=== PATIENT | male | born 1955 | race Caucasian/White ===

== ENCOUNTER → 2019-07-27 12:39 | Outpatient (CLI) | payer MEDICARE, SELFPAY ==
--- NOTE | ~2019-07-27 | CT_ITS ---
EXAMINATION: CT chest abdomen pelvis wo con EXAM DATE: 07/27/2019 13:16 INDICATION: Malignant neoplasm of the ascending colon. Right upper quadrant pain. Restaging. TECHNIQUE: Spiral CT of the chest, abdomen and pelvis was performed without contrast. Axial, henderson l and sagittal images were reviewed. Coronal maximum intensity pixel images of chest reviewed. The dose-length product (DLP) for this examination was 1436.85 mGy-cm. The exposure was tailored accordi ng to patient size (auto mA exposure control), and iterative reconstruction (ASIR) was used as additi onal dose reduction technique. There is no prior study for comparison. FINDINGS: CHEST: There is a left-sided Chemo-Port. There is right middle lobe granuloma. The lungs are otherwi se clear. There is mild emphysema and mild bronchiectasis. There are no pleural or pericardial effus ions. Tracheobronchial tree is patent. There is no mediastinal, hilar or axillary lymphadenopathy . There is no pneumothorax. Heart normal in size. There is moderate coronary arterial calcifica tion, arterial sclerosis. ABDOMEN PELVIS: Again there are several calcified liver masses consistent with treated static lesions . Previously seen diffuse liver heterogeneity has improved, probably was some hepatic steatosis. Gal lbladder is unremarkable. No biliary obstruction. There is no nephrolithiasis or hydronephrosis. T here is mild prostatomegaly. The bladder is unremarkable. There is no retroperitoneal or pelvic lym phadenopathy. There is mild scattered arteriosclerotic disease. Multiple abdominal wall hernias, so me containing nonobstructed bowel not significantly changed compared to prior study. There is a small left inguinal fat-containing hernia. Status post cecal resection. The stomach and small bowel are unremarkable. There is expected amount of colonic stool. No free intraperitoneal gas. There are no osteoblastic or osteolytic lesions i dentified. Mild to moderate thoracolumbar dextroscoliosis. IMPRESSION: 1. Stable liver calcified masses, treated metastases. 2. Multiple ventral hernias containing nonobstructed bowel. 3. Mild emphysema and bronchiectasis. Reviewed, dictated and finalized at location A.
== END ==
PROVIDERS: Visit Provider Internal Medicine Medical Oncology
DX: C18.2 Malignant neoplasm of ascending colon (principal); C78.7 Secondary malignant neoplasm of liver and intrahepatic bile duct; J43.9 Emphysema, unspecified; K43.9 Ventral hernia without obstruction or gangrene
CPT/HCPCS: 71250; 74176

== ENCOUNTER 2020-04-27 09:06 | Outpatient (CLI) | payer MEDICARE, SELFPAY ==
--- NOTE | ~2020-04-27 | CT_ITS ---
EXAMINATION: CT abdomen pelvis w con EXAM DATE: 04/27/2020 09:46 INDICATION: Malignant ascending colonic cancer. TECHNIQUE: Spiral CT of the abdomen and pelvis was performed following intravenous injection of 100 m L Omnipaque 350. Axial, coronal and sagittal images were reviewed. The dose-length product (DLP) fo r this examination was 1514.22 mGy-cm. The exposure was tailored according to patient size (auto mA exposure control), and iterative reconstruction (ASIR) was used as additional dose reduction techniqu e. Comparison is made to prior examination from 07/27/2019. FINDINGS: Calcified right liver lobe mass posterior medially measuring about 4 cm maximally, and a 5 mm right liver dome calcification, both unchanged and could be treated metastatic disease. No new octavia er lesions identified. Gallbladder is unremarkable. No biliary obstruction. Portal and splenic vein s are patent. Kidneys enhance symmetrically. There is no hydronephrosis. There is mild prostatomeg gaurang. The bladder is unremarkable. There is no retroperitoneal or pelvic lymphadenopathy. Multiple large abdominal wall hernias containing multiple loops of small bowel, and portion of the transverse colon. Ascending colonic resection. The stomach and small bowel are unremarkable. There is expected amount of colonic stool. No free intraperitoneal gas. The heart is normal in size. There are no perica rdial or pleural effusions. The lung bases are unremarkable. There is mild to moderate thoracic dex troscoliosis, thoracolumbar levoscoliosis. IMPRESSION: 1. Stable CT abdomen pelvis exam. 2. Large abdominal wall hernias containing nonobstructed bowel. 3. Mild prostatomegaly. Reviewed, dictated and finalized at location B. MIXER
[2020-04-27 09:41] LABS: Estimated Glomerular Filt Rate > 60
== END 2020-04-27 09:07 | disposition home or self-care (01) ==
LOC: ANHIMG 09:11
PROVIDERS: PCP Family Medicine; Visit Provider Internal Medicine Medical Oncology
DX: C18.2 Malignant neoplasm of ascending colon (principal); C78.7 Secondary malignant neoplasm of liver and intrahepatic bile duct; N40.0 Benign prostatic hyperplasia without lower urinary tract symptoms; K44.9 Diaphragmatic hernia without obstruction or gangrene
CPT/HCPCS: 74177; Q9967

== ENCOUNTER 2020-07-20 08:08 | Outpatient (CLI) | payer MEDICARE, SELFPAY ==
--- NOTE | ~2020-07-20 | CT_ITS ---
EXAMINATION: CT abdomen pelvis wo con DATE: 07/20/2020 08:23 INDICATION: Malignant neoplasm of ascending colon. Liver metastases. TECHNIQUE: Computed tomography (CT) of the abdomen and pelvis was performed without intravenous contr ast. Automated exposure control and iterative reconstruction technique were employed. The dose-length product was 1426.52 mGy-cm. COMPARISON: CT abdomen and pelvis 04/27/2020, 05/12/2015 FINDINGS: The visualized portions of the lung bases demonstrate mild atelectasis in the left. There i s mild bronchiectasis bilaterally. No pleural effusion. The heart size is normal. There are coronary artery calcifications. No pericardial effusion. There are 3 hyperdense masses in the liver measuring up to 4.0 x 3.4 cm. The other hyperdense masses measure 7 mm and 5 mm, respectively. The gallbladder is distended, likely secondary to fasting. The spleen, pancreas, and adrenal glands are normal. There is a 3 mm stone in right kidney. There is a 4 mm stone in left kidney. There are multiple ventral he rnias containing nonobstructed small bowel and transverse colon. There is a left inguinal hernia cont aining fat. The prostate is moderately enlarged. There are changes of right hemicolectomy. There are no dilated loops of bowel. There are no pathologically enlarged lymph nodes. There is no free intrape ritoneal fluid. There is moderate lumbar spondylosis. Thoracolumbar levoscoliosis is noted. There is a hemangioma in L4 vertebral body. IMPRESSION: 1. Three stable hyperdense liver masses, consistent with metastatic disease with changes of chemoembo lization. 2. Multiple ventral hernias containing nonobstructed bowel. Reviewed, dictated and finalized at location A. IMPRESSION: 1. Three stable hyperdense liver masses, consistent with metastatic disease wit h changes of chemoembolization. 2. Multiple ventral hernias containing nonobstructed bowel.
== END 2020-07-20 08:09 | disposition home or self-care (01) ==
PROVIDERS: PCP Family Medicine; Visit Provider Internal Medicine Medical Oncology
DX: C18.2 Malignant neoplasm of ascending colon (principal); C78.7 Secondary malignant neoplasm of liver and intrahepatic bile duct; K43.9 Ventral hernia without obstruction or gangrene
CPT/HCPCS: 74176

== ENCOUNTER 2020-10-12 08:51 | Outpatient (CLI) | payer MEDICARE, SELFPAY ==
--- NOTE | ~2020-10-12 | CT_ITS ---
EXAMINATION: CT abdomen pelvis wo con DATE: 10/12/2020 09:15 INDICATION: Restaging metastatic colon cancer. Anterior and medial right abdominal pain. TECHNIQUE: Computed tomography (CT) of the abdomen and pelvis was performed without intravenous contr ast. Automated exposure control and iterative reconstruction technique were employed. The dose-length product was 1443.09 mGy-cm. COMPARISON: 07/20/2020, 07/27/2019 and 05/12/2015 FINDINGS: Unchanged mild discoid atelectasis/scarring in the lingula and bilateral lower lobes. Heart size is n ormal. Atherosclerotic coronary artery calcifications. No pericardial or pleural effusion. No signifi cant change in a 4.2 x 3.1 cm mass in the posterior right hepatic lobe and smaller 8 mm nodule also t he right hepatic lobe, both with high attenuation material which could represent either calcification or chemoembolization material for reported metastatic disease. A couple additional small foci of hig h attenuation material in the left hepatic lobe at the junction of segments 4A and 4B measuring 5 mm and 3 mm lesions. All remain unchanged since the most recent studies and significantly smaller hypode nse mass at these locations seen on CT dated 05/12/2015 consistent with treated metastatic disease. No new hepatic lesions identified. Gallbladder, pancreas and bilateral adrenal glands are normal. Coupl e tiny splenic calcification is consistent with old granulomatous disease. A couple nonobstructing re nal stones measuring 3 mm the lower pole of the left kidney and 2 mm to lower pole of the right kidne y. Postoperative change of prior right hemicolectomy with ileocolic anastomosis in the right abdomen and multiple surgical clips along the anterior right pararenal space. Surgical scarring and multiple ventral hernias,. The smaller containing fat and at least 4 larger hernias containing loops of nonobs tructed small bowel and transverse colon without associated bowel wall thickening, fluid or inflammat ory stranding to suggest incarceration. Small fat-containing left inguinal hernia. Bladder is normal. Prostatomegaly. No free intraperitoneal gas or fluid. No pathologically enlarged abdominal or pelvic lymphadenopathy. Moderate lumbar and lower thoracic spondylosis. Unchanged L4 hemangioma Mild to mod erate bilateral hip osteoarthritis. IMPRESSION: 1. No interval change in 4 hepatic lesions with hyperdense material consistent with treated metastati c disease with either secondary dystrophic calcification or chemoembolization material. No lesion vladimir picious for progressive metastatic disease. 2. Multiple ventral hernias containing nonobstructed bowel. 3. Prostatomegaly. 4. Bilateral nonobstructing nephrolithiasis. Reviewed, dictated and finalized at location A. IMPRESSION: 1. No interval change in 4 hepatic lesions with hyperdense material consistent with treated metastatic disease with either secondary dystrophic calcification or chemoembolization material. No lesion suspicious for progressive metastatic disease. 2. Multiple ventral hernias containing nonobstructed bowel. 3. Prostatomegaly. 4. Bilateral nonobstructing nephrolithiasis.
== END 2020-10-12 08:52 | disposition home or self-care (01) ==
LOC: ANHIMG 08:56
PROVIDERS: PCP Family Medicine; Visit Provider Internal Medicine Medical Oncology
DX: C18.2 Malignant neoplasm of ascending colon (principal); C78.7 Secondary malignant neoplasm of liver and intrahepatic bile duct; N20.0 Calculus of kidney; N40.0 Benign prostatic hyperplasia without lower urinary tract symptoms; K43.9 Ventral hernia without obstruction or gangrene
CPT/HCPCS: 74176

== ENCOUNTER 2021-01-04 08:30 | Outpatient (CLI) | payer MEDICARE, SELFPAY ==
--- NOTE | ~2021-01-04 | CT_ITS ---
EXAMINATION: CT chest abdomen pelvis wo con EXAM DATE: 01/04/2021 09:13 INDICATION: Ascending colon cancer. Liver metastatic disease. TECHNIQUE: Spiral CT of the chest, abdomen and pelvis was performed without contrast. Axial, henderson l and sagittal images chest, abdomen and pelvis were reviewed. Coronal maximum intensity pixel image s of chest reviewed. The dose-length product (DLP) for this examination was 1798.32 mGy-cm. The exp osure was tailored according to patient size (auto mA exposure control), and iterative reconstruction (ASIR) was used as additional dose reduction technique. Comparison is made to prior examination from 10/12/2020. FINDINGS: CHEST: Right upper lobe 1 cm calcified granuloma. The lungs are otherwise clear. There are no pleu ral or pericardial effusions. Tracheobronchial tree is patent. There is no mediastinal, hilar or axillary lymphadenopathy. There is no pneumothorax. Heart normal in size. Moderate coronary art erial sclerosis. Possible stones. There is left-sided Chemo-Port. ABDOMEN PELVIS: Several regions of liver calcification consistent with treated metastatic disease unc hanged. Pancreas, spleen, adrenal glands are unremarkable. Gallbladder is unremarkable. No biliary obstruction. There is 2 mm right inferior calyceal stone and 1 mm left inferior calyceal stone. No h ydronephrosis. Mild prostatomegaly. Small left inguinal fat-containing hernia. The bladder is unrem arkable. There is no retroperitoneal or pelvic lymphadenopathy. There is mild scattered arterioscl erotic disease. Status post right hemicolectomy. Multiple ventral hernias containing small and large bowel without ob struction. The stomach and small bowel are unremarkable. There is expected amount of colonic stool. No free intraperitoneal gas. There are no osteoblastic or osteolytic lesions identified. There i s moderate lower thoracic dextroscoliosis. IMPRESSION: 1. Stable liver lesions consistent with treated metastatic disease. 2. Large ventral hernias containing nonobstructed bowel. 3. Mild prostatomegaly. 4. Nephrolithiasis. Reviewed, dictated and finalized at location B.
== END 2021-01-04 08:31 | disposition home or self-care (01) ==
LOC: ANHIMG 08:35
PROVIDERS: PCP Family Medicine; Visit Provider Internal Medicine Medical Oncology
DX: C18.2 Malignant neoplasm of ascending colon (principal); N20.0 Calculus of kidney; N40.0 Benign prostatic hyperplasia without lower urinary tract symptoms; K43.9 Ventral hernia without obstruction or gangrene
CPT/HCPCS: 71250; 74176

== ENCOUNTER → 2021-11-02 09:50 | Outpatient (CLI) | payer MEDICARE, SELFPAY ==
--- NOTE | ~2021-11-02 | CT_ITS ---
EXAMINATION: CT chest abdomen pelvis w con DATE: 11/02/2021 11:01 INDICATION: Restaging of malignant metastatic ascending colon neoplasm TECHNIQUE: Computed tomography (CT) of the chest, abdomen, and pelvis was performed with 100 CC Omnip aque 350 intravenous contrast. Automated exposure control and iterative reconstruction technique were employed. Exam dose: 1464.68 mGy-cm total exam DLP. COMPARISON: 01/04/2021 CT chest abdomen pelvis Serial CT chest abdomen and pelvis imaging dating back to 05/12/2015 FINDINGS: CHEST CT: Prominent calcified granuloma of the middle lobe. Minimal discoid atelectasis or scarring in the lowe r lobes and lingula. No pulmonary infiltrate or consolidation or pulmonary mass lesion is detected. Left Port-A-Cath catheter tip at the very upper aspect right atrium. Normal heart size. Coronary jackie ry calcifications. No thoracic aortic aneurysm or dissection no hilar or mediastinal mass lesion or l ymphadenopathy. No pericardial or pleural effusion. ABDOMEN/PELVIS CT: Stable treated calcified hepatic metastases, unchanged since 01/04/2021. No new or enlarging liver mas s lesion or metastasis is noted. The gallbladder, bile ducts, pancreas and pancreatic duct as well as the spleen and adrenal glands ar e unremarkable. A small nonobstructing calculus of each kidney is demonstrated, present on previous examination. No s uspicious renal mass lesion or ureteral calculus or hydroureteronephrosis. There is prostate enlargement and calcification. The urinary bladder is unremarkable. Status post right colectomy Normal caliber of the abdominal aorta. No intraperitoneal or retroperitoneal or pelvic mass lesion or adenopathy or ascites. Mild fat-containing left inguinal hernia. There are multiple ventral abdominal wall hernias, some containing small bowel, one containing transv erse colon, without strangulation. There is air-fluid levels of the colon within the left parasagitta l ventral abdominal wall hernia sac and proximal to the hernia with decompression distally, suggestin g partial colonic obstruction due to the hernia. No suspicious osteolytic or osteoblastic lesions. IMPRESSION: No interval evidence of recurrence colon cancer or new metastasis since 01/04/2021 Multiple ventral abdominal wall hernias containing small bowel and colon; there may be partial obstru ction of the colon in the left parasagittal ventral abdominal wall hernia Status post right colectomy for colon cancer; stable calcified hepatic metastases Reviewed, dictated and finalized at Location A. Reviewed, dictated and finalized at location B. IMPRESSION: No interval evidence of recurrence colon cancer or new metastasis since 01/04/2021 Multiple ventral abdominal wall hernias containing small bowel and colon; there may be partial obstruction of the colon in the left parasagittal ventral abdom inal wall hernia Status post right colectomy for colon cancer; stable calcified hepatic metastas es
[2021-11-02 10:38] LABS: Estimated Glomerular Filt Rate > 60
== END ==
PROVIDERS: PCP Family Medicine; Visit Provider Internal Medicine Medical Oncology
DX: C18.2 Malignant neoplasm of ascending colon (principal); C78.7 Secondary malignant neoplasm of liver and intrahepatic bile duct; K43.9 Ventral hernia without obstruction or gangrene
CPT/HCPCS: 71260; 74177; Q9967

== ENCOUNTER 2024-06-21 12:48 | Inpatient (IN) | payer MEDICARE, SELFPAY ==
[2024-06-21] VITALS (17 sets, daily range): BP systolic 99–133; BP diastolic 70–98; PULSE 96–108; RESP 18–26; TEMP 36.1–36.6; O2SAT 95–100; BMI 35.2
--- NOTE | ~2024-06-21 | CT_ITS ---
CTA chest PE protocol Ordering provider: Eleno Flores III DO History: 68 years Male with . hemoptysis . Comparison: November 02, 2021 Technique: CT angiogram chest was performed following timed intravenous injection of contrast. Thin s lice axial images and reformatted coronal images were obtained. Three dimensional reformatted images of the chest were also obtained using a [employer] workstation. . Automated exposure control and iterati ve reconstruction technique were employed. The dose-length product was 790.43 mGy-cm. 100 MLO Omnipaq ue 350 was given IV. Findings: PULMONARY ARTERIES: No pulmonary embolus. VISUALIZED THORACIC INLET: Normal. MEDIASTINUM: Aorta/coronary arteries: Mild atheromatous disease. Heart/other: Moderate cardiomegaly. Lymph nodes: No mediastinal or hilar adenopathy. Small prevascular lymph nodes. LUNGS: No pulmonary masses. Pneumonia in the middle lobe and the right lower lobe. Large right pleural effus ion. No pneumothorax. Nodule in the right lower lobe measuring 5 mm. Nodule in the left lower lobe me dially measuring 1.2 cm. 3 months follow-up CT is advised. VISUALIZED UPPER ABDOMEN: Hyperdensity in the gallbladder which may be a stone or sludge. Otherwise, the visualized upper abdomen is normal. MUSCULOSKELETAL: Soft tissues: The superficial soft tissues are normal. Bones: Age appropriate degenerative changes of the spine. Dextroscoliosis. IMPRESSION: 1. Pneumonia in the right middle lobe and lower lobe with large right pleural effusion. 2. No pulmonary embolism. 3. Cardiomegaly 4. Nodule in the right lower lobe measuring 5 mm. 5. Nodule in the left lower lobe measuring 1.[address] follow-up advised. Reviewed, dictated and finalized at location A. IMPRESSION: 1. Pneumonia in the right middle lobe and lower lobe with large right pleural effusion. 2. No pulmonary embolism. 3. Cardiomegaly 4. Nodule in the right lower lobe measuring 5 mm. 5. Nodule in the left lower lobe measuring 1.[address] follow-up advis ed.
--- NOTE | ~2024-06-21 | CT_ITS ---
EXAMINATION: CTA abd aorta runoff DATE: 06/21/2024 22:27 INDICATION: Blue toes. TECHNIQUE: Computed tomographic angiography (CTA) of the abdominal, pelvis, and both lower extremitie s was performed with 150 mL Omnipaque-350 intravenous contrast. Automated exposure control and iterat niki reconstruction technique were employed. The dose-length product was 1767.13 mGy-cm. COMPARISON: CT cap 11/02/2021 FINDINGS: ABDOMINAL AORTA AND ITS BRANCHES: Mild atherosclerotic calcifications. No severe branch vessel stenosis. Moderate bilateral renal arter y origin stenoses. No aneurysm or dissection. PELVIC VASCULATURE: Mild atherosclerotic plaque. No aneurysm. RIGHT LOWER EXTREMITY VASCULATURE: Mild atherosclerotic calcification. Normal branching of the anterior tibial artery which terminates a adolfo the level of the ankle. Nonfilling of the posterior tibial artery. The peroneal artery is patent to the level of the ankle. LEFT LOWER EXTREMITY VASCULATURE: Mild scattered atherosclerotic plaque. Moderate stenosis at the popliteal artery at the level of the knee secondary to noncalcified plaque. The trifurcation is patent. The anterior tibial artery is not visualized shortly after its takeoff. Peroneal flow is seen to just above the level of the ankle. The re is slow posterior tibial artery flow below the level of the ankle. ADDITIONAL FINDINGS: Bilateral gynecomastia. Cardiomegaly. Groundglass and consolidative opacities in the right middle lob e. 1.2 cm left lower lobe nodular opacity. Trace left and moderate right pleural effusions. Distended gallbladder without inflammatory changes. Stable calcified hepatic metastases. Multiple bilateral re nal calculi. 7 mm calcification in the right renal pelvis. 16 mm indeterminate density right midpole lesion. Bilateral renal atrophy. Wide necked infraumbilical ventral hernia containing loops of nonobs tructed small bowel. Scattered diverticuli without diverticulitis. Status post partial colectomy. Pre sacral edema. Irregular soft tissue density along the anterior abdominal wall at the level of the inf raumbilical midline suture. Arthroplasty hardware at the right first MTP joint. IMPRESSION: No arterial aneurysm, dissection, or extravasation. Moderate short segment popliteal stenosis on the left secondary to noncalcified plaque. Nonfilling, likely occluded right posterior tibial artery. Slow flow in the distal right peroneal and anterior tibial veins, no flow detected below the level of the right ankle. The left anterior tibial artery is occluded several centimeters beyond its takeoff. Slow, single vess el flow via the left posterior tibial artery below the level of the ankle. Right middle lobe opacities concerning for pneumonia. Trace left and moderate right pleural effusions. Gallbladder hydrops as can be seen with fasting or obstruction. 16 mm indeterminate density right midpole lesion, consider MRI or CT with and without contrast for fu rther characterization. Irregular, 4.2 cm soft tissue mass at the infraumbilical anterior abdominal wall associated with the prior anterior midline incision and adjacent to a wide necked bowel containing hernia. Reviewed, dictated and finalized at location K. IMPRESSION: No arterial aneurysm, dissection, or extravasation. Moderate short segment popliteal stenosis on the left secondary to noncalcified plaque. Nonfilling, likely occluded right posterior tibial artery. Slow flow in the dis cliff right peroneal and anterior tibial veins, no flow detected below the level of the right ankle. The left anterior tibial artery is occluded several centimeters beyond its take off. Slow, single vessel flow via the left posterior tibial artery below the le vic of the ankle. Right middle lobe opacities concerning for pneumonia. Trace left and moderate right pleural effusions. Gallbladder hydrops as can be seen with fasting or obstruction. 16 mm indeterminate density right midpole lesion, consider MRI or CT with and w ithout contrast for further characterization. Irregular, 4.2 cm soft tissue mass at the infraumbilical anterior abdominal wal l associated with the prior anterior midline incision and adjacent to a wide ne cked bowel containing hernia.
--- NOTE | 2024-06-21 12:57 | ECG_ITS ---
Test Date: 2024-06-21 12:59:15 Measurements Intervals [place] Rate: 108 P: 80 IN: 172 QRS: -66 QRSD: 152 T: 69 QT: 383 QTc: 514 Interpretive Statements SINUS TACHYCARDIA LEFT ATRIAL ENLARGEMENT [-0.15mV P WAVE IN V1/V2] LEFT BUNDLE BRANCH BLOCK No previous ECG available for comparison Electronically Signed On 06-22-2024 14:28:52 CDT by Armando Juarez M.D.
--- NOTE | 2024-06-21 13:21 | ED.SOB ---
HPI - SOB/Dyspnea General Chief Complaint: Shortness of Breath/Dyspnea Stated Complaint: hemoptysis Time Seen by Provider: 06/21/24 13:06 History of Present Illness HPI Narrative: Pt presents with hemoptysis of bright red blood and SOB this morning. Pt has colon cancer and liver cancer hx. Pt feels better now. Pt has history of this but was treated as infectious with antibiotics. Related Data Home Medications ?Medication ?Instructions ?Recorded ?Confirmed ?Last Taken ?Type bevacizumab 25 mg/mL intravenous intravitreal 11/19/21 Unknown History solution (Avastin) capecitabine 500 mg tablet 1,500 mg PO ONCE 11/19/21 Unknown History hydrocodone 5 mg-acetaminophen 325 1 tablet PO Q6H PRN 11/19/21 Unknown History mg tablet lisinopril 20 mg tablet 20 mg PO BID 11/19/21 Unknown History prednisone 20 mg tablet 20 mg PO BID PRN 11/19/21 Unknown History ciprofloxacin 500 mg/5 mL oral 500 mg PO Q12H 04/29/24 Unknown History suspension ketorolac 10 mg tablet 10 mg PO Q8H 04/29/24 Unknown History tamsulosin 0.4 mg capsule 0.4 mg PO DAILY 04/29/24 Unknown History triamcinolone acetonide 0.1 % 1 applic topical BID 04/29/24 Unknown History topical cream Allergies Allergy/AdvReac Type Severity Reaction Status Date / Time No Known Allergies Allergy Verified 06/21/24 12:59 Review of Systems Review of Systems: All systems reviewed & are unremarkable except as noted in HPI and below PMFSH Surgical History Surgical History H/O lithotripsy 2024 Family History Family History Mother Cerebrovascular accident Other Carcinoma of colon Family history of cardiovascular disease Family history of congestive heart failure Social History Social History Smoking status: Never smoker Alcohol intake: never Exam Const: General: healthy appearing and no acute distress Nutritional Appearance: well nourished Orientation/consciousness: patient oriented x3 Limitations: no limitations HENMT: Head: normal to inspection Face/Nose/Sinus: Normal external nose present Mouth: Yes Normal oral and palatal mucosa present Eyes: Conjunctivae: conjunctivae normal EOM: EOMs intact bilaterally Chest: Chest palpation & inspection: normal inspection of the chest Resp: Effort & Inspection: normal respiratory effort Auscultation: clear to auscultation bilaterally Cardio: Rate: regular rate Rhythm: regular rhythm GI: GI Palp: Yes Soft to palpation and No Tenderness to palpation present (GI) Auscultation: normal bowel sounds Skin: General skin exam: normal color Rashes: no rashes Wounds: no wounds Neuro: General: patient oriented x3, moves all extremities, no focal motor deficits and CN's II-XI intact bilaterally Speech: normal speech Extrem: General: normal to inspection and no clubbing, cyanosis or edema Psych: Mental Status: mental status grossly normal Affect: normal affect Attitude: cooperative Course Vital Signs Vital signs: Vital Signs Temperature 97.8 F 06/21/24 12:47 Pulse Rate 108 H 06/21/24 12:47 Respiratory Rate 26 H 06/21/24 12:47 Blood Pressure 103/92 H 06/21/24 12:47 Pulse Oximetry 100 06/21/24 12:47 Oxygen Delivery Room Air 06/21/24 12:47 Temperature 97.8 F 06/21/24 14:11 Pulse Rate 98 06/21/24 15:46 Respiratory Rate 20 06/21/24 15:46 Blood Pressure 99/88 L 06/21/24 15:46 Pulse Oximetry 100 06/21/24 15:46 Oxygen Delivery Room Air 06/21/24 13:14 MDM - SOB/Dyspnea MDM Narrative Medical decision making narrative: Pt presents with hemoptysis of bright red blood. with cancer history some concerns for mets or PE but also could be infectious. will get lbs and CT chest. no PE or tumor. Pneumonia on CT. will give rocephin and zihtromax and admit. wesly foote Funmi agrees to admit. Lab Data 06/21/24 13:15 06/21/24 13:15 Labs: Lab Results 06/21/24 Range/Units 13:15 WBC 10.7 H (4.5-10.0) K/mm3 RBC 5.09 (4.6-6.20) M/mm3 Hgb 16.6 (14.0-18.0) g/dL Hct 51.5 (42.0-52.0) % MCV 101.2 H (80-100) fl MCH 32.6 (26-34) pg MCHC 32.2 (32-36) g/dl RDW 16.5 H (11.5-14.5) % Plt Count 115 L (150-375) k/mm3 MPV 11.5 H (7.4-10.4) fl Immature Gran % (Auto) 0.6 H (0-0.5) % Neut % (Auto) 82.7 H (45.5-73.1) % Lymph % (Auto) 8.3 L (18.3-44.2) % [place] % (Auto) 7.0 (2.6-8.5) % Eos % (Auto) 0.9 (0-4.4) % Baso % (Auto) 0.5 (0.2-1.2) % Lymph # (Auto) 0.89 L (0.9-3.2) K/mm3 [place] # (Auto) 0.8 H (0.1-0.6) K/mm3 Eos # (Auto) 0.1 (0-0.3) K/mm3 Baso # (Auto) 0.1 (0.0-0.1) K/mm3 Abs Immat Gran (auto) 0.06 H (0.00-0.031) K/mm3 Absolute Neuts (auto) 8.9 H (1.3-6.7) K/mm3 Absolute Nucleated RBC 0.020 H (0.0-0.012) K/mm3 Nucleated RBC % 0.2 (0.0-0.2) % % Immature Plt Fraction 8.7 (0.9-11.2) % Sodium 138 (137-145) mmol/L Potassium 4.9 (3.4-5.0) mmol/L Chloride 103 (98-107) mmol/L Carbon Dioxide 16 L (22-30) mmol/L Anion Gap 19 H (4-12) mmol/L BUN 40 H (9-20) mg/dL Creatinine 1.94 H (0.7-1.3) mg/dL Estim Creat Clear Calc 43 ml/min Estimated GFR 34 L (59 - ) Glucose 93 (65-110) mg/dL Calcium 9.1 (8.4-10.2) mg/dL Total Bilirubin 3.1 H (0.2-1.3) mg/dL AST 41 (17-59) U/L ALT 39 (6-50) U/L Alkaline Phosphatase 222 H (38-126) U/L Total Protein 7.0 (6.3-8.2) g/dL Albumin 4.0 (3.5-5.1) g/dL Discharge Plan Discharge Clinical Impression: Pneumonia Patient Disposition: Still a Patient Condition: Stable Patient Language: Citizen Of [place] Prescriptions: No Action hydrocodone-acetaminophen 5-325 mg tablet 1 tablet PO Q6H PRN Avastin 25 mg/mL solution intravitreal capecitabine 500 mg tablet 1,500 mg PO ONCE Rx Instructions: take for 7 days on and then 7 days off lisinopril 20 mg tablet 20 mg PO BID prednisone 20 mg tablet 20 mg PO BID PRN ketorolac 10 mg tablet 10 mg PO Q8H Rx Instructions: maximum total duration of 5 days from all oral, intranasal, or parenteral formulations ciprofloxacin 500 mg/5 mL suspension,microcapsule recon 500 mg PO Q12H triamcinolone acetonide 0.1 % cream 1 applic topical BID tamsulosin 0.4 mg capsule 0.4 mg PO DAILY Follow-up/Referrals: Juan Carpio MD [Primary Care Provider] -
[2024-06-21 13:24] LABS: Basophils Absolute Auto 0.1 K/mm3 (0.0-0.1); Basophils Percent Auto 0.5 % (0.2-1.2); Eosinophils Absolute Auto 0.1 K/mm3 (0-0.3); Eosinophils Percent Auto 0.9 % (0-4.4); Hematocrit 51.5 % (42.0-52.0); Hemoglobin 16.6 g/dL (14.0-18.0); Immature Granulocyte Absolute 0.06 K/mm3 (0.00-0.031); Immature Granulocyte Percent A 0.6 % (0-0.5); Immature Platelet Fraction Pct 8.7 % (0.9-11.2); Lymphocytes Absolute Auto 0.89 K/mm3 (0.9-3.2); Lymphocytes Percent Auto 8.3 % (18.3-44.2); Mean Corpuscular HGB Conc 32.2 g/dl (32-36); Mean Corpuscular Hemoglobin 32.6 pg (26-34); Mean Corpuscular Volume 101.2 fl (80-100); Mean Platelet Volume 11.5 fl (7.4-10.4); Monocytes Absolute Auto 0.8 K/mm3 (0.1-0.6); Neutrophils Absolute Auto 8.9 K/mm3 (1.3-6.7); Neutrophils Percent Auto 82.7 % (45.5-73.1); Nucleated Red Blood Cells Perc 0.2 % (0.0-0.2); Platelet Count Result 115 k/mm3 (150-375); Red Blood Count 5.09 M/mm3 (4.6-6.20); Red Cell Distribution Width 16.5 % (11.5-14.5); White Blood Count 10.7 K/mm3 (4.5-10.0)
[2024-06-21 13:37] LABS: Alanine Aminotransferase 39 U/L (6-50); Alkaline Phosphatase 222 U/L (38-126); Anion Gap 19 mmol/L (4-12); Aspartate Amino Transferase 41 U/L (17-59); Bilirubin,Total 3.1 mg/dL (0.2-1.3); Blood Urea Nitrogen 40 mg/dL (9-20); Calcium 9.1 mg/dL (8.4-10.2); Carbon Dioxide 16 mmol/L (22-30); Chloride 103 mmol/L (98-107); Estimated CRCL calculation 43 ml/min; Estimated Glomerular Filt Rate 34; Glucose 93 mg/dL (65-110); Potassium 4.9 mmol/L (3.4-5.0); Sodium 138 mmol/L (137-145)
[2024-06-21] MEDS: HYDROcodone/acetaminophen (*CRX) 5-325 MG TABLET 1 TAB PO (14:09)
--- NOTE | 2024-06-21 14:09 | PC.NURSE ---
Pt c/o bilateral foot pain from my neuropathy refusing to stand for CTA. Pt medicated per orders, Dr. Flores aware. Noted bilateral feet cool to touch, non tender, pulses palp & blueish color to plantar side of both feet.
--- OUTSIDE RECORDS SUMMARY | 2024-06-21 16:43 | XMS_ITS | Encounter Summary ---
Author Organization [facility] Address [address] [place] [address] Phone Care Team Providers Care High School Hvac R Instructor Name Role Phone Bucky Hodgson DO Unavailable [phone] Juan Carpio MD Primary Care Provider [phone] Kelby Castro MD Unavailable [phone] Encounter Details Date Type Department Care Team (Late st Contact Info) Description 06/21/2024 Telephone [facility] Oncology [address] [place] [address] Zuly Oelary RN Social History Tobacco Use Types Packs/Day Years Used Date Smoking Tobacco: Never Smokeless Tobacco: Never Alcohol Use Standard Drinks/Week Comments No 0 (1 standard drink = 0.6 oz pur e alcohol) [facility] Utilities Answer Date Recorded In the past 12 months has [employer], gas, oil, or water [employer] threatened to shut off services in your home? No 04/13/2024 Social Connection and Isolat ion Panel [NHANES] Answer Date Recorded In a typical week, how many times do you talk on the phone with family, friends, or neighbors? More than three times a week 04/13/2024 How often do you get togethe r with friends or relatives? More than three times a week 04/13/2024 How often do you attend chur ch or advent services? 1 to 4 times per year 04/13/2024 Do you belong to any clubs o r organizations such as quaker groups, unions, fraternal or athletic groups, or school groups? No 04/13/2024 How often do you attend meet ings of the clubs or organizations you belong to? Never 04/13/2024 Are you , , di vorced, , never , or living with a partner? Never 04/13/2024 AUDIT-C Answer Date Recorded Q1: How often do you have a drink containing alcohol? Never 04/15/2024 Q2: How many drinks containi ng alcohol do you have on a typical day when you are drinking? Patient does not drink Q3: How often do you have si x or more drinks on one occasion? Never 04/15/2024 Overall Financial Resource Strain (CARDIA) Answe r Date Recorded How hard is it for you to pa y for the very basics like food, housing, medical care, and heating? Not hard at all 04/13/2024 Hunger Vital Sign Answer Date Recorded Within the past 12 months, y ou worried that your food would run out before you got the money to buy more. Never true 04/13/20 24 Within the past 12 months, t he food you bought just didn't last and you didn't have money to get more. Never true 04/13/2024 PRAPARE - Transportation Answer Date Re corded In the past 12 months, has l ack of transportation kept you from medical appointments or from getting medications? No 03/16 In the past 12 months, has l ack of transportation kept you from meetings, work, or from getting things needed for daily living? No 04/13/2024 Housing Stability Vital Sign Answer [place]arg[place] e Recorded In the last 12 months, was t here a time when you were not able to pay the mortgage or rent on time? No 04/13/2024 In the past 12 months, how m any times have you moved where you were living? 0 04/13/2024 At any time in the past 12 m [facility], were you homeless or living in a chcf (including now)? No 04/13/2024 Personal Safety Answer Date Recorded Have you ever been in or are you currently in a harmful physical or emotional relationship or is someone making you feel afraid or unsafe? Denies 04/16/2024 Sex and Gender Information Value Date Recorded Sex Assigned at Not on file Legal Sex Male 11:18 AM CERTIFIED MEDICAL AIDE Gender Identity Male 09/22/2017 10:06 AM CDT Sexual Orientation Not on file documented as of this encounter Miscellaneous Notes * Telephone Encounter - Zuly Oleary RN - 06/21/2024 8:51 AM CDT [facility] Nursing Call Note Intervention(s)/Actions: * patient left message on Friday needing return call Spoke with patient and he has had shortness of breath for the past 6 weeks and he does not feel like he is improving Patient was assessed by Dr. Hodgson on 06/16/24 at follow-up with CXR, IVF 1L NS and Dexamethasone 10 mg IV Patient now has new symptoms of blood streaked sputum starting on Friday and progressed to brightread blood today He has very dry mouth with blisters and has not been eating, he did state he was drinking ok CALLER ADVISED: to proceed to ED and if he is unable to safely transport himself by car he should call EMS Caller verbalized an understanding of information presented: Yes documented in this encounter Plan of Treatment Not on file documented as of this encounter Visit Diagnoses Not on filedocumented in this encounter Care Teams High [employer] Hvac R Instructor Relationship Specialty Start Date End Date Juan Carpio MD [address] [place] [id number] PCP - General Family Medicine 06/15/20 Bucky Hodgson DO [address] [place] [address] Medical Oncologist/Grind Operator Hematology and Oncology 11/21/17 Kelby Castro MD [address] [place] [address] Radiation Oncologist Radiation Oncology 06/18/21 documented as of this encounter
--- OUTSIDE RECORDS SUMMARY | 2024-06-21 16:43 | XMS_ITS | Encounter Summary ---
Author Organization [facility] Address [address] [place] [address] Phone Care Team Providers Care Developmental Services Worker Name Role Phone Bucky Hodgson DO Unavailable Juan Carpio MD Primary Care Provider [phone] Kelby Castro MD Unavailable Encounter Details Date Type Department Care Team (Late st Contact Info) Description 06/20/2024 Telephone [facility] Oncology [address] [place] [id number] Marlena Sen, RN Social History Tobacco Use Types Packs/Day Years Used Date Smoking Tobacco: Never Smokeless Tobacco: Never Alcohol Use Standard Drinks/Week Comments No 0 (1 standard drink = 0.6 oz pur e alcohol) [facility] Utilities Answer Date Recorded In the past 12 months has [employer], gas, oil, or water company threatened to shut off services in your [...] 04/13/2024 How often do you attend chur or congregational services? 1 to 4 times per year 04/13/2024 Do you belong to any clubs o r organizations such as anabaptism groups, unions, fraternal or athletic groups, or [...] any time in the past 12 m [facility], were you homeless or living in a long-term (including now)? No 04/13/2024 Personal Safety Answer Date Recorded Have you ever been in or are you currently in a harmful physical or emotional relationship or is someone making you feel afraid or unsafe? 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 Patient has had the SOB for 6 weeksand is not any worse. Recommendation: Follow up the Dr. Hodgson's office on Friday morning. Primary oncologist team updated via [place]. Marlena Sen RN documented in this encounter Plan of Treatment Not on file documented as of this encounter Visit Diagnoses Not on filedocumented in this encounter Care Teams Developmental Services Worker Relationship Specialty Start Date End Date Juan Carpio MD [address] [place] [address] PCP - General Family Medicine 06/15/20 Bucky Hodgson DO [address] [place] [address] Medical Oncologist/Block Sorter Hematology and Oncology 11/21/17 Kelby Castro MD [address] [place] [address] Radiation Oncologist Radiation Oncology 06/18/21 documented as of this encounter
--- OUTSIDE RECORDS SUMMARY | 2024-06-21 16:44 | XMS_ITS ---
Author Organization [facility] Address [address] [place] [address] Phone Care Team Providers Care Band Leader Name Role Phone Bucky Hodgson DO Unavailable [phone] Juan Carpio MD Primary Care Provider [phone] Kelby Castro MD Unavailable [phone] Active Problems Problem Noted Date Diagnosed Date Nausea 04/28/2024 Flank pain 04/13/2024 History of colon cancer 04/13/2024 Hydronephrosis 04/13/2024 Acute renal insufficiency 04/12/2024 Kidney stone 04/12/2024 Platelets decreased 11/18/2023 Dehydration 01/30/2023 Moderate malnutrition 05/28/2022 Malignant neoplasm metastatic to right lung 11/2022 Overview (05/22/2022): Seen on 05/13/22 CT chest abd pelvis, not seen on 11/02/2021 CT chest abd pelvis Small bowel obstruction 05/21/2022 BMI 37.0-37.9, adult 05/21/2022 Postoperative intra-abdominal abscess 12/01/2021 Bowel perforation 11/03/2021 Morbid obesity 11/03/2021 Primary hypertension 11/03/2021 Malignant neoplasm metastatic to liver 9 Encounter for management of implanted device 01/2019 Malignant neoplasm of ascending colon 09/03/2017 Cancer Staging:Clinical stage from 09/13/2013:Stage IVB(cT4b, cN2a, pM1b) - Signed by Bucky Hodgson DO on 09/24/2018 Carpal tunnel syndrome 06/01/2012 Bowel obstruction JILL (acute kidney injury) Intra-abdominal abscess Hyponatremia Nephrolithiasis Current Treatment and Therapy Plans Capecitabine / Bevacizumab 21 Day Cycles - GI* Plan Start Date:06/10/2018 Plan Provider:Bucky Hodgson DO Linked Problems Malignant neoplasm of ascend ing colon (HCC) Treatment Medications Current Day (Day 1 , Cycle 87 - Planned for 07/07/2024) Next Day (Day 1, Cycle 88 - Planned for 07/28/2024) bevacizumab (AVASTIN)bevacizumab (AVASTIN) IVPBcapecitabine (XELODA) bevacizumab (AVASTIN) 875 mg in sodium chloride 0.9% 100 mL IVPBcapecitabine (XELODA) 500 mg tablet bevacizumab (AVASTIN) 875 mg in sodium chloride 0.9% 100 mL IVPBcapecitabine (XELODA) 500 mg tablet Hydration Therapy Plan* Plan Start Date:06/16/2024 Plan Provider:Bucky Hodgson DO Linked Problems DehydrationMalignant neoplas m of ascending colon (HCC)Nausea Treatment Medications No medications scheduled. Other Current Plans IV MAINTENANCE THERAPY PLAN & ALTEPLASE (CATHFLO ACTIVASE) - ORDERS FOR OCCLUDED CATHETERS* Plan Start Date:07/23/2018 Plan Provider:Bucky Hodgson DO Linked Problems Encounter for management of implanted device Treatment Medications No medications scheduled. Past Treatment and Therapy Plans Oncology Chemotherapy Treatment Plan Name Start Date Discontinue Date Treatment Medications Discontinue Reason Plan Provider Cycles Fluorouracil / Leucovorin / Bevacizumab 21 Day Cycles - Colon/Rectum 09/23/19 18 06/08/2018 bevacizumab (AVASTIN)bevacizum ab (AVASTIN) IVPBfluorouracil (ADRUCIL)leucovori nleucovorin IVPB in 250 mL Progression Bucky Hodgson DO 11 of 12 cycles started Oncology Supportive Care Plan Name Start Date Discontinue Date Treatment Medications Discontinue Reason Plan Provider Hydration Therapy Plan 04/28/2024 05/18/2024 No medications scheduled. Therapy Complete Bucky Hodgson DO Hydration Therapy Plan 02/19/2023 04/18/2023 No medications scheduled. Therapy Complete Bucky Hodgson DO Hydration Therapy Plan 01/30/2023 02/18/2023 No medications scheduled. Therapy Complete Bucky Hodgson, Pre-radiation treatment pain 07/04/2021 07/24/2021 No medications scheduled. Therapy Complete Bucky Hodgson, IV MAINTENANCE THERAPY PLAN 07/04/2021 08/06/2018 No medications scheduled. Therapy Complete Bucky Hodgson, DO Specialty Infusion Treatment Plan Name Start Date Discontinue Date Treatment Medications Discontinue Reason Plan Provider IV MAINTENANCE THERAPY PLAN 09/22/2017 08/06/2018 No medications scheduled. Protocol Amendment/Bucky Parra DO Radiation Treatments * Course [id number] 05/24/2024 - 06/04/2024 Treatment Period Energy Fraction Dose Fractions Total Dose Plans Planned LT ABD WALL 05/24/2024 - 06/04/2024 300 10 / 3,000 Reference Points Delivered PTV_3000 05/24/2024 - 06/04/2024 3,000 * Course [id number]_CW_202107/09/2021 - 05/21/2024 Treatment Period Energy Fraction Dose Fractions Total Dose Plans Planned RIGHT CW 07/09/2021 - 05/21/2024 700 5 / 3,500 Reference Points Delivered PTV 07/09/2021 - 05/21/2024 3,500 Lifetime Dose Tracking * Chemical Lifetime Dose Automatic Entry Manual Entr y Fluoro Time 0.127 minutes 0.127 minutes 0 minutes Air kerma at the reference point (Ka,r) 6.28 mGy 6 .28 mGy 0 mGy DLP 2,654 mGycm 2,654 mGycm 0 mGycm
--- OUTSIDE RECORDS SUMMARY | 2024-06-21 16:44 | XMS_ITS | Clinical Summary ---
Author Organization [facility] Address [address] [place] [address] Phone Care Team Providers Care Shotblast Equipment Operator Name Role Phone Unavailable Primary Care Provider Unavailabl e Allergies Active Allergy Reactions Criticality Noted Date Comments Naproxen Swelling Low 08/03/2012 Medications aspirin (DIANA) 325 mg Oral tablet Take 325 mg by mouth daily. Active POTASSIUM ORAL Take by mouth. Active Active Problems No known active problems Family History Medical History Relation Name Comments Heart Failure Father Cancer Paternal Grandmother Asthma Neg Hx Bronchitis Neg Hx Diabetes Neg Hx Emphysema Neg Hx Hypertension Neg Hx Lung Cancer Neg Hx Mesothelioma Neg Hx Tuberculosis Neg Hx Relation Name Status Comments Father Paternal Grandmother Social History Tobacco Use Types Packs/Day Years Used Date Smoking Tobacco: Never Alcohol Use Standard Drinks/Week Comments Not Asked 0 (1 standard drink = 0.6 oz pur e alcohol) Sex and Gender Information Value Date Recorded Sex Assigned at Not on file Legal Sex Male 2:08 PM CDT Gender Identity Not on file Sexual Orientation Not on file Last Filed Vital Signs Vital Sign Reading Time Taken Comments Blood Pressure 126/60 08/03/2012 10:51 AM CDT Pulse 95 08/03/2012 10:51 AM CDT Temperature - - Respiratory Rate 16 08/03/2012 10:51 AM CDT Oxygen Saturation 97% 08/03/2012 10:51 AM CDT RA Inhaled Oxygen Concentration - - Weight 130.2 kg (287 lb) 08/03/2012 10:51 AM CDT Height 188 cm (6' 2 ) 08/03/2012 10:51 AM CDT Body Mass Index 36.85 08/03/2012 10:51 AM CDT Plan of Treatment Health Maintenance Due Date Last Done Comments DTAP/TDAP/TD VACCINES (1 - Tdap) 1972 COLORECTAL SCREENING 1998 Colorectal Cancer Screening 1998 FIT-DNA Q 3 years 1998 FIT/FOBT Q 1 year 1998 Flex Sig/CT Colonography Q 5 years 1998 PNEUMOCOCCAL VACCINE 50+ YEARS (1 of 1 - PCV) 12/05/19 04 ZOSTER VACCINE (1 of 2) 12/05/2003 INFLUENZA VACCINE (#1) 2023 RSV VACCINE (60+ or ) (1 - 1-dose 75+ series) 2028
--- OUTSIDE RECORDS SUMMARY | 2024-06-21 16:44 | XMS_ITS | Clinical Summary ---
Author Organization [facility] Address [address] [place] [address] Care Team Providers Care Health Promoter Name Role Phone Vishnu Arango MD Primary Care Provider [phone] Social History Tobacco Use Types Packs/Day Years Used Date Smoking Tobacco: Never Assessed Sex and Gender Information Value Date Recorded Sex Assigned at Not on file Legal Sex Male 7:44 PM CDT Gender Identity Not on file Sexual Orientation Not on file Plan of Treatment Health Maintenance Due Date Last Done Comments Colorectal Cancer Screening Colonoscopy (10 Years) 1955 Hepatitis C 12/05/1971 DTaP, Tdap and Td Vaccines ( 1 - Tdap) 1972 Zoster Vaccines (1 of 2) 12/05/2003 Pneumococcal Vaccine: 65+ Ye ars (1 of 1 - PCV) 2018 COVID-19 Vaccine (1 - 2023-2 5 season) 2023 Influenza Adult (#1) 2024 03/18/2015 RSV Immunization or 60+ Years (1 - 1-dose 75+ series) 2028 Meningococcal B Vaccine Aged Out No l onger eligible based on patient's age to complete this topic Meningococcal Vaccine Aged Out No dipika bety eligible based on patient's age to complete this topic RSV Immunizations Under 20 Months Aged Out No longer eligible based on patient's age to complete this topic Care Teams Health Promoter Relationship Specialty Start Date End Date Vishnu Arango MD PCP - General 06/22/15
--- OUTSIDE RECORDS SUMMARY | 2024-06-21 16:44 | XMS_ITS | Clinical Summary ---
Author Organization [facility] Address [address] [place] [address] Phone Care Team Providers Care Hotel Attendant Name Role Phone Bucky Hodgson DO Unavailable [phone] Juan Carpio MD Primary Care Provider [phone] Kelby Castro MD Unavailable [phone] Allergies No known active allergies Medications ketorolac (TORADOL) 10 mg tablet Take 1 tablet (10 mg total) by mouth every 6 (six) hours as needed for pain 20 tablet 04/08/20 24 Active tamsulosin (FLOMAX) 0.4 mg extended release capsule Take 1 capsule (0.4 mg total) by mouth daily 10 capsule 04/08/20 24 Active tamsulosin (FLOMAX) 0.4 mg extended release capsuleIndicati ons:Benign prostatic hyperplasia, unspecified whether lower urinary tract symptoms present Take 1 capsule (0.4 mg total) by mouth daily 30 capsule 2 04/22/19 25 025 Active triamcinolone (KENALOG) 0.1 % cream Apply topically 2 (two) times a day To rash to abd/leg 30 g 04/27/19 25 Active predniSONE (DELTASONE) 10 mg tablet TAKE 1 TABLET (10 MG) BY MOUTH DAILY. 30 tablet 2 05/06/19 25 Active HYDROcodone-tita taminophen (NORCO) 5-325 mg per tabletIndicatio ns:Pain Take 1-2 tablets by mouth every 6 (six) hours as needed for pain 60 tablet 05/07/19 25 Active ondansetron (ZOFRAN) 4 mg tablet Take 1 tablet (4 mg total) by mouth every 8 (eight) hours as needed for nausea or vomiting (prior to radiation treatments and as needed for nausea) 20 tablet 05/28/19 25 Active LISINOPRIL ORAL Take 20 mg by mouth daily 025 Discontinued capecitabine (XELODA) 500 mg tabletIndicatio ns:Malignant neoplasm of ascending colon (HCC),Malignant neoplasm metastatic to liver (HCC) Take 4 tablets (2000 MG) BY MOUTH TWICE A DAY. 7 DAYS ON 7 DAYS OFF 112 tablet 3 01/13/20 24 025 Discontinued Active Problems Problem Noted Date Diagnosed Date [...] (acute kidney injury) Intra-abdominal abscess Hyponatremia Nephrolithiasis Encounters Date Type Department Care Team Description 06/21/2024 Telephone [facility] Oncology [address] [place] [phone] Zuly Oleary RN 06/20/2024 Telephone [facility] Oncology [address] [place] [address] Marlena Sen RN 06/16/2024 11:00 AM TEAM LEAD Infusion [facility] at [address] [phone] Dehydration (Primary Dx); Malignant neoplasm of ascending colon (HCC); Malignant neoplasm metastatic to right lung (HCC); Nausea 06/16/2024 9:54 AM TEAM LEAD - 06/16/2024 11:59 PM TEAM LEAD Hospital Encounter [facility] MOB 1 DIAG IMG [address] [place] [phone] Malignant neoplasm of ascending colon (HCC); Malignant neoplasm metastatic to right lung (HCC); Shortness of breath Discharge Disposition: Discharge to home or self care 06/16/2024 8:30 AM TEAM LEAD Office Visit [facility] Oncology [address] [place] [phone] Bucky Hodgson DO Malignant neoplasm of ascending colon (HCC) (Primary Dx); Malignant neoplasm metastatic to right lung (HCC); Malignant neoplasm metastatic to liver (HCC); Shortness of breath 06/16/2024 8:00 AM TEAM LEAD Clinical Support [facility] at [address] [phone] Malignant neoplasm of ascending colon (HCC); Malignant neoplasm metastatic to liver (HCC); Shortness of breath 06/15/2024 Orders Only [facility] Oncology [address] [place] [phone] Bucky Hodgson DO 06/04/2024 9:45 AM TEAM LEAD Treatment [facility] Medical Office Building 2 Radiation Oncology [address] [place] [address] Kelby Castro MD 06/04/2024 Completion of Therapy [facility] Medical Office Building 2 Radiation Oncology [address] [place] [phone] Kelby Castro MD 06/04/2024 [facility] Medical Office Building 2 Radiation Oncology [address] [place] [phone] Kelby Castro MD 06/04/2024 Orders Only RAD ONC TREATMENTS Miscellaneous, Not In File 06/03/2024 9:45 AM [facility] Medical Office Building 2 Radiation Oncology [address] [place] [phone] 06/03/2024 Orders Only RAD ONC TREATMENTS Miscellaneous, Not In File 06/02/2024 9:45 AM [facility] Medical Office Building 2 Radiation Oncology [address] [place] [phone] 06/02/2024 Orders Only RAD ONC TREATMENTS Miscellaneous, Not In File 06/01/2024 9:45 AM [facility] Medical Office Building 2 Radiation Oncology [address] [place] [phone] 06/01/2024 Orders Only RAD ONC TREATMENTS Miscellaneous, Not In File 06/01/2024 [facility] Medical Office Building 2 Radiation Oncology [address] [place] [phone] Ruby Poole MD Malignant neoplasm of ascending colon (HCC) (Primary Dx) 05/31/2024 9:45 AM [facility] Medical Office Building 2 Radiation Oncology [address] [place] [address] 05/31/2024 Orders Only RAD ONC TREATMENTS Miscellaneous, Not In File 05/28/2024 9:45 AM [facility] Medical Office Building 2 Radiation Oncology [address] [place] [phone] 05/28/2024 [facility] Medical Office Building 2 Radiation Oncology [address] [place] [address] Kelby Castro MD 05/28/2024 Orders Only RAD ONC TREATMENTS Miscellaneous, Not In File 05/27/2024 10:30 AM [facility] Medical Office Building 2 Radiation Oncology [address] [place] [address] 05/27/2024 Orders Only RAD ONC TREATMENTS Miscellaneous, Not In File 05/26/2024 11:30 AM TEAM LEAD Clinical Support [facility] Medical Office Building 2 Radiation Oncology [address] [place] [address] Malignant neoplasm metastatic to right lung (HCC) (Primary Dx); Malignant neoplasm of ascending colon (HCC); Malignant neoplasm metastatic to liver (HCC) 05/26/2024 11:00 AM TEAM LEAD [facility] at [address] [phone] Dehydration (Primary Dx); Malignant neoplasm of ascending colon (HCC); Malignant neoplasm metastatic to liver (HCC) 05/26/2024 10:30 AM TEAM LEAD Office Visit [facility] Oncology [address] [place] [phone] Bucky Hodgson DO Malignant neoplasm of ascending colon (HCC) (Primary Dx); Malignant neoplasm metastatic to right lung (HCC); Malignant neoplasm metastatic to liver (HCC) 05/26/2024 10:00 AM TEAM LEAD Clinical Support [facility] at [address] [phone] Malignant neoplasm of ascending colon (HCC); Malignant neoplasm metastatic to liver (HCC) 05/26/2024 9:45 AM TEAM LEAD Treatment [facility] Medical Office Building 2 Radiation Oncology [address] [place] [phone] 05/26/2024 Orders Only RAD ONC TREATMENTS Miscellaneous, Not In File 05/25/2024 9:45 AM TEAM LEAD Treatment [facility] Medical Office Building 2 Radiation Oncology [address] [place] [address] 05/25/2024 Orders Only [facility] Oncology [address] [place] [phone] Bucky Hodgson DO 05/25/2024 Orders Only RAD ONC TREATMENTS Miscellaneous, Not In File 05/24/2024 3:15 PM TEAM LEAD Treatment [facility] Medical Office Building 2 Radiation Oncology [address] [place] [phone] Kelby Castro MD 05/24/2024 3:00 PM TEAM LEAD Treatment [facility] Medical Office Building 2 Radiation Oncology [address] [place] [address] Kelby Castro MD 05/24/2024 Orders Only RAD ONC TREATMENTS Miscellaneous, Not In File 05/21/2024 Orders Only RAD ONC TREATMENTS Miscellaneous, Not In File 05/20/2024 7:05 PM TEAM LEAD Treatment [facility] Medical Office Building 2 Radiation Oncology [address] [place] [address] 05/13/2024 11:00 AM TEAM LEAD Treatment [facility] Medical Office Building 2 Radiation Oncology [address] [place] [address] Kelby Castro MD 05/13/2024 10:30 AM TEAM LEAD Office Visit [facility] Medical Office Building 2 Radiation Oncology [address] [place] [phone] Kelby Castro MD Malignant neoplasm of ascending colon (HCC); Malignant neoplasm metastatic to liver (HCC) 05/12/2024 Telephone [facility] Surgery [address] [place] [address] [address] [place] [address] Gonzales, Clarissa, RMA 05/12/2024 Telephone [facility] Surgery [address] [place] [address] [address] [place] [address] Gonzales, Clarissa, RMA 05/11/2024 Telephone [facility] Surgery [address] [place] [address] [address] [place] [address] Gonzales, Clarissa, RMA 05/11/2024 Telephone [facility] Surgery [address] [place] [address] [address] [place] [address] Gonzales, Clarissa, RMA 05/05/2024 2:00 PM TEAM LEAD [facility] [address] [place] [phone] Malignant neoplasm metastatic to liver (HCC) (Primary Dx); Malignant neoplasm of ascending colon (HCC) 05/05/2024 1:30 PM TEAM LEAD Clinical Support [facility] at [address] [address] Malignant neoplasm of ascending colon (HCC); Malignant neoplasm metastatic to liver (HCC) 05/04/2024 Orders Only [facility] Oncology [address] [place] [phone] Bucky Hodgson DO 04/30/2024 7:28 AM TEAM LEAD - 04/30/2024 11:59 PM TEAM LEAD Hospital Encounter [facility] Medical Office Building [address] [place] [address] Malignant neoplasm of ascending colon (HCC); Malignant neoplasm metastatic to liver (HCC); Malignant neoplasm metastatic to right lung (HCC) Discharge Disposition: Discharge to home or self care 04/30/2024 Documentation [facility] Oncology [address] [place] [phone] Bucky Hodgson DO 04/30/2024 Orders Only [facility] Oncology [address] [place] [phone] Bucky Hodgson, Malignant neoplasm of ascending colon (HCC) (Primary Dx); Malignant neoplasm metastatic to liver (HCC) 04/29/2024 Telephone [facility] Patient Access [address] [place] [address] Timothy eGilmar 04/28/2024 11:16 AM TEAM LEAD - 04/28/2024 11:59 PM TEAM LEAD Hospital Encounter [facility] MOB 1 DIAG IMG [address] [place] [phone] Malignant neoplasm of ascending colon (HCC); Malignant neoplasm metastatic to liver (HCC); Abdominal pain Discharge Disposition: Discharge to home or self care 04/28/2024 8:00 AM TEAM LEAD Infusion [facility] at [address] [place] [phone] Malignant neoplasm metastatic to liver (HCC) (Primary Dx); Malignant neoplasm of ascending colon (HCC); Dysuria; Abdominal pain; Dehydration; Nausea 04/28/2024 7:30 AM TEAM LEAD Clinical Support [facility] at [address] [address] Malignant neoplasm of ascending colon (HCC); Malignant neoplasm metastatic to liver (HCC); Dysuria; Abdominal pain 04/28/2024 Orders Only [facility] Oncology [address] [place] [address] [place] [phone] Bcuky Hodgson DO 04/27/2024 Telephone [facility] Oncology [address] [place] [phone] Zuly Oleary, MODESTO 04/22/2024 Orders Only [facility] Surgery [address] [place] [phone] Mayo Rodríguez MD Benign prostatic hyperplasia, unspecified whether lower urinary tract symptoms present (Primary Dx) 04/22/2024 Telephone [facility] Surgery [address] [place], [place] [phone] Roz Chung, TUAN 04/20/2024 Telephone [facility] Oncology [address] [place] [phone] Zuly Oleary, MODESTO 04/16/2024 11:52 AM TEAM LEAD Anesthesia Event [facility] OR [address] [place] [phone] Florian Castro MD [place], Matthew Edward, MD 04/16/2024 11:45 AM TEAM LEAD - 04/16/2024 1:00 PM TEAM LEAD Surgery [facility] OR [address] [place] [phone] Mayo Rodríguez MD LEFT URETEROSCOPY STONE MANIPULATION WITH ABLATION LASER WITH STENT PLACEMENT 04/16/2024 9:09 AM TEAM LEAD - 04/16/2024 3:02 PM TEAM LEAD Hospital Encounter [facility] Main OR [address] [place] [address] Mayo Rodríguez MD Kidney stone Discharge Disposition: Discharge to home or self care 04/15/2024 7:30 AM TEAM LEAD Clinical Support [facility] at [address] [phone] Malignant neoplasm of ascending colon (HCC); Malignant neoplasm metastatic to liver (HCC) 04/14/2024 Orders Only [facility] Oncology [address] [place] [phone] Bucky Hodgson, DO 04/13/2024 Orders Only [facility] Pre Admit Testing [address] [place] [phone] Neeraj Pablo MD Pre-op testing (Primary Dx) 04/12/2024 5:29 PM TEAM LEAD Anesthesia Event [facility] OR [address] [place] [phone] Carlito Mcconnell, DO 04/12/2024 5:00 PM TEAM LEAD - 04/12/2024 5:50 PM TEAM LEAD Surgery [facility] OR [address] [place] [phone] Mayo Rodríguez MD CYSTOSCOPY PLACEMENT LEFT URETERAL STENT 04/12/2024 9:40 AM TEAM LEAD - 04/13/2024 11:27 AM TEAM LEAD Hospital Encounter [facility] 5 Med Surg [address] [place] [address] Jose J Garcia MD Potluri, Sobhana Krishna, MD Nephrolithiasis (Primary Dx); Hydronephrosis, unspecified hydronephrosis type; JILL (acute kidney injury); History of colon cancer; Flank pain Discharge Disposition: Discharge to home or self care 04/08/2024 6:28 PM TEAM LEAD - 04/08/2024 8:32 PM TEAM LEAD Emergency [facility] Emergency Department [address] [place] [address] Ureterolithiasis (Primary Dx); Cystitis; JILL (acute kidney injury) Discharge Disposition: Left Against Medical Advice 03/24/2024 9:30 AM TEAM LEAD Infusion [facility] at [address] [phone] Malignant neoplasm of ascending colon (HCC) (Primary Dx); Malignant neoplasm metastatic to liver (HCC) 03/24/2024 9:00 AM TEAM LEAD Office Visit [facility] Oncology [address] [place] [phone] Bucky Hodgson DO Malignant neoplasm of ascending colon (HCC) (Primary Dx); Malignant neoplasm metastatic to liver (HCC); Malignant neoplasm metastatic to right lung (HCC) 03/24/2024 8:30 AM TEAM LEAD Clinical Support [facility] at [address] [address] Malignant neoplasm of ascending colon (HCC); Malignant neoplasm metastatic to liver (HCC) 03/23/2024 Orders Only [facility] Oncology [address] [place] [phone] Bucky Hodgson DO from Last 3 Months Immunizations Immunization Administration Dates Next Due Influenza, Quadrivalent, Spl it, Preservative Free, Intramuscular 03/18/2015 Pneumococcal, Unspecified 01/12/2017 Surgical History Surgery Date Site/Laterality Comments INGUINAL HERNIA REPAIR right inguinal hernia repair OTHER SURGICAL HISTORY right great toe implant / crushed great toe COLONOSCOPY PORTACATH PLACEMENT COLON SURGERY 04/14/2014 - 04/13/[address] CA [address] GUIDED DRAINAGE PERITONEA L OR RETROPERITONEAL FLUID COLLECTION 12/01/2021 N/A URETERAL STENT PLACEMENT 04/12/2024 Left Medical History Medical History Date Comments Colon cancer (HCC) Hypertension Obesity Kidney stones 04/12/2024 Family History Medical History Relation Name Comments Colon cancer Mother Relation Name Status Comments Mother Social History Tobacco Use Types Packs/Day Years Used Date Smoking Tobacco: Never Smokeless Tobacco: Never Alcohol Use Standard Drinks/Week Comments No 0 (1 standard drink = 0.6 oz pur e alcohol) [facility] Utilities Answer Date Recorded In the past 12 months has [place], gas, oil, or water [employer] threatened to shut off services in your [...] often do you attend chur ch or hinduism services? 1 to 4 times per year 04/13/2024 Do you belong to any clubs o r organizations such as jain groups, unions, fraternal or athletic groups, or [...] any time in the past 12 [facility], were you homeless or living in a intermediate (including now)? No 04/13/2024 Personal Safety Answer Date Recorded Have you ever been in or are you currently in a harmful physical or emotional relationship or is someone making you feel afraid or unsafe? Denies 04/16/2024 Sex and Gender Information Value Date Recorded Sex Assigned at Not on file Legal Sex Male 11:18 AM TEAM LEAD Gender Identity Male 09/22/2017 10:06 AM CDT Sexual Orientation Not on file Obstetrics History Last Filed Vital Signs Vital Sign Reading Time Taken Comments Blood Pressure 129/89 06/16/2024 8:33 AM TEAM LEAD Pulse 110 06/16/2024 8:33 AM TEAM LEAD Temperature 36.3 C (97.3 F) 06/16/2024 8:33 AM TEAM LEAD Respiratory Rate 16 06/16/2024 8:33 AM TEAM LEAD Oxygen Saturation 94% 06/16/2024 8:33 AM TEAM LEAD Inhaled Oxygen Concentration - - Weight 115.7 kg (255 lb) 06/16/2024 8:33 AM TEAM LEAD Height 182.9 cm (6') 04/16/2024 9:20 AM TEAM LEAD Body Mass Index 34.58 04/16/2024 9:20 AM TEAM LEAD Plan of Treatment Health Maintenance Due Date Last Done Comments Colon Cancer Screening-Colonoscopy 1955 Depression Screening 1955 Hepatitis C Screening 1955 DTaP/Tdap/Td Vaccine (1 - Tdap) 1964 Hepatitis B Screening 12/05/1971 Pneumococcal vaccine 65+ (1 of 2 - PCV) 1972 1 Zoster Vaccine (1 of 2) 1972 Well Visit 65+ 2018 Influenza Vaccine (#1) 2023 03/18/2015 Fall Risk Assessment 04/13/2025 04/13/2024 Medical Devices Implanted Type Area Butane Compressor Operator Device Identifier Shelf Expiration Date Model / Serial / Lot Other - See Comments Other - see comments Right: Toes Description:Titanium in righ t big toe Port Chest Mesh Abdomen [employer] Phasix Sepra [id number] Monofilament Resorbable Rectangle Mesh [id number] - [id number] Implanted:Qty: 1 on 05/30/2022 by Ky Norris MD at [facility] N/A: Abdomen [employer] Bard [id number] 09/09/2023 [id number] / / [id number] [employer] Thiago Seprafilm 6x5in Barrier Adhesion Sterile Disposable Latex Free [id number] - [id number] Implanted:Qty: 2 on 05/30/2022 by Ky Norris MD at [facility] N/A: Abdomen [employer] Thiago [id number] 03/29/2024 [id number] / / [id number] [employer] [id number] 6fr 26cm 145cm Radiopaque Positioner Filiform Flexible Tip - [id number] Implanted:Qty: 1 on 04/16/2024 by Mayo Rodríguez MD at [facility] Right: Ureter [employer] [id number] 01/18/2027 [id number] / / [id number] Explanted Type Area Butane Compressor Operator Device Identifier Shelf Expiration Date Model / Serial / Lot [employer] [id number] 6fr 26cm 145cm Radiopaque Positioner Filiform Flexible Tip - [id number] Implanted:Qty: 1 on 04/12/2024 by Mayo Rodríguez MD at [facility] Explanted:Qty: 1 on 05/12/2024 Stent Left: Urethra [employer] [id number] 10/26/2026 [id number] / / [id number] [employer] [id number] 6fr 26cm 145cm Radiopaque Positioner Filiform Flexible Tip - [id number] Implanted:Qty: 1 on 04/16/2024 by Mayo Rodríguez MD at [facility] Explanted:Qty: 1 on 05/12/2024 Left: Ureter [employer] [id number] 10/26/2026 [id number] / / [id number] Procedures Procedure Name Priority Date/Time Associated Diagnosis Comments XR CHEST PA LATERAL 2 VIEWS Schedule VINAYAK, Read VINAYAK (Appt Today, Awaiting Results) 06/16/2024 9:59 AM TEAM LEAD Malignant neoplasm of ascending colon (HCC) Malignant neoplasm metastatic to right lung (HCC) Shortness of breath CREATINE KINASE (CK), TOTAL Routine 06/16/2024 7:50 AM TEAM LEAD Malignant neoplasm of ascending colon (HCC) Malignant neoplasm metastatic to liver (HCC) EGFR STAT 06/16/2024 7:50 AM TEAM LEAD Malignant neoplasm of ascending colon (HCC) Malignant neoplasm metastatic to liver (HCC) DIFFERENTIAL AUTO STAT 06/16/2024 7:5 0 AM TEAM LEAD Malignant neoplasm of ascending colon (HCC) Malignant neoplasm metastatic to liver (HCC) COMPREHENSIVE METABOLIC PANEL STAT 06/16/2024 7:50 AM TEAM LEAD Malignant neoplasm of ascending colon (HCC) Malignant neoplasm metastatic to liver (HCC) CBC WITH AUTO DIFFERENTIAL STAT 06/16/2024 7:50 AM TEAM LEAD Malignant neoplasm of ascending colon (HCC) Malignant neoplasm metastatic to liver (HCC) CEA Routine 06/16/2024 7:50 AM TEAM LEAD Malignant neoplasm of ascending colon (HCC) Malignant neoplasm metastatic to liver (HCC) RAD ONC ARIA SESSION SUMMARY 06/04/2024 9:50 AM TEAM LEAD RAD ONC ARIA SESSION SUMMARY 06/03/2024 9:54 AM TEAM LEAD RAD ONC ARIA SESSION SUMMARY 06/02/2024 9:53 AM TEAM LEAD RAD ONC ARIA SESSION SUMMARY 06/01/2024 9:57 AM TEAM LEAD RAD ONC ARIA SESSION SUMMARY 05/31/2024 10:00 AM TEAM LEAD RAD ONC ARIA SESSION SUMMARY 05/28/2024 9:52 AM TEAM LEAD RAD ONC ARIA SESSION SUMMARY 05/27/2024 9:38 AM TEAM LEAD POCT PROTEIN, URINE, QUALITATIVE, DIPSTICK Routine 05/26/2024 11:23 AM TEAM LEAD Malignant neoplasm of ascending colon (HCC) EGFR STAT 05/26/2024 10:00 AM TEAM LEAD Malignant neoplasm of ascending colon (HCC) Malignant neoplasm metastatic to liver (HCC) DIFFERENTIAL AUTO STAT 05/26/2024 10: 00 AM TEAM LEAD Malignant neoplasm of ascending colon (HCC) Malignant neoplasm metastatic to liver (HCC) CEA Routine 05/26/2024 10:00 AM TEAM LEAD Malignant neoplasm of ascending colon (HCC) Malignant neoplasm metastatic to liver (HCC) CBC WITH AUTO DIFFERENTIAL STAT 05/26/2024 10:00 AM TEAM LEAD Malignant neoplasm of ascending colon (HCC) Malignant neoplasm metastatic to liver (HCC) COMPREHENSIVE METABOLIC PANEL STAT 05/26/2024 10:00 AM TEAM LEAD Malignant neoplasm of ascending colon (HCC) Malignant neoplasm metastatic to liver (HCC) RAD ONC ARIA SESSION SUMMARY 05/26/2024 9:40 AM TEAM LEAD RAD ONC ARIA SESSION SUMMARY 05/25/2024 8:57 AM TEAM LEAD RAD ONC ARIA SESSION SUMMARY 05/24/2024 3:11 PM TEAM LEAD RAD ONC ARIA COURSE SUMMARY 05/21/2024 4:32 PM TEAM LEAD POCT PROTEIN, URINE, QUALITATIVE, DIPSTICK Routine 05/05/2024 2:16 PM TEAM LEAD POCT PROTEIN, URINE, QUALITATIVE, DIPSTICK Routine 05/05/2024 2:12 PM TEAM LEAD POCT PROTEIN, URINE, QUALITATIVE, DIPSTICK Routine 05/05/2024 2:07 PM TEAM LEAD POCT PROTEIN, URINE, QUALITATIVE, DIPSTICK Routine 05/05/2024 1:42 PM TEAM LEAD EGFR STAT 05/05/2024 12:52 PM TEAM LEAD Malignant neoplasm of ascending colon (HCC) Malignant neoplasm metastatic to liver (HCC) DIFFERENTIAL AUTO STAT 05/05/2024 12: 52 PM TEAM LEAD Malignant neoplasm of ascending colon (HCC) Malignant neoplasm metastatic to liver (HCC) CEA Routine 05/05/2024 12:52 PM TEAM LEAD Malignant neoplasm of ascending colon (HCC) Malignant neoplasm metastatic to liver (HCC) CBC WITH AUTO DIFFERENTIAL STAT 05/05/2024 12:52 PM TEAM LEAD Malignant neoplasm of ascending colon (HCC) Malignant neoplasm metastatic to liver (HCC) COMPREHENSIVE METABOLIC PANEL STAT 05/05/2024 12:52 PM TEAM LEAD Malignant neoplasm of ascending colon (HCC) Malignant neoplasm metastatic to liver (HCC) CT CHEST ABDOMEN PELVIS W CONTRAST Schedule Routine, Read Routine (OP Routine) 04/30/2024 8:05 AM TEAM LEAD Malignant neoplasm of ascending colon (HCC) Malignant neoplasm metastatic to liver (HCC) Malignant neoplasm metastatic to right lung (HCC) XR ABDOMEN ERECT AND OR DECUBITS 2 VIEWS Schedule VINAYAK, Read VINAYAK (Appt Today, Awaiting Results) 04/28/2024 12:10 PM TEAM LEAD Malignant neoplasm of ascending colon (HCC) Malignant neoplasm metastatic to liver (HCC) Abdominal pain URINALYSIS, MICROSCOPIC ONLY Routine 04/28/2024 11:05 AM TEAM LEAD Malignant neoplasm of ascending colon (HCC) Malignant neoplasm metastatic to liver (HCC) Dysuria URINE CULTURE Routine 04/28/2024 11:05 AM TEAM LEAD URINALYSIS AND REFLEX TO MICROSCOPIC AND CULTURE Routine 04/28/2024 11:05 AM TEAM LEAD Malignant neoplasm of ascending colon (HCC) Malignant neoplasm metastatic to liver (HCC) Dysuria AMYLASE Routine 04/28/2024 7:55 AM TEAM LEAD Malignant neoplasm of ascending colon (HCC) Malignant neoplasm metastatic to liver (HCC) Abdominal pain LIPASE Routine 04/28/2024 7:55 AM TEAM LEAD Malignant neoplasm of ascending colon (HCC) Malignant neoplasm metastatic to liver (HCC) Abdominal pain ERYTHROCYTE SEDIMENTATION RATE Routine 04/28/2024 7:55 AM TEAM LEAD Malignant neoplasm of ascending colon (HCC) Malignant neoplasm metastatic to liver (HCC) Abdominal pain EGFR STAT 04/28/2024 7:55 AM TEAM LEAD Malignant neoplasm of ascending colon (HCC) Malignant neoplasm metastatic to liver (HCC) DIFFERENTIAL AUTO STAT 04/28/2024 7:5 5 AM TEAM LEAD Malignant neoplasm of ascending colon (HCC) Malignant neoplasm metastatic to liver (HCC) COMPREHENSIVE METABOLIC PANEL STAT 04/28/2024 7:55 AM TEAM LEAD Malignant neoplasm of ascending colon (HCC) Malignant neoplasm metastatic to liver (HCC) CBC WITH AUTO DIFFERENTIAL STAT 04/28/2024 7:55 AM TEAM LEAD Malignant neoplasm of ascending colon (HCC) Malignant neoplasm metastatic to liver (HCC) CEA Routine 04/28/2024 7:55 AM TEAM LEAD Malignant neoplasm of ascending colon (HCC) Malignant neoplasm metastatic to liver (HCC) FL FLUOROSCOPY < 1 HOUR IP Routine 04/16/2024 1:37 PM TEAM LEAD STONE ANALYSIS Routine 04/16/2024 12:17 PM TEAM LEAD AL AN PROCEDURE PLACEHOLDER Routine 04/16/2024 12:03 PM TEAM LEAD AL AN ELECTIVE SUPRAGLOTTIC AIRWAY Routine 04/16/2024 12:03 PM TEAM LEAD CYSTOSCOPY 04/16/2024 11:52 AM TEAM LEAD Kidney stone URETEROSCOPY STONE MANIPULATION WITH ABLATION LASER 04/16/2024 11:52 AM TEAM LEAD Kidney stone POCT PROTEIN, URINE, QUALITATIVE, DIPSTICK Routine 04/15/2024 8:17 AM TEAM LEAD EGFR STAT 04/15/2024 7:40 AM TEAM LEAD Malignant neoplasm of ascending colon (HCC) Malignant neoplasm metastatic to liver (HCC) DIFFERENTIAL AUTO STAT 04/15/2024 7:4 0 AM TEAM LEAD Malignant neoplasm of ascending colon (HCC) Malignant neoplasm metastatic to liver (HCC) CEA Routine 04/15/2024 7:40 AM TEAM LEAD Malignant neoplasm of ascending colon (HCC) Malignant neoplasm metastatic to liver (HCC) CBC WITH AUTO DIFFERENTIAL STAT 04/15/2024 7:40 AM TEAM LEAD Malignant neoplasm of ascending colon (HCC) Malignant neoplasm metastatic to liver (HCC) COMPREHENSIVE METABOLIC PANEL STAT 04/15/2024 7:40 AM TEAM LEAD Malignant neoplasm of ascending colon (HCC) Malignant neoplasm metastatic to liver (HCC) ECG 12-LEAD Routine 04/13/2024 9:10 AM TEAM LEAD EGFR Routine 04/13/2024 5:11 AM TEAM LEAD DIFFERENTIAL AUTO Routine 04/13/2024 5:1 1 AM TEAM LEAD CBC WITH AUTO DIFFERENTIAL Routine 04/13/2024 5:11 AM TEAM LEAD PHOSPHORUS Routine 04/13/2024 5:11 AM TEAM LEAD MAGNESIUM Routine 04/13/2024 5:11 AM TEAM LEAD COMPREHENSIVE METABOLIC PANEL Routine 04/13/2024 5:11 AM TEAM LEAD FL FLUOROSCOPY < 1 HOUR IP Routine 04/12/2024 6:00 PM TEAM LEAD AL AN PROCEDURE PLACEHOLDER Routine 04/12/2024 5:41 PM TEAM LEAD AL AN ELECTIVE SUPRAGLOTTIC AIRWAY Routine 04/12/2024 5:41 PM TEAM LEAD CYSTOSCOPY PLACEMENT URETERAL STENT 04/12/2024 5:[address] ABDOMEN PELVIS WO CONTRAST ED 04/12/2024 11:37 AM TEAM LEAD URINALYSIS, MICROSCOPIC ONLY STAT 04/12/2024 10:21 AM TEAM LEAD URINALYSIS AND REFLEX TO MICROSCOPIC AND CULTURE STAT 04/12/2024 10:21 AM TEAM LEAD EGFR STAT 04/12/2024 9:39 AM TEAM LEAD DIFFERENTIAL AUTO STAT 04/12/2024 9:3 9 AM TEAM LEAD LIPASE STAT 04/12/2024 9:39 AM TEAM LEAD COMPREHENSIVE METABOLIC PANEL STAT 04/12/2024 9:39 AM TEAM LEAD CBC WITH AUTO DIFFERENTIAL STAT 04/12/2024 9:39 AM TEAM LEAD BLOOD CULTURE STAT 04/08/2024 6:40 PM TEAM LEAD BLOOD CULTURE STAT 04/08/2024 6:[address] ABDOMEN PELVIS W CONTRAST ED 04/08/2024 5:22 PM TEAM LEAD SEPSIS LACTATE WITH REFLEX STAT 04/08/2024 5:00 PM TEAM LEAD URINALYSIS, MICROSCOPIC ONLY STAT 04/08/2024 3:17 PM TEAM LEAD URINE CULTURE STAT 04/08/2024 3:17 PM TEAM LEAD URINALYSIS AND REFLEX TO MICROSCOPIC AND CULTURE STAT 04/08/2024 3:17 PM TEAM LEAD EGFR STAT 04/08/2024 3:10 PM TEAM LEAD DIFFERENTIAL AUTO STAT 04/08/2024 3:1 0 PM TEAM LEAD LIPASE STAT 04/08/2024 3:10 PM TEAM LEAD COMPREHENSIVE METABOLIC PANEL STAT 04/08/2024 3:10 PM TEAM LEAD CBC WITH AUTO DIFFERENTIAL STAT 04/08/2024 3:10 PM TEAM LEAD POCT PROTEIN, URINE, QUALITATIVE, DIPSTICK Routine 03/24/2024 9:51 AM TEAM LEAD Malignant neoplasm of ascending colon (HCC) EGFR STAT 03/24/2024 7:56 AM TEAM LEAD Malignant neoplasm of ascending colon (HCC) Malignant neoplasm metastatic to liver (HCC) DIFFERENTIAL AUTO STAT 03/24/2024 7:5 6 AM TEAM LEAD Malignant neoplasm of ascending colon (HCC) Malignant neoplasm metastatic to liver (HCC) CEA Routine 03/24/2024 7:56 AM TEAM LEAD Malignant neoplasm of ascending colon (HCC) Malignant neoplasm metastatic to liver (HCC) CBC WITH AUTO DIFFERENTIAL STAT 03/24/2024 7:56 AM TEAM LEAD Malignant neoplasm of ascending colon (HCC) Malignant neoplasm metastatic to liver (HCC) COMPREHENSIVE METABOLIC PANEL STAT 03/24/2024 7:56 AM TEAM LEAD Malignant neoplasm of ascending colon (HCC) Malignant neoplasm metastatic to liver (HCC) from Last 3 Months Results * XR Chest Pa Lateral 2 Views (06/16/2024 9:59 AM TEAM LEAD) Anatomical Region Laterality Modality Body, Chest N/A Computed Radiogr aphy 06/16/2024 1:13 PM TEAM LEAD Narrative 06/16/2024 1:16 PM TEAM LEAD EXAM DESCRIPTION: XR CHEST PA LATERAL 2 VIEWS REASON FOR STUDY: SOB x 6 weeks TECHNIQUE: There are 2 radiographic view(s) of the chest. COMPARISON: Prior exam 01/30/2023, 11/03/[address] 04/30/2024. FINDINGS: LUNGS: Pulmonary vascularity appears normal. There is some linear opacity of the peripheral aspect of the left lower chest, atelectasis or infiltrate. Granulomatous change right lung. HEART/MEDIASTINUM: Again seen is prominent cardiomegaly. LINES/TUBES: Port overlies left chest with the tip overlying the cavoatrial junction. BONES: Moderate spondylosis thoracic spine. Dextroconvex curvature thoracic spine. IMPRESSION: There is some linear opacity of the peripheral aspect of the left lower chest, atelectasis or infiltrate. Prominent cardiomegaly with no acute pulmonary edema. THIS IS AN ELECTRONICALLY VERIFIED FINAL REPORT 06/16/2024 1:16 PM - Electronically signed by Juan SHIPMAN: RAMONITA Report ID: [id number] Reading Location: [id number] Procedure Note Juan Byrd MD - 06/16/2024 EXAM DESCRIPTION: XR CHEST PA LATERAL 2 VIEWS REASON FOR STUDY: SOB x 6 weeks TECHNIQUE: There are 2 radiographic view(s) of the chest. COMPARISON: Prior exam 01/30/2023, 11/03/[address] 04/30/2024. FINDINGS: LUNGS: Pulmonary vascularity appears normal. There is somelinear opacity of the peripheral aspect of the left lower chest, atelectasis or infiltrate. Granulomatous change right lung. HEART/MEDIASTINUM: Again seen is prominent cardiomegaly. LINES/TUBES: Port overlies left chest with the tip overlying thecavoatrial junction. BONES: Moderate spondylosis thoracic spine. Dextroconvex curvaturethoracic spine. IMPRESSION: There is some linear opacity of the peripheral aspect of the left lower chest, atelectasis or infiltrate. Prominent cardiomegaly with no acute pulmonary edema. THIS IS AN ELECTRONICALLY VERIFIED FINAL REPORT 06/16/2024 1:16 PM - Electronically signed by Juan SHIPMAN: RAMONITA Report ID: [id number] Reading Location: [id number] us Bucky Hodgson DO IMG XR PROCEDURES Final Resu lt * (ABNORMAL) eGFR (06/16/2024 7:50 AM TEAM LEAD) eGFR 50(L) >=60 mL/min/1. 73 m2 Comment: Interpretive Data Reference Interval Normal >/= 90 mL/min/1.73m2 Mildly decreased* 60 - 89 mL/min/1.73m2 Mildly to moderately decreased 45 - 59 mL/min/1.73m2 Moderately to severely decreased 30 - 44 mL/min/1.73m2 Severely decreased 15 - 29 mL/min/1.73m2 Kidney Failure < 15 mL/min/1.73m2 *Relative to young adult level Estimated glomerular filtration rate is determined by the 2020 CKD-EPI equation recommended by the National Kidney Foundation (A Unifying Approach to GFR Estimation: Recommendations of the NKF-ASK Task Force on Reassessing the Inclusion of Race in Diagnosing Kidney Disease, JASN 2020). The CKD-EPI equation should not be used for patients with unstable renal function and has not been validated in children and those over 70. Current interpretive data was last reviewed 2021. Testing performed by: [address] [address] Blood 06/16/2024 7:50 AM TEAM LEAD 06/16/2024 7:51 AM TEAM LEAD us Bucky Hodgson DO LAB BLOOD ORDERABLES Final R esult [place] [address] [facility] Department of Laboratories [place], [place] [id number] * Differential, auto (06/16/2024 7:50 AM TEAM LEAD) [facility] Neutrophil abs 5.4 1.5 - 6.5 K/cumm Comment:Testing performed by : [address] [address] Imm gran abs 0.0 0.0 - 0.1 K/cumm [place] Comment:Testing performed by : [address] [address] Lymphocyte abs 1.0 0.8 - 3.3 K/cumm [place] Comment:Testing performed by : [address] [address] Monocyte abs 0.6 0.2 - 0.8 K/cumm [facility] Comment:Testing performed by : [address] [address] Eosinophil abs 0.1 0.0 - 0.5 K/cumm [facility] Comment:Testing performed by : [address], [place]., [address] Basophil abs 0.1 0.0 - 0.1 K/cumm [facility] Comment:Testing performed by : [address] [address] Neutrophil pct 74.6 % [facility] Comment: Interpretive Data Percent cell count reference ranges are not reported, since discordance with absolute values may lead to misinterpretation of CBC data. Current Interpretive Data was last revised on 2017. Testing performed by: [address] [address] Imm gran pct 0.3 % [facility] Comment: Interpretive Data Percent cell count reference ranges are not reported, since discordance with absolute values may lead to misinterpretation of CBC data. Current Interpretive Data was last revised on 2017. Testing performed by: [address] [address] Lymphocyte pct 14.1 % [facility] Comment: Interpretive Data Percent cell count reference ranges are not reported, since discordance with absolute values may lead to misinterpretation of CBC data. Current Interpretive Data was last revised on 2017. Testing performed by: [address] [address] Monocyte pct 8.7 % [facility] Comment: Interpretive Data Percent cell count reference ranges are not reported, since discordance with absolute values may lead to misinterpretation of CBC data. Current Interpretive Data was last revised on 2017. Testing performed by: [address] [address] Eosinophil pct 1.5 % [facility] Comment: Interpretive Data Percent cell count reference ranges are not reported, since discordance with absolute values may lead to misinterpretation of CBC data. Current Interpretive Data was last revised on 2017. Testing performed by: [address] [address] Basophil pct 0.8 % [place] Comment: Interpretive Data Percent cell count reference ranges are not reported, since discordance with absolute values may lead to misinterpretation of CBC data. Current Interpretive Data was last revised on 2017. Testing performed by: [address] [address] Blood 06/16/2024 7:50 AM TEAM LEAD 06/16/2024 7:51 AM TEAM LEAD us Bucky Hodgson DO LAB BLOOD ORDERABLES Final R esult [place] [address] [facility] Department of Laboratories [place], [place] [id number] * (ABNORMAL) CBC with auto differential (06/16/2024 7:50 AM TEAM LEAD) WBC 7.2 3.8 - 9.9 K/cumm Comment:Testing performed by : [address] [address] Hgb 15.8 13.0 - 17.5 g/dL [place] Comment:Testing performed by : [address] [address] Hct 47.8 38.9 - 50.3 % [place] Comment:Testing performed by : [address] [address] Plt 144(L) 150 - 400 K/cumm [place] Comment:Testing performed by : [address] [address] MPV 11.3 9.1 - 12.3 fL [place] Comment:Testing performed by : [address] [address] RBC 4.93 4.30 - 5.80 M/cumm [place] Comment:Testing performed by : [address] [address] MCV 97.0(H) 81.3 - 96.4 fL [place] Comment:Testing performed by : [address] [address] MCH 32.0 27.1 - 33.3 pg [place] Comment:Testing performed by : [address] [address] MCHC 33.1 32.3 - 35.7 g/dL [place] Comment:Testing performed by : [address] [address] RDW CV 14.7 11.1 - 14.9 % [place] Comment:Testing performed by : [address] [address] RDW SD 52.2(H) 35.7 - 48.1 fL [place] Comment:Testing performed by : [address], [address] NRBC abs 0.00 0.00 - 0.01 K/cumm [place] Comment:Testing performed by : [address], [address] Blood 06/16/2024 7:50 AM TEAM LEAD 06/16/2024 7:51 AM TEAM LEAD Bucky Hodgson DO LAB BLOOD ORDERABLES Final R esult Performing Organization Address City/[facility] Co de Phone Number [address] [place] [address] * (ABNORMAL) Creatine kinase (CK), total (06/16/2024 7:50 AM TEAM LEAD) CK 38(L) 40 - 300 Units/L Comment:Testing performed by : [address], [address] Blood 06/16/2024 7:50 AM TEAM LEAD 06/16/2024 10:17 AM TEAM LEAD Bucky Hodgson DO LAB BLOOD ORDERABLES Final R esult Performing Organization Address City/[facility] Co de Phone Number [address] [place] [address] * (ABNORMAL) CEA (06/16/2024 7:50 AM TEAM LEAD) CEA 22.6(H) <=5.0 ng/mL Comment: Interpretive Data: Reference Range: Non-Smokers: 0.0 5.0 ng/mL Smokers: 0.0 6.5 ng/mL The [place] CEA assay procedure was used. Results from different manufacturers or methods may not be comparable. Serial testing should be performed using the same method. Current interpretive data was last revised 2022. Testing performed by: [address] [address] Blood 06/16/2024 7:50 AM TEAM LEAD 06/16/2024 10:17 AM TEAM LEAD us Bucky Hodgson DO LAB BLOOD ORDERABLES Final R esult [place] [id number] [facility] Department [place] [address] * (ABNORMAL) Comprehensive metabolic panel (06/16/2024 7:50 AM TEAM LEAD) Pathologist [facility] Sodium 140 135 - 145 mmol/L Comment:Testing performed by : [address] [address] Potassium, pl 4.3 3.3 - 4.9 mmol/L [place] Comment:Testing performed by : [address] [address] Chloride 104 97 - 110 mmol/L [place] Comment:Testing performed by : [address] [address] CO2 20(L) 22 - 32 mmol/L [place] Comment:Testing performed by : [address] [address] Anion gap 16(H) 2 - 15 mmol/L [place] Comment:Testing performed by : [address] [address] BUN 25 6 - 25 mg/dL [place] Comment:Testing performed by : [address] [address] Creatinine 1.50(H) 0.80 - 1.30 mg/dL [place] Comment:Testing performed by : [address] [address] Glucose 112 70 - 199 mg/dL [place] Comment: Interpretive Data Fasting glucose >/= 126 mg/dl is diagnostic for diabetes. Fasting is defined as no caloric intake for at least 8 hours. Fasting glucose between 100 mg/dl to 125 mg/dl is diagnostic of prediabetes. In a patient with classic symptoms of hyperglycemia or hyperglycemic crisis, a random glucose >/= 200 mg/dl is diagnostic for diabetes. In the absence of unequivocal hyperglycemia, results should be confirmed by repeat testing. The classification and Diagnosis of Diabetes Diabetes Care 2021; 46: S19-S40. Current interpretive data was last revised 2022. Testing performed by: [address] [address] Calcium 9.0 8.5 - 10.3 mg/dL [place] Comment:Testing performed by : [address] [address] Bilirubin, total 0.9 0.1 - 1.2 mg/dL [place] Comment:Testing performed by : [address] [address] Protein, pl 6.3(L) 6.5 - 8.5 g/dL [place] Comment:Testing performed by : [address] [address] Albumin 3.7 3.5 - 5.0 g/dL [facility] Comment:Testing performed by : [address] [address] Alk phos 114 40 - 130 Units/L [place] Comment:Testing performed by : [address] [address] ALT 9 7 - 55 Units/L [place] Comment:Testing performed by : [address] [address] AST 14 10 - 50 Units/L [place] Comment:Testing performed by : [address] [address] Blood 06/16/2024 7:50 AM TEAM LEAD 06/16/2024 7:51 AM TEAM LEAD us Bucky Hodgson DO LAB BLOOD ORDERABLES Final R esult [place] [address] [facility] Department [place] [address] * RAD ONC ARIA SESSION SUMMARY (06/04/2024 9:50 AM TEAM LEAD) Course Name C2_L_Abdom en_25 ARIA Course Plan Date 05/13/2024 12:25 PM ARIA Elapsed Days 11 ARIA Treatment Start Date 05/24/2024 ARIA Treatment Site PTV_3000 ARIA Dose Given To Date (cGy) 3,000 ARIA Session Dosage Given (cGy) 300 ARIA Plan ID LT ABD WALL ARIA Fractions Treated 10 ARIA Prescribed Dose Per Fraction (cGy) 300 ARIA Prescribed Total Dose (cGy) 3,000 ARIA 06/04/2024 9:50 AM TEAM LEAD us Not In File Miscellaneous RADIATION ONCOLOGY ORD ERABLES Final Result Performing Organization Address [facility]/ZIP Co de Phone Number ARIA * RAD ONC ARIA SESSION SUMMARY (06/03/2024 9:54 AM TEAM LEAD) Course Name C2_L_Abdom en_25 ARIA Course Plan Date 05/13/2024 12:25 PM ARIA Elapsed Days 10 ARIA Treatment Start Date 05/24/2024 ARIA Treatment Site [id number]_3000 ARIA Dose Given To Date (cGy) 2,700 ARIA Session Dosage Given (cGy) 300 ARIA Plan ID LT ABD WALL ARIA Fractions Treated 9 ARIA Prescribed Dose Per Fraction (cGy) 300 ARIA Prescribed Total Dose (cGy) 3,000 ARIA 06/03/2024 9:54 AM TEAM LEAD us Not In File Miscellaneous RADIATION ONCOLOGY ORD ERABLES Final Result ARIA * RAD ONC ARIA SESSION SUMMARY (06/02/2024 9:53 AM TEAM LEAD) Course Name C2_L_Abdom en_25 ARIA Course Plan Date 05/13/2024 12:25 PM ARIA Elapsed Days 9 ARIA Treatment Start Date 05/24/2024 ARIA Treatment Site PTV_3000 ARIA Dose Given To Date (cGy) 2,400 ARIA Session Dosage Given (cGy) 300 ARIA Plan ID LT ABD WALL ARIA Fractions Treated 8 ARIA Prescribed Dose Per Fraction (cGy) 300 ARIA Prescribed Total Dose (cGy) 3,000 ARIA 06/02/2024 9:53 AM TEAM LEAD us Not In File Miscellaneous RADIATION ONCOLOGY ORD ERABLES Final Result Performing Organization Address [facility] Co de Phone Number ARIA * RAD ONC ARIA SESSION SUMMARY (06/01/2024 9:57 AM TEAM LEAD) Course Name C2_L_Abdom en_25 ARIA Course Plan Date 05/13/2024 12:25 PM ARIA Elapsed Days 8 ARIA Treatment Start Date 05/24/2024 ARIA Treatment Site PTV_3000 ARIA Dose Given To Date (cGy) 2,100 ARIA Session Dosage Given (cGy) 300 ARIA Plan ID LT ABD WALL ARIA Fractions Treated 7 ARIA Prescribed Dose Per Fraction (cGy) 300 ARIA Prescribed Total Dose (cGy) 3,000 ARIA 06/01/2024 9:57 AM TEAM LEAD us Not In File Miscellaneous RADIATION ONCOLOGY ORD ERABLES Final Result Performing Organization Address City/[facility]/ZIP Co de Phone Number ARIA * RAD ONC ARIA SESSION SUMMARY (05/31/2024 10:00 AM TEAM LEAD) Course Name C2_L_Abdom en_25 ARIA Course Plan Date 05/13/2024 12:25 PM ARIA Elapsed Days 7 ARIA Treatment Start Date 05/24/2024 ARIA Treatment Site PTV_3000 ARIA Dose Given To Date (cGy) 1,800 ARIA Session Dosage Given (cGy) 300 ARIA Plan ID LT ABD WALL ARIA Fractions Treated 6 ARIA Prescribed Dose Per Fraction (cGy) 300 ARIA Prescribed Total Dose (cGy) 3,000 ARIA 05/31/2024 10:0 0 AM TEAM LEAD us Not In File Miscellaneous RADIATION ONCOLOGY ORD ERABLES Final Result Performing Organization Address City/State/[facility] Co de Phone Number [place]IP[facility] * RAD ONC ARIA SESSION SUMMARY (05/28/2024 9:52 AM TEAM LEAD) Course Name C2_L_Abdom en_25 ARIA Course Plan Date 05/13/2024 12:25 PM ARIA Elapsed Days 4 ARIA Treatment Start Date 05/24/2024 ARIA Treatment Site PTV_3000 ARIA Dose Given To Date (cGy) 1,500 ARIA Session Dosage Given (cGy) 300 ARIA Plan ID LT ABD WALL ARIA Fractions Treated 5 ARIA Prescribed Dose Per Fraction (cGy) 300 ARIA Prescribed Total Dose (cGy) 3,000 ARIA 05/28/2024 9:52 AM TEAM LEAD us Not In File Miscellaneous RADIATION ONCOLOGY ORD ERABLES Final Result Performing Organization Address [facility] de Phone Number ARIPop * RAD ONC ARIA SESSION SUMMARY (05/27/2024 9:38 AM TEAM LEAD) Course Name C2_L_Abdom en_25 ARIA Course Plan Date 05/13/2024 12:25 PM ARIA Elapsed Days 3 ARIA Treatment Start Date 05/24/2024 ARIA Treatment Site PTV_3000 ARIA Dose Given To Date (cGy) 1,200 ARIA Session Dosage Given (cGy) 300 ARIA Plan ID LT ABD WALL ARIA Fractions Treated 4 ARIA Prescribed Dose Per Fraction (cGy) 300 ARIA Prescribed Total Dose (cGy) 3,000 ARIA 05/27/2024 9:38 AM TEAM LEAD us Not In File Miscellaneous RADIATION ONCOLOGY ORD ERABLES Final Result Performing Organization Address City/State/[facility] Co de Phone Number [place] * (ABNORMAL) POCT protein, urine, dipstick (05/26/2024 11:23 AM TEAM LEAD) Pathologist [facility] Protein, ur, POC 1+(A) Negative Lot Number [id number] Urine 05/26/2024 11:2 3 AM TEAM LEAD Bucky Hodgson DO POINT OF CARE TEST ORDERABLE S Final Result * eGFR (05/26/2024 10:00 AM TEAM LEAD) [facility] eGFR 65 >=60 mL/min/1. 73 m2 Comment: Interpretive Data Reference Interval Normal >/= 90 mL/min/1.73m2 Mildly decreased* 60 - 89 mL/min/1.73m2 Mildly to moderately decreased 45 - 59 mL/min/1.73m2 Moderately to severely decreased 30 - 44 mL/min/1.73m2 Severely decreased 15 - 29 mL/min/1.73m2 Kidney Failure < 15 mL/min/1.73m2 *Relative to young adult level Estimated glomerular filtration rate is determined by the 2020 CKD-EPI equation recommended by the National Kidney Foundation (A Unifying Approach to GFR Estimation: Recommendations of the NKF-ASK Task Force on Reassessing the Inclusion of Race in Diagnosing Kidney Disease, JASN 2020). The CKD-EPI equation should not be used for patients with unstable renal function and has not been validated in children and those over 70. Current interpretive data was last reviewed 2021. Testing performed by: [facility], [address] [place] [address]., [address] Blood 05/26/2024 10:0 0 AM TEAM LEAD 05/26/2024 10:02 AM TEAM LEAD Bucky Hodgson DO LAB BLOOD ORDERABLES Final R esult [place] [address] [facility] Department [place] [address] * Differential, auto (05/26/2024 10:00 AM TEAM LEAD) Neutrophil abs 5.1 1.5 - 6.5 K/cumm Comment:Testing performed by : [address], [place]., [address] Imm gran abs 0.0 0.0 - 0.1 K/cumm [facility] Comment:Testing performed by : [address], [place]., [address] Lymphocyte abs 1.0 0.8 - 3.3 K/cumm [facility] Comment:Testing performed by : [address], [place]., [address] Monocyte abs 0.5 0.2 - 0.8 K/cumm [facility] Comment:Testing performed by : [address] [address] Eosinophil abs 0.2 0.0 - 0.5 K/cumm [facility] Comment:Testing performed by : [address], [place]., [address] Basophil abs 0.1 0.0 - 0.1 K/cumm [facility] Comment:Testing performed by : [address] [address] Neutrophil pct 73.6 % [facility] Comment: Interpretive Data Percent cell count reference ranges are not reported, since discordance with absolute values may lead to misinterpretation of CBC data. Current Interpretive Data was last revised on 2017. Testing performed by: [address] [address] Imm gran pct 0.3 % [facility] Comment: Interpretive Data Percent cell count reference ranges are not reported, since discordance with absolute values may lead to misinterpretation of CBC data. Current Interpretive Data was last revised on 2017. Testing performed by: [address] [address] Lymphocyte pct 14.2 % [facility] Comment: Interpretive Data Percent cell count reference ranges are not reported, since discordance with absolute values may lead to misinterpretation of CBC data. Current Interpretive Data was last revised on 2017. Testing performed by: [address] [address] Monocyte pct 7.8 % [facility] Comment: Interpretive Data Percent cell count reference ranges are not reported, since discordance with absolute values may lead to misinterpretation of CBC data. Current Interpretive Data was last revised on 2017. Testing performed by: [address] [address] Eosinophil pct 3.2 % [place] Comment: Interpretive Data Percent cell count reference ranges are not reported, since discordance with absolute values may lead to misinterpretation of CBC data. Current Interpretive Data was last revised on 2017. Testing performed by: [address] [address] Basophil pct 0.9 % [place] Comment: Interpretive Data Percent cell count reference ranges are not reported, since discordance with absolute values may lead to misinterpretation of CBC data. Current Interpretive Data was last revised on 2017. Testing performed by: [address] [address] Blood 05/26/2024 10:0 0 AM TEAM LEAD 05/26/2024 10:02 AM TEAM LEAD us Bucky Hodgson DO LAB BLOOD ORDERABLES Final R esult [place] [address] [facility] Department [place] [address] * (ABNORMAL) CBC with auto differential (05/26/2024 10:00 AM TEAM LEAD) Pathologist [facility] WBC 6.9 3.8 - 9.9 K/cumm Comment:Testing performed by : [address] [address] Hgb 14.4 13.0 - 17.5 g/dL [place] Comment:Testing performed by : [address] [address] Hct 43.1 38.9 - 50.3 % [place] Comment:Testing performed by : [address] [address] Plt 181 150 - 400 K/cumm [place] Comment:Testing performed by : [address] [address] MPV 9.5 9.1 - 12.3 fL [place] Comment:Testing performed by : [address] [address] RBC 4.38 4.30 - 5.80 M/cumm [place] Comment:Testing performed by : [address] [address] MCV 98.4(H) 81.3 - 96.4 fL [place] Comment:Testing performed by : [address] [address] MCH 32.9 27.1 - 33.3 pg [place] Comment:Testing performed by : [address] [address] MCHC 33.4 32.3 - 35.7 g/dL [place] Comment:Testing performed by : [address], [address] RDW CV 13.8 11.1 - 14.9 % [place] Comment:Testing performed by : [address], [address] RDW SD 50.4(H) 35.7 - 48.1 fL [place] Comment:Testing performed by : [address] [address] NRBC abs 0.00 0.00 - 0.01 K/cumm [place] Comment:Testing performed by : [address] [address] Blood 05/26/2024 10:0 0 AM TEAM LEAD 05/26/2024 10:02 AM TEAM LEAD us Bucky Hodgson DO LAB BLOOD ORDERABLES Final R esult [place] [address] [facility] Department [place] [address] * (ABNORMAL) CEA (05/26/2024 10:00 AM TEAM LEAD) CEA 40.5(H) <=5.0 ng/mL Comment: Interpretive Data: Reference Range: Non-Smokers: 0.0 5.0 ng/mL Smokers: 0.0 6.5 ng/mL The Clara CEA assay procedure was used. Results from different manufacturers or methods may not be comparable. Serial testing should be performed using the same method. Current interpretive data was last revised 2022. Testing performed by: [address] [address] Blood 05/26/2024 10:0 0 AM TEAM LEAD 05/26/2024 11:56 AM TEAM LEAD us Bucky Hodgson DO LAB BLOOD ORDERABLES Final R esult [place] [address] [facility] Department [place] [address] * (ABNORMAL) Comprehensive metabolic panel (05/26/2024 10:00 AM TEAM LEAD) Sodium 141 135 - 145 mmol/L Comment:Testing performed by : [address] [address] Potassium, pl 4.2 3.3 - 4.9 mmol/L [place] Comment:Testing performed by : [address] [address] Chloride 106 97 - 110 mmol/L [place] Comment:Testing performed by : [address] [address] CO2 22 22 - 32 mmol/L [place] Comment:Testing performed by : [address] [address] Anion gap 13 2 - 15 mmol/L [place] Comment:Testing performed by : [address] [address] BUN 13 6 - 25 mg/dL [place] Comment:Testing performed by : [address] [address] Creatinine 1.20 0.80 - 1.30 mg/dL [place] Comment:Testing performed by : [address] [address] Glucose 96 70 - 199 mg/dL [place] Comment: Interpretive Data Fasting glucose >/= 126 mg/dl is diagnostic for diabetes. Fasting is defined as no caloric intake for at least 8 hours. Fasting glucose between 100 mg/dl to 125 mg/dl is diagnostic of prediabetes. In a patient with classic symptoms of hyperglycemia or hyperglycemic crisis, a random glucose >/= 200 mg/dl is diagnostic for diabetes. In the absence of unequivocal hyperglycemia, results should be confirmed by repeat testing. The classification and Diagnosis of Diabetes Diabetes Care 202; 46: S19-S40. Current interpretive data was last revised 2022. Testing performed by: [address] [address] Calcium 9.2 8.5 - 10.3 mg/dL [place] Comment:Testing performed by : [address] [address] Bilirubin, total 1.0 0.1 - 1.2 mg/dL [place] Comment:Testing performed by : [address] [address] Protein, pl 6.9 6.5 - 8.5 g/dL [place] Comment:Testing performed by : [address] [address] Albumin 3.9 3.5 - 5.0 g/dL [place] Comment:Testing performed by : [address] [address] Alk phos 84 40 - 130 Units/L [place] Comment:Testing performed by : [address] [address] ALT 6(L) 7 - 55 Units/L [place] Comment:Testing performed by : [address] [address] AST 14 10 - 50 Units/L [place] Comment:Testing performed by : [address] [address] Blood 05/26/2024 10:0 0 AM TEAM LEAD 05/26/2024 10:02 AM TEAM LEAD Bucky Hodgson DO LAB BLOOD ORDERABLES Final R esult [place] [address] [facility] Department [place] [address] * RAD ONC ARIA SESSION SUMMARY (05/26/2024 9:40 AM TEAM LEAD) Course Name C2_L_Abdom en_25 ARIA Course Plan Date 05/13/2024 12:25 PM ARIA Elapsed Days 2 ARIA Treatment Start Date 05/24/2024 ARIA Treatment Site [id number]_3000 ARIA Dose Given To Date (cGy) 900 ARIA Session Dosage Given (cGy) 300 ARIA Plan ID LT ABD WALL ARIA Fractions Treated 3 ARIA Prescribed Dose Per Fraction (cGy) 300 ARIA Prescribed Total Dose (cGy) 3,000 ARIA 05/26/2024 9:40 AM TEAM LEAD us Not In File Miscellaneous RADIATION ONCOLOGY ORD ERABLES Final Result Performing Organization Address [facility] de Phone Number ARIPop * RAD ONC ARIA SESSION SUMMARY (05/25/2024 8:57 AM TEAM LEAD) Course Name C2_L_Abdom en_25 ARIA Course Plan Date 05/13/2024 12:25 PM ARIA Elapsed Days 1 ARIA Treatment Start Date 05/24/2024 ARIA Treatment Site [id number]_3000 ARIA Dose Given To Date (cGy) 600 ARIA Session Dosage Given (cGy) 300 ARIA Plan ID LT ABD WALL ARIA Fractions Treated 2 ARIA Prescribed Dose Per Fraction (cGy) 300 ARIA Prescribed Total Dose (cGy) 3,000 ARIA 05/25/2024 8:57 AM TEAM LEAD us Not In File Miscellaneous RADIATION ONCOLOGY ORD ERABLES Final Result Performing Organization Address [facility] Co de Phone Number ARIA * RAD ONC ARIA SESSION SUMMARY (05/24/2024 3:11 PM TEAM LEAD) Course Name C2_L_Abdom en_25 ARIA Course Plan Date 05/13/2024 12:25 PM ARIA Elapsed Days 0 ARIA Treatment Start Date 05/24/2024 ARIA Treatment Site [id number]_3000 ARIA Dose Given To Date (cGy) 300 ARIA Session Dosage Given (cGy) 300 ARIA Plan ID LT ABD WALL ARIA Fractions Treated 1 ARIA Prescribed Dose Per Fraction (cGy) 300 ARIA Prescribed Total Dose (cGy) 3,000 ARIA 05/24/2024 3:11 PM TEAM LEAD us Not In File Miscellaneous RADIATION ONCOLOGY ORD ERABLES Final Result ARIPop * RAD ONC ARIA COURSE SUMMARY (05/21/2024 4:32 PM TEAM LEAD) Course Name C1_R_CW_ ARIA Course Plan Date 06/21/2021 9:59 AM ARIA Elapsed Days 11 ARIA Treatment Start Date 07/09/2021 ARIA Treatment Site PTV ARIA Dose Given To Date (cGy) 3,500 ARIA Session Dosage Given (cGy) 0 ARIA Plan ID RIGHT CW ARIA Fractions Treated 5 ARIA Prescribed Dose Per Fraction (cGy) 700 ARIA Prescribed Total Dose (cGy) 3,500 ARIA 05/21/2024 4:32 PM TEAM LEAD us Not In File Miscellaneous RADIATION ONCOLOGY ORD ERABLES Final Result ROBIN * (ABNORMAL) POCT protein, urine, dipstick (05/05/2024 2:16 PM TEAM LEAD) Protein, ur, POC 1+(A) Negative Comment:Testing performed by : [facility], [address] [place] [address]., [address] Urine 05/05/2024 2:16 PM TEAM LEAD 05/05/2024 2:16 PM TEAM LEAD us Bcuky Hodgson DO POINT OF CARE TEST ORDERABLE S Final Result [place] [address] [facility] Department [place] [address] [phone] * (ABNORMAL) POCT protein, urine, dipstick (05/05/2024 2:12 PM TEAM LEAD) Protein, ur, POC 2+(A) Negative Comment:Testing performed by : [address] [address] Urine 05/05/2024 2:12 PM TEAM LEAD 05/05/2024 2:12 PM TEAM LEAD us Bucky Hodgson DO POINT OF CARE TEST ORDERABLE S Final Result Performing Organization Address [facility] Co de Phone Number [address] [place] [address] * (ABNORMAL) POCT protein, urine, dipstick (05/05/2024 2:07 PM TEAM LEAD) Protein, ur, POC 2+(A) Negative Comment:Testing performed by : [address] [address] Urine 05/05/2024 2:07 PM TEAM LEAD 05/05/2024 2:07 PM TEAM LEAD us Bucky Hodgson DO POINT OF CARE TEST ORDERABLE S Final Result Performing Organization Address [facility] Co de Phone Number [address] [address] * (ABNORMAL) POCT protein, urine, dipstick (05/05/2024 1:42 PM TEAM LEAD) Protein, ur, POC 1+(A) Negative Comment:Testing performed by : [address] [address] Urine 05/05/2024 1:42 PM TEAM LEAD 05/05/2024 1:42 PM TEAM LEAD us Bucky Hernandez Gokul DO POINT OF CARE TEST ORDERABLE S Final Result [place] [facility] [place] [address] * eGFR (05/05/2024 12:52 PM TEAM LEAD) Pathologist [facility] eGFR 72 >=60 mL/min/1. 73 m2 Comment: Interpretive Data Reference Interval Normal >/= 90 mL/min/1.73m2 Mildly decreased* 60 - 89 mL/min/1.73m2 Mildly to moderately decreased 45 - 59 mL/min/1.73m2 Moderately to severely decreased 30 - 44 mL/min/1.73m2 Severely decreased 15 - 29 mL/min/1.73m2 Kidney Failure < 15 mL/min/1.73m2 *Relative to young adult level Estimated glomerular filtration rate is determined by the 2020 CKD-EPI equation recommended by the National Kid[employer] (A Unifying Approach to GFR Estimation: Recommendations of the NKF-ASK Task Force on Reassessing the Inclusion of Race in Diagnosing Kidney Disease, JASN 2020). The CKD-EPI equation should not be used for patients with unstable renal function and has not been validated in children and those over 70. Current interpretive data was last reviewed 2021. Testing performed by: [address] [address] Blood 05/05/2024 12:5 2 PM TEAM LEAD 05/05/2024 1:00 PM TEAM LEAD Bucky Hodgson DO LAB BLOOD ORDERABLES Final R esult Performing Organization Address [facility] Co de Phone Number [place] [phone] [facility] [place] [address] * (ABNORMAL) Differential, auto (05/05/2024 12:52 PM TEAM LEAD) Pathologist [facility] Neutrophil abs 8.2(H) 1.5 - 6.5 K/cumm Comment:Testing performed by : [address] [address] Imm gran abs 0.1 0.0 - 0.1 K/cumm [place] Comment:Testing performed by : [address] [address] Lymphocyte abs 1.3 0.8 - 3.3 K/cumm CERNER Comment:Testing performed by : [address] [address] Monocyte abs 0.6 0.2 - 0.8 K/cumm CERNER Comment:Testing performed by : [address], [place]., [address] Eosinophil abs 0.4 0.0 - 0.5 K/cumm [facility] Comment:Testing performed by : [address], [place]., [address] Basophil abs 0.1 0.0 - 0.1 K/cumm [facility] Comment:Testing performed by : [address] [address] Neutrophil pct 77.8 % [facility] Comment: Interpretive Data Percent cell count reference ranges are not reported, since discordance with absolute values may lead to misinterpretation of CBC data. Current Interpretive Data was last revised on 2017. Testing performed by: [address] [address] Imm gran pct 0.5 % [facility] Comment: Interpretive Data Percent cell count reference ranges are not reported, since discordance with absolute values may lead to misinterpretation of CBC data. Current Interpretive Data was last revised on 2017. Testing performed by: [address] [address] Lymphocyte pct 12.1 % CERNER Comment: Interpretive Data Percent cell count reference ranges are not reported, since discordance with absolute values may lead to misinterpretation of CBC data. Current Interpretive Data was last revised on 2017. Testing performed by: [address] [address] Monocyte pct 5.7 % CERNER Comment: Interpretive Data Percent cell count reference ranges are not reported, since discordance with absolute values may lead to misinterpretation of CBC data. Current Interpretive Data was last revised on 2017. Testing performed by: [address] [address] Eosinophil pct 3.4 % CERNER Comment: Interpretive Data Percent cell count reference ranges are not reported, since discordance with absolute values may lead to misinterpretation of CBC data. Current Interpretive Data was last revised on 2017. Testing performed by: [address] [address] Basophil pct 0.5 % [place] Comment: Interpretive Data Percent cell count reference ranges are not reported, since discordance with absolute values may lead to misinterpretation of CBC data. Current Interpretive Data was last revised on 2017. Testing performed by: [address] [address] Blood 05/05/2024 12:5 2 PM TEAM LEAD 05/05/2024 1:00 PM TEAM LEAD Bucky Hodgson DO LAB BLOOD ORDERABLES Final R esult [place] [facility] Department [place] [address] * (ABNORMAL) CBC with auto differential (05/05/2024 12:52 PM TEAM LEAD) WBC 10.6(H) 3.8 - 9.9 K/cumm Comment:Testing performed by : [address] [address] Hgb 16.0 13.0 - 17.5 g/dL [place] Comment:Testing performed by : [address] [address] Hct 46.9 38.9 - 50.3 % [place] Comment:Testing performed by : [address] [address] Plt 222 150 - 400 K/cumm [place] Comment:Testing performed by : [address] [address] MPV 9.4 9.1 - 12.3 fL [place] Comment:Testing performed by : [address] [address] RBC 4.82 4.30 - 5.80 M/cumm [place] Comment:Testing performed by : [address] [address] MCV 97.3(H) 81.3 - 96.4 fL [place] Comment:Testing performed by : [address] [address] MCH 33.2 27.1 - 33.3 pg [place] Comment:Testing performed by : [address] [address] MCHC 34.1 32.3 - 35.7 g/dL [place] Comment:Testing performed by : [address] [address] RDW CV 15.1(H) 11.1 - 14.9 % [place] Comment:Testing performed by : [address] [address] RDW SD 54.2(H) 35.7 - 48.1 fL CAMELAI Comment:Testing performed by : [address] [address] NRBC abs 0.00 0.00 - 0.01 K/cumm [place] Comment:Testing performed by : [address] [address] Blood 05/05/2024 12:5 2 PM TEAM LEAD 05/05/2024 1:00 PM TEAM LEAD Bucky Hodgson DO LAB BLOOD ORDERABLES Final R esult [place] [address] [facility] Department [place] [address] * (ABNORMAL) CEA (05/05/2024 12:52 PM TEAM LEAD) CEA 47.0(H) <=5.0 ng/mL Comment: Interpretive Data: Reference Range: Non-Smokers: 0.0 5.0 ng/mL Smokers: 0.0 6.5 ng/mL The Clara CEA assay procedure was used. Results from different manufacturers or methods may not be comparable. Serial testing should be performed using the same method. Current interpretive data was last revised 2022. Testing performed by: [address] [address] Blood 05/05/2024 12:5 2 PM TEAM LEAD 05/05/2024 1:39 PM TEAM LEAD us Bucky Hodgson DO LAB BLOOD ORDERABLES Final R esult [facility] [address] [facility] Department [place] [address] * Comprehensive metabolic panel (05/05/2024 12:52 PM TEAM LEAD) Sodium 139 135 - 145 mmol/L Comment:Testing performed by : [address] [address] Potassium, pl 4.4 3.3 - 4.9 mmol/L [place] Comment:Testing performed by : [address] [address] Chloride 103 97 - 110 mmol/L [place] Comment:Testing performed by : [address] [address] CO2 23 22 - 32 mmol/L [place] Comment:Testing performed by : [address] [address] Anion gap 13 2 - 15 mmol/L [place] Comment:Testing performed by : [address] [address] BUN 16 6 - 25 mg/dL [place] Comment:Testing performed by : [address] [address] Creatinine 1.10 0.80 - 1.30 mg/dL [place] Comment:Testing performed by : [address] [address] Glucose 112 70 - 199 mg/dL [place] Comment: Interpretive Data Fasting glucose >/= 126 mg/dl is diagnostic for diabetes. Fasting is defined as no caloric intake for at least 8 hours. Fasting glucose between 100 mg/dl to 125 mg/dl is diagnostic of prediabetes. In a patient with classic symptoms of hyperglycemia or hyperglycemic crisis, a random glucose >/= 200 mg/dl is diagnostic for diabetes. In the absence of unequivocal hyperglycemia, results should be confirmed by repeat testing. The classification and Diagnosis of Diabetes Diabetes Care 2021; 46: S19-S40. Current interpretive data was last revised 2022. Testing performed by: [address] [address] Calcium 9.1 8.5 - 10.3 mg/dL [place] Comment:Testing performed by : [address] [address] Bilirubin, total 0.8 0.1 - 1.2 mg/dL [place] Comment:Testing performed by : [address] [address] Protein, pl 7.1 6.5 - 8.5 g/dL [place] Comment:Testing performed by : [address] [address] Albumin 3.9 3.5 - 5.0 g/dL [place] Comment:Testing performed by : [address] [address] Alk phos 87 40 - 130 Units/L [place] Comment:Testing performed by : [address] [address] ALT 10 7 - 55 Units/L [place] Comment:Testing performed by : [address] [address] AST 15 10 - 50 Units/L [place] Comment:Testing performed by : [address] [address] Blood 05/05/2024 12:5 2 PM TEAM LEAD 05/05/2024 1:00 PM TEAM LEAD us Bucky Hodgson DO LAB BLOOD ORDERABLES Final R esult [place] [address] [facility] Department of Laboratories [place], [place] [id number] * CT Chest Abdomen Pelvis W Contrast (04/30/2024 8:05 AM TEAM LEAD) Anatomical Region Laterality Modality Body N/A Computed Tomogra phy 04/30/2024 10:0 3 AM TEAM LEAD Narrative 04/30/2024 10:27 AM TEAM LEAD EXAM DESCRIPTION: CT CHEST ABDOMEN PELVIS W CONTRAST REASON FOR STUDY: restaging of met colon ca 3 month colon cancer f/u. Extreme low abd pain for 5 days. Hx of colon surgery, hernia repair. TECHNIQUE: CT scan of the chest, abdomen, and pelvis performed with intravenous and without oral contrast using helical scanning technique with dynamic intravenous contrast injection. Reconstructed coronal and sagittal MPR images reviewed. All images stored on PACS. Automated exposure control was used as a dose optimization technique for this examination. CONTRAST TYPE/DOSE: 100mL of IOVERSOL 350 MG IODINE/ML INTRAVENOUS SYRINGE injected via intravenous COMPARISON: 04/12/2024, 04/08/2024, 02/06/2024, 11/14/2023, 08/21/2023 and 05/30/2023 FINDINGS: CHEST LUNGS: 8 mm nodule within the inferior right upper lobe on image number 52, stable as remeasured on most recent prior examination. 7 mm nodule right lower lobe image 67, stable. No new suspicious nodule. Subsegmental scarring and atelectasis. No pneumonic consolidation. Scattered granulomatous calcifications. The central airways are patent. PLEURA: No effusion. No pneumothorax. MEDIASTINUM/LOBO: The thyroid gland is unremarkable. There scattered nonenlarged paratracheal nodes. Right infrahilar node on image number 49 measures approximately 9 mm, stable from prior examination. This was FDG avid on prior PET-CT. No new lymphadenopathy. Postinflammatory calcifications are present. HEART: The heart is stable in size. There is trace pericardial effusion. There are coronary artery calcifications. VASCULATURE CHEST: Thoracic aorta normal in caliber without dissection. Main pulmonary trunk is mildly enlarged as can be seen in the setting of pulmonary artery hypertension. No central embolus based on this non angiographic study. AXILLA: No axillary lymphadenopathy. CHEST WALL: Mild gynecomastia. HARDWARE/LINES/TUBES: Left Dcjlbr-P-Jing catheter partially visualized, distal tip is at the cavoatrial junction MUSCULOSKELETAL CHEST: Scoliotic curvature of the thoracolumbar spine. Multilevel thoracic spondylosis and degenerative disc disease. No destructive osseous lesion. ABDOMEN/PELVIS LIVER: The liver is within normal limits in size. Calcified, presumably previously treated lesion within the medial left hepatic lobe measures 4.1 cm, stable. No new suspicious hepatic lesion. GALLBLADDER: Sludge and or stones in the dependent gallbladder. No inflammatory process. BILE DUCTS: No intrahepatic or extrahepatic ductal dilatation. SPLEEN: Normal size. No focal lesions. PANCREAS: No peripancreatic inflammatory process or fluid collection. Subtle heterogeneity of the attenuation in the pancreas in the distal body/proximal tail, corresponding to the area of FDG uptake on prior PET-CT in August 2023. Subtle pancreatic lesion not excluded. This could be metastatic. Pancreatic mass protocol MRI can be considered for further evaluation. Alternatively, attention on surveillance imaging recommended. ADRENALS: Normal. KIDNEYS/URINARY TRACT: The kidneys enhance symmetrically. There is hydronephrosis. Indwelling bilateral double-J ureteral stents are noted, new compared to the most recent prior examination. The right proximal stent is coiled within the renal pelvis. The left proximal stent is coiled within the upper pole of the left kidney. The distal aspects of both stents are coiled within the urinary bladder. There is mild perivesical haziness. Bilateral renal calculi are noted, nonobstructing. The largest is on the right, measuring 5 mm. GI: The stomach is unremarkable. Duodenal diverticulum. Small bowel loops are normal in caliber. No wall thickening. There is a small bowel containing ventral hernia at and to the right of midline just inferior to the umbilicus. There are postsurgical changes of partial right colectomy with ileocolonic anastomosis, stable in appearance from prior examination. Scattered stool in the proximal colon. The remainder of the colon is largely decompressed, limiting evaluation. PERITONEUM: There is no free intraperitoneal air. There is no significant free fluid. There are a few scattered nonenlarged mesenteric nodes, stable. RETROPERITONEUM: No retroperitoneal mass or adenopathy. REPRODUCTIVE: Prostate gland is mildly heterogeneous but stable. VASCULATURE ABDOMEN: Abdominal aorta is normal in caliber without dissection. Portal vein patent. MUSCULOSKELETAL ABDOMEN PELVIS: Redemonstration of an irregular, slightly lobulated soft tissue mass centered within the left rectus abdominis muscle, extending to the midline and just to the right of midline, just inferior to the aforementioned abdominal wall hernia neck. Mass measures 5.5 x 3.0 4.3 cm on axial image number 156 and coronal image number 43 previously this measured 5.0 x 3.0 x 4.0 cm. OTHER: There is a fat containing left inguinal hernia, stable. IMPRESSION: Interval stability of pulmonary nodules. No new suspicious nodularity. Stable right infrahilar node, FDG avid on prior PET-CT. No new lymphadenopathy. Interval stability of previously treated lesion within the medial left hepatic lobe. No new suspicious hepatic lesion. Interval placement of bilateral double-J ureteral stents. No hydronephrosis. Redemonstration of irregular lobulated soft tissue mass within the left rectus abdominus muscle, measuring just slightly larger than on the most recent prior examinations. This lesion was significantly FDG avid on prior PET-CT, consistent with metastatic disease. Subtle heterogeneity of the parenchyma in the distal body/proximal tail the pancreas at site of previous FDG abnormality. Subtle pancreatic lesion can not be excluded. This could be metastatic. Pancreatic mass protocol MRI can be utilized for further characterization. Small bowel containing ventral hernia just inferior to the umbilicus. No evidence of bowel obstruction. Additional findings as above. THIS IS AN ELECTRONICALLY VERIFIED FINAL REPORT 04/30/2024 10:27 AM - Electronically signed by Samina Cano M.D. TW: [email or web address] Report ID: [id number] Reading Location: [id number] Procedure Note Samina Cano MD - 04/30/2024 EXAM DESCRIPTION: CT CHEST ABDOMEN PELVIS W CONTRAST REASON FOR STUDY: restaging of met colon ca 3 month colon cancer f/u. Extreme low abd pain for 5 days. Hx of colon surgery, hernia repair. TECHNIQUE: CT scan of the chest, abdomen, and pelvis performed with intravenous and without oral contrast using helical scanning techniquewith dynamic intravenous contrast injection. Reconstructed coronal and sagittalMPR images reviewed. All images stored on PACS. Automated exposure control was used as a dose optimization technique for this examination. CONTRAST TYPE/DOSE: 100mL of IOVERSOL 350 MG IODINE/ML INTRAVENOUS SYRINGE injected via intravenous COMPARISON: 04/12/2024, 04/08/2024, 02/06/2024, 11/14/2023, 08/21/2023 and 05/30/2023 FINDINGS: CHEST LUNGS: 8 mm nodule within the inferior right upper lobe on image , stable as remeasured on most recent prior examination. 7 mm nodule right lower lobe image 67, stable. No new suspicious nodule. Subsegmental scarring and atelectasis. No pneumonic consolidation.Scattered granulomatous calcifications. The central airways are patent. PLEURA: No effusion. No pneumothorax. MEDIASTINUM/LOBO: The thyroid gland is unremarkable. There scattered nonenlarged paratracheal nodes. Right infrahilar node on image number 49 measures approximately 9 mm, stable from prior examination. This was FDGavid on prior PET-CT. No new lymphadenopathy. Postinflammatory calcificationsare present. HEART: The heart is stable in size. There is trace pericardialeffusion. There are coronary artery calcifications. VASCULATURE CHEST: Thoracic aorta normal in caliber without dissection. Main pulmonary trunk is mildly enlarged as can be seen in the setting of pulmonary artery hypertension. No central embolus based on this non angiographic study. AXILLA: No axillary lymphadenopathy. CHEST WALL: Mild gynecomastia. HARDWARE/LINES/TUBES: Left Aveyjy-Z-Magn catheter partially visualized, distal tip is at the cavoatrial junction MUSCULOSKELETAL CHEST: Scoliotic curvature of the thoracolumbar spine. Multilevel thoracic spondylosis and degenerative disc disease. Nodestructive osseous lesion. ABDOMEN/PELVIS LIVER: The liver is within normal limits in size. Calcified, presumably previously treated lesion within the medial left hepatic lobe measures 4.1cm, stable. No new suspicious hepatic lesion. GALLBLADDER: Sludge and or stones in the dependent gallbladder. No inflammatory process. BILE DUCTS: No intrahepatic or extrahepatic ductal dilatation. SPLEEN: Normal size. No focal lesions. PANCREAS: No peripancreatic inflammatory process or fluid collection. Subtle heterogeneity of the attenuation in the pancreas in the distal body/proximal tail, corresponding to the area of FDG uptake on priorPET-CT in August 2023. Subtle pancreatic lesion not excluded. This could bemetastatic. Pancreatic mass protocol MRI can be considered for further evaluation. Alternatively, attention on surveillance imaging recommended. ADRENALS: Normal. KIDNEYS/URINARY TRACT: The kidneys enhance symmetrically. There is hydronephrosis. Indwelling bilateral double-J ureteral stents are noted,new compared to the most recent prior examination. The right proximal stentis coiled within the renal pelvis. The left proximal stent is coiled withinthe upper pole of the left kidney. The distal aspects of both stents arecoiled within the urinary bladder. There is mild perivesical haziness.Bilateral renal calculi are noted, nonobstructing. The largest is on the right, measuring 5 mm. GI: The stomach is unremarkable. Duodenal diverticulum. Small bowelloops are normal in caliber. No wall thickening. There is a small bowelcontaining ventral hernia at and to the right of midline just inferior to theumbilicus. There are postsurgical changes of partial right colectomy with ileocolonic anastomosis, stable in appearance from prior examination. Scattered stoolin the proximal colon. The remainder of the colon is largely decompressed, limiting evaluation. PERITONEUM: There is no free intraperitoneal air. There is nosignificant free fluid. There are a few scattered nonenlarged mesenteric nodes,stable. RETROPERITONEUM: No retroperitoneal mass or adenopathy. REPRODUCTIVE: Prostate gland is mildly heterogeneous but stable. VASCULATURE ABDOMEN: Abdominal aorta is normal in caliber without dissection. Portal vein patent. MUSCULOSKELETAL ABDOMEN PELVIS: Redemonstration of an irregular,slightly lobulated soft tissue mass centered within the left rectus abdominismuscle, extending to the midline and just to the right of midline, just inferiorto the aforementioned abdominal wall hernia neck. Mass measures 5.5 x 3.04.3 cm on axial image number 156 and coronal image number 43 previously thismeasured 5.0 x 3.0 x 4.0 cm. OTHER: There is a fat containing left inguinal hernia, stable. IMPRESSION: Interval stability of pulmonary nodules. No new suspicious nodularity. Stable right infrahilar node, FDG avid on prior PET-CT. No new lymphadenopathy. Interval stability of previously treated lesion within the medial left hepatic lobe. No new suspicious hepatic lesion. Interval placement of bilateral double-J ureteral stents. Nohydronephrosis. Redemonstration of irregular lobulated soft tissue mass within the left rectus abdominus muscle, measuring just slightly larger than on the most recent prior examinations. This lesion was significantly FDG avid onprior PET-CT, consistent with metastatic disease. Subtle heterogeneity of the parenchyma in the distal body/proximal tailthe pancreas at site of previous FDG abnormality. Subtle pancreatic lesioncan not be excluded. This could be metastatic. Pancreatic mass protocol MRIcan be utilized for further characterization. Small bowel containing ventral hernia just inferior to the umbilicus. No evidence of bowel obstruction. Additional findings as above. THIS IS AN ELECTRONICALLY VERIFIED FINAL REPORT 04/30/2024 10:27 AM - Electronically signed by Samina Cano M.D. TW: [email or web address] Report ID: [id number] Reading Location: [id number] Bucky Washingtonnti DO IMG CT PROCEDURES Final Resu lt * XR Abdomen Erect and or Decubitus 2 Views (04/28/2024 12:10 PM TEAM LEAD) Anatomical Region Laterality Modality Body, Abdomen N/A Computed Radiogr aphy 04/28/2024 1:21 PM TEAM LEAD Narrative 04/28/2024 1:24 PM TEAM LEAD EXAM DESCRIPTION: XR ABDOMEN ERECT AND OR DECUBITUS 2 VIEWS REASON FOR STUDY: acute abdominal pain TECHNIQUE: There are 2 radiographic views of the abdomen. COMPARISON: Older exam 05/30/2022. CT 04/12/2024. FINDINGS: Limited view through the base of the lungs demonstrate no infiltrate or effusion. No evidence of free air. There are no significant air-fluid levels. No pathologically dilated loops of bowel. Bilateral ureteral stents are seen. Nephrolithiasis was seen on the comparison CT bilaterally and in the distal left ureter. No definite stone is seen along the course of the stents at this time. No definite other nephrolithiasis by plain film which is not as sensitive. Anastomotic sutures overlie the right abdomen as was previously seen. Levoconvex scoliosis thoracolumbar spine. [id number] spondylosis. No acute osseous findings. IMPRESSION: Nonobstructive bowel gas pattern. Bilateral ureteral stents are seen. No definite stone is seen along the course of the stents at this time. Nephrolithiasis was seen on the comparison recent CT, but these are not well seen by plain film. THIS IS AN ELECTRONICALLY VERIFIED FINAL REPORT 04/28/2024 1:24 PM - Electronically signed by Juan Byrd M.D. MJ: RAMONITA Report ID: [id number] Reading Location: [id number] Procedure Note Juan Byrd MD - 04/28/2024 EXAM DESCRIPTION: XR ABDOMEN ERECT AND OR DECUBITUS 2 VIEWS REASON FOR STUDY: acute abdominal pain TECHNIQUE: There are 2 radiographic views of the abdomen. COMPARISON: Older exam 05/30/2022. CT 04/12/2024. FINDINGS: Limited view through the base of the lungs demonstrate noinfiltrate or effusion. No evidence of free air. There are no significant air-fluid levels. No pathologically dilatedloops of bowel. Bilateral ureteral stents are seen. Nephrolithiasis was seen onthe comparison CT bilaterally and in the distal left ureter. No definitestone is seen along the course of the stents at this time. No definite other nephrolithiasis by plain film which is not as sensitive. Anastomoticsutures overlie the right abdomen as was previously seen. Levoconvex scoliosis thoracolumbar spine. [id number] spondylosis.No acute osseous findings. IMPRESSION: Nonobstructive bowel gas pattern. Bilateral ureteral stents are seen. No definite stone is seen along the course of the stents at this time. Nephrolithiasis was seen on thecomparison recent CT, but these are not well seen by plain film. THIS IS AN ELECTRONICALLY VERIFIED FINAL REPORT 04/28/2024 1:24 PM - Electronically signed by Juan Byrd M.D. MJ: RAMONITA Report ID: [id number] Reading Location: [place] [address] us Bucky Hodgson DO IMG XR PROCEDURES Final Resu lt * (ABNORMAL) Urinalysis reflex to microscopic and culture Urine, clean voided (04/28/2024 11:05 AM TEAM LEAD) Color, ur Yellow Yellow Comment:Testing performed by : [address] [address] Clarity, ur Cloudy(A) Clear [place] Comment:Testing performed by : [address] [address] Specific gravity, ur 1.016 1.003 - 1.030 [place] Comment:Testing performed by : [address] [address] pH, urine 5.5 [place] Comment: Interpretive Data U rine pH is affected by diet, medications, systemic acid-base disturbances, and renal tubular function. pH may affect urinary stone formation. For example, urine pH below 6.0 may help reduce the tendency for calcium phosphate stones and pH greater than 6.0 may reduce the tendency for uric acid stone formation. Source: [facility] Current Interpretive Data was last revised on 2017 Testing performed by: [facility], [address] [place] [address], [place]., [address] Protein, ur ql 1+(A) Negative [place] Comment:Testing performed by : [address], [place]., [address] Glucose, ur ql Negative Negative [place] Comment:Testing performed by : [address], [place]., [address] Ketones, ur Negative Negative [place] Comment:Testing performed by : [address], [place]., [address] Bilirubin, ur Negative Negative [place] Comment:Testing performed by : [address], [place]., [address] Blood, ur 3+(A) Negative [place] Comment:Testing performed by : [address], [place]., [address] Urobilinogen, ur <2.0 <2.0 mg/dL [place] Comment:Testing performed by : [address], [place]., [address] Nitrite, ur Negative Negative [place] Comment:Testing performed by : [address] [address] Leukocyte esterase, ur 4+(A) Negative [place] Comment:Testing performed by : [address], [place]., [address] UA reflex comment Reflex to microscopic UA will be performed. [place] Comment:Testing performed by : [address], [place]., [address] Urine, clean voided 04/28/2024 11:05 AM TEAM LEAD 04/28/2024 11:42 AM TEAM LEAD us Bucky Hodgson DO LAB MICROBIOLOGY - GENERAL O RDERABLES Final Result Performing Organization Address [facility] de Phone Number [place] [address] [facility] [place] [address] * (ABNORMAL) Urinalysis, microscopic only (04/28/2024 11:05 AM TEAM LEAD) WBC, ur >50(A) 0 - 5 /HPF Comment:Testing performed by : [address] [address] RBC, ur 21-50(A) 0 - 2 /HPF [place] Comment:Testing performed by : [address] [address] Bacteria, ur Trace(A) [place] Comment:Testing performed by : [address] [address] Mucous, ur Present(A) [place] Comment:Testing performed by : [address] [address] Hyaline casts, ur 1-5 0 - 10 /LPF [place] Comment:Testing performed by : [address] [address] Culture Reflex Comment Reflex to urine culture will be performed. [place] Comment:Testing performed by : [address] [address] Urine, clean voided 04/28/2024 11:05 AM TEAM LEAD 04/28/2024 11:42 AM TEAM LEAD Bucky Hodgson DO LAB URINE ORDERABLES Final R esult Performing Organization Address [facility] Co de Phone Number CAM[place]IA [address] [facility] [place] [address] * Urine culture Urine, clean voided (04/28/2024 11:05 AM TEAM LEAD) Report Final Report: Less than 100,000 colonies/mL (clinically insignificant growth based on current clinical standards) Comment:Testing performed by : [facility], [address] [facility] [place]., [address] Organism (CLINICALLY INSIGNIFICANT GROWTH [place]IA Urine, clean voided 04/28/2024 11:05 AM TEAM LEAD 04/28/2024 3:25 PM TEAM LEAD Narrative CAMELIA - 04/29/2024 4:41 PM TEAM LEAD Urine culture reflexed based upon urinalysis results. Testing performed by [facility] ([phone]) Bucky Hodgson DO LAB MICROBIOLOGY - GENERAL O RDERABLES Final Result Performing Organization Address City/[facility]/ZIP Co de Phone Number [facility] [address] [facility] [address] * eGFR (04/28/2024 7:55 AM TEAM LEAD) eGFR 72 >=60 mL/min/1. 73 m2 Comment: Interpretive Data Reference Interval Normal >/= 90 mL/min/1.73m2 Mildly decreased* 60 - 89 mL/min/1.73m2 Mildly to moderately decreased 45 - 59 mL/min/1.73m2 Moderately to severely decreased 30 - 44 mL/min/1.73m2 Severely decreased 15 - 29 mL/min/1.73m2 Kidney Failure < 15 mL/min/1.73m2 *Relative to young adult level Estimated glomerular filtration rate is determined by the 2020 CKD-EPI equation recommended by the National Kidney Foundation (A Unifying Approach to GFR Estimation: Recommendations of the NKF-ASK Task Force on Reassessing the Inclusion of Race in Diagnosing Kidney Disease, JASN 2020). The CKD-EPI equation should not be used for patients with unstable renal function and has not been validated in children and those over 70. Current interpretive data was last reviewed 2021. Testing performed by: [facility], [address] [place] [address]., [address] Blood 04/28/2024 7:55 AM TEAM LEAD 04/28/2024 7:56 AM TEAM LEAD Bucky Hodgson DO LAB BLOOD ORDERABLES Final R esult Performing Organization Address City/[facility]/ZIP Co de Phone Number CERNER [address] Department [place] [address] * (ABNORMAL) Differential, auto (04/28/2024 7:55 AM TEAM LEAD) Neutrophil abs 8.6(H) 1.5 - 6.5 K/cumm Comment:Testing performed by : [address] [address] Imm gran abs 0.0 0.0 - 0.1 K/cumm CAM[place]IA Comment:Testing performed by : [address] [address] Lymphocyte abs 1.0 0.8 - 3.3 K/cumm [place] Comment:Testing performed by : [address] [address] Monocyte abs 0.7 0.2 - 0.8 K/cumm [place] Comment:Testing performed by : [address] [address] Eosinophil abs 0.3 0.0 - 0.5 K/cumm [place] Comment:Testing performed by : [address] [address] Basophil abs 0.1 0.0 - 0.1 K/cumm [facility] Comment:Testing performed by : [address] [address] Neutrophil pct 80.2 % [facility] Comment: Interpretive Data Percent cell count reference ranges are not reported, since discordance with absolute values may lead to misinterpretation of CBC data. Current Interpretive Data was last revised on 2017. Testing performed by: [address] [address] Imm gran pct 0.2 % [facility] Comment: Interpretive Data Percent cell count reference ranges are not reported, since discordance with absolute values may lead to misinterpretation of CBC data. Current Interpretive Data was last revised on 2017. Testing performed by: [address] [address] Lymphocyte pct 9.2 % [facility] Comment: Interpretive Data Percent cell count reference ranges are not reported, since discordance with absolute values may lead to misinterpretation of CBC data. Current Interpretive Data was last revised on 2017. Testing performed by: [address] [address] Monocyte pct 6.7 % CAM[place]IA Comment: Interpretive Data Percent cell count reference ranges are not reported, since discordance with absolute values may lead to misinterpretation of CBC data. Current Interpretive Data was last revised on 2017. Testing performed by: [address] [address] Eosinophil pct 3.2 % [place]IA Comment: Interpretive Data Percent cell count reference ranges are not reported, since discordance with absolute values may lead to misinterpretation of CBC data. Current Interpretive Data was last revised on 2017. Testing performed by: [address] [address] Basophil pct 0.5 % [place] Comment: Interpretive Data Percent cell count reference ranges are not reported, since discordance with absolute values may lead to misinterpretation of CBC data. Current Interpretive Data was last revised on 2017. Testing performed by: [address] [address] Blood 04/28/2024 7:55 AM TEAM LEAD 04/28/2024 7:56 AM TEAM LEAD us Bucky Hodgson DO LAB BLOOD ORDERABLES Final R esult [facility] [address] [facility] Department [place] [address] * (ABNORMAL) CBC with auto differential (04/28/2024 7:55 AM TEAM LEAD) WBC 10.7(H) 3.8 - 9.9 K/cumm Comment:Testing performed by : [address] [address] Hgb 15.6 13.0 - 17.5 g/dL [place] Comment:Testing performed by : [address] [address] Hct 45.4 38.9 - 50.3 % [place] Comment:Testing performed by : [address] [address] Plt 201 150 - 400 K/cumm [place] Comment:Testing performed by : [address] [address] MPV 9.5 9.1 - 12.3 fL [place] Comment:Testing performed by : [address] [address] RBC 4.67 4.30 - 5.80 M/cumm [place] Comment:Testing performed by : [address] [address] MCV 97.2(H) 81.3 - 96.4 fL [place] Comment:Testing performed by : [address] [address] MCH 33.4(H) 27.1 - 33.3 pg [place] Comment:Testing performed by : [address] [address] MCHC 34.4 32.3 - 35.7 g/dL [place] Comment:Testing performed by : [address] [address] RDW CV 15.1(H) 11.1 - 14.9 % [place] Comment:Testing performed by : [address] [address] RDW SD 54.1(H) 35.7 - 48.1 fL [place] Comment:Testing performed by : [address] [address] NRBC abs 0.00 0.00 - 0.01 K/cumm [place] Comment:Testing performed by : [address] [address] Blood 04/28/2024 7:55 AM TEAM LEAD 04/28/2024 7:56 AM TEAM LEAD us Bucky Hodgson DO LAB BLOOD ORDERABLES Final R esult [place] [address] [facility] Department of Laboratories [place], [place] [id number] [phone] * (ABNORMAL) Erythrocyte sedimentation rate (04/28/2024 7:55 AM TEAM LEAD) [facility] Erythrocyte sedimentation rate 51(H) 1 - 20 mm/hr Comment:Testing performed by : [address] [address] Blood 04/28/2024 7:55 AM TEAM LEAD 04/28/2024 1:52 PM TEAM LEAD Bucky Hodgson DO LAB BLOOD ORDERABLES Final R esult Performing Organization Address [facility] Co de Phone Number SONAM[address] [place] [address] * Lipase (04/28/2024 7:55 AM TEAM LEAD) [facility] Lipase 16 10 - 99 Units/L Comment:Testing performed by : [address] [address] Blood 04/28/2024 7:55 AM TEAM LEAD 04/28/2024 12:47 PM TEAM LEAD Bucky Hodgson DO LAB BLOOD ORDERABLES Final R esult Performing Organization Address [facility] Co de Phone Number SON[address] [address] * (ABNORMAL) CEA (04/28/2024 7:55 AM TEAM LEAD) [facility] CEA 40.8(H) <=5.0 ng/mL Comment: Interpretive Data: Reference Range: Non-Smokers: 0.0 5.0 ng/mL Smokers: 0.0 6.5 ng/mL The [place] CEA assay procedure was used. Results from different manufacturers or methods may not be comparable. Serial testing should be performed using the same method. Current interpretive data was last revised 2022. Testing performed by: [address] [address] Blood 04/28/2024 7:55 AM TEAM LEAD 04/28/2024 10:07 AM TEAM LEAD Bucky Mary Hodgson LAB BLOOD ORDERABLES Final R esult Performing Organization Address City/[facility] Co de Phone Number [place] [facility] [place] [address] * Amylase (04/28/2024 7:55 AM TEAM LEAD) Amylase 57 30 - 99 Units/L Comment:Testing performed by : [address] [address] Blood 04/28/2024 7:55 AM TEAM LEAD 04/28/2024 12:47 PM TEAM LEAD Bucky DuqueKong Albrechti [facility] BLOOD ORDERABLES Final R esult Performing Organization Address [facility] de Phone Number CAMELIA [facility] [place] [address] * Comprehensive metabolic panel (04/28/2024 7:55 AM TEAM LEAD) Pathologist [facility] Sodium 138 135 - 145 mmol/L Comment:Testing performed by : [address] [address] Potassium, pl 4.3 3.3 - 4.9 mmol/L [place] Comment:Testing performed by : [address] [address] Chloride 103 97 - 110 mmol/L [place] Comment:Testing performed by : [address] [address] CO2 23 22 - 32 mmol/L [place] Comment:Testing performed by : [address] [address] Anion gap 12 2 - 15 mmol/L [place] Comment:Testing performed by : [address] [address] BUN 14 6 - 25 mg/dL [place] Comment:Testing performed by : [address] [address] Creatinine 1.10 0.80 - 1.30 mg/dL [place] Comment:Testing performed by : [address] [address] Glucose 106 70 - 199 mg/dL [place] Comment: Interpretive Data Fasting glucose >/= 126 mg/dl is diagnostic for diabetes. Fasting is defined as no caloric intake for at least 8 hours. Fasting glucose between 100 mg/dl to 125 mg/dl is diagnostic of prediabetes. In a patient with classic symptoms of hyperglycemia or hyperglycemic crisis, a random glucose >/= 200 mg/dl is diagnostic for diabetes. In the absence of unequivocal hyperglycemia, results should be confirmed by repeat testing. The classification and Diagnosis of Diabetes Diabetes Care 2021; 46: S19-S40. Current interpretive data was last revised 2022. Testing performed by: [address] [address] Calcium 9.6 8.5 - 10.3 mg/dL [place] Comment:Testing performed by : [address] [address] Bilirubin, total 0.9 0.1 - 1.2 mg/dL [place] Comment:Testing performed by : [address] [address] Protein, pl 7.2 6.5 - 8.5 g/dL [place] Comment:Testing performed by : [address] [address] Albumin 4.0 3.5 - 5.0 g/dL [place] Comment:Testing performed by : [address] [address] Alk phos 84 40 - 130 Units/L [place] Comment:Testing performed by : [address] [address] ALT 7 7 - 55 Units/L [place] Comment:Testing performed by : [address] [address] AST 16 10 - 50 Units/L [place] Comment:Testing performed by : [address] [address] Blood 04/28/2024 7:55 AM TEAM LEAD 04/28/2024 7:56 AM TEAM LEAD Bucky Hodgson DO LAB BLOOD ORDERABLES Final R esult Performing Organization Address [facility] Co de Phone Number [place] [address] [facility] Department [place] [address] * FL Fluoroscopy < 1 Hour (04/16/2024 1:37 PM TEAM LEAD) Narrative RACHEL_MARLENA_MHE - 04/16/2024 1:40 PM TEAM LEAD The images from this study are not interpreted by Radiology. Please refer to the physician's procedure / OR operative note. Mayo Rodríguez MD IMG FLUOROSCOPY PROCEDURES Final Result Performing Organization Address [facility] de Phone Number [email or web address] * Stone analysis (04/16/2024 12:17 PM TEAM LEAD) Stone analysis Not Reported [facility] Comment:Testing performed by : [facility], [address] [place] [address]., [address] Source, Kid Stone Kidney [place] Comment:Testing performed by : [address] [address] Interp, Kid stone analysis See Footnote [place]IA Comment: RESULT: 90% Uric acid. 10% Calcium oxalate monohydrate. Testing performed by: [address] [address] COMMENT See Footnote [place]IA Comment: For stones containing calcium oxalate, calcium phosphate, and/or uric acid, a 24 hr urinary supersaturation test may help detect underlying risk factors for this type of stone formation and provide guidance for a stone prevention strategy. ADDITIONAL INFORMATION This test was developed and its performance characteristics determined by [facility] in a manner consistent with CLIA requirements. This test has not been cleared or approved by the U.S. Food and Drug Administration. Test Performed by: [facility] [address] [place] [address] Odd Job Worker: Enrike Fang Ph.D.; CLIA# [id number] Testing performed by: [facility], [address] [place] [address]., [id number] Stone (Urine, Clean Catch) 04/16/2024 12:17 PM TEAM LEAD 04/16/2024 2:11 PM TEAM LEAD Narrative [place] - 04/22/2024 2:31 PM TEAM LEAD Left and Right kidney stone Mayo Rodríguez MD LAB URINE ORDERABLES Final Resul t Performing Organization Address [facility] Co de Phone Number [facility] [address] [facility] Department [place] [address] [facility] * AL AN ELECTIVE SUPRAGLOTTIC AIRWAY, AL AN PROCEDURE PLACEHOLDER (04/16/2024 12:03 PM TEAM LEAD) Narrative Baldemar Willis CRNA - 04/16/2024 12:03 PM TEAM LEAD Baldemar Willis CRNA 04/16/2024 12:03 PM Airway Patient location: OR Urgency: elective Indications for airway management: anesthesia Difficult airway: no Staff: Placed by: RESTAURANT MGR: Baldemar Willis CRNA Emergent airway documentation: Risks and benefits discussed: yes Consent obtained: yes Consent given by: patient Airway prep: Preoxygenated: yes Patient position: sniffing Mask difficulty assessment: 0 - not attempted Sedation level during airway: GA Final airway details: Final airway type: supraglottic airway Final supraglottic airway: classic SGA size: 5 Number of attempts: 1 Florian Castro MD ANESTHESIA ORDERABLES Final Resu lt * (ABNORMAL) POCT protein, urine, dipstick (04/15/2024 8:17 AM TEAM LEAD) Protein, ur, POC 1+(A) Negative Comment:Testing performed by : [facility], [address] [place] [address]., [id number] Urine 04/15/2024 8:17 AM TEAM LEAD 04/15/2024 8:17 AM TEAM LEAD Bucky Hodgson DO POINT OF CARE TEST ORDERABLE S Final Result Performing Organization Address [facility] Co de Phone Number [facility] Department [place] [address] * eGFR (04/15/2024 7:40 AM TEAM LEAD) eGFR 65 >=60 mL/min/1. 73 m2 Comment: Interpretive Data Reference Interval Normal >/= 90 mL/min/1.73m2 Mildly decreased* 60 - 89 mL/min/1.73m2 Mildly to moderately decreased 45 - 59 mL/min/1.73m2 Moderately to severely decreased 30 - 44 mL/min/1.73m2 Severely decreased 15 - 29 mL/min/1.73m2 Kidney Failure < 15 mL/min/1.73m2 *Relative to young adult level Estimated glomerular filtration rate is determined by the 2020 CKD-EPI equation recommended by the National Kidney Foundation (A Unifying Approach to GFR Estimation: Recommendations of the NKF-ASK Task Force on Reassessing the Inclusion of Race in Diagnosing Kidney Disease, JASN 2020). The CKD-EPI equation should not be used for patients with unstable renal function and has not been validated in children and those over 70. Current interpretive data was last reviewed 2021. Testing performed by: [address] [address] Blood 04/15/2024 7:40 AM TEAM LEAD 04/15/2024 7:43 AM TEAM LEAD us Bucky Hodgson DO LAB BLOOD ORDERABLES Final R esult Performing Organization Address City/State/[facility] Co de Phone Number [place] [address] [facility] Department [place] [address] * (ABNORMAL) Differential, auto (04/15/2024 7:40 AM TEAM LEAD) Neutrophil abs 6.6(H) 1.5 - 6.5 K/cumm Comment:Testing performed by : [address] [address] Imm gran abs 0.1 0.0 - 0.1 K/cumm [place] Comment:Testing performed by : [address] [address] Lymphocyte abs 1.4 0.8 - 3.3 K/cumm [facility] Comment:Testing performed by : [address] [address] Monocyte abs 0.7 0.2 - 0.8 K/cumm [facility] Comment:Testing performed by : [address] [address] Eosinophil abs 0.1 0.0 - 0.5 K/cumm [facility] Comment:Testing performed by : [address], [place]., [address] Basophil abs 0.1 0.0 - 0.1 K/cumm [facility] Comment:Testing performed by : [address] [address] Neutrophil pct 74.0 % [facility] Comment: Interpretive Data Percent cell count reference ranges are not reported, since discordance with absolute values may lead to misinterpretation of CBC data. Current Interpretive Data was last revised on 2017. Testing performed by: [address] [address] Imm gran pct 1.5 % [facility] Comment: Interpretive Data Percent cell count reference ranges are not reported, since discordance with absolute values may lead to misinterpretation of CBC data. Current Interpretive Data was last revised on 2017. Testing performed by: [address] [address] Lymphocyte pct 15.7 % [facility] Comment: Interpretive Data Percent cell count reference ranges are not reported, since discordance with absolute values may lead to misinterpretation of CBC data. Current Interpretive Data was last revised on 2017. Testing performed by: [address] [address] Monocyte pct 7.6 % [facility] Comment: Interpretive Data Percent cell count reference ranges are not reported, since discordance with absolute values may lead to misinterpretation of CBC data. Current Interpretive Data was last revised on 2017. Testing performed by: [address] [address] Eosinophil pct 0.6 % [facility] Comment: Interpretive Data Percent cell count reference ranges are not reported, since discordance with absolute values may lead to misinterpretation of CBC data. Current Interpretive Data was last revised on 2017. Testing performed by: [address] [address] Basophil pct 0.6 % [place] Comment: Interpretive Data Percent cell count reference ranges are not reported, since discordance with absolute values may lead to misinterpretation of CBC data. Current Interpretive Data was last revised on 2017. Testing performed by: [address] [address] Blood 04/15/2024 7:40 AM TEAM LEAD 04/15/2024 7:43 AM TEAM LEAD Bucky Hodgson DO LAB BLOOD ORDERABLES Final R esult [facility] Department [place] [address] * (ABNORMAL) CBC with auto differential (04/15/2024 7:40 AM TEAM LEAD) WBC 8.9 3.8 - 9.9 K/cumm Comment:Testing performed by : [address] [address] Hgb 13.7 13.0 - 17.5 g/dL [place] Comment:Testing performed by : [address] [address] Hct 40.1 38.9 - 50.3 % [place] Comment:Testing performed by : [address] [address] Plt 246 150 - 400 K/cumm [place] Comment:Testing performed by : [address] [address] MPV 8.9(L) 9.1 - 12.3 fL [place] Comment:Testing performed by : [address] [address] RBC 4.07(L) 4.30 - 5.80 M/cumm [place] Comment:Testing performed by : [address] [address] MCV 98.5(H) 81.3 - 96.4 fL [place] Comment:Testing performed by : [address] [address] MCH 33.7(H) 27.1 - 33.3 pg [place] Comment:Testing performed by : [address] [address] MCHC 34.2 32.3 - 35.7 g/dL [place] Comment:Testing performed by : [address] [address] RDW CV 15.3(H) 11.1 - 14.9 % [place] Comment:Testing performed by : [address] [address] RDW SD 55.9(H) 35.7 - 48.1 fL [place] Comment:Testing performed by : [address], [address] NRBC abs 0.00 0.00 - 0.01 K/cumm [place] Comment:Testing performed by : [address], [address] Blood 04/15/2024 7:40 AM TEAM LEAD 04/15/2024 7:43 AM TEAM LEAD Bucky Hodgson DO LAB BLOOD ORDERABLES Final R esult [place] [address] [facility] Department of Laboratories [place], [place] [id number] * (ABNORMAL) CEA (04/15/2024 7:40 AM TEAM LEAD) CEA 33.8(H) <=5.0 ng/mL Comment: Interpretive Data: Reference Range: Non-Smokers: 0.0 5.0 ng/mL Smokers: 0.0 6.5 ng/mL The [place] CEA assay procedure was used. Results from different manufacturers or methods may not be comparable. Serial testing should be performed using the same method. Current interpretive data was last revised 2022. Testing performed by: [address] [address] Blood 04/15/2024 7:40 AM TEAM LEAD 04/15/2024 9:40 AM TEAM LEAD Bucky Hodgson DO LAB BLOOD ORDERABLES Final R esult [facility] [address] [facility] Department [place] [address] * (ABNORMAL) Comprehensive metabolic panel (04/15/2024 7:40 AM TEAM LEAD) Sodium 140 135 - 145 mmol/L Comment:Testing performed by : [address] [address] Potassium, pl 3.8 3.3 - 4.9 mmol/L [place] Comment:Testing performed by : [address] [address] Chloride 105 97 - 110 mmol/L [place] Comment:Testing performed by : [address] [address] CO2 24 22 - 32 mmol/L [place] Comment:Testing performed by : [address] [address] Anion gap 11 2 - 15 mmol/L [place] Comment:Testing performed by : [address] [address] BUN 16 6 - 25 mg/dL [place] Comment:Testing performed by : [address] [address] Creatinine 1.20 0.80 - 1.30 mg/dL [place] Comment:Testing performed by : [address] [address] Glucose 112 70 - 199 mg/dL [place] Comment: Interpretive Data Fasting glucose >/= 126 mg/dl is diagnostic for diabetes. Fasting is defined as no caloric intake for at least 8 hours. Fasting glucose between 100 mg/dl to 125 mg/dl is diagnostic of prediabetes. In a patient with classic symptoms of hyperglycemia or hyperglycemic crisis, a random glucose >/= 200 mg/dl is diagnostic for diabetes. In the absence of unequivocal hyperglycemia, results should be confirmed by repeat testing. The classification and Diagnosis of Diabetes Diabetes Care 202; 46: S19-S40. Current interpretive data was last revised 2022. Testing performed by: [address] [address] Calcium 8.2(L) 8.5 - 10.3 mg/dL [place] Comment:Testing performed by : [address] [address] Bilirubin, total 0.4 0.1 - 1.2 mg/dL [place] Comment:Testing performed by : [address] [address] Protein, pl 6.3(L) 6.5 - 8.5 g/dL [place] Comment:Testing performed by : [address] [address] Albumin 3.5 3.5 - 5.0 g/dL [place] Comment:Testing performed by : [address] [address] Alk phos 65 40 - 130 Units/L [place] Comment:Testing performed by : [address] [address] ALT 10 7 - 55 Units/L [place] Comment:Testing performed by : [address] [address] AST 19 10 - 50 Units/L [place] Comment:Testing performed by : [address] [address] Blood 04/15/2024 7:40 AM TEAM LEAD 04/15/2024 7:43 AM TEAM LEAD us Bucky Hodgson DO LAB BLOOD ORDERABLES Edited Result - Final [place] [address] [facility] Department of Laboratories [place], [place] [id number] * ECG 12 lead (04/13/2024 9:10 AM TEAM LEAD) [facility] Signature Ventricular Rate EKG/Min 101 BPM [facility] Atrial Rate 101 BPM [facility] AL-Interval (MSEC) 180 ms [facility] QRS-Interval (MSEC) 138 ms [facility] QT-Interval (MSEC) 408 ms [facility] QTc 529 ms [facility] P [place] 71 degrees [facility] R [place] -41 degrees [facility] T [place] 56 degrees [facility] Diagnosis Sinus tachycardia Left axis deviation Left ventricular hypertrophy with QRS widening T-wave changes When compared with ECG of 21-MAY-2022 11:39, QRS duration has increased Left axis deviation is new. Confirmed by SULTAN TRAORE M.D. ([id number]) on 04/13/2024 6:03:29 PM [facility] 04/13/2024 9:10 AM TEAM LEAD 04/13/2024 6:03 PM TEAM LEAD us Neeraj Pablo MD ECG ORDERABLES nal Result [facility] * (ABNORMAL) eGFR (04/13/2024 5:11 AM TEAM LEAD) eGFR 59(L) >=60 mL/min/1. 73 m2 Comment: Interpretive Data Reference Interval Normal >/= 90 mL/min/1.73m2 Mildly decreased* 60 - 89 mL/min/1.73m2 Mildly to moderately decreased 45 - 59 mL/min/1.73m2 Moderately to severely decreased 30 - 44 mL/min/1.73m2 Severely decreased 15 - 29 mL/min/1.73m2 Kidney Failure < 15 mL/min/1.73m2 *Relative to young adult level Estimated glomerular filtration rate is determined by the 2020 CKD-EPI equation recommended by the National Kidney Foundation (A Unifying Approach to GFR Estimation: Recommendations of the NKF-ASK Task Force on Reassessing the Inclusion of Race in Diagnosing Kidney Disease, JASN 2020). The CKD-EPI equation should not be used for patients with unstable renal function and has not been validated in children and those over 70. Current interpretive data was last reviewed 2021. Testing performed by: [facility], [address] [place] [address]., [address] Blood 04/13/2024 5:11 AM TEAM LEAD 04/13/2024 5:14 AM TEAM LEAD us Aman Mcginnis MARINE FUEL DOCK ATTENDANT LAB BLOOD ORDERABLES Final R esult [place] [address] [facility] Department [place] [address] * (ABNORMAL) Differential, auto (04/13/2024 5:11 AM TEAM LEAD) Neutrophil abs 4.1 1.5 - 6.5 K/cumm Comment:Testing performed by : [address] [address] Imm gran abs 0.0 0.0 - 0.1 K/cumm [place] Comment:Testing performed by : [address] [address] Lymphocyte abs 0.4(L) 0.8 - 3.3 K/cumm [place] Comment:Testing performed by : [address] [address] Monocyte abs 0.1(L) 0.2 - 0.8 K/cumm [place] Comment:Testing performed by : [address] [address] Eosinophil abs 0.0 0.0 - 0.5 K/cumm [place] Comment:Testing performed by : [address] [address] Basophil abs 0.0 0.0 - 0.1 K/cumm [place] Comment:Testing performed by : [address] [address] Neutrophil pct 90.5 % [place] Comment: Interpretive Data Percent cell count reference ranges are not reported, since discordance with absolute values may lead to misinterpretation of CBC data. Current Interpretive Data was last revised on 2017. Testing performed by: [address] [address] Imm gran pct 0.4 % [place] Comment: Interpretive Data Percent cell count reference ranges are not reported, since discordance with absolute values may lead to misinterpretation of CBC data. Current Interpretive Data was last revised on 2017. Testing performed by: [address] [address] Lymphocyte pct 8.0 % [facility] Comment: Interpretive Data Percent cell count reference ranges are not reported, since discordance with absolute values may lead to misinterpretation of CBC data. Current Interpretive Data was last revised on 2017. Testing performed by: [address] [address] Monocyte pct 1.1 % [facility] Comment: Interpretive Data Percent cell count reference ranges are not reported, since discordance with absolute values may lead to misinterpretation of CBC data. Current Interpretive Data was last revised on 2017. Testing performed by: [address] [address] Eosinophil pct 0.0 % [facility] Comment: Interpretive Data Percent cell count reference ranges are not reported, since discordance with absolute values may lead to misinterpretation of CBC data. Current Interpretive Data was last revised on 2017. Testing performed by: [address] [address] Basophil pct 0.0 % [facility] Comment: Interpretive Data Percent cell count reference ranges are not reported, since discordance with absolute values may lead to misinterpretation of CBC data. Current Interpretive Data was last revised on 2017. Testing performed by: [address] [address] Blood 04/13/2024 5:11 AM TEAM LEAD 04/13/2024 5:14 AM TEAM LEAD us Aman Mcginnis NP LAB BLOOD ORDERABLES Final R esult [place] [address] [facility] Department [place] [address] * (ABNORMAL) CBC with auto differential (04/13/2024 5:11 AM TEAM LEAD) WBC 4.5 3.8 - 9.9 K/cumm Comment:Testing performed by : [address] [address] Hgb 13.0 13.0 - 17.5 g/dL [place] Comment:Testing performed by : [address] [address] Hct 37.5(L) 38.9 - 50.3 % [facility] Comment:Testing performed by : [address] [address] Plt 233 150 - 400 K/cumm [facility] Comment:Testing performed by : [address] [address] MPV 8.8(L) 9.1 - 12.3 fL [facility] Comment:Testing performed by : [address], [address] RBC 3.85(L) 4.30 - 5.80 M/cumm [facility] Comment:Testing performed by : [address] [address] MCV 97.4(H) 81.3 - 96.4 fL [facility] Comment:Testing performed by : [address] [address] MCH 33.8(H) 27.1 - 33.3 pg [facility] Comment:Testing performed by : [address] [address] MCHC 34.7 32.3 - 35.7 g/dL [facility] Comment:Testing performed by : [address], [address] RDW CV 14.8 11.1 - 14.9 % [place] Comment:Testing performed by : [address] [address] RDW SD 53.0(H) 35.7 - 48.1 fL [facility] Comment:Testing performed by : [address], [address] NRBC abs 0.00 0.00 - 0.01 K/cumm [place] Comment:Testing performed by : [address], [address] Blood 04/13/2024 5:11 AM TEAM LEAD 04/13/2024 5:14 AM TEAM LEAD Aman Mcginnis MARINE FUEL DOCK ATTENDANT LAB BLOOD ORDERABLES Final R esult Performing Organization Address [facility] Co de Phone Number [place] [address] [address] * Phosphorus (04/13/2024 5:11 AM TEAM LEAD) Pathologist [facility] Phosphorus, pl 2.9 2.3 - 4.5 mg/dL Comment:Testing performed by : [address] [address] Blood 04/13/2024 5:11 AM TEAM LEAD 04/13/2024 5:14 AM TEAM LEAD Aman Mcginnis MARINE FUEL DOCK ATTENDANT LAB BLOOD ORDERABLES Final R esult Performing Organization Address [facility] Co de Phone Number SONAM[address] [place] [address] * Magnesium (04/13/2024 5:11 AM TEAM LEAD) Pathologist [facility] Magnesium 1.4 1.4 - 2.5 mg/dL Comment:Testing performed by : [address] [address] Blood 04/13/2024 5:11 AM TEAM LEAD 04/13/2024 5:14 AM TEAM LEAD us Aman Mcginnis MARINE FUEL DOCK ATTENDANT LAB BLOOD ORDERABLES Final R count includes the [facility] Performing Organization Address [facility] Co de Phone Number SONAM[address] [address] * (ABNORMAL) Comprehensive metabolic panel (04/13/2024 5:11 AM TEAM LEAD) Pathologist [facility] Sodium 137 135 - 145 mmol/L Comment:Testing performed by : [address] [address] Potassium, pl 4.5 3.3 - 4.9 mmol/L [facility] Comment:Testing performed by : [address] [address] Chloride 103 97 - 110 mmol/L [facility] Comment:Testing performed by : [address], [place]., [address] CO2 21(L) 22 - 32 mmol/L [facility] Comment:Testing performed by : [address] [address] Anion gap 13 2 - 15 mmol/L [facility] Comment:Testing performed by : [address] [address] BUN 15 6 - 25 mg/dL [facility] Comment:Testing performed by : [address] [address] Creatinine 1.30 0.80 - 1.30 mg/dL [facility] Comment:Testing performed by : [address] [address] Glucose 152 70 - 199 mg/dL [facility] Comment: Interpretive Data Fasting glucose >/= 126 mg/dl is diagnostic for diabetes. Fasting is defined as no caloric intake for at least 8 hours. Fasting glucose between 100 mg/dl to 125 mg/dl is diagnostic of prediabetes. In a patient with classic symptoms of hyperglycemia or hyperglycemic crisis, a random glucose >/= 200 mg/dl is diagnostic for diabetes. In the absence of unequivocal hyperglycemia, results should be confirmed by repeat testing. The classification and Diagnosis of Diabetes Diabetes Care 202; 46: S19-S40. Current interpretive data was last revised 2022. Testing performed by: [address] [address] Calcium 8.5 8.5 - 10.3 mg/dL [facility] Comment:Testing performed by : [address] [address] Bilirubin, total 0.5 0.1 - 1.2 mg/dL [facility] Comment:Testing performed by : [address] [address] Protein, pl 6.3(L) 6.5 - 8.5 g/dL [facility] Comment:Testing performed by : [address] [address] Albumin 3.5 3.5 - 5.0 g/dL [place] Comment:Testing performed by : [address], [address] Alk phos 68 40 - 130 Units/L [place] Comment:Testing performed by : [address], [address] ALT 6(L) 7 - 55 Units/L [place] Comment:Testing performed by : [address] [address] AST 14 10 - 50 Units/L [place] Comment:Testing performed by : [address], [address] Blood 04/13/2024 5:11 AM TEAM LEAD 04/13/2024 5:14 AM TEAM LEAD Aman Mcginnis MARINE FUEL DOCK ATTENDANT LAB BLOOD ORDERABLES Final R esult Performing Organization Address [facility] Co de Phone Number [place] [address] [facility] Department of Laboratories [place], [place] [id number] * [place] Fluoroscopy < 1 Hour (04/12/2024 6:00 PM TEAM LEAD) Narrative [id number] - 04/12/2024 6:03 PM TEAM LEAD The images from this study are not interpreted by Radiology. Please refer to the physician's procedure / OR operative note. us Mayo Rodríguez MD IMG FLUOROSCOPY PROCEDURES Final Result Performing Organization Address [facility] Co de Phone Number [email or web address] * AL AN ELECTIVE SUPRAGLOTTIC AIRWAY, AL AN PROCEDURE PLACEHOLDER (04/12/2024 5:41 PM TEAM LEAD) Narrative Baldemar Willis CRNA - 04/12/2024 5:41 PM TEAM LEAD Baldemar Willis CRNA 04/12/2024 5:41 PM Airway Patient location: OR Urgency: elective Indications for airway management: anesthesia Difficult airway: no Staff: Placed by: RESTAURANT MGR: Baldemar Willis CRNA Emergent airway documentation: Risks and benefits discussed: yes Consent obtained: yes Consent given by: patient Airway prep: Preoxygenated: yes Patient position: sniffing Mask difficulty assessment: 0 - not attempted Sedation level during airway: GA Final airway details: Final airway type: supraglottic airway Final supraglottic airway: classic SGA size: 5 Number of attempts: 1 us Carlito Mcconnell DO ANESTHESIA ORDERABLES Final R esult * CT Abdomen Pelvis WO Contrast (04/12/2024 11:37 AM TEAM LEAD) Anatomical Region Laterality Modality Body N/A Computed Tomogra phy 04/12/2024 11:5 1 AM TEAM LEAD Narrative 04/12/2024 11:55 AM TEAM LEAD EXAM DESCRIPTION: CT ABDOMEN PELVIS WO CONTRAST REASON FOR STUDY: Flank pain, kidney stone suspected, known kidney stone, is there worsening hydro Was treated here last for Kidney stone, thought had passed the stone. Last night symptoms returned, left flank pain with nausea - decreased UOP. Chemo treatments every 3 weeks for colon and Liver cancer. Has a port. TECHNIQUE: CT scan of the abdomen and pelvis performed without intravenous and without oral contrast using helical scanning technique. Reconstructed coronal and sagittal MPR images reviewed. All images stored on PACS. Automated exposure control was used as a dose optimization technique for this examination. COMPARISON: 04/08/2024 FINDINGS: LOWER CHEST: Mild scarring in the left lung base. Heart size normal. Coronary artery calcifications. Small pericardial effusion. LIVER/BILIARY: Calcified lesion in the right lobe unchanged. Biliary tree normal in caliber. GALLBLADDER: Normal. SPLEEN: Normal. PANCREAS: Moderate atrophy. ADRENAL GLANDS: Normal. KIDNEYS/URINARY TRACT: Scattered vascular calcifications. Moderate right renal atrophy. The left ureteral calculus has progressed into the distal ureter, currently nonobstructing but just proximal to the UVJ. Moderate hydroureteronephrosis persists. GI: Stomach and small bowel appear normal. Small bowel loops lie within a ventral hernia unchanged. Ileocecal anastomosis unremarkable. OTHER ABDOMINAL/PELVIS: Major vascular structures are normal in caliber. No enlarged lymph node or free fluid. MSK: Moderate disc disease and facet arthropathy. Hip and SI joint arthrosis. BODY WALL: Small fat containing left inguinal hernia. IMPRESSION: Moderate left hydroureteronephrosis persists, although the calculus has progressed into the distal ureter. This does not appear to be currently obstructing but is just proximal to the UVJ and not yet passed into the bladder. THIS IS AN ELECTRONICALLY VERIFIED FINAL REPORT 04/12/2024 11:55 AM - Electronically signed by Brandyn Coronado M.D. AR: DALI Report ID: [id number] Reading Location: [id number] Procedure Note Brandyn Coronado MD - 04/12/2024 EXAM DESCRIPTION: CT ABDOMEN PELVIS WO CONTRAST REASON FOR STUDY: Flank pain, kidney stone suspected, known kidneystone, is there worsening hydro Was treated here last for Kidney stone, thought had passed thestone. Last night symptoms returned, left flank pain with nausea - decreased UOP. Chemo treatments every 3 weeks for colon and Liver cancer. Has a port. TECHNIQUE: CT scan of the abdomen and pelvis performed without intravenousand without oral contrast using helical scanning technique. Reconstructed coronal and sagittal MPR images reviewed. All images stored on PACS.Automated exposure control was used as a dose optimization technique for this examination. COMPARISON: 04/08/2024 FINDINGS: LOWER CHEST: Mild scarring in the left lung base. Heart size normal. Coronary artery calcifications. Small pericardial effusion. LIVER/BILIARY: Calcified lesion in the right lobe unchanged. Biliarytree normal in caliber. GALLBLADDER: Normal. SPLEEN: Normal. PANCREAS: Moderate atrophy. ADRENAL GLANDS: Normal. KIDNEYS/URINARY TRACT: Scattered vascular calcifications. Moderate right renal atrophy. The left ureteral calculus has progressed into the distal ureter, currently nonobstructing but just proximal to the UVJ. Moderate hydroureteronephrosis persists. GI: Stomach and small bowel appear normal. Small bowel loops lie withina ventral hernia unchanged. Ileocecal anastomosis unremarkable. OTHER ABDOMINAL/PELVIS: Major vascular structures are normal in caliber.No enlarged lymph node or free fluid. MSK: Moderate disc disease and facet arthropathy. Hip and SI joint arthrosis. BODY WALL: Small fat containing left inguinal hernia. IMPRESSION: Moderate left hydroureteronephrosis persists, although the calculus has progressed into the distal ureter. This does not appear campbell currently obstructing but is just proximal to the UVJ and not yet passedinto the bladder. THIS IS AN ELECTRONICALLY VERIFIED FINAL REPORT 04/12/2024 11:55 AM - Electronically signed by Brandyn Coronado M.D. AR: DALI Report ID: [id number] Reading Location: [place] [address] Jose J Garcia MD IMG CT PROCEDURES Final Result * (ABNORMAL) Urinalysis reflex to microscopic and culture Urine (04/12/2024 10:21 AM TEAM LEAD) Color, ur Yellow Yellow Comment:Testing performed by : [address] [address] Clarity, ur Clear Clear [place] Comment:Testing performed by : [address] [address] Specific gravity, ur 1.021 1.003 - 1.030 [place] Comment:Testing performed by : [address] [address] pH, urine 5.5 [place] Comment: Interpretive Data U rine pH is affected by diet, medications, systemic acid-base disturbances, and renal tubular function. pH may affect urinary stone formation. For example, urine pH below 6.0 may help reduce the tendency for calcium phosphate stones and pH greater than 6.0 may reduce the tendency for uric acid stone formation. Source: [facility] Current Interpretive Data was last revised on 2017 Testing performed by: [address] [address] Protein, ur ql Trace(A) Negative [place] Comment:Testing performed by : [address] [address] Glucose, ur ql Negative Negative [place] Comment:Testing performed by : [address] [address] Ketones, ur Negative Negative [place] Comment:Testing performed by : [address] [address] Bilirubin, ur Negative Negative [place] Comment:Testing performed by : [address], [place]., [address] Blood, ur 1+(A) Negative [place] Comment:Testing performed by : [address], [place]., [address] Urobilinogen, ur <2.0 <2.0 mg/dL [place] Comment:Testing performed by : [facility] [address] [place] [address], [place]., [address] Nitrite, ur Negative Negative [place] Comment:Testing performed by : [address], [place]., [address] Leukocyte esterase, ur 1+(A) Negative [place] Comment:Testing performed by : [address], [place]., [address] UA reflex comment Reflex to microscopic UA will be performed. [place] Comment:Testing performed by : [facility] [address] [place] [address], [place]., [address] Urine 04/12/2024 10:2 1 AM TEAM LEAD 04/12/2024 10:24 AM TEAM LEAD us Jose J Garcia MD LAB MICROBIOLOGY - GENE [facility] ORDERABLES Final Result [place] [address] [facility] Department [place] [address] * (ABNORMAL) Urinalysis, microscopic only (04/12/2024 10:21 AM TEAM LEAD) WBC, ur 0-5 0 - 5 /HPF Comment:Testing performed by : [facility] [address] [place] [address]., [address] RBC, ur 3-5(A) 0 - 2 /HPF [place] Comment:Testing performed by : [address] [address] Epithelial cells, squamous, ur 1-5 0 - 5 /HPF [place] Comment:Testing performed by : [address], [place]., [address] Mucous, ur Present(A) [place] Comment:Testing performed by : [address] [address] Calcium oxalate crystals, ur Trace(A) [place] Comment:Testing performed by : [address] [address] Culture Reflex Comment Reflex conditions for urine culture (WBC >10) not met. [place] Comment:Testing performed by : [address] [address] Urine 04/12/2024 10:2 1 AM TEAM LEAD 04/12/2024 10:24 AM TEAM LEAD us Jose J Garcia MD LAB URINE ORDERABLES Fi nal Result [place] [address] [facility] Department [place] [address] * (ABNORMAL) eGFR (04/12/2024 9:39 AM TEAM LEAD) eGFR 54(L) >=60 mL/min/1. 73 m2 Comment: Interpretive Data Reference Interval Normal >/= 90 mL/min/1.73m2 Mildly decreased* 60 - 89 mL/min/1.73m2 Mildly to moderately decreased 45 - 59 mL/min/1.73m2 Moderately to severely decreased 30 - 44 mL/min/1.73m2 Severely decreased 15 - 29 mL/min/1.73m2 Kidney Failure < 15 mL/min/1.73m2 *Relative to young adult level Estimated glomerular filtration rate is determined by the 2020 CKD-EPI equation recommended by the National Kidney Foundation (A Unifying Approach to GFR Estimation: Recommendations of the NKF-ASK Task Force on Reassessing the Inclusion of Race in Diagnosing Kidney Disease, JASN 2020). The CKD-EPI equation should not be used for patients with unstable renal function and has not been validated in children and those over 70. Current interpretive data was last reviewed 2021. Testing performed by: [address] [address] Blood 04/12/2024 9:39 AM TEAM LEAD 04/12/2024 9:50 AM TEAM LEAD us Jose J Garcia MD LAB BLOOD ORDERABLES [facility] Result [place] [address] [facility] Department of Laboratories [place], [place] [id number] * (ABNORMAL) Differential, auto (04/12/2024 9:39 AM TEAM LEAD) Neutrophil abs 6.3 1.5 - 6.5 K/cumm Comment:Testing performed by : [address] [address] Imm gran abs 0.0 0.0 - 0.1 K/cumm [place] Comment:Testing performed by : [address] [address] Lymphocyte abs 0.6(L) 0.8 - 3.3 K/cumm [place] Comment:Testing performed by : [address] [address] Monocyte abs 0.8 0.2 - 0.8 K/cumm [place] Comment:Testing performed by : [address] [address] Eosinophil abs 0.1 0.0 - 0.5 K/cumm [place] Comment:Testing performed by : [address] [address] Basophil abs 0.0 0.0 - 0.1 K/cumm [place] Comment:Testing performed by : [address] [address] Neutrophil pct 80.2 % [place] Comment: Interpretive Data Percent cell count reference ranges are not reported, since discordance with absolute values may lead to misinterpretation of CBC data. Current Interpretive Data was last revised on 2017. Testing performed by: [address] [address] Imm gran pct 0.4 % [place] Comment: Interpretive Data Percent cell count reference ranges are not reported, since discordance with absolute values may lead to misinterpretation of CBC data. Current Interpretive Data was last revised on 2017. Testing performed by: [address] [address] Lymphocyte pct 7.5 % [place] Comment: Interpretive Data Percent cell count reference ranges are not reported, since discordance with absolute values may lead to misinterpretation of CBC data. Current Interpretive Data was last revised on 2017. Testing performed by: [address] [address] Monocyte pct 10.2 % [place] Comment: Interpretive Data Percent cell count reference ranges are not reported, since discordance with absolute values may lead to misinterpretation of CBC data. Current Interpretive Data was last revised on 2017. Testing performed by: [address] [address] Eosinophil pct 1.3 % [place] Comment: Interpretive Data Percent cell count reference ranges are not reported, since discordance with absolute values may lead to misinterpretation of CBC data. Current Interpretive Data was last revised on 2017. Testing performed by: [address] [address] Basophil pct 0.4 % [place] Comment: Interpretive Data Percent cell count reference ranges are not reported, since discordance with absolute values may lead to misinterpretation of CBC data. Current Interpretive Data was last revised on 2017. Testing performed by: [address] [address] Blood 04/12/2024 9:39 AM TEAM LEAD 04/12/2024 9:50 AM TEAM LEAD us Jose J Garcia MD LAB BLOOD ORDERABLES Fi nal Result [facility] [address] [facility] Department [place] [address] * (ABNORMAL) CBC with auto differential (04/12/2024 9:39 AM TEAM LEAD) WBC 7.9 3.8 - 9.9 K/cumm Comment:Testing performed by : [address] [address] Hgb 14.3 13.0 - 17.5 g/dL [place] Comment:Testing performed by : [address] [address] Hct 41.7 38.9 - 50.3 % [place] Comment:Testing performed by : [address], [address] Plt 232 150 - 400 K/cumm [place] Comment:Testing performed by : [address], [address] MPV 8.8(L) 9.1 - 12.3 fL [place] Comment:Testing performed by : [address], [address] RBC 4.32 4.30 - 5.80 M/cumm [place] Comment:Testing performed by : [address], [address] MCV 96.5(H) 81.3 - 96.4 fL [place] Comment:Testing performed by : [address], [address] MCH 33.1 27.1 - 33.3 pg [place] Comment:Testing performed by : [address], [address] MCHC 34.3 32.3 - 35.7 g/dL [place] Comment:Testing performed by : [address], [address] RDW CV 14.9 11.1 - 14.9 % [place] Comment:Testing performed by : [address], [address] RDW SD 53.3(H) 35.7 - 48.1 fL [place] Comment:Testing performed by : [address], [address] NRBC abs 0.00 0.00 - 0.01 K/cumm [place] Comment:Testing performed by : [address], [address] Blood Venous blood specimen / Unknown 04/12/2024 9:39 AM TEAM LEAD 04/12/2024 9:50 AM TEAM LEAD us Jose J Garcia MD LAB BLOOD ORDERABLES Fi nal Result [place] [address] [facility] [place] [address] * Lipase (04/12/2024 9:39 AM TEAM LEAD) [facility] Lipase 11 10 - 99 Units/L Comment:Testing performed by : [address] [address] Blood Venous blood specimen / Unknown 04/12/2024 9:39 AM TEAM LEAD 04/12/2024 9:50 AM TEAM LEAD us Jose J Garcia MD LAB BLOOD ORDERABLES Fi nal Result Performing Organization Address [facility] Co de Phone Number [place] [address] Department [place] [address] * (ABNORMAL) Comprehensive metabolic panel (04/12/2024 9:39 AM TEAM LEAD) [facility] Sodium 134(L) 135 - 145 mmol/L Comment:Testing performed by : [address] [address] Potassium, pl 3.6 3.3 - 4.9 mmol/L [place] Comment:Testing performed by : [address] [address] Chloride 100 97 - 110 mmol/L [place] Comment:Testing performed by : [address] [address] CO2 22 22 - 32 mmol/L [place] Comment:Testing performed by : [address] [address] Anion gap 12 2 - 15 mmol/L [place] Comment:Testing performed by : [address] [address] BUN 13 6 - 25 mg/dL [place] Comment:Testing performed by : [address] [address] Creatinine 1.40(H) 0.80 - 1.30 mg/dL [place] Comment:Testing performed by : [address] [address] Glucose 111 70 - 199 mg/dL [place] Comment: Interpretive Data Fasting glucose >/= 126 mg/dl is diagnostic for diabetes. Fasting is defined as no caloric intake for at least 8 hours. Fasting glucose between 100 mg/dl to 125 mg/dl is diagnostic of prediabetes. In a patient with classic symptoms of hyperglycemia or hyperglycemic crisis, a random glucose >/= 200 mg/dl is diagnostic for diabetes. In the absence of unequivocal hyperglycemia, results should be confirmed by repeat testing. The classification and Diagnosis of Diabetes Diabetes Care 2021; 46: S19-S40. Current interpretive data was last revised 2022. Testing performed by: [address] [address] Calcium 8.5 8.5 - 10.3 mg/dL [place] Comment:Testing performed by : [address] [address] Bilirubin, total 0.7 0.1 - 1.2 mg/dL [place] Comment:Testing performed by : [address] [address] Protein, pl 6.7 6.5 - 8.5 g/dL [place] Comment:Testing performed by : [address] [address] Albumin 3.6 3.5 - 5.0 g/dL [place] Comment:Testing performed by : [address] [address] Alk phos 78 40 - 130 Units/L [place] Comment:Testing performed by : [address] [address] ALT 8 7 - 55 Units/L [place] Comment:Testing performed by : [address] [address] AST 18 10 - 50 Units/L [place] Comment:Testing performed by : [address] [address] Blood Venous blood specimen / Unknown 04/12/2024 9:39 AM TEAM LEAD 04/12/2024 9:50 AM TEAM LEAD us Jose J Garcia MD LAB BLOOD ORDERABLES Fi nal Result Performing Organization Address City/[facility]/ZIP Co de Phone Number [place] [address] [facility] [place] [address] * Blood culture Blood (04/08/2024 6:40 PM TEAM LEAD) Report Final Report: No growth Comment:Testing performed by : [facility], [address] [place]., [address] Blood 04/08/2024 6:40 PM TEAM LEAD 04/08/2024 9:15 PM TEAM LEAD Narrative [facility] - 04/13/2024 7:00 AM TEAM LEAD Collection->Peripheral 1. Blood cultures are incubated for 4 days on a continuously monitored blood culture system. The first report of a negative culture is issued within 24 hours of receipt of the specimen in the laboratory. 2. Positive culture results are reported as soon as they are detected. 3. The most important factor for detection of microbes in the setting of bloodstream infection is the volume of blood submitted for culture. Failure to collect an optimal blood volume can result in false negative blood cultures. 4. For pediatric patients, the recommended blood volume to collect follows a weight based strategy. See the electronic test catalog for collection instructions. 5. For positive blood cultures, a rapid molecular test may be performed for organism identification using the [place] ePlex blood culture identification panel for gram positive (BCID-GP) and gram negative (BCID-GN) organisms. This nucleic acid amplification test detects microbial DNA in positive blood culture broth. This assay has been cleared by the [place] Food and Drug Administration and its performance characteristics have been verified by the [facility]. For questions about this culture, contact the Microbiology Laboratory at [phone]. Interpretive data was last revised on 24. Hiral [facility]MER LAB MICROBIOLOGY - GENERAL JASON HANCOCK Final Result [place] [address] [facility] [place] [address] * Blood culture Blood (04/08/2024 6:39 PM TEAM LEAD) Report Final Report: No growth Comment:Testing performed by : [facility], [address] [facility], [place]., [address] Blood 04/08/2024 6:39 PM TEAM LEAD 04/08/2024 9:15 PM TEAM LEAD Narrative [place] - 04/13/2024 7:00 AM TEAM LEAD Collection->Peripheral 1. Blood cultures are incubated for 4 days on a continuously monitored blood culture system. The first report of a negative culture is issued within 24 hours of receipt of the specimen in the laboratory. 2. Positive culture results are reported as soon as they are detected. 3. The most important factor for detection of microbes in the setting of bloodstream infection is the volume of blood submitted for culture. Failure to collect an optimal blood volume can result in false negative blood cultures. 4. For pediatric patients, the recommended blood volume to collect follows a weight based strategy. See the electronic test catalog for collection instructions. 5. For positive blood cultures, a rapid molecular test may be performed for organism identification using the [place] ePlex blood culture identification panel for gram positive (BCID-GP) and gram negative (BCID-GN) organisms. This nucleic acid amplification test detects microbial DNA in positive blood culture broth. This assay has been cleared by the [place] Food and Drug Administration and its performance characteristics have been verified by the [facility]. For questions about this culture, contact the Microbiology Laboratory at [phone]. Interpretive data was last revised on 24. H[facility] LAB MICROBIOLOGY - GENERAL ORDMarine HANCOCK Final Result [place] [address] [facility] Department of Laboratories [place], [place] [id number] * CT Abdomen Pelvis W Contrast (04/08/2024 5:22 PM TEAM LEAD) Anatomical Region Laterality Modality Body N/A Computed Tomogra phy 04/08/2024 5:55 PM TEAM LEAD Narrative 04/08/2024 6:12 PM TEAM LEAD EXAM DESCRIPTION: CT ABDOMEN PELVIS W CONTRAST REASON FOR STUDY: Abdominal pain, acute, nonlocalized Patient here today with abdominal pain in lower abdomen and vomiting x3 days. Patient reports abdominal surgery about 1 year ago and has pain that can normally be controlled with hydrocodone. Patient reports pain and vomiting began 3 days ago. History colorectal and liver cancer TECHNIQUE: CT scan of the abdomen and pelvis performed with intravenous and without oral contrast using helical scanning technique with dynamic intravenous contrast injection. Reconstructed coronal and sagittal MPR images reviewed. All images stored on PACS. Automated exposure control was used as a dose optimization technique for this examination. CONTRAST TYPE/DOSE: 100mL of IOVERSOL 350 MG IODINE/ML INTRAVENOUS SYRINGE injected COMPARISON: 02/06/2024, 08/21/2023 FINDINGS: LOWER CHEST: Mild scattered subsegmental atelectasis and mild bilateral pulmonary parenchymal scarring. No pleural effusion. Borderline cardiomegaly with small pericardial effusion. Imaged portions of the esophagus are within normal limits. LIVER: Normal size. Unchanged ovoid heterogeneously hyperattenuating region along the medial right hepatic lobe spanning up to proximally 41 mm likely reflective of previously treated lesion. Calcification in the posterior right hepatic dome is unchanged. The hepatic and portal veins are patent. GALLBLADDER: There is cholelithiasis with gallbladder distension. BILE DUCTS: Borderline intrahepatic biliary ductal dilatation with normal caliber of the extrahepatic bile ducts most likely due to prior cholecystectomy and reservoir effect. SPLEEN: Mild splenomegaly measuring 13.4 cm in craniocaudal dimension. Calcified splenic granulomas. A splenule is present.. No focal lesions. PANCREAS: No identified cystic or solid masses. No significant calcifications. No adjacent inflammation or peripancreatic fluid collections. Pancreatic duct not dilated. ADRENALS: Normal. KIDNEYS/URINARY TRACT: Mild left hydroureteronephrosis due to a proximal left ureteral calculus measuring 3 mm. There is a punctate distal left ureteral calculus, positioned approximately 2 cm proximal to the ureterovesical junction. There is left periureteral fat stranding due to recent calculus passage. There is mild left perinephric asymmetric fat stranding and small volume of left perinephric free fluid due to increased intrarenal pressures. Mildly delayed left renal nephrogram due to presence of hydronephrosis. There are several nonobstructive bilateral renal calculi. There is hyperattenuating lesion in the lower pole of the right kidney measuring a proximally 10 mm which did not demonstrate hypermetabolism on prior PET-CT as well as additional hypoattenuating subcentimeter left renal lesions which are too small to characterize. The urinary bladder is within normal limits. GI: The stomach is normal. Prior extended right hemicolectomy with ileocolic anastomosis. Redemonstration of moderate-sized periumbilical ventral abdominal wall hernia associated with diastasis of rectus abdominus muscles containing nondilated segments of small bowel as well as mesenteric fat/vessels. No small bowel or colonic obstruction or perforation. PERITONEUM/RETROPERITONEUM: No free air. Trace free fluid along the retroperitoneal fascial planes as well as along the leaves of the mesentery. No lymphadenopathy. REPRODUCTIVE: Mild enlargement of the prostate gland with parenchymal calcifications imposing mass-effect upon the base of the urinary bladder. VASCULATURE: No abdominal aortic aneurysm. The abdominal aorta and its branches are patent. MUSCULOSKELETAL: No acute fractures or aggressive osseous lesions. There is an unchanged irregular shaped soft tissue mass along the left rectus abdominus muscle adjacent to the inferior margin of the abdominal wall hernia neck which demonstrated hypermetabolism on prior PET-CT measuring up to 50 x 40 x 32 mm. IMPRESSION: 1. Mild left hydroureteronephrosis due to a proximal left ureteral calculus measuring 3 mm. Punctate distal left ureteral calculus, positioned approximately 2 cm proximal to the ureterovesical junction. 2. Prior extended right hemicolectomy with ileocolic anastomosis. Redemonstration of moderate-sized periumbilical ventral abdominal wall hernia associated with diastasis of rectus abdominus muscles containing nondilated segments of small bowel as well as mesenteric fat/vessels. No small bowel or colonic obstruction or perforation. 3. Unchanged irregular shaped soft tissue mass along the left rectus abdominus muscle adjacent to the inferior margin of the abdominal wall hernia neck which demonstrated hypermetabolism on prior PET-CT measuring up to 50 x 40 x 32 mm. THIS IS AN ELECTRONICALLY VERIFIED FINAL REPORT 04/08/2024 6:12 PM - Electronically signed by Katherine Dye M.D. AT: AT Report ID: [id number] Reading Location: [id number] Procedure Note Katherine Dye MD - 04/08/2024 EXAM DESCRIPTION: CT ABDOMEN PELVIS W CONTRAST REASON FOR STUDY: Abdominal pain, acute, nonlocalized Patient here today with abdominal pain in lower abdomen and vomiting x3days. Patient reports abdominal surgery about 1 year ago and has pain that can normally be controlled with hydrocodone. Patient reports pain and vomiting began 3 days ago. History colorectal and liver cancer TECHNIQUE: CT scan of the abdomen and pelvis performed with intravenousand without oral contrast using helical scanning technique with dynamic intravenous contrast injection. Reconstructed coronal and sagittal MPRimages reviewed. All images stored on PACS. Automated exposure control was usedas a dose optimization technique for this examination. CONTRAST TYPE/DOSE: 100mL of IOVERSOL 350 MG IODINE/ML INTRAVENOUSSYRINGE injected COMPARISON: 02/06/2024, 08/21/2023 FINDINGS: LOWER CHEST: Mild scattered subsegmental atelectasis and mild bilateral pulmonary parenchymal scarring. No pleural effusion.Borderline cardiomegaly with small pericardial effusion. Imaged portions of the esophagus are within normal limits. LIVER: Normal size. Unchanged ovoid heterogeneously hyperattenuatingregion along the medial right hepatic lobe spanning up to proximally 41 mm likely reflective of previously treated lesion. Calcification in the posteriorright hepatic dome is unchanged. The hepatic and portal veins are patent. GALLBLADDER: There is cholelithiasis with gallbladder distension. BILE DUCTS: Borderline intrahepatic biliary ductal dilatation withnormal caliber of the extrahepatic bile ducts most likely due to prior cholecystectomy and reservoir effect. SPLEEN: Mild splenomegaly measuring 13.4 cm in craniocaudal dimension. Calcified splenic granulomas. A splenule is present.. No focal lesions. PANCREAS: No identified cystic or solid masses. No significant calcifications. No adjacent inflammation or peripancreatic fluidcollections. Pancreatic duct not dilated. ADRENALS: Normal. KIDNEYS/URINARY TRACT: Mild left hydroureteronephrosis due to a proximal left ureteral calculus measuring 3 mm. There is a punctate distal left ureteral calculus, positioned approximately 2 cm proximal to the ureterovesical junction. There is left periureteral fat stranding due to recent calculus passage. There is mild left perinephric asymmetric fat stranding and small volume of left perinephric free fluid due to increased intrarenal pressures. Mildly delayed left renal nephrogram due topresence of hydronephrosis. There are several nonobstructive bilateral renal calculi. There is hyperattenuating lesion in the lower pole of the right kidney measuring a proximally 10 mm which did not demonstrate hypermetabolism on prior PET-CT as well as additional hypoattenuating subcentimeter leftrenal lesions which are too small to characterize. The urinary bladder iswithin normal limits. GI: The stomach is normal. Prior extended right hemicolectomy with ileocolic anastomosis. Redemonstration of moderate-sized periumbilical ventral abdominal wall hernia associated with diastasis of rectusabdominus muscles containing nondilated segments of small bowel as well asmesenteric fat/vessels. No small bowel or colonic obstruction or perforation. PERITONEUM/RETROPERITONEUM: No free air. Trace free fluid along the retroperitoneal fascial planes as well as along the leaves of themesentery. No lymphadenopathy. REPRODUCTIVE: Mild enlargement of the prostate gland with parenchymal calcifications imposing mass-effect upon the base of the urinary bladder. VASCULATURE: No abdominal aortic aneurysm. The abdominal aorta and its branches are patent. MUSCULOSKELETAL: No acute fractures or aggressive osseous lesions.There is an unchanged irregular shaped soft tissue mass along the left rectusabdominus muscle adjacent to the inferior margin of the abdominal wall hernia neckwhich demonstrated hypermetabolism on prior PET-CT measuring up to 50 x 40 x 32mm. IMPRESSION: 1. Mild left hydroureteronephrosis due to a proximal leftureteral calculus measuring 3 mm. Punctate distal left ureteral calculus,positioned approximately 2 cm proximal to the ureterovesical junction. 2. Prior extended right hemicolectomy with ileocolic anastomosis. Redemonstration of moderate-sized periumbilical ventral abdominal wallhernia associated with diastasis of rectus abdominus muscles containingnondilated segments of small bowel as well as mesenteric fat/vessels. No small bowelor colonic obstruction or perforation. 3. Unchanged irregular shaped soft tissue mass along the left rectusabdominus muscle adjacent to the inferior margin of the abdominal wall hernia neckwhich demonstrated hypermetabolism on prior PET-CT measuring up to 50 x 40 x 32mm. THIS IS AN ELECTRONICALLY VERIFIED FINAL REPORT 04/08/2024 6:12 PM - Electronically signed by Katherine Dye M.D. AT: AT Report ID: [id number] Reading Location: [id number] us Hiral ZIM[facility] IMG CT PROCEDURES Final Result * Sepsis Lactate w/ Reflex (04/08/2024 5:00 PM TEAM LEAD) Sepsis Lactate 1.7 0.7 - 2.0 mmol/L Comment:Testing performed by : [address] [address] Blood 04/08/2024 5:00 PM TEAM LEAD 04/08/2024 5:18 PM TEAM LEAD us Hiral ZIMMER LAB BLOOD ORDERABLES Final Resu lt [place] [address] [facility] Department [place] [address] * (ABNORMAL) Urinalysis reflex to microscopic and culture Urine (04/08/2024 3:17 PM TEAM LEAD) Color, ur Yellow Yellow Comment:Testing performed by : [address] [address] Clarity, ur Cloudy(A) Clear [place] Comment:Testing performed by : [address] [address] Specific gravity, ur 1.026 1.003 - 1.030 [place] Comment:Testing performed by : [address] [address] pH, urine 5.5 [place] Comment: Interpretive Data U rine pH is affected by diet, medications, systemic acid-base disturbances, and renal tubular function. pH may affect urinary stone formation. For example, urine pH below 6.0 may help reduce the tendency for calcium phosphate stones and pH greater than 6.0 may reduce the tendency for uric acid stone formation. Source: [employer] Current Interpretive Data was last revised on 2017 Testing performed by: [address] [address] Protein, ur ql 1+(A) Negative [place] Comment:Testing performed by : [address] [address] Glucose, ur ql Negative Negative [place] Comment:Testing performed by : [address], [place]., [address] Ketones, ur Negative Negative [place] Comment:Testing performed by : [address], [place]., [address] Bilirubin, ur Negative Negative [place] Comment:Testing performed by : [address], [place]., [address] Blood, ur 1+(A) Negative [place] Comment:Testing performed by : [address], [place]., [address] Urobilinogen, ur 2.0(A) <2.0 mg/dL [place] Comment:Testing performed by : [address], [place]., [address] Nitrite, ur Negative Negative [place] Comment:Testing performed by : [address] [address] Leukocyte esterase, ur 4+(A) Negative [place] Comment:Testing performed by : [address], [place]., [address] UA reflex comment Reflex to microscopic UA will be performed. [place] Comment:Testing performed by : [address] [address] Urine 04/08/2024 3:17 PM TEAM LEAD 04/08/2024 3:24 PM TEAM LEAD Mannie Walls DO LAB MICROBIOLOGY - GENERAL ORDERABLES Final Result [place] [address] [facility] Department [place] [address] * (ABNORMAL) Urinalysis, microscopic only (04/08/2024 3:17 PM TEAM LEAD) WBC, ur 21-50(A) 0 - 5 /HPF Comment:Testing performed by : [address], [place]., [address] RBC, ur 6-10(A) 0 - 2 /HPF [place] Comment:Testing performed by : [address], [place]., [address] Mucous, ur Present(A) [place] Comment:Testing performed by : [address] [address] Hyaline casts, ur 1-5 0 - 10 /LPF [place] Comment:Testing performed by : [address] [address] Culture Reflex Comment Reflex to urine culture will be performed. [place] Comment:Testing performed by : [address] [address] Urine 04/08/2024 3:17 PM TEAM LEAD 04/08/2024 3:24 PM TEAM LEAD Mannie Walls LAB URINE ORDERABLES Final Result Performing Organization Address [facility] de Phone Number [address] [place] [address] * Urine culture Urine (04/08/2024 3:17 PM TEAM LEAD) Report Final Report: Less than 100,000 colonies/mL (clinically insignificant growth based on current clinical standards) Comment:Testing performed by : [facility], [address] [place]., [address] Organism (CLINICALLY INSIGNIFICANT GROWTH [place] Urine 04/08/2024 3:17 PM TEAM LEAD 04/08/2024 8:24 PM TEAM LEAD Narrative [place] - 04/10/2024 7:29 AM TEAM LEAD Urine culture reflexed based upon urinalysis results. Testing performed by [facility] ([phone]) Mannie Walls DO LAB MICROBIOLOGY - GENERAL ORDERABLES Final Result Performing Organization Address City/[facility] Co de Phone Number [address] [place] [address] * (ABNORMAL) eGFR (04/08/2024 3:10 PM TEAM LEAD) eGFR 40(L) >=60 mL/min/1. 73 m2 Comment: Interpretive Data Reference Interval Normal >/= 90 mL/min/1.73m2 Mildly decreased* 60 - 89 mL/min/1.73m2 Mildly to moderately decreased 45 - 59 mL/min/1.73m2 Moderately to severely decreased 30 - 44 mL/min/1.73m2 Severely decreased 15 - 29 mL/min/1.73m2 Kidney Failure < 15 mL/min/1.73m2 *Relative to young adult level Estimated glomerular filtration rate is determined by the 2020 CKD-EPI equation recommended by the National Kidney Foundation (A Unifying Approach to GFR Estimation: Recommendations of the NKF-ASK Task Force on Reassessing the Inclusion of Race in Diagnosing Kidney Disease, JASN 2020). The CKD-EPI equation should not be used for patients with unstable renal function and has not been validated in children and those over 70. Current interpretive data was last reviewed 2021. Testing performed by: [address] [address] Blood 04/08/2024 3:10 PM TEAM LEAD 04/08/2024 3:24 PM TEAM LEAD Mannie Walls DO LAB BLOOD ORDERABLES Final Result [place] [address] [facility] Department [place] [address] * (ABNORMAL) Differential, auto (04/08/2024 3:10 PM TEAM LEAD) Neutrophil abs 9.4(H) 1.5 - 6.5 K/cumm Comment:Testing performed by : [address] [address] Imm gran abs 0.0 0.0 - 0.1 K/cumm [place] Comment:Testing performed by : [address] [address] Lymphocyte abs 0.7(L) 0.8 - 3.3 K/cumm [place] Comment:Testing performed by : [address] [address] Monocyte abs 1.0(H) 0.2 - 0.8 K/cumm [facility] Comment:Testing performed by : [address] [address] Eosinophil abs 0.1 0.0 - 0.5 K/cumm [facility] Comment:Testing performed by : [address] [address] Basophil abs 0.1 0.0 - 0.1 K/cumm [facility] Comment:Testing performed by : [address] [address] Neutrophil pct 84.1 % [facility] Comment: Interpretive Data Percent cell count reference ranges are not reported, since discordance with absolute values may lead to misinterpretation of CBC data. Current Interpretive Data was last revised on 2017. Testing performed by: [address] [address] Imm gran pct 0.2 % [facility] Comment: Interpretive Data Percent cell count reference ranges are not reported, since discordance with absolute values may lead to misinterpretation of CBC data. Current Interpretive Data was last revised on 2017. Testing performed by: [address] [address] Lymphocyte pct 6.3 % [facility] Comment: Interpretive Data Percent cell count reference ranges are not reported, since discordance with absolute values may lead to misinterpretation of CBC data. Current Interpretive Data was last revised on 2017. Testing performed by: [address] [address] Monocyte pct 8.6 % [facility] Comment: Interpretive Data Percent cell count reference ranges are not reported, since discordance with absolute values may lead to misinterpretation of CBC data. Current Interpretive Data was last revised on 2017. Testing performed by: [address] [address] Eosinophil pct 0.4 % [facility] Comment: Interpretive Data Percent cell count reference ranges are not reported, since discordance with absolute values may lead to misinterpretation of CBC data. Current Interpretive Data was last revised on 2017. Testing performed by: [address] [address] Basophil pct 0.4 % [place] Comment: Interpretive Data Percent cell count reference ranges are not reported, since discordance with absolute values may lead to misinterpretation of CBC data. Current Interpretive Data was last revised on 2017. Testing performed by: [address] [address] Blood 04/08/2024 3:10 PM TEAM LEAD 04/08/2024 3:24 PM TEAM LEAD Mannie Philip Walls LAB BLOOD ORDERABLES Final Result [facility] [address] [facility] Department [place] [address] * (ABNORMAL) CBC with auto differential (04/08/2024 3:10 PM TEAM LEAD) WBC 11.2(H) 3.8 - 9.9 K/cumm Comment:Testing performed by : [address] [address] Hgb 16.0 13.0 - 17.5 g/dL [place] Comment:Testing performed by : [address] [address] Hct 46.8 38.9 - 50.3 % [place] Comment:Testing performed by : [address] [address] Plt 217 150 - 400 K/cumm [place] Comment:Testing performed by : [address] [address] MPV 9.0(L) 9.1 - 12.3 fL [place] Comment:Testing performed by : [address] [address] RBC 4.76 4.30 - 5.80 M/cumm [place] Comment:Testing performed by : [address] [address] MCV 98.3(H) 81.3 - 96.4 fL [place] Comment:Testing performed by : [address] [address] MCH 33.6(H) 27.1 - 33.3 pg [place] Comment:Testing performed by : [address] [address] MCHC 34.2 32.3 - 35.7 g/dL [place] Comment:Testing performed by : [address] [address] RDW CV 15.7(H) 11.1 - 14.9 % [place] Comment:Testing performed by : [address] [address] RDW SD 56.6(H) 35.7 - 48.1 fL [place] Comment:Testing performed by : [address] [address] NRBC abs 0.00 0.00 - 0.01 K/cumm [place] Comment:Testing performed by : [address] [address] Blood Venous blood specimen / Unknown 04/08/2024 3:10 PM TEAM LEAD 04/08/2024 3:24 PM TEAM LEAD Mannie Walls DO LAB BLOOD ORDERABLES Final Result Performing Organization Address City/[facility]/ZIP Co de Phone Number [address] [place] [address] * Lipase (04/08/2024 3:10 PM TEAM LEAD) Lipase 13 10 - 99 Units/L Comment:Testing performed by : [address] [address] Blood Venous blood specimen / Unknown 04/08/2024 3:10 PM TEAM LEAD 04/08/2024 3:24 PM TEAM LEAD Mannie Walls LAB BLOOD ORDERABLES Final Result Performing Organization Address City/[facility]/ZIP Co de Phone Number [address] [place] [address] * (ABNORMAL) Comprehensive metabolic panel (04/08/2024 3:10 PM TEAM LEAD) Sodium 134(L) 135 - 145 mmol/L Comment:Testing performed by : [address] [address] Potassium, pl 4.9 3.3 - 4.9 mmol/L [facility] Comment:Testing performed by : [address], [place]., [address] Chloride 97 97 - 110 mmol/L [facility] Comment:Testing performed by : [address], [place]., [address] CO2 23 22 - 32 mmol/L [facility] Comment:Testing performed by : [address], [place]., [address] Anion gap 14 2 - 15 mmol/L [facility] Comment:Testing performed by : [address], [place]., [address] BUN 16 6 - 25 mg/dL [facility] Comment:Testing performed by : [address], [place]., [address] Creatinine 1.80(H) 0.80 - 1.30 mg/dL [facility] Comment:Testing performed by : [address] [address] Glucose 114 70 - 199 mg/dL [facility] Comment: Interpretive Data Fasting glucose >/= 126 mg/dl is diagnostic for diabetes. Fasting is defined as no caloric intake for at least 8 hours. Fasting glucose between 100 mg/dl to 125 mg/dl is diagnostic of prediabetes. In a patient with classic symptoms of hyperglycemia or hyperglycemic crisis, a random glucose >/= 200 mg/dl is diagnostic for diabetes. In the absence of unequivocal hyperglycemia, results should be confirmed by repeat testing. The classification and Diagnosis of Diabetes Diabetes Care 202; 46: S19-S40. Current interpretive data was last revised 2022. Testing performed by: [address] [address] Calcium 9.4 8.5 - 10.3 mg/dL [facility] Comment:Testing performed by : [address] [address] Bilirubin, total 0.9 0.1 - 1.2 mg/dL [place] Comment:Testing performed by : [facility], [address] [place] [address]., [address] Protein, pl 7.3 6.5 - 8.5 g/dL [place] Comment:Testing performed by : [facility], [address] [place] [address]., [address] Albumin 3.8 3.5 - 5.0 g/dL [place] Comment:Testing performed by : [address] [address] Alk phos 91 40 - 130 Units/L [place] Comment:Testing performed by : [address] [address] ALT 11 7 - 55 Units/L [place] Comment:Testing performed by : [address] [address] AST 21 10 - 50 Units/L [place] Comment:Testing performed by : [address] [address] Blood 04/08/2024 3:10 PM TEAM LEAD 04/08/2024 3:24 PM TEAM LEAD Mannie Walls DO LAB BLOOD ORDERABLES Final Result [place] [facility] Department [place] [address] * (ABNORMAL) POCT protein, urine, dipstick (03/24/2024 9:51 AM TEAM LEAD) [facility] Protein, ur, POC 1+(A) Negative Urine 03/24/2024 9:51 AM TEAM LEAD Bucky Hodgson DO POINT OF CARE TEST ORDERABLE S Final Result * eGFR (03/24/2024 7:56 AM TEAM LEAD) [facility] eGFR 72 >=60 mL/min/1. 73 m2 Comment: Interpretive Data Reference Interval Normal >/= 90 mL/min/1.73m2 Mildly decreased* 60 - 89 mL/min/1.73m2 Mildly to moderately decreased 45 - 59 mL/min/1.73m2 Moderately to severely decreased 30 - 44 mL/min/1.73m2 Severely decreased 15 - 29 mL/min/1.73m2 Kidney Failure < 15 mL/min/1.73m2 *Relative to young adult level Estimated glomerular filtration rate is determined by the 2020 CKD-EPI equation recommended by the National Kidney Foundation (A Unifying Approach to GFR Estimation: Recommendations of the NKF-ASK Task Force on Reassessing the Inclusion of Race in Diagnosing Kidney Disease, JASN 2020). The CKD-EPI equation should not be used for patients with unstable renal function and has not been validated in children and those over 70. Current interpretive data was last reviewed 2021. Testing performed by: [address] [address] Blood 03/24/2024 7:56 AM TEAM LEAD 03/24/2024 8:07 AM TEAM LEAD Bucky Hodgson DO LAB BLOOD ORDERABLES Final R esult [place] [id number] [facility] Department [place] [address] * (ABNORMAL) Differential, auto (03/24/2024 7:56 AM TEAM LEAD) Neutrophil abs 9.5(H) 1.5 - 6.5 K/cumm Comment:Testing performed by : [address] [address] Imm gran abs 0.1 0.0 - 0.1 K/cumm [place] Comment:Testing performed by : [address] [address] Lymphocyte abs 0.8 0.8 - 3.3 K/cumm [place] Comment:Testing performed by : [address] [address] Monocyte abs 0.5 0.2 - 0.8 K/cumm [place] Comment:Testing performed by : [address] [address] Eosinophil abs 0.0 0.0 - 0.5 K/cumm [facility] Comment:Testing performed by : [address] [address] Basophil abs 0.0 0.0 - 0.1 K/cumm [place] Comment:Testing performed by : [address] [address] Neutrophil pct 87.0 % [facility] Comment: Interpretive Data Percent cell count reference ranges are not reported, since discordance with absolute values may lead to misinterpretation of CBC data. Current Interpretive Data was last revised on 2017. Testing performed by: [address] [address] Imm gran pct 0.5 % [facility] Comment: Interpretive Data Percent cell count reference ranges are not reported, since discordance with absolute values may lead to misinterpretation of CBC data. Current Interpretive Data was last revised on 2017. Testing performed by: [address] [address] Lymphocyte pct 7.2 % [facility] Comment: Interpretive Data Percent cell count reference ranges are not reported, since discordance with absolute values may lead to misinterpretation of CBC data. Current Interpretive Data was last revised on 2017. Testing performed by: [address] [address] Monocyte pct 4.6 % [facility] Comment: Interpretive Data Percent cell count reference ranges are not reported, since discordance with absolute values may lead to misinterpretation of CBC data. Current Interpretive Data was last revised on 2017. Testing performed by: [address] [address] Eosinophil pct 0.3 % [facility] Comment: Interpretive Data Percent cell count reference ranges are not reported, since discordance with absolute values may lead to misinterpretation of CBC data. Current Interpretive Data was last revised on 2017. Testing performed by: [address] [address] Basophil pct 0.4 % [facility] Comment: Interpretive Data Percent cell count reference ranges are not reported, since discordance with absolute values may lead to misinterpretation of CBC data. Current Interpretive Data was last revised on 2017. Testing performed by: [address] [address] Blood 03/24/2024 7:56 AM TEAM LEAD 03/24/2024 8:07 AM TEAM LEAD Bucky Hodgson DO LAB BLOOD ORDERABLES Final R esult [facility] [address] [facility] Department [place] [address] * (ABNORMAL) CBC with auto differential (03/24/2024 7:56 AM TEAM LEAD) WBC 11.0(H) 3.8 - 9.9 K/cumm Comment:Testing performed by : [address] [address] Hgb 17.7(H) 13.0 - 17.5 g/dL [place] Comment:Testing performed by : [address] [address] Hct 50.3 38.9 - 50.3 % [place] Comment:Testing performed by : [address] [address] Plt 155 150 - 400 K/cumm [place] Comment:Testing performed by : [address] [address] MPV 8.4(L) 9.1 - 12.3 fL [place] Comment:Testing performed by : [address] [address] RBC 5.16 4.30 - 5.80 M/cumm [place] Comment:Testing performed by : [address] [address] MCV 97.5(H) 81.3 - 96.4 fL [place] Comment:Testing performed by : [address] [address] MCH 34.3(H) 27.1 - 33.3 pg [place] Comment:Testing performed by : [address] [address] MCHC 35.2 32.3 - 35.7 g/dL [place] Comment:Testing performed by : [address] [address] RDW CV 15.6(H) 11.1 - 14.9 % [place] Comment:Testing performed by : [address] [address] RDW SD 55.5(H) 35.7 - 48.1 fL [place] Comment:Testing performed by : [address] [address] NRBC abs 0.00 0.00 - 0.01 K/cumm [place] Comment:Testing performed by : [address], [address] Blood 03/24/2024 7:56 AM TEAM LEAD 03/24/2024 8:07 AM TEAM LEAD Bucky Hodgson DO LAB BLOOD ORDERABLES Final R CORD:USE Cord Blood Bankult Performing Organization Address [facility] de Phone Number [address] [place] [address] * (ABNORMAL) CEA (03/24/2024 7:56 AM TEAM LEAD) [facility] CEA 48.1(H) <=5.0 ng/mL Comment: Interpretive Data: Reference Range: Non-Smokers: 0.0 5.0 ng/mL Smokers: 0.0 6.5 ng/mL [employer] [place] CEA assay procedure was used. Results from different manufacturers or methods may not be comparable. Serial testing should be performed using the same method. Current interpretive data was last revised 2022. Testing performed by: [address] [address] Blood 03/24/2024 7:56 AM TEAM LEAD 03/24/2024 9:51 AM TEAM LEAD Bucky Hodgson DO LAB BLOOD ORDERABLES Final R CORD:USE Cord Blood Bankult Performing Organization Address [facility] Co de Phone Number [place] [id number] Department [place] [address] * Comprehensive metabolic panel (03/24/2024 7:56 AM TEAM LEAD) Sodium 139 135 - 145 mmol/L Comment:Testing performed by : [address] [address] Potassium, pl 4.1 3.3 - 4.9 mmol/L [place] Comment:Testing performed by : [address] [address] Chloride 101 97 - 110 mmol/L [place] Comment:Testing performed by : [address] [address] CO2 23 22 - 32 mmol/L [place] Comment:Testing performed by : [address] [address] Anion gap 15 2 - 15 mmol/L [place] Comment:Testing performed by : [address] [address] BUN 15 6 - 25 mg/dL [place] Comment:Testing performed by : [address] [address] Creatinine 1.10 0.80 - 1.30 mg/dL [place] Comment:Testing performed by : [address] [address] Glucose 113 70 - 199 mg/dL [place] Comment: Interpretive Data Fasting glucose >/= 126 mg/dl is diagnostic for diabetes. Fasting is defined as no caloric intake for at least 8 hours. Fasting glucose between 100 mg/dl to 125 mg/dl is diagnostic of prediabetes. In a patient with classic symptoms of hyperglycemia or hyperglycemic crisis, a random glucose >/= 200 mg/dl is diagnostic for diabetes. In the absence of unequivocal hyperglycemia, results should be confirmed by repeat testing. The classification and Diagnosis of Diabetes Diabetes Care 202; 46: S19-S40. Current interpretive data was last revised 2022. Testing performed by: [address] [address] Calcium 9.1 8.5 - 10.3 mg/dL [place] Comment:Testing performed by : [address] [address] Bilirubin, total 0.7 0.1 - 1.2 mg/dL [place] Comment:Testing performed by : [address] [address] Protein, pl 7.3 6.5 - 8.5 g/dL [place] Comment:Testing performed by : [address], [address] Albumin 4.1 3.5 - 5.0 g/dL [place] Comment:Testing performed by : [address] [address] Alk phos 89 40 - 130 Units/L [place] Comment:Testing performed by : [address] [address] ALT 25 7 - 55 Units/L [place] Comment:Testing performed by : [address], [address] AST 27 10 - 50 Units/L [place] Comment:Testing performed by : [address] [address] Blood 03/24/2024 7:56 AM TEAM LEAD 03/24/2024 8:07 AM TEAM LEAD Bucky Hodgson DO LAB BLOOD ORDERABLES Final R esult Performing Organization Address City/State/[facility] Co de Phone Number [facility] [address] [facility] [place] [address] from Last 3 Months Insurance MEDICARE [employer] MEDICARE [employer] Advance Directives For more information, please contact: [phone] * Full Code (Latest Code Status on File) Date Activated Date Inactivated Comments 04/12/2024 7:21 PM 04/13/2024 3:27 PM * Full Code Date Activated Date Inactivated Comments 05/21/2022 6:43 PM 06/04/2022 9:40 PM * Full Code Date Activated Date Inactivated Comments 12/01/2021 5:06 AM 12/07/2021 6:44 PM * Full Code Date Activated Date Inactivated Comments 11/03/2021 7:40 PM 11/12/2021 5:54 PM * Full Code Date Activated Date Inactivated Comments 11/03/2021 7:39 PM 11/03/2021 7:40 PM Care Teams Hotel Attendant Relationship Specialty Start Date End Date Juan Carpio MD [address] [place] [address] [id number] PCP - General Family Medicine 06/15/20 Bucky Hodgson DO [address] [place] [address] [id number] Medical Oncologist/Residential Tech Hematology and Oncology 11/21/17 Kelby Castro MD [address] [place] [address] [id number] Radiation Oncologist Radiation Oncology 06/18/21
--- OUTSIDE RECORDS SUMMARY | 2024-06-21 16:45 | XMS_ITS | Referral Summary ---
Author Organization [facility] Address [address] [place] [address] Phone Care Team Providers Care Inventory Specialist Name Role Phone Bucky Hodgson DO Unavailable [phone] Juan Carpio MD Primary Care Provider [phone] Kelby Castro MD Unavailable [phone] Encounters Date Type Department Care Team Description 06/21/2024 Telephone [facility] Physicians [facility] Oncology [address] [place] [phone] Zuly Oleary, MODESTO 06/20/2024 Telephone [facility] Oncology [address] [place] [phone] Marlena Sen RN 06/16/2024 11:00 AM ELECTRICAL MAINTENANCE ENGINEER Infusion [address] [place] [address] Dehydration (Primary Dx); Malignant neoplasm of ascending colon (HCC); Malignant neoplasm metastatic to right lung (HCC); Nausea 06/16/2024 9:54 AM ELECTRICAL MAINTENANCE ENGINEER - 06/16/2024 11:59 PM ELECTRICAL MAINTENANCE ENGINEER Hospital Encounter [facility] MOB 1 DIAG IMG [address] [place], [place] [id number] Malignant neoplasm of ascending colon (HCC); Malignant neoplasm metastatic to right lung (HCC); Shortness of breath Discharge Disposition: Discharge to home or self care 06/16/2024 8:00 AM ELECTRICAL MAINTENANCE ENGINEER Clinical Support [address] [place] [address] Malignant neoplasm of ascending colon (HCC); Malignant neoplasm metastatic to liver (HCC); Shortness of breath 06/16/2024 8:30 AM ELECTRICAL MAINTENANCE ENGINEER Office Visit [facility] Physicians [facility] Oncology [address] [place] [address] [address] [place] [address] Bucky Hodgson, Malignant neoplasm of ascending colon (HCC) (Primary Dx); Malignant neoplasm metastatic to right lung (HCC); Malignant neoplasm metastatic to liver (HCC); Shortness of breath 06/15/2024 Orders Only [facility] Oncology [address] [place] [phone] Bucky Hodgson DO 06/04/2024 Completion of Therapy [facility] Medical Office Building 2 Radiation Oncology [address] [place] [address] Kelby Castro MD 06/04/[address] [facility] Medical Office Building 2 Radiation Oncology [address] [place] [address] Kelby Castro MD 06/04/2024 Orders Only RAD ONC TREATMENTS Miscellaneous, Not In File 06/04/2024 9:45 AM [facility] Medical Office Building 2 Radiation Oncology [address] [place] [address] Kelby Castro MD 06/03/2024 Orders Only RAD ONC TREATMENTS Miscellaneous, Not In File 06/03/2024 9:45 AM [facility] Medical Office Building 2 Radiation Oncology [address] [place] [address] 06/02/2024 Orders Only RAD ONC TREATMENTS Miscellaneous, Not In File 06/02/2024 9:45 AM [facility] Medical Office Building 2 Radiation Oncology [address] [place] [address] 06/01/2024 Orders Only RAD ONC TREATMENTS Miscellaneous, Not In File 06/01/[address] [facility] Medical Office Building 2 Radiation Oncology [address] [place] [address] Ruby Poole MD Malignant neoplasm of ascending colon (HCC) (Primary Dx) 06/01/2024 9:45 AM ELECTRICAL MAINTENANCE ENGINEER Treatment [facility] Medical Office Building 2 Radiation Oncology [address] [place] [address] 05/31/2024 Orders Only RAD ONC TREATMENTS Miscellaneous, Not In File 05/31/2024 9:45 AM ELECTRICAL MAINTENANCE ENGINEER Treatment [facility] Medical Office Building 2 Radiation Oncology [address] [place] [address] 05/28/2024 OTV [facility] Medical Office Building 2 Radiation Oncology [address] [place] [address] Kelby Castro MD 05/28/2024 Orders Only RAD ONC TREATMENTS Miscellaneous, Not In File 05/28/2024 9:45 AM ELECTRICAL MAINTENANCE ENGINEER Treatment [facility] Medical Office Building 2 Radiation Oncology [address] [place] [address] 05/27/2024 Orders Only RAD ONC TREATMENTS Miscellaneous, Not In File 05/27/2024 10:30 AM ELECTRICAL MAINTENANCE ENGINEER Treatment [facility] Medical Office Building 2 Radiation Oncology [address] [place] [address] 05/26/2024 Orders Only RAD ONC TREATMENTS Miscellaneous, Not In File 05/26/2024 9:45 AM ELECTRICAL MAINTENANCE ENGINEER Treatment [facility] Medical Office Building 2 Radiation Oncology [address] [place] [address] 05/26/2024 11:30 AM ELECTRICAL MAINTENANCE ENGINEER Clinical Support [facility] Medical Office Building 2 Radiation Oncology [address] [place] [address] Malignant neoplasm metastatic to right lung (HCC) (Primary Dx); Malignant neoplasm of ascending colon (HCC); Malignant neoplasm metastatic to liver (HCC) 05/26/2024 11:00 AM ELECTRICAL MAINTENANCE ENGINEER [facility] at [address] [phone] Dehydration (Primary Dx); Malignant neoplasm of ascending colon (HCC); Malignant neoplasm metastatic to liver (HCC) 05/26/2024 10:00 AM ELECTRICAL MAINTENANCE ENGINEER Clinical Support [facility] at [address] [address] Malignant neoplasm of ascending colon (HCC); Malignant neoplasm metastatic to liver (HCC) 05/26/2024 10:30 AM ELECTRICAL MAINTENANCE ENGINEER Office Visit [facility] Oncology [address] [place] [phone] Bucky Hodgson DO Malignant neoplasm of ascending colon (HCC) (Primary Dx); Malignant neoplasm metastatic to right lung (HCC); Malignant neoplasm metastatic to liver (HCC) 05/25/2024 Orders Only [facility] Oncology [address] [place] [phone] Bucky Hodgson DO 05/25/2024 Orders Only RAD ONC TREATMENTS Miscellaneous, Not In File 05/25/2024 9:45 AM ELECTRICAL MAINTENANCE ENGINEER Treatment [facility] Medical Office Building 2 Radiation Oncology [address] [place] [address] 05/24/2024 Orders Only RAD ONC TREATMENTS Miscellaneous, Not In File 05/24/2024 3:00 PM ELECTRICAL MAINTENANCE ENGINEER Treatment [facility] Medical Office Building 2 Radiation Oncology [address] [place] [address] Kelby Castro MD 05/24/2024 3:15 PM ELECTRICAL MAINTENANCE ENGINEER Treatment [facility] Medical Office Building 2 Radiation Oncology [address] [place] [address] Kelby Castro MD 05/21/2024 Orders Only RAD ONC TREATMENTS Miscellaneous, Not In File 05/20/2024 7:05 PM ELECTRICAL MAINTENANCE ENGINEER Treatment [facility] Medical Office Building 2 Radiation Oncology [address] [place] [address] 05/13/2024 11:00 AM ELECTRICAL MAINTENANCE ENGINEER [facility] Medical Office Building 2 Radiation Oncology [address] [place] [address] Kelby Castro MD 05/13/2024 10:30 AM ELECTRICAL MAINTENANCE ENGINEER Office Visit [facility] Medical Office Building 2 Radiation Oncology [address] [place] [address] Kelby Castro MD Malignant neoplasm of ascending colon (HCC); Malignant neoplasm metastatic to liver (HCC) 05/12/2024 Telephone [facility] Surgery [address] [place] [address] [address] [place] [address] Gonzales, Clarissa, RMA 05/12/2024 Telephone [facility] Surgery [address] [place] [address] [address] [place] [address] Gonzales, Clarissa, A 05/11/2024 Telephone [facility] Surgery [address] [place] [address] [address] [place] [phone] Gonzales, Clarissa, A 05/11/2024 Telephone [facility] Surgery [address] [place] [address] [address] [place] [address] Gonzales, Clarissa, A 05/05/2024 1:30 PM ELECTRICAL MAINTENANCE ENGINEER Clinical Support [facility] at [address] [address] Malignant neoplasm of ascending colon (HCC); Malignant neoplasm metastatic to liver (HCC) 05/05/2024 2:00 PM ELECTRICAL MAINTENANCE ENGINEER Infusion [facility] at [address] [phone] Malignant neoplasm metastatic to liver (HCC) (Primary Dx); Malignant neoplasm of ascending colon (HCC) 05/04/2024 Orders Only [facility] Oncology [address] [place] [address] [address] [place] [address] Bucky Hodgson DO 04/30/2024 Documentation [facility] Oncology [address] [place] [address] [address] [place] [address] Bucky Hodgson DO 04/30/2024 Orders Only [facility] Oncology [address] [phone] Bucky Hodgson DO Malignant neoplasm of ascending colon (HCC) (Primary Dx); Malignant neoplasm metastatic to liver (HCC) 04/30/2024 7:28 AM ELECTRICAL MAINTENANCE ENGINEER - 04/30/2024 11:59 PM ELECTRICAL MAINTENANCE ENGINEER Hospital Encounter [facility] Medical Office Building [address] [place] [address] Malignant neoplasm of ascending colon (HCC); Malignant neoplasm metastatic to liver (HCC); Malignant neoplasm metastatic to right lung (HCC) Discharge Disposition: Discharge to home or self care 04/29/2024 Telephone [facility] Patient Access [address] [place] [address] Gilmar Curran 04/28/2024 11:16 AM ELECTRICAL MAINTENANCE ENGINEER - 04/28/2024 11:59 PM ELECTRICAL MAINTENANCE ENGINEER Hospital Encounter [facility] [address] DIAG IM[address] [place] [address] Malignant neoplasm of ascending colon (HCC); Malignant neoplasm metastatic to liver (HCC); Abdominal pain Discharge Disposition: Discharge to home or self care 04/28/2024 Orders Only [facility] Physicians [facility] Oncology [address] [place] [phone] Bucky Hodgson DO 04/28/2024 8:00 AM ELECTRICAL MAINTENANCE ENGINEER Infusion [address] [phone] Malignant neoplasm metastatic to liver (HCC) (Primary Dx); Malignant neoplasm of ascending colon (HCC); Dysuria; Abdominal pain; Dehydration; Nausea 04/28/2024 7:30 AM ELECTRICAL MAINTENANCE ENGINEER Clinical Support [address] [address] Malignant neoplasm of ascending colon (HCC); Malignant neoplasm metastatic to liver (HCC); Dysuria; Abdominal pain 04/27/2024 Telephone [facility] Oncology [address] [place] [phone] Zuly Oleary RN 04/22/2024 Orders Only [facility] Surgery [address] [place] [phone] Mayo Rodríguez MD Benign prostatic hyperplasia, unspecified whether lower urinary tract symptoms present (Primary Dx) 04/22/2024 Telephone [facility] Surgery [facility] [place] [address] Roz Chung, TUAN 04/20/2024 Telephone [facility] Oncology [address] [place] [address] [place] [phone] Zuly Oleary RN 04/16/2024 11:45 AM ELECTRICAL MAINTENANCE ENGINEER - 04/16/2024 1:00 PM ELECTRICAL MAINTENANCE ENGINEER Surgery [facility] [address] [place] [address] Mayo Rodríguez MD LEFT URETEROSCOPY STONE MANIPULATION WITH ABLATION LASER WITH STENT PLACEMENT 04/16/2024 11:52 AM ELECTRICAL MAINTENANCE ENGINEER Anesthesia Event [facility] [address] [place] [address] Florian Castro MD [place], Matthew Edward, MD 04/16/2024 9:09 AM ELECTRICAL MAINTENANCE ENGINEER - 04/16/2024 3:02 PM ELECTRICAL MAINTENANCE ENGINEER Hospital Encounter [facility] [address] [place] [address] Mayo Rodríguez MD Kidney stone Discharge Disposition: Discharge to home or self care 04/15/2024 7:30 AM ELECTRICAL MAINTENANCE ENGINEER Clinical Support [facility] at [address] [address] Malignant neoplasm of ascending colon (HCC); Malignant neoplasm metastatic to liver (HCC) 04/14/2024 Orders Only [facility] Oncology [address] [place] [phone] Bucky Hodgosn DO 04/13/2024 Orders Only [facility] Pre Admit Testing [address] [place] [address] Neeraj Pablo MD Pre-op testing (Primary Dx) 04/12/2024 9:40 AM ELECTRICAL MAINTENANCE ENGINEER - 04/13/2024 11:27 AM ELECTRICAL MAINTENANCE ENGINEER Hospital Encounter [facility] 5 Med Surg [address] [place] [address] Jose J Garcia MD Potluri, Sobhana Krishna, MD Nephrolithiasis (Primary Dx); Hydronephrosis, unspecified hydronephrosis type; JILL (acute kidney injury); History of colon cancer; Flank pain Discharge Disposition: Discharge to home or self care 04/12/2024 5:29 PM ELECTRICAL MAINTENANCE ENGINEER Anesthesia Event [facility] [address] [place] [address] Carlito Mcconnell DO 04/12/2024 5:00 PM ELECTRICAL MAINTENANCE ENGINEER - 04/12/2024 5:50 PM ELECTRICAL MAINTENANCE ENGINEER Surgery [facility] [address] [place] [address] Mayo Rodríguez MD CYSTOSCOPY PLACEMENT LEFT URETERAL STENT 04/08/2024 6:28 PM ELECTRICAL MAINTENANCE ENGINEER - 04/08/2024 8:32 PM ELECTRICAL MAINTENANCE ENGINEER Emergency [facility] Emergency Department [address] [place] [address] Ureterolithiasis (Primary Dx); Cystitis; JILL (acute kidney injury) Discharge Disposition: Left Against Medical Advice 03/24/2024 8:30 AM ELECTRICAL MAINTENANCE ENGINEER Clinical Support [address] [address] Malignant neoplasm of ascending colon (HCC); Malignant neoplasm metastatic to liver (HCC) 03/24/2024 9:30 AM ELECTRICAL MAINTENANCE ENGINEER Infusion [address] [phone] Malignant neoplasm of ascending colon (HCC) (Primary Dx); Malignant neoplasm metastatic to liver (HCC) 03/24/2024 9:00 AM ELECTRICAL MAINTENANCE ENGINEER Office Visit [facility] Oncology [address] [place] [phone] Bucky Hodgson DO Malignant neoplasm of ascending colon (HCC) (Primary Dx); Malignant neoplasm metastatic to liver (HCC); Malignant neoplasm metastatic to right lung (HCC) 03/23/2024 Orders Only [facility] [address] [facility] [address] [place] [address] Bucky Hodgson DO from Last 3 Months Allergies No known active allergies Medications ketorolac [...] (acute kidney injury) Intra-abdominal abscess Hyponatremia Nephrolithiasis Immunizations Immunization Administration Dates Next Due Influenza, Quadrivalent, Spl it, Preservative Free, Intramuscular 03/18/2015 Pneumococcal, Unspecified 01/12/2017 Social History Tobacco Use Types Packs/Day Years Used Date Smoking Tobacco: Never Smokeless Tobacco: Never Alcohol Use Standard Drinks/Week Comments No 0 (1 standard drink = 0.6 oz pur e alcohol) [facility] Utilities Answer Date Recorded In the past 12 months has [employer], gas, oil, or water [employer] threatened to shut off services in your [...] week 04/13/2024 How often do you attend [facility] or synagogue services? 1 to 4 times per year 04/13/2024 Do you belong to any clubs o r organizations such as adventism groups, unions, fraternal or athletic groups, or [...] any time in the past 12 m [facility], were you homeless or living in a retirement (including now)? No 04/13/2024 Personal Safety Answer Date Recorded Have you ever been in or are you currently in a harmful physical or emotional relationship or is someone making you feel afraid or unsafe? Denies 04/16/2024 Sex and Gender Information Value Date Recorded Sex Assigned at Not on file Legal Sex Male 11:18 AM ELECTRICAL MAINTENANCE ENGINEER Gender Identity Male 09/22/2017 10:06 AM CDT Sexual Orientation Not on file Last Filed Vital Signs Vital Sign Reading Time Taken Comments Blood Pressure 129/89 06/16/2024 8:33 AM ELECTRICAL MAINTENANCE ENGINEER Pulse 110 06/16/2024 8:33 AM ELECTRICAL MAINTENANCE ENGINEER Temperature 36.3 C (97.3 F) 06/16/2024 8:33 AM ELECTRICAL MAINTENANCE ENGINEER Respiratory Rate 16 06/16/2024 8:33 AM ELECTRICAL MAINTENANCE ENGINEER Oxygen Saturation 94% 06/16/2024 8:33 AM ELECTRICAL MAINTENANCE ENGINEER Inhaled Oxygen Concentration - - Weight 115.7 kg (255 lb) 06/16/2024 8:33 AM ELECTRICAL MAINTENANCE ENGINEER Height 182.9 cm (6') 04/16/2024 9:20 AM ELECTRICAL MAINTENANCE ENGINEER Body Mass Index 34.58 04/16/2024 9:20 AM ELECTRICAL MAINTENANCE ENGINEER Plan of Treatment Not on file Medical Devices Implanted Type Area Machining Engineer Device Identifier Shelf Expiration Date Model / Serial / Lot Other - See Comments Other - see comments Right: Toes Description:Titanium in righ t big toe Port Chest Mesh Abdomen [employer] Bard Phasix Sepra [id number] Monofilament Resorbable Rectangle Mesh [id number] - [id number] Implanted:Qty: 1 on 05/30/2022 by Ky Norris MD at [facility] N/A: Abdomen [employer] Bard [id number] 09/09/2023 [id number] / / [id number] [employer] Thiago Seprafilm 6x5in Barrier Adhesion Sterile Disposable Latex Free [id number] - [id number] Implanted:Qty: 2 on 05/30/2022 by Ky Norris MD at [facility] N/A: Abdomen [employer] Thiago [id number] 03/29/2024 [id number] / / [id number] [employer] [id number] 6fr 26cm 145cm Radiopaque Positioner Filiform Flexible Tip - [id number] Implanted:Qty: 1 on 04/16/2024 by Mayo Rodríguez MD at [facility] Right: Ureter [employer] [id number] 01/18/2027 [id number] / / [id number] Explanted Type Area Machining Engineer Device Identifier Shelf Expiration Date Model / Serial / Lot [employer] [id number] 6fr 26cm 145cm Radiopaque Positioner Filiform Flexible Tip - [id number] Implanted:Qty: 1 on 04/12/2024 by Mayo Rodríguez MD at [facility] Explanted:Qty: 1 on 05/12/2024 Stent Left: Urethra [employer] [id number] 10/26/2026 [id number] / / [id number] [employer] [id number] 6fr 26cm 145cm Radiopaque Positioner Filiform Flexible Tip - [id number] Implanted:Qty: 1 on 04/16/2024 by Mayo Rodríguez MD at [facility] Explanted:Qty: 1 on 05/12/2024 Left: Ureter [employer] [id number] 10/26/2026 [id number] / / [id number] Procedures Procedure Name Priority Date/Time Associated Diagnosis Comments XR CHEST PA LATERAL 2 VIEWS Schedule VINAYAK, Read VINAYAK (Appt Today, Awaiting Results) 06/16/2024 9:59 AM ELECTRICAL MAINTENANCE ENGINEER Malignant neoplasm of ascending colon (HCC) Malignant neoplasm metastatic to right lung (HCC) Shortness of breath CREATINE KINASE (CK), TOTAL Routine 06/16/2024 7:50 AM ELECTRICAL MAINTENANCE ENGINEER Malignant neoplasm of ascending colon (HCC) Malignant neoplasm metastatic to liver (HCC) EGFR STAT 06/16/2024 7:50 AM ELECTRICAL MAINTENANCE ENGINEER Malignant neoplasm of ascending colon (HCC) Malignant neoplasm metastatic to liver (HCC) DIFFERENTIAL AUTO STAT 06/16/2024 7:5 0 AM ELECTRICAL MAINTENANCE ENGINEER Malignant neoplasm of ascending colon (HCC) Malignant neoplasm metastatic to liver (HCC) COMPREHENSIVE METABOLIC PANEL STAT 06/16/2024 7:50 AM ELECTRICAL MAINTENANCE ENGINEER Malignant neoplasm of ascending colon (HCC) Malignant neoplasm metastatic to liver (HCC) CBC WITH AUTO DIFFERENTIAL STAT 06/16/2024 7:50 AM ELECTRICAL MAINTENANCE ENGINEER Malignant neoplasm of ascending colon (HCC) Malignant neoplasm metastatic to liver (HCC) CEA Routine 06/16/2024 7:50 AM ELECTRICAL MAINTENANCE ENGINEER Malignant neoplasm of ascending colon (HCC) Malignant neoplasm metastatic to liver (HCC) RAD ONC ARIA SESSION SUMMARY 06/04/2024 9:50 AM ELECTRICAL MAINTENANCE ENGINEER RAD ONC ARIA SESSION SUMMARY 06/03/2024 9:54 AM ELECTRICAL MAINTENANCE ENGINEER RAD ONC ARIA SESSION SUMMARY 06/02/2024 9:53 AM ELECTRICAL MAINTENANCE ENGINEER RAD ONC ARIA SESSION SUMMARY 06/01/2024 9:57 AM ELECTRICAL MAINTENANCE ENGINEER RAD ONC ARIA SESSION SUMMARY 05/31/2024 10:00 AM ELECTRICAL MAINTENANCE ENGINEER RAD ONC ARIA SESSION SUMMARY 05/28/2024 9:52 AM ELECTRICAL MAINTENANCE ENGINEER RAD ONC ARIA SESSION SUMMARY 05/27/2024 9:38 AM ELECTRICAL MAINTENANCE ENGINEER POCT PROTEIN, URINE, QUALITATIVE, DIPSTICK Routine 05/26/2024 11:23 AM ELECTRICAL MAINTENANCE ENGINEER Malignant neoplasm of ascending colon (HCC) EGFR STAT 05/26/2024 10:00 AM ELECTRICAL MAINTENANCE ENGINEER Malignant neoplasm of ascending colon (HCC) Malignant neoplasm metastatic to liver (HCC) DIFFERENTIAL AUTO STAT 05/26/2024 10: 00 AM ELECTRICAL MAINTENANCE ENGINEER Malignant neoplasm of ascending colon (HCC) Malignant neoplasm metastatic to liver (HCC) CEA Routine 05/26/2024 10:00 AM ELECTRICAL MAINTENANCE ENGINEER Malignant neoplasm of ascending colon (HCC) Malignant neoplasm metastatic to liver (HCC) CBC WITH AUTO DIFFERENTIAL STAT 05/26/2024 10:00 AM ELECTRICAL MAINTENANCE ENGINEER Malignant neoplasm of ascending colon (HCC) Malignant neoplasm metastatic to liver (HCC) COMPREHENSIVE METABOLIC PANEL STAT 05/26/2024 10:00 AM ELECTRICAL MAINTENANCE ENGINEER Malignant neoplasm of ascending colon (HCC) Malignant neoplasm metastatic to liver (HCC) RAD ONC ARIA SESSION SUMMARY 05/26/2024 9:40 AM ELECTRICAL MAINTENANCE ENGINEER RAD ONC ARIA SESSION SUMMARY 05/25/2024 8:57 AM ELECTRICAL MAINTENANCE ENGINEER RAD ONC ARIA SESSION SUMMARY 05/24/2024 3:11 PM ELECTRICAL MAINTENANCE ENGINEER RAD ONC ARIA COURSE SUMMARY 05/21/2024 4:32 PM ELECTRICAL MAINTENANCE ENGINEER POCT PROTEIN, URINE, QUALITATIVE, DIPSTICK Routine 05/05/2024 2:16 PM ELECTRICAL MAINTENANCE ENGINEER POCT PROTEIN, URINE, QUALITATIVE, DIPSTICK Routine 05/05/2024 2:12 PM ELECTRICAL MAINTENANCE ENGINEER POCT PROTEIN, URINE, QUALITATIVE, DIPSTICK Routine 05/05/2024 2:07 PM ELECTRICAL MAINTENANCE ENGINEER POCT PROTEIN, URINE, QUALITATIVE, DIPSTICK Routine 05/05/2024 1:42 PM ELECTRICAL MAINTENANCE ENGINEER EGFR STAT 05/05/2024 12:52 PM ELECTRICAL MAINTENANCE ENGINEER Malignant neoplasm of ascending colon (HCC) Malignant neoplasm metastatic to liver (HCC) DIFFERENTIAL AUTO STAT 05/05/2024 12: 52 PM ELECTRICAL MAINTENANCE ENGINEER Malignant neoplasm of ascending colon (HCC) Malignant neoplasm metastatic to liver (HCC) CEA Routine 05/05/2024 12:52 PM ELECTRICAL MAINTENANCE ENGINEER Malignant neoplasm of ascending colon (HCC) Malignant neoplasm metastatic to liver (HCC) CBC WITH AUTO DIFFERENTIAL STAT 05/05/2024 12:52 PM ELECTRICAL MAINTENANCE ENGINEER Malignant neoplasm of ascending colon (HCC) Malignant neoplasm metastatic to liver (HCC) COMPREHENSIVE METABOLIC PANEL STAT 05/05/2024 12:52 PM ELECTRICAL MAINTENANCE ENGINEER Malignant neoplasm of ascending colon (HCC) Malignant neoplasm metastatic to liver (HCC) CT CHEST ABDOMEN PELVIS W CONTRAST Schedule Routine, Read Routine (OP Routine) 04/30/2024 8:05 AM ELECTRICAL MAINTENANCE ENGINEER Malignant neoplasm of ascending colon (HCC) Malignant neoplasm metastatic to liver (HCC) Malignant neoplasm metastatic to right lung (HCC) XR ABDOMEN ERECT AND OR DECUBITS 2 VIEWS Schedule VINAYAK, Read VINAYAK (Appt Today, Awaiting Results) 04/28/2024 12:10 PM ELECTRICAL MAINTENANCE ENGINEER Malignant neoplasm of ascending colon (HCC) Malignant neoplasm metastatic to liver (HCC) Abdominal pain URINALYSIS, MICROSCOPIC ONLY Routine 04/28/2024 11:05 AM ELECTRICAL MAINTENANCE ENGINEER Malignant neoplasm of ascending colon (HCC) Malignant neoplasm metastatic to liver (HCC) Dysuria URINE CULTURE Routine 04/28/2024 11:05 AM ELECTRICAL MAINTENANCE ENGINEER URINALYSIS AND REFLEX TO MICROSCOPIC AND CULTURE Routine 04/28/2024 11:05 AM ELECTRICAL MAINTENANCE ENGINEER Malignant neoplasm of ascending colon (HCC) Malignant neoplasm metastatic to liver (HCC) Dysuria AMYLASE Routine 04/28/2024 7:55 AM ELECTRICAL MAINTENANCE ENGINEER Malignant neoplasm of ascending colon (HCC) Malignant neoplasm metastatic to liver (HCC) Abdominal pain LIPASE Routine 04/28/2024 7:55 AM ELECTRICAL MAINTENANCE ENGINEER Malignant neoplasm of ascending colon (HCC) Malignant neoplasm metastatic to liver (HCC) Abdominal pain ERYTHROCYTE SEDIMENTATION RATE Routine 04/28/2024 7:55 AM ELECTRICAL MAINTENANCE ENGINEER Malignant neoplasm of ascending colon (HCC) Malignant neoplasm metastatic to liver (HCC) Abdominal pain EGFR STAT 04/28/2024 7:55 AM ELECTRICAL MAINTENANCE ENGINEER Malignant neoplasm of ascending colon (HCC) Malignant neoplasm metastatic to liver (HCC) DIFFERENTIAL AUTO STAT 04/28/2024 7:5 5 AM ELECTRICAL MAINTENANCE ENGINEER Malignant neoplasm of ascending colon (HCC) Malignant neoplasm metastatic to liver (HCC) COMPREHENSIVE METABOLIC PANEL STAT 04/28/2024 7:55 AM ELECTRICAL MAINTENANCE ENGINEER Malignant neoplasm of ascending colon (HCC) Malignant neoplasm metastatic to liver (HCC) CBC WITH AUTO DIFFERENTIAL STAT 04/28/2024 7:55 AM ELECTRICAL MAINTENANCE ENGINEER Malignant neoplasm of ascending colon (HCC) Malignant neoplasm metastatic to liver (HCC) CEA Routine 04/28/2024 7:55 AM ELECTRICAL MAINTENANCE ENGINEER Malignant neoplasm of ascending colon (HCC) Malignant neoplasm metastatic to liver (HCC) FL FLUOROSCOPY < 1 HOUR IP Routine 04/16/2024 1:37 PM ELECTRICAL MAINTENANCE ENGINEER STONE ANALYSIS Routine 04/16/2024 12:17 PM ELECTRICAL MAINTENANCE ENGINEER SC AN PROCEDURE PLACEHOLDER Routine 04/16/2024 12:03 PM ELECTRICAL MAINTENANCE ENGINEER SC AN ELECTIVE SUPRAGLOTTIC AIRWAY Routine 04/16/2024 12:03 PM ELECTRICAL MAINTENANCE ENGINEER CYSTOSCOPY 04/16/2024 11:52 AM ELECTRICAL MAINTENANCE ENGINEER Kidney stone URETEROSCOPY STONE MANIPULATION WITH ABLATION LASER 04/16/2024 11:52 AM ELECTRICAL MAINTENANCE ENGINEER Kidney stone POCT PROTEIN, URINE, QUALITATIVE, DIPSTICK Routine 04/15/2024 8:17 AM ELECTRICAL MAINTENANCE ENGINEER EGFR STAT 04/15/2024 7:40 AM ELECTRICAL MAINTENANCE ENGINEER Malignant neoplasm of ascending colon (HCC) Malignant neoplasm metastatic to liver (HCC) DIFFERENTIAL AUTO STAT 04/15/2024 7:4 0 AM ELECTRICAL MAINTENANCE ENGINEER Malignant neoplasm of ascending colon (HCC) Malignant neoplasm metastatic to liver (HCC) CEA Routine 04/15/2024 7:40 AM ELECTRICAL MAINTENANCE ENGINEER Malignant neoplasm of ascending colon (HCC) Malignant neoplasm metastatic to liver (HCC) CBC WITH AUTO DIFFERENTIAL STAT 04/15/2024 7:40 AM ELECTRICAL MAINTENANCE ENGINEER Malignant neoplasm of ascending colon (HCC) Malignant neoplasm metastatic to liver (HCC) COMPREHENSIVE METABOLIC PANEL STAT 04/15/2024 7:40 AM ELECTRICAL MAINTENANCE ENGINEER Malignant neoplasm of ascending colon (HCC) Malignant neoplasm metastatic to liver (HCC) ECG 12-LEAD Routine 04/13/2024 9:10 AM ELECTRICAL MAINTENANCE ENGINEER EGFR Routine 04/13/2024 5:11 AM ELECTRICAL MAINTENANCE ENGINEER DIFFERENTIAL AUTO Routine 04/13/2024 5:1 1 AM ELECTRICAL MAINTENANCE ENGINEER CBC WITH AUTO DIFFERENTIAL Routine 04/13/2024 5:11 AM ELECTRICAL MAINTENANCE ENGINEER PHOSPHORUS Routine 04/13/2024 5:11 AM ELECTRICAL MAINTENANCE ENGINEER MAGNESIUM Routine 04/13/2024 5:11 AM ELECTRICAL MAINTENANCE ENGINEER COMPREHENSIVE METABOLIC PANEL Routine 04/13/2024 5:11 AM ELECTRICAL MAINTENANCE ENGINEER FL FLUOROSCOPY < 1 HOUR IP Routine 04/12/2024 6:00 PM ELECTRICAL MAINTENANCE ENGINEER SC AN PROCEDURE PLACEHOLDER Routine 04/12/2024 5:41 PM ELECTRICAL MAINTENANCE ENGINEER SC AN ELECTIVE SUPRAGLOTTIC AIRWAY Routine 04/12/2024 5:41 PM ELECTRICAL MAINTENANCE ENGINEER CYSTOSCOPY PLACEMENT URETERAL STENT 04/12/2024 5:29 PM ELECTRICAL MAINTENANCE ENGINEER CT ABDOMEN PELVIS WO CONTRAST ED 04/12/2024 11:37 AM ELECTRICAL MAINTENANCE ENGINEER URINALYSIS, MICROSCOPIC ONLY STAT 04/12/2024 10:21 AM ELECTRICAL MAINTENANCE ENGINEER URINALYSIS AND REFLEX TO MICROSCOPIC AND CULTURE STAT 04/12/2024 10:21 AM ELECTRICAL MAINTENANCE ENGINEER EGFR STAT 04/12/2024 9:39 AM ELECTRICAL MAINTENANCE ENGINEER DIFFERENTIAL AUTO STAT 04/12/2024 9:3 9 AM ELECTRICAL MAINTENANCE ENGINEER LIPASE STAT 04/12/2024 9:39 AM ELECTRICAL MAINTENANCE ENGINEER COMPREHENSIVE METABOLIC PANEL STAT 04/12/2024 9:39 AM ELECTRICAL MAINTENANCE ENGINEER CBC WITH AUTO DIFFERENTIAL STAT 04/12/2024 9:39 AM ELECTRICAL MAINTENANCE ENGINEER BLOOD CULTURE STAT 04/08/2024 6:40 PM ELECTRICAL MAINTENANCE ENGINEER BLOOD CULTURE STAT 04/08/2024 6:39 PM ELECTRICAL MAINTENANCE ENGINEER CT ABDOMEN PELVIS W CONTRAST ED 04/08/2024 5:22 PM ELECTRICAL MAINTENANCE ENGINEER SEPSIS LACTATE WITH REFLEX STAT 04/08/2024 5:00 PM ELECTRICAL MAINTENANCE ENGINEER URINALYSIS, MICROSCOPIC ONLY STAT 04/08/2024 3:17 PM ELECTRICAL MAINTENANCE ENGINEER URINE CULTURE STAT 04/08/2024 3:17 PM ELECTRICAL MAINTENANCE ENGINEER URINALYSIS AND REFLEX TO MICROSCOPIC AND CULTURE STAT 04/08/2024 3:17 PM ELECTRICAL MAINTENANCE ENGINEER EGFR STAT 04/08/2024 3:10 PM ELECTRICAL MAINTENANCE ENGINEER DIFFERENTIAL AUTO STAT 04/08/2024 3:1 0 PM ELECTRICAL MAINTENANCE ENGINEER LIPASE STAT 04/08/2024 3:10 PM ELECTRICAL MAINTENANCE ENGINEER COMPREHENSIVE METABOLIC PANEL STAT 04/08/2024 3:10 PM ELECTRICAL MAINTENANCE ENGINEER CBC WITH AUTO DIFFERENTIAL STAT 04/08/2024 3:10 PM ELECTRICAL MAINTENANCE ENGINEER POCT PROTEIN, URINE, QUALITATIVE, DIPSTICK Routine 03/24/2024 9:51 AM ELECTRICAL MAINTENANCE ENGINEER Malignant neoplasm of ascending colon (HCC) EGFR STAT 03/24/2024 7:56 AM ELECTRICAL MAINTENANCE ENGINEER Malignant neoplasm of ascending colon (HCC) Malignant neoplasm metastatic to liver (HCC) DIFFERENTIAL AUTO STAT 03/24/2024 7:5 6 AM ELECTRICAL MAINTENANCE ENGINEER Malignant neoplasm of ascending colon (HCC) Malignant neoplasm metastatic to liver (HCC) CEA Routine 03/24/2024 7:56 AM ELECTRICAL MAINTENANCE ENGINEER Malignant neoplasm of ascending colon (HCC) Malignant neoplasm metastatic to liver (HCC) CBC WITH AUTO DIFFERENTIAL STAT 03/24/2024 7:56 AM ELECTRICAL MAINTENANCE ENGINEER Malignant neoplasm of ascending colon (HCC) Malignant neoplasm metastatic to liver (HCC) COMPREHENSIVE METABOLIC PANEL STAT 03/24/2024 7:56 AM ELECTRICAL MAINTENANCE ENGINEER Malignant neoplasm of ascending colon (HCC) Malignant neoplasm metastatic to liver (HCC) from Last 3 Months Results * XR Chest Pa Lateral 2 Views (06/16/2024 9:59 AM ELECTRICAL MAINTENANCE ENGINEER) Anatomical Region Laterality Modality Body, Chest N/A Computed Radiogr aphy 06/16/2024 1:13 PM ELECTRICAL MAINTENANCE ENGINEER Narrative 06/16/2024 1:16 PM ELECTRICAL MAINTENANCE ENGINEER EXAM DESCRIPTION: XR CHEST PA LATERAL 2 [...] 1:16 PM - Electronically signed by Juan Byrd M.D. MJ: RAMONITA Report ID: [id number] Reading Location: [id number] Procedure Note Juan Byrd MD - 06/16/2024 [...] 1:16 PM - Electronically signed by Juan Byrd M.D. MJ: RAMONITA Report ID: [id number] Reading Location: [place] [address] us Bucky Hodgson DO IMG XR PROCEDURES Final Resu lt * (ABNORMAL) eGFR (06/16/2024 7:50 AM ELECTRICAL MAINTENANCE ENGINEER) eGFR 50(L) >=60 mL/min/1. 73 m2 Comment: [...] of Race in Diagnosing Kidney Disease, JASN 202). The CKD-EPI equation should not be used for patients with unstable renal function and has not been validated in children and those over 70. Current interpretive data was last reviewed 2021. Testing performed by: [facility], [address] [place] [address]., [address] Blood 06/16/2024 7:50 AM ELECTRICAL MAINTENANCE ENGINEER 06/16/2024 7:51 AM ELECTRICAL MAINTENANCE ENGINEER us Bucky Hodgson DO LAB BLOOD ORDERABLES Final R esult [place] [address] [facility] Department [place] [address] * Differential, auto (06/16/2024 7:50 AM ELECTRICAL MAINTENANCE ENGINEER) Neutrophil abs 5.4 1.5 - 6.5 K/cumm Comment:Testing performed by : [address] [address] Imm gran abs 0.0 0.0 - 0.1 K/cumm [place] Comment:Testing performed by : [address] [address] Lymphocyte abs 1.0 0.8 - 3.3 K/cumm [place] Comment:Testing performed by : [address] [address] Monocyte abs 0.6 0.2 - 0.8 K/cumm [place] Comment:Testing performed by : [address] [address] Eosinophil abs 0.1 0.0 - 0.5 K/cumm [place] Comment:Testing performed by : [address] [address] Basophil abs 0.1 0.0 - 0.1 K/cumm [place] Comment:Testing performed by : [address] [address] Neutrophil pct 74.6 % [facility] Comment: Interpretive Data Percent cell count reference ranges are not reported, since discordance with absolute values may lead to misinterpretation of CBC data. Current Interpretive Data was last revised on 2017. Testing performed by: [address] [address] Imm gran pct 0.3 % [place] Comment: Interpretive Data Percent cell count reference ranges are not reported, since discordance with absolute values may lead to misinterpretation of CBC data. Current Interpretive Data was last revised on 2017. Testing performed by: [address] [address] Lymphocyte pct 14.1 % [facility] Comment: Interpretive Data Percent cell count reference ranges are not reported, since discordance with absolute values may lead to misinterpretation of CBC data. Current Interpretive Data was last revised on 2017. Testing performed by: [address] [address] Monocyte pct 8.7 % [facility] Comment: Interpretive Data Percent cell count reference ranges are not reported, since discordance with absolute values may lead to misinterpretation of CBC data. Current Interpretive Data was last revised on 2017. Testing performed by: [address] [address] Eosinophil pct 1.5 % [facility] Comment: Interpretive Data Percent cell count reference ranges are not reported, since discordance with absolute values may lead to misinterpretation of CBC data. Current Interpretive Data was last revised on 2017. Testing performed by: [address] [address] Basophil pct 0.8 % [facility] Comment: Interpretive Data Percent cell count reference ranges are not reported, since discordance with absolute values may lead to misinterpretation of CBC data. Current Interpretive Data was last revised on 2017. Testing performed by: [address] [address] Blood 06/16/2024 7:50 AM ELECTRICAL MAINTENANCE ENGINEER 06/16/2024 7:51 AM ELECTRICAL MAINTENANCE ENGINEER us Bucky Hodgson DO LAB BLOOD ORDERABLES Final R esult [place] [address] [facility] Department [place] [address] * (ABNORMAL) CBC with auto differential (06/16/2024 7:50 AM ELECTRICAL MAINTENANCE ENGINEER) Pathologist [facility] [place] WBC 7.2 3.8 - 9.9 K/cumm Comment:Testing performed by : [address] [address] Hgb 15.8 13.0 - 17.5 g/dL [place] Comment:Testing performed by : [address] [address] Hct 47.8 38.9 - 50.3 % [place] Comment:Testing performed by : [address] [address] Plt 144(L) 150 - 400 K/cumm [place] Comment:Testing performed by : [address] [address] MPV 11.3 9.1 - 12.3 fL [place] Comment:Testing performed by : [address] [address] RBC 4.93 4.30 - 5.80 M/cumm [place] Comment:Testing performed by : [address] [address] MCV 97.0(H) 81.3 - 96.4 fL [place] Comment:Testing performed by : [address] [address] MCH 32.0 27.1 - 33.3 pg [place] Comment:Testing performed by : [address] [address] MCHC 33.1 32.3 - 35.7 g/dL [place] Comment:Testing performed by : [address] [address] RDW CV 14.7 11.1 - 14.9 % [place] Comment:Testing performed by : [address] [address] RDW SD 52.2(H) 35.7 - 48.1 fL [place] Comment:Testing performed by : [address] [address] NRBC abs 0.00 0.00 - 0.01 K/cumm [place] Comment:Testing performed by : [address] [address] Blood 06/16/2024 7:50 AM ELECTRICAL MAINTENANCE ENGINEER 06/16/2024 7:51 AM ELECTRICAL MAINTENANCE ENGINEER Bucky DuqueKong Hodgson [employer] LAB BLOOD ORDERABLES Final R esult Performing Organization Address City/[facility] Co de Phone Number [place] [address] [place] [address] * (ABNORMAL) Creatine kinase (CK), total (06/16/2024 7:50 AM ELECTRICAL MAINTENANCE ENGINEER) CK 38(L) 40 - 300 Units/L Comment:Testing performed by : [facility], [address] [place] [address]., [address] Blood 06/16/2024 7:50 AM ELECTRICAL MAINTENANCE ENGINEER 06/16/2024 10:17 AM ELECTRICAL MAINTENANCE ENGINEER Bucky Hodgson [employer] [facility] BLOOD ORDERABLES Final R esult Performing Organization Address [facility] de Phone Number [place] [address] [address] * (ABNORMAL) CEA (06/16/2024 7:50 AM ELECTRICAL MAINTENANCE ENGINEER) CEA 22.6(H) <=5.0 ng/mL Comment: Interpretive Data: Reference Range: Non-Smokers: 0.0 5.0 ng/mL Smokers: 0.0 6.5 ng/mL The Clara CEA assay procedure was used. Results from different manufacturers or methods may not be comparable. Serial testing should be performed using the same method. Current interpretive data was last revised 2022. Testing performed by: [facility], [address] [place] [address]., [address] Blood 06/16/2024 7:50 AM ELECTRICAL MAINTENANCE ENGINEER 06/16/2024 10:17 AM ELECTRICAL MAINTENANCE ENGINEER Bucky DuqueKong [employer] LAB BLOOD ORDERABLES Final R esult Performing Organization Address [facility] Co de Phone Number [place] [address] [place] [address] * (ABNORMAL) Comprehensive metabolic panel (06/16/2024 7:50 AM ELECTRICAL MAINTENANCE ENGINEER) Sodium 140 135 - 145 mmol/L Comment:Testing performed by : [address] [address] Potassium, pl 4.3 3.3 - 4.9 mmol/L [place] Comment:Testing performed by : [address], [place]., [address] Chloride 104 97 - 110 mmol/L [place] Comment:Testing performed by : [address], [place]., [address] CO2 20(L) 22 - 32 mmol/L [place] Comment:Testing performed by : [address], [place]., [address] Anion gap 16(H) 2 - 15 mmol/L [place] Comment:Testing performed by : [address], [place]., [address] BUN 25 6 - 25 mg/dL [place] Comment:Testing performed by : [address] [address] Creatinine 1.50(H) 0.80 - 1.30 mg/dL [facility] Comment:Testing performed by : [address] [address] Glucose 112 70 - 199 mg/dL [facility] Comment: Interpretive Data Fasting glucose >/= 126 [...] was last revised 2022. Testing performed by: [address] [address] Calcium 9.0 8.5 - 10.3 mg/dL [place] Comment:Testing performed by : [address] [address] Bilirubin, total 0.9 0.1 - 1.2 mg/dL [place] Comment:Testing performed by : [facility], [address] [place] [address]., [address] Protein, pl 6.3(L) 6.5 - 8.5 g/dL [place] Comment:Testing performed by : [facility], [address] [place] [address]., [address] Albumin 3.7 3.5 - 5.0 g/dL [place] Comment:Testing performed by : [address] [address] Alk phos 114 40 - 130 Units/L [place] Comment:Testing performed by : [address] [address] ALT 9 7 - 55 Units/L [place] Comment:Testing performed by : [address] [address] AST 14 10 - 50 Units/L [place] Comment:Testing performed by : [address] [address] Blood 06/16/2024 7:50 AM ELECTRICAL MAINTENANCE ENGINEER 06/16/2024 7:51 AM ELECTRICAL MAINTENANCE ENGINEER Bucky Hodgson DO LAB BLOOD ORDERABLES Final R esult [place] [address] [facility] Department [place] [address] * RAD ONC ARIA SESSION SUMMARY (06/04/2024 9:50 AM ELECTRICAL MAINTENANCE ENGINEER) Course Name C2_L_Abdom en_25 ARIA Course Plan [...] Dose (cGy) 3,000 ARIA 06/04/2024 9:50 AM ELECTRICAL MAINTENANCE ENGINEER us Not In File Miscellaneous RADIATION ONCOLOGY ORD ERABLES Final Result ROBIN * RAD ONC ARIA SESSION SUMMARY (06/03/2024 9:54 AM ELECTRICAL MAINTENANCE ENGINEER) Course Name C2_L_Abdom en_25 ARIA Course Plan [...] Dose (cGy) 3,000 ARIA 06/03/2024 9:54 AM ELECTRICAL MAINTENANCE ENGINEER us Not In File Miscellaneous RADIATION ONCOLOGY ORD ERABLES Final Result Performing Organization Address [facility] Co de Phone Number ROBIN * RAD ONC ARIA SESSION SUMMARY (06/02/2024 9:53 AM ELECTRICAL MAINTENANCE ENGINEER) Course Name C2_L_Abdom en_25 ARIA Course Plan [...] Dose (cGy) 3,000 ARIA 06/02/2024 9:53 AM ELECTRICAL MAINTENANCE ENGINEER us Not In File Miscellaneous RADIATION ONCOLOGY ORD ERABLES Final Result Performing Organization Address City/[facility] Co de Phone Number ROBIN * RAD ONC ARIA SESSION SUMMARY (06/01/2024 9:57 AM ELECTRICAL MAINTENANCE ENGINEER) Course Name C2_L_Abdom en_25 ARIA Course Plan [...] Dose (cGy) 3,000 ARIA 06/01/2024 9:57 AM ELECTRICAL MAINTENANCE ENGINEER us Not In File Miscellaneous RADIATION ONCOLOGY ORD ERABLES Final Result ROBIN * RAD ONC ARIA SESSION SUMMARY (05/31/2024 10:00 AM ELECTRICAL MAINTENANCE ENGINEER) Course Name C2_L_Abdom en_25 ARIA Course Plan [...] (cGy) 3,000 ARIA 05/31/2024 10:0 0 AM ELECTRICAL MAINTENANCE ENGINEER us Not In File Miscellaneous RADIATION ONCOLOGY ORD ERABLES Final Result Performing Organization Address City/[facility]/ZIP Co de Phone Number [facility] * RAD ONC ARIA SESSION SUMMARY (05/28/2024 9:52 AM ELECTRICAL MAINTENANCE ENGINEER) Course Name C2_L_Abdom en_25 ARIA Course Plan [...] Dose (cGy) 3,000 ARIA 05/28/2024 9:52 AM ELECTRICAL MAINTENANCE ENGINEER us Not In File Miscellaneous RADIATION ONCOLOGY ORD ERABLES Final Result ROBIN * RAD ONC ARIA SESSION SUMMARY (05/27/2024 9:38 AM ELECTRICAL MAINTENANCE ENGINEER) Course Name C2_L_Abdom en_25 ARIA Course Plan [...] Dose (cGy) 3,000 ARIA 05/27/2024 9:38 AM ELECTRICAL MAINTENANCE ENGINEER us Not In File Miscellaneous RADIATION ONCOLOGY ORD ERABLES Final Result ROBIN * (ABNORMAL) POCT protein, urine, dipstick (05/26/2024 11:23 AM ELECTRICAL MAINTENANCE ENGINEER) Pathologist [facility] [place] Protein, ur, POC 1+(A) Negative Lot Number [id number] Urine 05/26/2024 11:2 3 AM ELECTRICAL MAINTENANCE ENGINEER Bucky Hodgson DO POINT OF CARE TEST ORDERABLE S Final Result * eGFR (05/26/2024 10:00 AM ELECTRICAL MAINTENANCE ENGINEER) eGFR 65 >=60 mL/min/1. 73 m2 Comment: [...] of Race in Diagnosing Kidney Disease, JASN 202). The CKD-EPI equation should not be used for patients with unstable renal function and has not been validated in children and those over 70. Current interpretive data was last reviewed 2021. Testing performed by: [address] [address] Blood 05/26/2024 10:0 0 AM ELECTRICAL MAINTENANCE ENGINEER 05/26/2024 10:02 AM ELECTRICAL MAINTENANCE ENGINEER Bucky Hodgson DO LAB BLOOD ORDERABLES Final R esult [place] [facility] Department [place] [address] * Differential, auto (05/26/2024 10:00 AM ELECTRICAL MAINTENANCE ENGINEER) Neutrophil abs 5.1 1.5 - 6.5 K/cumm Comment:Testing performed by : [address] [address] Imm gran abs 0.0 0.0 - 0.1 K/cumm [place] Comment:Testing performed by : [address] [address] Lymphocyte abs 1.0 0.8 - 3.3 K/cumm [place] Comment:Testing performed by : [address] [address] Monocyte abs 0.5 0.2 - 0.8 K/cumm [place] Comment:Testing performed by : [address] [address] Eosinophil abs 0.2 0.0 - 0.5 K/cumm [place] Comment:Testing performed by : [address] [address] Basophil abs 0.1 0.0 - 0.1 K/cumm [place] Comment:Testing performed by : [address] [address] Neutrophil pct 73.6 % [facility] Comment: Interpretive Data Percent cell count reference ranges are not reported, since discordance with absolute values may lead to misinterpretation of CBC data. Current Interpretive Data was last revised on 2017. Testing performed by: [address] [address] Imm gran pct 0.3 % [facility] Comment: Interpretive Data Percent cell count reference ranges are not reported, since discordance with absolute values may lead to misinterpretation of CBC data. Current Interpretive Data was last revised on 2017. Testing performed by: [address] [address] Lymphocyte pct 14.2 % [facility] Comment: Interpretive Data Percent cell count reference ranges are not reported, since discordance with absolute values may lead to misinterpretation of CBC data. Current Interpretive Data was last revised on 2017. Testing performed by: [address] [address] Monocyte pct 7.8 % [facility] Comment: Interpretive Data Percent cell count reference ranges are not reported, since discordance with absolute values may lead to misinterpretation of CBC data. Current Interpretive Data was last revised on 2017. Testing performed by: [address] [address] Eosinophil pct 3.2 % [facility] Comment: Interpretive Data Percent cell count reference ranges are not reported, since discordance with absolute values may lead to misinterpretation of CBC data. Current Interpretive Data was last revised on 2017. Testing performed by: [address] [address] Basophil pct 0.9 % [facility] Comment: Interpretive Data Percent cell count reference ranges are not reported, since discordance with absolute values may lead to misinterpretation of CBC data. Current Interpretive Data was last revised on 2017. Testing performed by: [address] [address] Blood 05/26/2024 10:0 0 AM ELECTRICAL MAINTENANCE ENGINEER 05/26/2024 10:02 AM ELECTRICAL MAINTENANCE ENGINEER us Bucky Hodgson DO LAB BLOOD ORDERABLES Final R esult [place] [address] [facility] Department of Laboratories [place], [place] [id number] * (ABNORMAL) CBC with auto differential (05/26/2024 10:00 AM ELECTRICAL MAINTENANCE ENGINEER) WBC 6.9 3.8 - 9.9 K/cumm Comment:Testing performed by : [address] [address] Hgb 14.4 13.0 - 17.5 g/dL [place] Comment:Testing performed by : [address] [address] Hct 43.1 38.9 - 50.3 % [place] Comment:Testing performed by : [address] [address] Plt 181 150 - 400 K/cumm [place] Comment:Testing performed by : [address] [address] MPV 9.5 9.1 - 12.3 fL [place] Comment:Testing performed by : [address] [address] RBC 4.38 4.30 - 5.80 M/cumm [place] Comment:Testing performed by : [address] [address] MCV 98.4(H) 81.3 - 96.4 fL [place] Comment:Testing performed by : [address] [address] MCH 32.9 27.1 - 33.3 pg [place] Comment:Testing performed by : [address] [address] MCHC 33.4 32.3 - 35.7 g/dL [place] Comment:Testing performed by : [address] [address] RDW CV 13.8 11.1 - 14.9 % [place] Comment:Testing performed by : [address], [address] RDW SD 50.4(H) 35.7 - 48.1 fL [place] Comment:Testing performed by : [address] [address] NRBC abs 0.00 0.00 - 0.01 K/cumm [place] Comment:Testing performed by : [address] [address] Blood 05/26/2024 10:0 0 AM ELECTRICAL MAINTENANCE ENGINEER 05/26/2024 10:02 AM ELECTRICAL MAINTENANCE ENGINEER Bucky Hodgson LAB BLOOD ORDERABLES Final R esult Performing Organization Address [facility] de Phone Number [place] [address] [facility] [place] [address] * (ABNORMAL) CEA (05/26/2024 10:00 AM ELECTRICAL MAINTENANCE ENGINEER) CEA 40.5(H) <=5.0 ng/mL Comment: Interpretive Data: Reference Range: Non-Smokers: 0.0 5.0 ng/mL Smokers: 0.0 6.5 ng/mL The Clara CEA assay procedure was used. Results from different manufacturers or methods may not be comparable. Serial testing should be performed using the same method. Current interpretive data was last revised 2022. Testing performed by: [address] [address] Blood 05/26/2024 10:0 0 AM ELECTRICAL MAINTENANCE ENGINEER 05/26/2024 11:56 AM ELECTRICAL MAINTENANCE ENGINEER Bucky Hodgson DO LAB BLOOD ORDERABLES Final R esult Performing Organization Address [facility] Co de Phone Number [facility] [address] [place] [address] [place] [address] * (ABNORMAL) Comprehensive metabolic panel (05/26/2024 10:00 AM ELECTRICAL MAINTENANCE ENGINEER) Sodium 141 135 - 145 mmol/L Comment:Testing performed by : [address] [address] Potassium, pl 4.2 3.3 - 4.9 mmol/L [facility] Comment:Testing performed by : [address] [address] Chloride 106 97 - 110 mmol/L [facility] Comment:Testing performed by : [address], [place]., [address] CO2 22 22 - 32 mmol/L [facility] Comment:Testing performed by : [address] [address] Anion gap 13 2 - 15 mmol/L [facility] Comment:Testing performed by : [address], [place]., [address] BUN 13 6 - 25 mg/dL [facility] Comment:Testing performed by : [address], [place]., [address] Creatinine 1.20 0.80 - 1.30 mg/dL [facility] Comment:Testing performed by : [address] [address] Glucose 96 70 - 199 mg/dL [facility] Comment: Interpretive Data Fasting glucose >/= 126 [...] was last revised 2022. Testing performed by: [address] [address] Calcium 9.2 8.5 - 10.3 mg/dL [facility] Comment:Testing performed by : [address] [address] Bilirubin, total 1.0 0.1 - 1.2 mg/dL [facility] Comment:Testing performed by : [address] [address] Protein, pl 6.9 6.5 - 8.5 g/dL [facility] Comment:Testing performed by : [facility], [address] [place] [address]., [address] Albumin 3.9 3.5 - 5.0 g/dL [place] Comment:Testing performed by : [address], [address] Alk phos 84 40 - 130 Units/L [place] Comment:Testing performed by : [address], [address] ALT 6(L) 7 - 55 Units/L [place] Comment:Testing performed by : [address], [address] AST 14 10 - 50 Units/L [place] Comment:Testing performed by : [address], [address] Blood 05/26/2024 10:0 0 AM ELECTRICAL MAINTENANCE ENGINEER 05/26/2024 10:02 AM ELECTRICAL MAINTENANCE ENGINEER us Bucky Hodgson DO LAB BLOOD ORDERABLES Final R esult [place] [address] [facility] Department [place] [address] * RAD ONC ARIA SESSION SUMMARY (05/26/2024 9:40 AM ELECTRICAL MAINTENANCE ENGINEER) Course Name C2_L_Abdom en_25 ARIA Course Plan [...] Dose (cGy) 3,000 ARIA 05/26/2024 9:40 AM ELECTRICAL MAINTENANCE ENGINEER us Not In File Miscellaneous RADIATION ONCOLOGY ORD ERABLES Final Result ROBIN * RAD ONC ARIA SESSION SUMMARY (05/25/2024 8:57 AM ELECTRICAL MAINTENANCE ENGINEER) Course Name C2_L_Abdom en_25 ARIA Course Plan [...] Dose (cGy) 3,000 ARIA 05/25/2024 8:57 AM ELECTRICAL MAINTENANCE ENGINEER us Not In File Miscellaneous RADIATION ONCOLOGY ORD ERABLES Final Result Performing Organization Address [facility] Co de Phone Number ROBIN * RAD ONC ARIA SESSION SUMMARY (05/24/2024 3:11 PM ELECTRICAL MAINTENANCE ENGINEER) Course Name C2_L_Abdom en_25 ARIA Course Plan [...] Dose (cGy) 3,000 ARIA 05/24/2024 3:11 PM ELECTRICAL MAINTENANCE ENGINEER us Not In File Miscellaneous RADIATION ONCOLOGY ORD ERABLES Final Result ARIA * RAD ONC ARIA COURSE SUMMARY (05/21/2024 4:32 PM ELECTRICAL MAINTENANCE ENGINEER) Course Name [id number] 22 ARIA Course Plan Date 06/21/2021 9:59 AM ARIA Elapsed Days 11 ARIA Treatment Start Date 07/09/2021 ARIA Treatment Site PTV ARIA Dose Given To Date (cGy) 3,500 ARIA Session Dosage Given (cGy) 0 ARIA Plan ID RIGHT CW ARIA Fractions Treated 5 ARIA Prescribed Dose Per Fraction (cGy) 700 ARIA Prescribed Total Dose (cGy) 3,500 ARIA 05/21/2024 4:32 PM ELECTRICAL MAINTENANCE ENGINEER us Not In File Miscellaneous RADIATION ONCOLOGY ORD ERABLES Final Result Performing Organization Address [facility] Co de Phone Number ARIA * (ABNORMAL) POCT protein, urine, dipstick (05/05/2024 2:16 PM ELECTRICAL MAINTENANCE ENGINEER) Protein, ur, POC 1+(A) Negative Comment:Testing performed by : [address] [address] Urine 05/05/2024 2:16 PM ELECTRICAL MAINTENANCE ENGINEER 05/05/2024 2:16 PM ELECTRICAL MAINTENANCE ENGINEER Bucky Hodgson DO POINT OF CARE TEST ORDERABLE S Final Result Performing Organization Address [facility] de Phone Number SONAM[address] [employer] [place] [place] [address] * (ABNORMAL) POCT protein, urine, dipstick (05/05/2024 2:12 PM ELECTRICAL MAINTENANCE ENGINEER) Protein, ur, POC 2+(A) Negative Comment:Testing performed by : [address] [address] Urine 05/05/2024 2:12 PM ELECTRICAL MAINTENANCE ENGINEER 05/05/2024 2:12 PM ELECTRICAL MAINTENANCE ENGINEER Bucky Hodgson DO POINT OF CARE TEST ORDERABLE S Final Result Performing Organization Address [facility] de Phone Number SONAM[address] [place] [address] * (ABNORMAL) POCT protein, urine, dipstick (05/05/2024 2:07 PM ELECTRICAL MAINTENANCE ENGINEER) Protein, ur, POC 2+(A) Negative Comment:Testing performed by : [address] [address] Urine 05/05/2024 2:07 PM ELECTRICAL MAINTENANCE ENGINEER 05/05/2024 2:07 PM ELECTRICAL MAINTENANCE ENGINEER Bucky Hodgson DO POINT OF CARE TEST ORDERABLE S Final Result Performing Organization Address [facility] Co de Phone Number [place] [facility] [place] [address] * (ABNORMAL) POCT protein, urine, dipstick (05/05/2024 1:42 PM ELECTRICAL MAINTENANCE ENGINEER) Protein, ur, POC 1+(A) Negative Comment:Testing performed by : [facility], [address] [place] [address]., [address] Urine 05/05/2024 1:42 PM ELECTRICAL MAINTENANCE ENGINEER 05/05/2024 1:42 PM ELECTRICAL MAINTENANCE ENGINEER Bucky Hodgson DO POINT OF CARE TEST ORDERABLE S Final Result Performing Organization Address [facility] de Phone Number [place] [facility] [place] [address] * eGFR (05/05/2024 12:52 PM ELECTRICAL MAINTENANCE ENGINEER) Pathologist [facility] [place] eGFR 72 >=60 mL/min/1. 73 m2 Comment: [...] was last reviewed 2021. Testing performed by: [address] [address] Blood 05/05/2024 12:5 2 PM ELECTRICAL MAINTENANCE ENGINEER 05/05/2024 1:00 PM ELECTRICAL MAINTENANCE ENGINEER us Bucky Hodgson DO LAB BLOOD ORDERABLES Final R esult [facility] [address] [facility] Department [place] [address] * (ABNORMAL) Differential, auto (05/05/2024 12:52 PM ELECTRICAL MAINTENANCE ENGINEER) Neutrophil abs 8.2(H) 1.5 - 6.5 K/cumm Comment:Testing performed by : [address] [address] Imm gran abs 0.1 0.0 - 0.1 K/cumm [place] Comment:Testing performed by : [address] [address] Lymphocyte abs 1.3 0.8 - 3.3 K/cumm [place] Comment:Testing performed by : [address] [address] Monocyte abs 0.6 0.2 - 0.8 K/cumm [place] Comment:Testing performed by : [address] [address] Eosinophil abs 0.4 0.0 - 0.5 K/cumm [place] Comment:Testing performed by : [address] [address] Basophil abs 0.1 0.0 - 0.1 K/cumm [place] Comment:Testing performed by : [address] [address] Neutrophil pct 77.8 % [facility] Comment: Interpretive Data Percent cell count reference ranges are not reported, since discordance with absolute values may lead to misinterpretation of CBC data. Current Interpretive Data was last revised on 2017. Testing performed by: [address] [address] Imm gran pct 0.5 % [facility] Comment: Interpretive Data Percent cell count reference ranges are not reported, since discordance with absolute values may lead to misinterpretation of CBC data. Current Interpretive Data was last revised on 2017. Testing performed by: [address] [address] Lymphocyte pct 12.1 % [facility] Comment: Interpretive Data Percent cell count reference ranges are not reported, since discordance with absolute values may lead to misinterpretation of CBC data. Current Interpretive Data was last revised on 2017. Testing performed by: [address] [address] Monocyte pct 5.7 % [facility] Comment: Interpretive Data Percent cell count reference ranges are not reported, since discordance with absolute values may lead to misinterpretation of CBC data. Current Interpretive Data was last revised on 2017. Testing performed by: [address] [address] Eosinophil pct 3.4 % [facility] Comment: Interpretive Data Percent cell count reference ranges are not reported, since discordance with absolute values may lead to misinterpretation of CBC data. Current Interpretive Data was last revised on 2017. Testing performed by: [address] [address] Basophil pct 0.5 % [facility] Comment: Interpretive Data Percent cell count reference ranges are not reported, since discordance with absolute values may lead to misinterpretation of CBC data. Current Interpretive Data was last revised on 2017. Testing performed by: [address] [address] Blood 05/05/2024 12:5 2 PM ELECTRICAL MAINTENANCE ENGINEER 05/05/2024 1:00 PM ELECTRICAL MAINTENANCE ENGINEER us Bucky Hodgson DO LAB BLOOD ORDERABLES Final R esult [place] [address] [facility] Department [place] [address] * (ABNORMAL) CBC with auto differential (05/05/2024 12:52 PM ELECTRICAL MAINTENANCE ENGINEER) [facility] WBC 10.6(H) 3.8 - 9.9 K/cumm Comment:Testing performed by : [address], [address] Hgb 16.0 13.0 - 17.5 g/dL [place] Comment:Testing performed by : [address], [address] Hct 46.9 38.9 - 50.3 % [facility] Comment:Testing performed by : [address], [address] Plt 222 150 - 400 K/cumm [place] Comment:Testing performed by : [address], [address] MPV 9.4 9.1 - 12.3 fL [place] Comment:Testing performed by : [address], [address] RBC 4.82 4.30 - 5.80 M/cumm [place] Comment:Testing performed by : [address], [address] MCV 97.3(H) 81.3 - 96.4 fL [place] Comment:Testing performed by : [address], [address] MCH 33.2 27.1 - 33.3 pg [place] Comment:Testing performed by : [address], [address] MCHC 34.1 32.3 - 35.7 g/dL [place] Comment:Testing performed by : [address], [address] RDW CV 15.1(H) 11.1 - 14.9 % [place] Comment:Testing performed by : [address], [address] RDW SD 54.2(H) 35.7 - 48.1 fL [place] Comment:Testing performed by : [address], [address] NRBC abs 0.00 0.00 - 0.01 K/cumm [place] Comment:Testing performed by : [address] [address] Blood 05/05/2024 12:5 2 PM ELECTRICAL MAINTENANCE ENGINEER 05/05/2024 1:00 PM ELECTRICAL MAINTENANCE ENGINEER Bucky Hodgson LAB BLOOD ORDERABLES Final R esult Performing Organization Address [facility] de Phone Number [place] [address] [facility] [place] [address] * (ABNORMAL) CEA (05/05/2024 12:52 PM ELECTRICAL MAINTENANCE ENGINEER) CEA 47.0(H) <=5.0 ng/mL Comment: Interpretive Data: Reference Range: Non-Smokers: 0.0 5.0 ng/mL Smokers: 0.0 6.5 ng/mL The Clara CEA assay procedure was used. Results from different manufacturers or methods may not be comparable. Serial testing should be performed using the same method. Current interpretive data was last revised 2022. Testing performed by: [address] [address] Blood 05/05/2024 12:5 2 PM ELECTRICAL MAINTENANCE ENGINEER 05/05/2024 1:39 PM ELECTRICAL MAINTENANCE ENGINEER Bucky Hodgson DO LAB BLOOD ORDERABLES Final R esult Performing Organization Address [facility] de Phone Number [address] [place] [address] * Comprehensive metabolic panel (05/05/2024 12:52 PM ELECTRICAL MAINTENANCE ENGINEER) Sodium 139 135 - 145 mmol/L Comment:Testing performed by : [address] [address] Potassium, pl 4.4 3.3 - 4.9 mmol/L [place] [place] Comment:Testing performed by : [address] [address] Chloride 103 97 - 110 mmol/L [place] Comment:Testing performed by : [address] [place] [address] CO2 23 22 - 32 mmol/L [facility] Comment:Testing performed by : [address] [address] Anion gap 13 2 - 15 mmol/L [place] Comment:Testing performed by : [address] [address] BUN 16 6 - 25 mg/dL [facility] Comment:Testing performed by : [address] [address] Creatinine 1.10 0.80 - 1.30 mg/dL [facility] Comment:Testing performed by : [address] [address] Glucose 112 70 - 199 mg/dL [facility] Comment: Interpretive Data Fasting glucose >/= 126 [...] was last revised 2022. Testing performed by: [address] [address] Calcium 9.1 8.5 - 10.3 mg/dL [facility] Comment:Testing performed by : [address] [address] Bilirubin, total 0.8 0.1 - 1.2 mg/dL [facility] Comment:Testing performed by : [address] [address] Protein, pl 7.1 6.5 - 8.5 g/dL [place] Comment:Testing performed by : [address] [address] Albumin 3.9 3.5 - 5.0 g/dL [facility] Comment:Testing performed by : [address] [address] Alk phos 87 40 - 130 Units/L [place] Comment:Testing performed by : [address] [address] ALT 10 7 - 55 Units/L [place] Comment:Testing performed by : [facility], [address] [place] [address]., [address] AST 15 10 - 50 Units/L [place] Comment:Testing performed by : [address] [address] Blood 05/05/2024 12:5 2 PM ELECTRICAL MAINTENANCE ENGINEER 05/05/2024 1:00 PM ELECTRICAL MAINTENANCE ENGINEER us Bucky Hodgson DO LAB BLOOD ORDERABLES Final R esult [place] [address] [facility] Department [place] [address] * CT Chest Abdomen Pelvis W Contrast (04/30/2024 8:05 AM ELECTRICAL MAINTENANCE ENGINEER) Anatomical Region Laterality Modality Body N/A Computed Tomogra phy 04/30/2024 10:0 3 AM ELECTRICAL MAINTENANCE ENGINEER Narrative 04/30/2024 10:27 AM ELECTRICAL MAINTENANCE ENGINEER EXAM DESCRIPTION: CT CHEST ABDOMEN PELVIS W [...] lymphadenopathy. CHEST WALL: Mild gynecomastia. HARDWARE/LINES/TUBES: Left Psflwa-W-Rqdj catheter partially visualized, distal tip is at [...] Samina Cano M.D. TW: JASMYN Report ID: [id number] Reading Location: [id number] Procedure Note Samina Cano MD - 04/30/2024 [...] the inferior right upper lobe on image [id number], stable as remeasured on most recent prior [...] lymphadenopathy. CHEST WALL: Mild gynecomastia. HARDWARE/LINES/TUBES: Left Bosnwn-V-Aufp catheter partially visualized, distal tip is at [...] Samina Cano M.D. TW: JASMYN Report ID: [id number] Reading Location: [id number] Bucky Hodgson DO IMG CT PROCEDURES Final Resu lt * XR Abdomen Erect and or Decubitus 2 Views (04/28/2024 12:10 PM ELECTRICAL MAINTENANCE ENGINEER) Anatomical Region Laterality Modality Body, Abdomen N/A Computed Radiogr aphy 04/28/2024 1:21 PM ELECTRICAL MAINTENANCE ENGINEER Narrative 04/28/2024 1:24 PM ELECTRICAL MAINTENANCE ENGINEER EXAM DESCRIPTION: XR ABDOMEN ERECT AND OR [...] was previously seen. Levoconvex scoliosis thoracolumbar spine. Uzpm-hr-rfxibkul spondylosis. No acute osseous findings. IMPRESSION: Nonobstructive [...] Juan Byrd M.D. MJ: RAMONITA Report ID: [id number] Reading Location: [place] [address] Procedure Note Juan Byrd MD - 04/28/2024 [...] was previously seen. Levoconvex scoliosis thoracolumbar spine. Avnr-yr-nkmxmnnb spondylosis.No acute osseous findings. IMPRESSION: Nonobstructive bowel [...] Juan Byrd M.D. MJ: RAMONITA Report ID: [id number] Reading Location: [place] [address] us Bucky DuqueKong Gokul DO IMG XR PROCEDURES Final Resu lt * (ABNORMAL) Urinalysis reflex to microscopic and culture Urine, clean voided (04/28/2024 11:05 AM ELECTRICAL MAINTENANCE ENGINEER) Color, ur Yellow Yellow Comment:Testing performed by : [address] [address] Clarity, ur Cloudy(A) Clear [place] Comment:Testing performed by : [address] [address] Specific gravity, ur 1.016 1.003 - 1.030 [place] Comment:Testing performed by : [address] [address] pH, urine 5.5 [place] Comment: Interpretive Data U rine pH is affected by diet, medications, systemic acid-base disturbances, and renal tubular function. pH may affect urinary stone formation. For example, urine pH below 6.0 may help reduce the tendency for calcium phosphate stones and pH greater than 6.0 may reduce the tendency for uric acid stone formation. Source: [place] [employer] Current Interpretive Data was last revised on 2017 Testing performed by: [address] [address] Protein, ur ql 1+(A) Negative [place] Comment:Testing performed by : [address] [address] Glucose, ur ql Negative Negative [place] Comment:Testing performed by : [address] [address] Ketones, ur Negative Negative [place] Comment:Testing performed by : [address] [address] Bilirubin, ur Negative Negative [place] Comment:Testing performed by : [address] [address] Blood, ur 3+(A) Negative [place] Comment:Testing performed by : [address] [address] Urobilinogen, ur <2.0 <2.0 mg/dL [place] Comment:Testing performed by : [address] [address] Nitrite, ur Negative Negative [place] Comment:Testing performed by : [address] [address] Leukocyte esterase, ur 4+(A) Negative [place] Comment:Testing performed by : [address], [place]., [address] UA reflex comment Reflex to microscopic UA will be performed. [place] Comment:Testing performed by : [address] [address] Urine, clean voided 04/28/2024 11:05 AM ELECTRICAL MAINTENANCE ENGINEER 04/28/2024 11:42 AM ELECTRICAL MAINTENANCE ENGINEER Bucky Hodgson DO LAB MICROBIOLOGY - GENERAL O RDERABLES Final Result [place] [address] [facility] Department of Laboratories [place], [place] [id number] * (ABNORMAL) Urinalysis, microscopic only (04/28/2024 11:05 AM ELECTRICAL MAINTENANCE ENGINEER) WBC, ur >50(A) 0 - 5 /HPF Comment:Testing performed by : [address] [address] RBC, ur 21-50(A) 0 - 2 /HPF [place] Comment:Testing performed by : [address] [address] Bacteria, ur Trace(A) [place] Comment:Testing performed by : [address] [address] Mucous, ur Present(A) [place] Comment:Testing performed by : [address] [address] Hyaline casts, ur 1-5 0 - 10 /LPF [place] Comment:Testing performed by : [facility], [address] [place] [address]., [address] Culture Reflex Comment Reflex to urine culture will be performed. [place] Comment:Testing performed by : [facility], [address] [place] [address]., [address] Urine, clean voided 04/28/2024 11:05 AM ELECTRICAL MAINTENANCE ENGINEER 04/28/2024 11:42 AM ELECTRICAL MAINTENANCE ENGINEER Bucky Hodgson DO LAB URINE ORDERABLES Final R esult Performing Organization Address City/[facility]/ZIP Co de Phone Number [place] [facility]0 [facility] [employer] [place] [address] * Urine culture Urine, clean voided (04/28/2024 11:05 AM ELECTRICAL MAINTENANCE ENGINEER) Report Final Report: Less than 100,000 colonies/mL (clinically insignificant growth based on current clinical standards) Comment:Testing performed by : [facility], [address] [place]., [address] Organism (CLINICALLY INSIGNIFICANT GROWTH [place] Urine, clean voided 04/28/2024 11:05 AM ELECTRICAL MAINTENANCE ENGINEER 04/28/2024 3:25 PM ELECTRICAL MAINTENANCE ENGINEER Narrative [place] - 04/29/2024 4:41 PM ELECTRICAL MAINTENANCE ENGINEER Urine culture reflexed based upon urinalysis results. Testing performed by [facility] ([phone]) Bucky Hodgson DO LAB MICROBIOLOGY - GENERAL O RDERABLES Final Result Performing Organization Address City/[facility]/ZIP Co de Phone Number [place] [facility]7 [facility] [place] [address] * eGFR (04/28/2024 7:55 AM ELECTRICAL MAINTENANCE ENGINEER) eGFR 72 >=60 mL/min/1. 73 m2 Comment: [...] was last reviewed 2021. Testing performed by: [address] [address] Blood 04/28/2024 7:55 AM ELECTRICAL MAINTENANCE ENGINEER 04/28/2024 7:56 AM ELECTRICAL MAINTENANCE ENGINEER Bucky Hodgson DO LAB BLOOD ORDERABLES Final R esult [place] [address] [facility] Department of Laboratories [place], [place] [id number] * (ABNORMAL) Differential, auto (04/28/2024 7:55 AM ELECTRICAL MAINTENANCE ENGINEER) Neutrophil abs 8.6(H) 1.5 - 6.5 K/cumm Comment:Testing performed by : [address] [address] Imm gran abs 0.0 0.0 - 0.1 K/cumm [place] Comment:Testing performed by : [address] [address] Lymphocyte abs 1.0 0.8 - 3.3 K/cumm [place] Comment:Testing performed by : [address] [address] Monocyte abs 0.7 0.2 - 0.8 K/cumm [place] Comment:Testing performed by : [address] [address] Eosinophil abs 0.3 0.0 - 0.5 K/cumm [place] Comment:Testing performed by : [address] [address] Basophil abs 0.1 0.0 - 0.1 K/cumm [place] Comment:Testing performed by : [address] [address] Neutrophil pct 80.2 % [facility] Comment: Interpretive Data Percent cell count reference ranges are not reported, since discordance with absolute values may lead to misinterpretation of CBC data. Current Interpretive Data was last revised on 2017. Testing performed by: [address] [address] Imm gran pct 0.2 % [place] Comment: Interpretive Data Percent cell count reference ranges are not reported, since discordance with absolute values may lead to misinterpretation of CBC data. Current Interpretive Data was last revised on 2017. Testing performed by: [address] [address] Lymphocyte pct 9.2 % [facility] Comment: Interpretive Data Percent cell count reference ranges are not reported, since discordance with absolute values may lead to misinterpretation of CBC data. Current Interpretive Data was last revised on 2017. Testing performed by: [address] [address] Monocyte pct 6.7 % [facility] Comment: Interpretive Data Percent cell count reference ranges are not reported, since discordance with absolute values may lead to misinterpretation of CBC data. Current Interpretive Data was last revised on 2017. Testing performed by: [address] [address] Eosinophil pct 3.2 % [facility] Comment: Interpretive Data Percent cell count reference ranges are not reported, since discordance with absolute values may lead to misinterpretation of CBC data. Current Interpretive Data was last revised on 2017. Testing performed by: [address] [address] Basophil pct 0.5 % [facility] Comment: Interpretive Data Percent cell count reference ranges are not reported, since discordance with absolute values may lead to misinterpretation of CBC data. Current Interpretive Data was last revised on 2017. Testing performed by: [address] [address] Blood 04/28/2024 7:55 AM ELECTRICAL MAINTENANCE ENGINEER 04/28/2024 7:56 AM ELECTRICAL MAINTENANCE ENGINEER Bucky Hodgson DO LAB BLOOD ORDERABLES Final R esult [facility] [address] [facility] Department [place] [address] * (ABNORMAL) CBC with auto differential (04/28/2024 7:55 AM ELECTRICAL MAINTENANCE ENGINEER) WBC 10.7(H) 3.8 - 9.9 K/cumm Comment:Testing performed by : [address] [address] Hgb 15.6 13.0 - 17.5 g/dL [place] Comment:Testing performed by : [address] [address] Hct 45.4 38.9 - 50.3 % [place] Comment:Testing performed by : [address] [address] Plt 201 150 - 400 K/cumm [place] Comment:Testing performed by : [address] [address] MPV 9.5 9.1 - 12.3 fL [place] Comment:Testing performed by : [address] [address] RBC 4.67 4.30 - 5.80 M/cumm [place] Comment:Testing performed by : [address] [address] MCV 97.2(H) 81.3 - 96.4 fL [place] Comment:Testing performed by : [address] [address] MCH 33.4(H) 27.1 - 33.3 pg [place] Comment:Testing performed by : [address] [address] MCHC 34.4 32.3 - 35.7 g/dL [place] Comment:Testing performed by : [address] [address] [address] RDW CV 15.1(H) 11.1 - 14.9 % [place] Comment:Testing performed by : [address] [address] RDW SD 54.1(H) 35.7 - 48.1 fL [place] Comment:Testing performed by : [address] [address] NRBC abs 0.00 0.00 - 0.01 K/cumm [place] Comment:Testing performed by : [address], [address] Blood 04/28/2024 7:55 AM ELECTRICAL MAINTENANCE ENGINEER 04/28/2024 7:56 AM ELECTRICAL MAINTENANCE ENGINEER Bucky Hodgson DO LAB BLOOD ORDERABLES Final R esult Performing Organization Address City/[facility]/ZIP Co de Phone Number [place] [address] [employer] [place] [address] * (ABNORMAL) Erythrocyte sedimentation rate (04/28/2024 7:55 AM ELECTRICAL MAINTENANCE ENGINEER) Pathologist [facility] [place] Erythrocyte sedimentation rate 51(H) 1 - 20 mm/hr Comment:Testing performed by : [address], [address] Blood 04/28/2024 7:55 AM ELECTRICAL MAINTENANCE ENGINEER 04/28/2024 1:52 PM ELECTRICAL MAINTENANCE ENGINEER Bucky Hodgson DO LAB BLOOD ORDERABLES Final R esult Performing Organization Address City/[facility]/ZIP Co de Phone Number [address] [place] [address] * Lipase (04/28/2024 7:55 AM ELECTRICAL MAINTENANCE ENGINEER) Lipase 16 10 - 99 Units/L Comment:Testing performed by : [address] [address] Blood 04/28/2024 7:55 AM ELECTRICAL MAINTENANCE ENGINEER 04/28/2024 12:47 PM ELECTRICAL MAINTENANCE ENGINEER Bucky Hodgson DO LAB BLOOD ORDERABLES Final R esult Performing Organization Address City/[facility]/ZIP Co de Phone Number [place] [address] [place] [address] * (ABNORMAL) CEA (04/28/2024 7:55 AM ELECTRICAL MAINTENANCE ENGINEER) CEA 40.8(H) <=5.0 ng/mL Comment: Interpretive Data: Reference Range: Non-Smokers: 0.0 5.0 ng/mL Smokers: 0.0 6.5 ng/mL The Clara CEA assay procedure was used. Results from different manufacturers or methods may not be comparable. Serial testing should be performed using the same method. Current interpretive data was last revised 2022. Testing performed by: [address] [address] Blood 04/28/2024 7:55 AM ELECTRICAL MAINTENANCE ENGINEER 04/28/2024 10:07 AM ELECTRICAL MAINTENANCE ENGINEER Bucky Hodgson DO LAB BLOOD ORDERABLES Final R esult Performing Organization Address [facility] de Phone Number [address] [place] [address] * Amylase (04/28/2024 7:55 AM ELECTRICAL MAINTENANCE ENGINEER) Pathologist [facility] [place] Amylase 57 30 - 99 Units/L Comment:Testing performed by : [address] [address] Blood 04/28/2024 7:55 AM ELECTRICAL MAINTENANCE ENGINEER 04/28/2024 12:47 PM ELECTRICAL MAINTENANCE ENGINEER Bucky Hodgson DO LAB BLOOD ORDERABLES Final R esult Performing Organization Address City/State/[facility] Co de Phone Number SONAM[address] [place] [address] * Comprehensive metabolic panel (04/28/2024 7:55 AM ELECTRICAL MAINTENANCE ENGINEER) Sodium 138 135 - 145 mmol/L Comment:Testing performed by : [address] [address] Potassium, pl 4.3 3.3 - 4.9 mmol/L [place] Comment:Testing performed by : [address], [place]., [address] Chloride 103 97 - 110 mmol/L [place] Comment:Testing performed by : [address], [place]., [address] CO2 23 22 - 32 mmol/L [place] Comment:Testing performed by : [address], [place]., [address] Anion gap 12 2 - 15 mmol/L [place] Comment:Testing performed by : [address], [place]., [address] BUN 14 6 - 25 mg/dL [place] Comment:Testing performed by : [address], [place]., [address] Creatinine 1.10 0.80 - 1.30 mg/dL [place] Comment:Testing performed by : [address], [place]., [address] Glucose 106 70 - 199 mg/dL CAM[place]IA [...] was last revised 2022. Testing performed by: [address] [address] Calcium 9.6 8.5 - 10.3 mg/dL [place] Comment:Testing performed by : [address], [place]., [address] Bilirubin, total 0.9 0.1 - 1.2 mg/dL [place] Comment:Testing performed by : [address] [address] Protein, pl 7.2 6.5 - 8.5 g/dL [place] Comment:Testing performed by : [address] [address] Albumin 4.0 3.5 - 5.0 g/dL [place] Comment:Testing performed by : [address] [address] Alk phos 84 40 - 130 Units/L [place] Comment:Testing performed by : [address] [address] ALT 7 7 - 55 Units/L [place] Comment:Testing performed by : [address] [address] AST 16 10 - 50 Units/L [place] Comment:Testing performed by : [address] [address] Blood 04/28/2024 7:55 AM ELECTRICAL MAINTENANCE ENGINEER 04/28/2024 7:56 AM ELECTRICAL MAINTENANCE ENGINEER Bucky Hodgson DO LAB BLOOD ORDERABLES Final R esult [place] [facility] [facility] [place] [address] * FL Fluoroscopy < 1 Hour (04/16/2024 1:37 PM ELECTRICAL MAINTENANCE ENGINEER) Narrative [id number] - 04/16/2024 1:40 PM ELECTRICAL MAINTENANCE ENGINEER The images from this study are not interpreted by Radiology. Please refer to the physician's procedure / OR operative note. us Mayo Rodríguez MD IMG FLUOROSCOPY PROCEDURES Final Result [id number] * Stone analysis (04/16/2024 12:17 PM ELECTRICAL MAINTENANCE ENGINEER) Stone analysis Not Reported [facility] Comment:Testing performed by : [address] [address] Source, Kid Stone Kidney [place] Comment:Testing performed by : [facility], [address] [place] [address]., [address] Interp, Adan stone analysis See Footnote [place] Comment: RESULT: 90% Uric acid. 10% Calcium oxalate monohydrate. Testing performed by: [facility], [address] [place] [address]., [address] COMMENT See Footnote [place]IA Comment: For stones containing calcium oxalate, calcium phosphate, and/or uric acid, a 24 hr urinary supersaturation test may help detect underlying risk factors for this type of stone formation and provide guidance for a stone prevention strategy. ADDITIONAL INFORMATION This test was developed and its performance characteristics determined by [facility] in a manner consistent with CLIA requirements. This test has not been cleared or approved by the U.S. Food and Drug Administration. Test Performed by: [place] [address] [place] [address] End Finder: Enrike Fang Ph.D.; CLIA# [id number] Testing performed by: [address] [address] Stone (Urine, Clean Catch) 04/16/2024 12:17 PM ELECTRICAL MAINTENANCE ENGINEER 04/16/2024 2:11 PM ELECTRICAL MAINTENANCE ENGINEER Narrative CAM[place]IA - 04/22/2024 2:31 PM ELECTRICAL MAINTENANCE ENGINEER Left and Right kidney stone us Mayo Rodríguez MD LAB URINE ORDERABLES Final Resul t [place] [address] [facility] Department [place] [address] [facility] * SC AN ELECTIVE SUPRAGLOTTIC AIRWAY, SC AN PROCEDURE PLACEHOLDER (04/16/2024 12:03 PM ELECTRICAL MAINTENANCE ENGINEER) Narrative Baldemar Willis CRNA - 04/16/2024 12:03 PM ELECTRICAL MAINTENANCE ENGINEER Baldemar Willis CRNA 04/16/2024 12:03 PM Airway Patient location: OR Urgency: elective Indications for airway management: anesthesia Difficult airway: no Staff: Placed by: EXPLOSIVE ORDNANCE DISPOSAL MANAGER: Baldemar Willis CRNA Emergent airway documentation: Risks [...] POCT protein, urine, dipstick (04/15/2024 8:17 AM ELECTRICAL MAINTENANCE ENGINEER) Protein, ur, POC 1+(A) Negative Comment:Testing performed by : [facility], [address] [place] [address]., [address] Urine 04/15/2024 8:17 AM ELECTRICAL MAINTENANCE ENGINEER 04/15/2024 8:17 AM ELECTRICAL MAINTENANCE ENGINEER Bucky Hodgson DO POINT OF CARE TEST ORDERABLE S Final Result [facility] [address] [facility] Department [place] [address] * eGFR (04/15/2024 7:40 AM ELECTRICAL MAINTENANCE ENGINEER) eGFR 65 >=60 mL/min/1. 73 m2 Comment: [...] was last reviewed 2021. Testing performed by: [address] [address] Blood 04/15/2024 7:40 AM ELECTRICAL MAINTENANCE ENGINEER 04/15/2024 7:43 AM ELECTRICAL MAINTENANCE ENGINEER Bucky Hodgson DO LAB BLOOD ORDERABLES Final R esult [facility] [address] [facility] Department [place] [address] * (ABNORMAL) Differential, auto (04/15/2024 7:40 AM ELECTRICAL MAINTENANCE ENGINEER) Neutrophil abs 6.6(H) 1.5 - 6.5 K/cumm Comment:Testing performed by : [address] [address] Imm gran abs 0.1 0.0 - 0.1 K/cumm [place] Comment:Testing performed by : [address] [address] Lymphocyte abs 1.4 0.8 - 3.3 K/cumm [place] Comment:Testing performed by : [address] [address] Monocyte abs 0.7 0.2 - 0.8 K/cumm [place] Comment:Testing performed by : [address] [address] Eosinophil abs 0.1 0.0 - 0.5 K/cumm [place] Comment:Testing performed by : [address] [address] Basophil abs 0.1 0.0 - 0.1 K/cumm [facility]Testing performed by : [address] [address] Neutrophil pct 74.0 % [place]IA Comment: Interpretive Data Percent cell count reference ranges are not reported, since discordance with absolute values may lead to misinterpretation of CBC data. Current Interpretive Data was last revised on 2017. Testing performed by: [address] [address] Imm gran pct 1.5 % [facility] Comment: Interpretive Data Percent cell count reference ranges are not reported, since discordance with absolute values may lead to misinterpretation of CBC data. Current Interpretive Data was last revised on 2017. Testing performed by: [address] [address] Lymphocyte pct 15.7 % [facility] Comment: Interpretive Data Percent cell count reference ranges are not reported, since discordance with absolute values may lead to misinterpretation of CBC data. Current Interpretive Data was last revised on 2017. Testing performed by: [address] [address] Monocyte pct 7.6 % [facility] Comment: Interpretive Data Percent cell count reference ranges are not reported, since discordance with absolute values may lead to misinterpretation of CBC data. Current Interpretive Data was last revised on 2017. Testing performed by: [address] [address] Eosinophil pct 0.6 % [facility] Comment: Interpretive Data Percent cell count reference ranges are not reported, since discordance with absolute values may lead to misinterpretation of CBC data. Current Interpretive Data was last revised on 2017. Testing performed by: [address] [address] Basophil pct 0.6 % [facility] Comment: Interpretive Data Percent cell count reference ranges are not reported, since discordance with absolute values may lead to misinterpretation of CBC data. Current Interpretive Data was last revised on 2017. Testing performed by: [address] [address] Blood 04/15/2024 7:40 AM ELECTRICAL MAINTENANCE ENGINEER 04/15/2024 7:43 AM ELECTRICAL MAINTENANCE ENGINEER us Bucky Hodgson DO LAB BLOOD ORDERABLES Final R esult [place] [address] [facility] Department of Laboratories [place], [place] [id number] * (ABNORMAL) CBC with auto differential (04/15/2024 7:40 AM ELECTRICAL MAINTENANCE ENGINEER) [facility] WBC 8.9 3.8 - 9.9 K/cumm Comment:Testing performed by : [address], [address] Hgb 13.7 13.0 - 17.5 g/dL [place] Comment:Testing performed by : [address], [address] Hct 40.1 38.9 - 50.3 % [place] Comment:Testing performed by : [address] [address] Plt 246 150 - 400 K/cumm [place] Comment:Testing performed by : [address] [address] MPV 8.9(L) 9.1 - 12.3 fL [place] Comment:Testing performed by : [address], [address] RBC 4.07(L) 4.30 - 5.80 M/cumm [place] Comment:Testing performed by : [address] [address] MCV 98.5(H) 81.3 - 96.4 fL [place] Comment:Testing performed by : [address], [address] MCH 33.7(H) 27.1 - 33.3 pg [place] Comment:Testing performed by : [address], [address] MCHC 34.2 32.3 - 35.7 g/dL [place] Comment:Testing performed by : [address], [address] RDW CV 15.3(H) 11.1 - 14.9 % [place] Comment:Testing performed by : [address], [address] RDW SD 55.9(H) 35.7 - 48.1 fL [place] Comment:Testing performed by : [address], [address] NRBC abs 0.00 0.00 - 0.01 K/cumm [place] Comment:Testing performed by : [address] [address] Blood 04/15/2024 7:40 AM ELECTRICAL MAINTENANCE ENGINEER 04/15/2024 7:43 AM ELECTRICAL MAINTENANCE ENGINEER Bucky Hodgson LAB BLOOD ORDERABLES Final R esult Performing Organization Address [facility] de Phone Number [place] [address] [facility] [place] [address] * (ABNORMAL) CEA (04/15/2024 7:40 AM ELECTRICAL MAINTENANCE ENGINEER) CEA 33.8(H) <=5.0 ng/mL Comment: Interpretive Data: Reference Range: Non-Smokers: 0.0 5.0 ng/mL Smokers: 0.0 6.5 ng/mL The Clara CEA assay procedure was used. Results from different manufacturers or methods may not be comparable. Serial testing should be performed using the same method. Current interpretive data was last revised 2022. Testing performed by: [address] [address] Blood 04/15/2024 7:40 AM ELECTRICAL MAINTENANCE ENGINEER 04/15/2024 9:40 AM ELECTRICAL MAINTENANCE ENGINEER Bucky Hodgson LAB BLOOD ORDERABLES Final R esult Performing Organization Address [facility] de Phone Number [place] [address] [facility] [place] [address] * (ABNORMAL) Comprehensive metabolic panel (04/15/2024 7:40 AM ELECTRICAL MAINTENANCE ENGINEER) Sodium 140 135 - 145 mmol/L Comment:Testing performed by : [address] [address] Potassium, pl 3.8 3.3 - 4.9 mmol/L [place] Comment:Testing performed by : [address] [address] Chloride 105 97 - 110 mmol/L [place] Comment:Testing performed by : [address] [address] CO2 24 22 - 32 mmol/L [place] Comment:Testing performed by : [address] [address] Anion gap 11 2 - 15 mmol/L [place] Comment:Testing performed by : [address] [address] BUN 16 6 - 25 mg/dL [place] Comment:Testing performed by : [address] [address] Creatinine 1.20 0.80 - 1.30 mg/dL [place] Comment:Testing performed by : [address] [address] Glucose 112 70 - 199 mg/dL [facility] Comment: Interpretive Data Fasting glucose >/= 126 [...] was last revised 2022. Testing performed by: [address] [address] Calcium 8.2(L) 8.5 - 10.3 mg/dL [place] Comment:Testing performed by : [address] [address] Bilirubin, total 0.4 0.1 - 1.2 mg/dL [facility] Comment:Testing performed by : [address] [address] Protein, pl 6.3(L) 6.5 - 8.5 g/dL [place] Comment:Testing performed by : [address] [address] Albumin 3.5 3.5 - 5.0 g/dL [place] Comment:Testing performed by : [address] [address] Alk phos 65 40 - 130 Units/L [place] Comment:Testing performed by : [facility], [address] [place] [address]., [address] ALT 10 7 - 55 Units/L [place] Comment:Testing performed by : [facility], [address] [place] [address]., [address] AST 19 10 - 50 Units/L [place] Comment:Testing performed by : [address], [address] Blood 04/15/2024 7:40 AM ELECTRICAL MAINTENANCE ENGINEER 04/15/2024 7:43 AM ELECTRICAL MAINTENANCE ENGINEER us Bucky Hodgson DO LAB BLOOD ORDERABLES Edited Result - Final [facility] [address] [facility] Department [place] [address] * ECG 12 lead (04/13/2024 9:10 AM ELECTRICAL MAINTENANCE ENGINEER) Pathologist [facility] [place] Ventricular Rate EKG/Min 101 BPM [facility] Atrial Rate 101 BPM [facility] SC-Interval (MSEC) 180 ms [facility] QRS-Interval (MSEC) 138 ms [facility] QT-Interval (MSEC) 408 ms [facility] QTc 529 ms [facility] P [place] 71 degrees [facility] R [place] -41 degrees [facility] T [place] 56 degrees [facility] Diagnosis Sinus tachycardia Left axis deviation Left ventricular hypertrophy with QRS widening T-wave changes When compared with ECG of 21-MAY-2022 11:39, QRS duration has increased Left axis deviation is new. Confirmed by SULTAN TRAORE M.D. ([id number]) on 04/13/2024 6:03:29 PM [facility] 04/13/2024 9:10 AM ELECTRICAL MAINTENANCE ENGINEER 04/13/2024 6:03 PM ELECTRICAL MAINTENANCE ENGINEER us Neeraj Pablo MD ECG ORDERABLES Fi nal Result Performing Organization Address City/[facility]/ZIP Co de Phone Number [facility] * (ABNORMAL) eGFR (04/13/2024 5:11 AM ELECTRICAL MAINTENANCE ENGINEER) eGFR 59(L) >=60 mL/min/1. 73 m2 Comment: [...] was last reviewed 2021. Testing performed by: [address] [address] Blood 04/13/2024 5:11 AM ELECTRICAL MAINTENANCE ENGINEER 04/13/2024 5:14 AM ELECTRICAL MAINTENANCE ENGINEER us Aman Mcginnis TRAY SERVICE WORKER LAB BLOOD ORDERABLES Final R esult [facility] [address] [facility] Department [place] [address] * (ABNORMAL) Differential, auto (04/13/2024 5:11 AM ELECTRICAL MAINTENANCE ENGINEER) Pathologist [facility] [place] Neutrophil abs 4.1 1.5 - 6.5 K/cumm Comment:Testing performed by : [address] [address] Imm gran abs 0.0 0.0 - 0.1 K/cumm [place] Comment:Testing performed by : [address] [address] Lymphocyte abs 0.4(L) 0.8 - 3.3 K/cumm [place] Comment:Testing performed by : [address] [address] Monocyte abs 0.1(L) 0.2 - 0.8 K/cumm [facility] Comment:Testing performed by : [address] [address] Eosinophil abs 0.0 0.0 - 0.5 K/cumm [facility] Comment:Testing performed by : [address] [address] Basophil abs 0.0 0.0 - 0.1 K/cumm [facility] Comment:Testing performed by : [address] [address] Neutrophil pct 90.5 % [facility] Comment: Interpretive Data Percent cell count reference ranges are not reported, since discordance with absolute values may lead to misinterpretation of CBC data. Current Interpretive Data was last revised on 2017. Testing performed by: [address] [address] Imm gran pct 0.4 % [facility] Comment: Interpretive Data Percent cell count reference ranges are not reported, since discordance with absolute values may lead to misinterpretation of CBC data. Current Interpretive Data was last revised on 2017. Testing performed by: [address] [address] Lymphocyte pct 8.0 % [facility] Comment: Interpretive Data Percent cell count reference ranges are not reported, since discordance with absolute values may lead to misinterpretation of CBC data. Current Interpretive Data was last revised on 2017. Testing performed by: [address] [address] Monocyte pct 1.1 % [facility] Comment: Interpretive Data Percent cell count reference ranges are not reported, since discordance with absolute values may lead to misinterpretation of CBC data. Current Interpretive Data was last revised on 2017. Testing performed by: [address] [address] Eosinophil pct 0.0 % [facility] Comment: Interpretive Data Percent cell count reference ranges are not reported, since discordance with absolute values may lead to misinterpretation of CBC data. Current Interpretive Data was last revised on 2017. Testing performed by: [address] [address] Basophil pct 0.0 % [place] Comment: Interpretive Data Percent cell count reference ranges are not reported, since discordance with absolute values may lead to misinterpretation of CBC data. Current Interpretive Data was last revised on 2017. Testing performed by: [address] [address] Blood 04/13/2024 5:11 AM ELECTRICAL MAINTENANCE ENGINEER 04/13/2024 5:14 AM ELECTRICAL MAINTENANCE ENGINEER us Aman Mcginnis TRAY SERVICE WORKER LAB BLOOD ORDERABLES Final R esult [place] [facility] [facility] Department [place] [address] * (ABNORMAL) CBC with auto differential (04/13/2024 5:11 AM ELECTRICAL MAINTENANCE ENGINEER) WBC 4.5 3.8 - 9.9 K/cumm Comment:Testing performed by : [address] [address] Hgb 13.0 13.0 - 17.5 g/dL [place] Comment:Testing performed by : [address] [address] Hct 37.5(L) 38.9 - 50.3 % [place] Comment:Testing performed by : [address] [address] Plt 233 150 - 400 K/cumm [place] Comment:Testing performed by : [address] [address] MPV 8.8(L) 9.1 - 12.3 fL [place] Comment:Testing performed by : [address] [address] RBC 3.85(L) 4.30 - 5.80 M/cumm [place] Comment:Testing performed by : [address] [address] MCV 97.4(H) 81.3 - 96.4 fL [place] Comment:Testing performed by : [address] [address] MCH 33.8(H) 27.1 - 33.3 pg [place] Comment:Testing performed by : [address] [address] MCHC 34.7 32.3 - 35.7 g/dL [place] Comment:Testing performed by : [address], [address] RDW CV 14.8 11.1 - 14.9 % [place] Comment:Testing performed by : [address], [address] RDW SD 53.0(H) 35.7 - 48.1 fL [place] Comment:Testing performed by : [address], [address] NRBC abs 0.00 0.00 - 0.01 K/cumm [place] Comment:Testing performed by : [address], [address] Blood 04/13/2024 5:11 AM ELECTRICAL MAINTENANCE ENGINEER 04/13/2024 5:14 AM ELECTRICAL MAINTENANCE ENGINEER us Aman Mcginnis TRAY SERVICE WORKER LAB BLOOD ORDERABLES Final R esult Performing Organization Address City/[facility] Co de Phone Number [address] [employer] [place] [address] * Phosphorus (04/13/2024 5:11 AM ELECTRICAL MAINTENANCE ENGINEER) Phosphorus, pl 2.9 2.3 - 4.5 mg/dL Comment:Testing performed by : [address] [address] Blood 04/13/2024 5:11 AM ELECTRICAL MAINTENANCE ENGINEER 04/13/2024 5:14 AM ELECTRICAL MAINTENANCE ENGINEER Aman Mcginnis TRAY SERVICE WORKER LAB BLOOD ORDERABLES Final R esult Performing Organization Address City/[facility]/ZIP Co de Phone Number [address] [place] [address] * Magnesium (04/13/2024 5:11 AM ELECTRICAL MAINTENANCE ENGINEER) Pathologist [facility] [place] Magnesium 1.4 1.4 - 2.5 mg/dL Comment:Testing performed by : [address] [address] Blood 04/13/2024 5:11 AM ELECTRICAL MAINTENANCE ENGINEER 04/13/2024 5:14 AM ELECTRICAL MAINTENANCE ENGINEER us Aman Mcginnis NP LAB BLOOD ORDERABLES Final R esult [place] [address] [facility] [place] [address] * (ABNORMAL) Comprehensive metabolic panel (04/13/2024 5:11 AM ELECTRICAL MAINTENANCE ENGINEER) Pathologist [facility] [place] Sodium 137 135 - 145 mmol/L Comment:Testing performed by : [address] [address] Potassium, pl 4.5 3.3 - 4.9 mmol/L [place] Comment:Testing performed by : [address] [address] Chloride 103 97 - 110 mmol/L [place] Comment:Testing performed by : [address] [address] CO2 21(L) 22 - 32 mmol/L [place] Comment:Testing performed by : [address] [address] Anion gap 13 2 - 15 mmol/L [place] Comment:Testing performed by : [address] [address] BUN 15 6 - 25 mg/dL [place] Comment:Testing performed by : [address] [address] Creatinine 1.30 0.80 - 1.30 mg/dL [place] Comment:Testing performed by : [address] [address] Glucose 152 70 - 199 mg/dL [place] Comment: Interpretive [...] was last revised 2022. Testing performed by: [address] [address] Calcium 8.5 8.5 - 10.3 mg/dL [facility] Comment:Testing performed by : [address] [address] Bilirubin, total 0.5 0.1 - 1.2 mg/dL [facility] Comment:Testing performed by : [address] [address] Protein, pl 6.3(L) 6.5 - 8.5 g/dL [facility] Comment:Testing performed by : [address] [address] Albumin 3.5 3.5 - 5.0 g/dL [facility] Comment:Testing performed by : [address] [address] Alk phos 68 40 - 130 Units/L [facility] Comment:Testing performed by : [address] [address] ALT 6(L) 7 - 55 Units/L [facility] Comment:Testing performed by : [address] [address] AST 14 10 - 50 Units/L [facility] Comment:Testing performed by : [address] [address] Blood 04/13/2024 5:11 AM ELECTRICAL MAINTENANCE ENGINEER 04/13/2024 5:14 AM ELECTRICAL MAINTENANCE ENGINEER us Aman Mcginnis NP LAB BLOOD ORDERABLES Final R esult [place] [address] [facility] [place] [address] * [place] Fluoroscopy < 1 Hour (04/12/2024 6:00 PM ELECTRICAL MAINTENANCE ENGINEER) Narrative RACHEL_MHB_MHE - 04/12/2024 6:03 PM ELECTRICAL MAINTENANCE ENGINEER The images from this study are not interpreted by Radiology. Please refer to the physician's procedure / OR operative note. Mayo Rodríguez MD IMG FLUOROSCOPY PROCEDURES Final Result JOSE_TRESA_MHB_MHE * SC AN ELECTIVE SUPRAGLOTTIC AIRWAY, SC AN PROCEDURE PLACEHOLDER (04/12/2024 5:41 PM ELECTRICAL MAINTENANCE ENGINEER) Narrative Baldemar Willis CRNA - 04/12/2024 5:41 PM ELECTRICAL MAINTENANCE ENGINEER Baldemar Willis CRNA 04/12/2024 5:41 PM Airway Patient location: OR Urgency: elective Indications for airway management: anesthesia Difficult airway: no Staff: Placed by: EXPLOSIVE ORDNANCE DISPOSAL MANAGER: Baldemar Willis CRNA Emergent airway documentation: Risks and benefits discussed: yes Consent obtained: yes Consent given by: patient Airway prep: Preoxygenated: yes Patient position: sniffing Mask difficulty assessment: 0 - not attempted Sedation level during airway: GA Final airway details: Final airway type: supraglottic airway Final supraglottic airway: classic SGA size: 5 Number of attempts: 1 Carlito Mcconnell DO ANESTHESIA ORDERABLES Final R esult * CT Abdomen Pelvis WO Contrast (04/12/2024 11:37 AM ELECTRICAL MAINTENANCE ENGINEER) Anatomical Region Laterality Modality Body N/A Computed Tomogra phy 04/12/2024 11:5 1 AM ELECTRICAL MAINTENANCE ENGINEER Narrative 04/12/2024 11:55 AM ELECTRICAL MAINTENANCE ENGINEER EXAM DESCRIPTION: CT ABDOMEN PELVIS WO CONTRAST [...] Electronically signed by Brandyn Coronado M.D. AR: DLAI Report ID: [id number] Reading Location: [id number] Procedure Note Brandyn Coronado MD - 04/12/2024 [...] Brandyn Coronado M.D. AR: DALI Report ID: [id number] Reading Location: [place] [address] Jose J Garcia MD IMG CT PROCEDURES Final Result * (ABNORMAL) Urinalysis reflex to microscopic and culture Urine (04/12/2024 10:21 AM ELECTRICAL MAINTENANCE ENGINEER) Color, ur Yellow Yellow Comment:Testing performed by : [address] [address] Clarity, ur Clear Clear [place] Comment:Testing performed by : [address] [address] Specific gravity, ur 1.021 1.003 - 1.030 [place] Comment:Testing performed by : [address] [address] pH, urine 5.5 [place] Comment: Interpretive Data U rine pH is affected by diet, medications, systemic acid-base disturbances, and renal tubular function. pH may affect urinary stone formation. For example, urine pH below 6.0 may help reduce the tendency for calcium phosphate stones and pH greater than 6.0 may reduce the tendency for uric acid stone formation. Source: [facility] Current Interpretive Data was last revised on 2017 Testing performed by: [facility], [address] [place] [address]., [address] Protein, ur ql Trace(A) Negative [place] Comment:Testing performed by : [address], [place]., [address] Glucose, ur ql Negative Negative [place] Comment:Testing performed by : [address], [place]., [address] Ketones, ur Negative Negative [place] Comment:Testing performed by : [address] [address] Bilirubin, ur Negative Negative [place] Comment:Testing performed by : [address], [place]., [address] Blood, ur 1+(A) Negative [place] Comment:Testing performed by : [address] [address] Urobilinogen, ur <2.0 <2.0 mg/dL [place] Comment:Testing performed by : [address] [address] Nitrite, ur Negative Negative [place] Comment:Testing performed by : [address] [address] Leukocyte esterase, ur 1+(A) Negative [place] Comment:Testing performed by : [address] [address] UA reflex comment Reflex to microscopic UA will be performed. [place] Comment:Testing performed by : [address] [address] Urine 04/12/2024 10:2 1 AM ELECTRICAL MAINTENANCE ENGINEER 04/12/2024 10:24 AM ELECTRICAL MAINTENANCE ENGINEER us Jose J Garcia MD LAB MICROBIOLOGY - GENE RAL ORDERABLES Final Result [place] [facility] [place] [address] * (ABNORMAL) Urinalysis, microscopic only (04/12/2024 10:21 AM ELECTRICAL MAINTENANCE ENGINEER) Pathologist [facility] [place] WBC, ur 0-5 0 - 5 /HPF Comment:Testing performed by : [address] [address] RBC, ur 3-5(A) 0 - 2 /HPF [place] Comment:Testing performed by : [address] [address] Epithelial cells, squamous, ur 1-5 0 - 5 /HPF [place] Comment:Testing performed by : [address] [address] Mucous, ur Present(A) [place] Comment:Testing performed by : [address] [address] Calcium oxalate crystals, ur Trace(A) [place] Comment:Testing performed by : [address] [address] Culture Reflex Comment Reflex conditions for urine culture (WBC >10) not met. [place] Comment:Testing performed by : [address] [address] Urine 04/12/2024 10:2 1 AM ELECTRICAL MAINTENANCE ENGINEER 04/12/2024 10:24 AM ELECTRICAL MAINTENANCE ENGINEER us Jose J Garcia MD LAB URINE ORDERABLES Fi nal Result [place] [address] [facility] [employer] [place] [address] * (ABNORMAL) eGFR (04/12/2024 9:39 AM ELECTRICAL MAINTENANCE ENGINEER) Pathologist [facility] [place] eGFR 54(L) >=60 mL/min/1. 73 m2 Comment: [...] was last reviewed 2021. Testing performed by: [address] [address] Blood 04/12/2024 9:39 AM ELECTRICAL MAINTENANCE ENGINEER 04/12/2024 9:50 AM ELECTRICAL MAINTENANCE ENGINEER us Jose J Garcia MD LAB BLOOD ORDERABLES Fi nal Result [facility] [address] [facility] Department [place] [address] * (ABNORMAL) Differential, auto (04/12/2024 9:39 AM ELECTRICAL MAINTENANCE ENGINEER) Neutrophil abs 6.3 1.5 - 6.5 K/cumm Comment:Testing performed by : [address] [address] Imm gran abs 0.0 0.0 - 0.1 K/cumm [place] Comment:Testing performed by : [address] [address] Lymphocyte abs 0.6(L) 0.8 - 3.3 K/cumm C[facility] Comment:Testing performed by : [address] [address] Monocyte abs 0.8 0.2 - 0.8 K/cumm [place] Comment:Testing performed by : [address] [address] Eosinophil abs 0.1 0.0 - 0.5 K/cumm [facility] Comment:Testing performed by : [address] [address] Basophil abs 0.0 0.0 - 0.1 K/cumm [facility] Comment:Testing performed by : [address] [address] Neutrophil pct 80.2 % [facility] Comment: Interpretive Data Percent cell count reference ranges are not reported, since discordance with absolute values may lead to misinterpretation of CBC data. Current Interpretive Data was last revised on 2017. Testing performed by: [address] [address] Imm gran pct 0.4 % [facility] Comment: Interpretive Data Percent cell count reference ranges are not reported, since discordance with absolute values may lead to misinterpretation of CBC data. Current Interpretive Data was last revised on 2017. Testing performed by: [address] [address] Lymphocyte pct 7.5 % [facility] Comment: Interpretive Data Percent cell count reference ranges are not reported, since discordance with absolute values may lead to misinterpretation of CBC data. Current Interpretive Data was last revised on 2017. Testing performed by: [address] [address] Monocyte pct 10.2 % [facility] Comment: Interpretive Data Percent cell count reference ranges are not reported, since discordance with absolute values may lead to misinterpretation of CBC data. Current Interpretive Data was last revised on 2017. Testing performed by: [address] [address] Eosinophil pct 1.3 % [facility] Comment: Interpretive Data Percent cell count reference ranges are not reported, since discordance with absolute values may lead to misinterpretation of CBC data. Current Interpretive Data was last revised on 2017. Testing performed by: [address] [address] Basophil pct 0.4 % [facility] Comment: Interpretive Data Percent cell count reference ranges are not reported, since discordance with absolute values may lead to misinterpretation of CBC data. Current Interpretive Data was last revised on 2017. Testing performed by: [address] [address] Blood 04/12/2024 9:39 AM ELECTRICAL MAINTENANCE ENGINEER 04/12/2024 9:50 AM ELECTRICAL MAINTENANCE ENGINEER us Jose J Garcia MD LAB BLOOD ORDERABLES Fi nal Result [facility] [address] [facility] Department [place] [address] * (ABNORMAL) CBC with auto differential (04/12/2024 9:39 AM ELECTRICAL MAINTENANCE ENGINEER) WBC 7.9 3.8 - 9.9 K/cumm Comment:Testing performed by : [address] [address] Hgb 14.3 13.0 - 17.5 g/dL [place] Comment:Testing performed by : [address] [address] Hct 41.7 38.9 - 50.3 % [place] Comment:Testing performed by : [address] [address] Plt 232 150 - 400 K/cumm [place] Comment:Testing performed by : [address] [address] MPV 8.8(L) 9.1 - 12.3 fL [place] Comment:Testing performed by : [address] [address] RBC 4.32 4.30 - 5.80 M/cumm [place] Comment:Testing performed by : [address] [address] MCV 96.5(H) 81.3 - 96.4 fL [place] Comment:Testing performed by : [address] [address] MCH 33.1 27.1 - 33.3 pg [place] Comment:Testing performed by : [address] [address] MCHC 34.3 32.3 - 35.7 g/dL [place] Comment:Testing performed by : [address], [address] RDW CV 14.9 11.1 - 14.9 % [place] Comment:Testing performed by : [address] [address] RDW SD 53.3(H) 35.7 - 48.1 fL [place] Comment:Testing performed by : [address], [address] NRBC abs 0.00 0.00 - 0.01 K/cumm [place] Comment:Testing performed by : [address], [address] Blood Venous blood specimen / Unknown 04/12/2024 9:39 AM ELECTRICAL MAINTENANCE ENGINEER 04/12/2024 9:50 AM ELECTRICAL MAINTENANCE ENGINEER Jose J Garcia MD LAB BLOOD ORDERABLES Fi nal Result Performing Organization Address [facility] Co de Phone Number [address] [place] [address] * Lipase (04/12/2024 9:39 AM ELECTRICAL MAINTENANCE ENGINEER) [facility] Lipase 11 10 - 99 Units/L Comment:Testing performed by : [address], [address] Blood Venous blood specimen / Unknown 04/12/2024 9:39 AM ELECTRICAL MAINTENANCE ENGINEER 04/12/2024 9:50 AM ELECTRICAL MAINTENANCE ENGINEER Jose J Garcia MD LAB BLOOD ORDERABLES Fi nal Result Performing Organization Address City/[facility] de Phone Number [address] [place] [address] * (ABNORMAL) Comprehensive metabolic panel (04/12/2024 9:39 AM ELECTRICAL MAINTENANCE ENGINEER) [facility] Sodium 134(L) 135 - 145 mmol/L Comment:Testing performed by : [address] [address] Potassium, pl 3.6 3.3 - 4.9 mmol/L [facility] Comment:Testing performed by : [address] [address] Chloride 100 97 - 110 mmol/L [place] Comment:Testing performed by : [address], [place]., [address] CO2 22 22 - 32 mmol/L [place] Comment:Testing performed by : [address], [place]., [address] Anion gap 12 2 - 15 mmol/L [facility] Comment:Testing performed by : [address] [address] BUN 13 6 - 25 mg/dL [place] Comment:Testing performed by : [address], [place]., [address] Creatinine 1.40(H) 0.80 - 1.30 mg/dL [place] Comment:Testing performed by : [address] [address] Glucose 111 70 - 199 mg/dL [facility] Comment: Interpretive Data Fasting glucose >/= 126 [...] was last revised 2022. Testing performed by: [address] [address] Calcium 8.5 8.5 - 10.3 mg/dL [place] Comment:Testing performed by : [address] [address] Bilirubin, total 0.7 0.1 - 1.2 mg/dL [facility] Comment:Testing performed by : [address] [address] Protein, pl 6.7 6.5 - 8.5 g/dL [place] Comment:Testing performed by : [address] [address] Albumin 3.6 3.5 - 5.0 g/dL [place] Comment:Testing performed by : [address] [address] Alk phos 78 40 - 130 Units/L [place] Comment:Testing performed by : [address] [address] ALT 8 7 - 55 Units/L [place] Comment:Testing performed by : [address] [address] AST 18 10 - 50 Units/L [place] Comment:Testing performed by : [address] [address] Blood Venous blood specimen / Unknown 04/12/2024 9:39 AM ELECTRICAL MAINTENANCE ENGINEER 04/12/2024 9:50 AM ELECTRICAL MAINTENANCE ENGINEER Jose J Garcia MD LAB BLOOD ORDERABLES Fi nal Result [facility] [address] [facility] Department of Laboratories [place], [place] [id number] * Blood culture Blood (04/08/2024 6:40 PM ELECTRICAL MAINTENANCE ENGINEER) Report Final Report: No growth Comment:Testing performed by : [facility], [address] [place]., [address] Blood 04/08/2024 6:40 PM ELECTRICAL MAINTENANCE ENGINEER 04/08/2024 9:15 PM ELECTRICAL MAINTENANCE ENGINEER Narrative [place] - 04/13/2024 7:00 AM ELECTRICAL MAINTENANCE ENGINEER Collection->Peripheral 1. Blood cultures are incubated for [...] performance characteristics have been verified by the [facility] Microbiology Laboratory. For questions about this culture, contact the Microbiology Laboratory at [phone]. Interpretive data was last revised on 24. Hiral ZIMMER LAB MICROBIOLOGY - GENERAL JASON HANCOCK Final Result [place] [address] [facility] Department [place] [address] * Blood culture Blood (04/08/2024 6:39 PM ELECTRICAL MAINTENANCE ENGINEER) Report Final Report: No growth Comment:Testing performed by : [facility], [address] [facility], [place]., [address] Blood 04/08/2024 6:39 PM ELECTRICAL MAINTENANCE ENGINEER 04/08/2024 9:15 PM ELECTRICAL MAINTENANCE ENGINEER [facility] [place] - 04/13/2024 7:00 AM ELECTRICAL MAINTENANCE ENGINEER Collection->Peripheral 1. Blood cultures are incubated for [...] performance characteristics have been verified by the [facility] Microbiology Laboratory. For questions about this culture, contact the Microbiology Laboratory at [phone]. Interpretive data was last revised on 24. Hiral ZIMMER LAB MICROBIOLOGY - GENERAL ORDMarine HANCOCK Final Result [place] [address] [facility] Department [place] [address] * CT Abdomen Pelvis W Contrast (04/08/2024 5:22 PM ELECTRICAL MAINTENANCE ENGINEER) Anatomical Region Laterality Modality Body N/A Computed Tomogra phy 04/08/2024 5:55 PM ELECTRICAL MAINTENANCE ENGINEER Narrative 04/08/2024 6:12 PM ELECTRICAL MAINTENANCE ENGINEER EXAM DESCRIPTION: CT ABDOMEN PELVIS W CONTRAST [...] Katherine Dye M.D. AT: AT Report ID: [id number] Reading Location: [id number] Procedure Note Katherine Dye MD - 04/08/2024 [...] Katherine Dye M.D. AT: AT Report ID: [id number] Reading Location: [id number] Hiral ZIMMER IMG CT PROCEDURES Final Result * Sepsis Lactate w/ Reflex (04/08/2024 5:00 PM ELECTRICAL MAINTENANCE ENGINEER) Pathologist [facility] [place] Sepsis Lactate 1.7 0.7 - 2.0 mmol/L Comment:Testing performed by : [facility], [address] [place] [address]., [address] Blood 04/08/2024 5:00 PM ELECTRICAL MAINTENANCE ENGINEER 04/08/2024 5:18 PM ELECTRICAL MAINTENANCE ENGINEER us Hiral ZIMMER LAB BLOOD ORDERABLES Final Resu lt [place] [address] [facility] Department [place] [address] * (ABNORMAL) Urinalysis reflex to microscopic and culture Urine (04/08/2024 3:17 PM ELECTRICAL MAINTENANCE ENGINEER) Pathologist [facility] [place] Color, ur Yellow Yellow Comment:Testing performed by : [address] [address] Clarity, ur Cloudy(A) Clear [place] Comment:Testing performed by : [address] [address] Specific gravity, ur 1.026 1.003 - 1.030 [place] Comment:Testing performed by : [address], [place]., [address] pH, urine 5.5 [place] Comment: Interpretive Data U rine pH is affected by diet, medications, systemic acid-base disturbances, and renal tubular function. pH may affect urinary stone formation. For example, urine pH below 6.0 may help reduce the tendency for calcium phosphate stones and pH greater than 6.0 may reduce the tendency for uric acid stone formation. Source: [facility] [employer] Current Interpretive Data was last revised on 2017 Testing performed by: [address] [address] Protein, ur ql 1+(A) Negative [place] Comment:Testing performed by : [address] [address] Glucose, ur ql Negative Negative [place] Comment:Testing performed by : [address] [address] Ketones, ur Negative Negative [place] Comment:Testing performed by : [address] [address] Bilirubin, ur Negative Negative [place] Comment:Testing performed by : [address] [address] Blood, ur 1+(A) Negative [place] Comment:Testing performed by : [address] [address] Urobilinogen, ur 2.0(A) <2.0 mg/dL [place] Comment:Testing performed by : [address] [address] Nitrite, ur Negative Negative [place] Comment:Testing performed by : [address] [address] Leukocyte esterase, ur 4+(A) Negative [place] Comment:Testing performed by : [address] [place] [address] UA reflex comment Reflex to microscopic UA will be performed. [place] Comment:Testing performed by : [address] [address] Urine 04/08/2024 3:17 PM ELECTRICAL MAINTENANCE ENGINEER 04/08/2024 3:24 PM ELECTRICAL MAINTENANCE ENGINEER Mannie Walls [facility] MICROBIOLOGY - GENERAL ORDERABLES Final Result Performing Organization Address [facility] Co de Phone Number [facility] [address] [facility] [place] [address] * (ABNORMAL) Urinalysis, microscopic only (04/08/2024 3:17 PM ELECTRICAL MAINTENANCE ENGINEER) WBC, ur 21-50(A) 0 - 5 /HPF Comment:Testing performed by : [address] [address] RBC, ur 6-10(A) 0 - 2 /HPF [place] Comment:Testing performed by : [address] [address] Mucous, ur Present(A) [place] Comment:Testing performed by : [address] [address] Hyaline casts, ur 1-5 0 - 10 /LPF [place] Comment:Testing performed by : [address] [address] Culture Reflex Comment Reflex to urine culture will be performed. [place] Comment:Testing performed by : [address] [address] Urine 04/08/2024 3:17 PM ELECTRICAL MAINTENANCE ENGINEER 04/08/2024 3:24 PM ELECTRICAL MAINTENANCE ENGINEER Mannie Walls [facility] URINE ORDERABLES Final Result Performing Organization Address [facility] Co de Phone Number [facility] [address] [facility] [place] [address] * Urine culture Urine (04/08/2024 3:17 PM ELECTRICAL MAINTENANCE ENGINEER) Report Final Report: Less than 100,000 colonies/mL (clinically insignificant growth based on current clinical standards) Comment:Testing performed by : [facility], [address] [place]., [address] Organism (CLINICALLY INSIGNIFICANT GROWTH [place] Urine 04/08/2024 3:17 PM ELECTRICAL MAINTENANCE ENGINEER 04/08/2024 8:24 PM ELECTRICAL MAINTENANCE ENGINEER Narrative [facility] - 04/10/2024 7:29 AM ELECTRICAL MAINTENANCE ENGINEER Urine culture reflexed based upon urinalysis results. Testing performed by [facility] Microbiology Laboratory ([phone]) Mannie Walls DO LAB MICROBIOLOGY - GENERAL ORDERABLES Final Result [place] [address] [facility] [place] [address] * (ABNORMAL) eGFR (04/08/2024 3:10 PM ELECTRICAL MAINTENANCE ENGINEER) eGFR 40(L) >=60 mL/min/1. 73 m2 Comment: [...] of Race in Diagnosing Kidney Disease, JASN 202). The CKD-EPI equation should not be used for patients with unstable renal function and has not been validated in children and those over 70. Current interpretive data was last reviewed 2021. Testing performed by: [facility], [address] [place] [address]., [address] Blood 04/08/2024 3:10 PM ELECTRICAL MAINTENANCE ENGINEER 04/08/2024 3:24 PM ELECTRICAL MAINTENANCE ENGINEER Mannie Walls DO LAB BLOOD ORDERABLES Final Result [place] [address] [facility] Department [place] [address] * (ABNORMAL) Differential, auto (04/08/2024 3:10 PM ELECTRICAL MAINTENANCE ENGINEER) Neutrophil abs 9.4(H) 1.5 - 6.5 K/cumm Comment:Testing performed by : [address] [address] Imm gran abs 0.0 0.0 - 0.1 K/cumm [place] Comment:Testing performed by : [address] [address] Lymphocyte abs 0.7(L) 0.8 - 3.3 K/cumm [place] Comment:Testing performed by : [address] [address] Monocyte abs 1.0(H) 0.2 - 0.8 K/cumm [place] Comment:Testing performed by : [address] [address] Eosinophil abs 0.1 0.0 - 0.5 K/cumm [place] Comment:Testing performed by : [address] [address] Basophil abs 0.1 0.0 - 0.1 K/cumm [place] Comment:Testing performed by : [address] [address] Neutrophil pct 84.1 % [place] Comment: Interpretive Data Percent cell count reference ranges are not reported, since discordance with absolute values may lead to misinterpretation of CBC data. Current Interpretive Data was last revised on 2017. Testing performed by: [address] [address] Imm gran pct 0.2 % [place] Comment: Interpretive Data Percent cell count reference ranges are not reported, since discordance with absolute values may lead to misinterpretation of CBC data. Current Interpretive Data was last revised on 2017. Testing performed by: [address] [address] Lymphocyte pct 6.3 % [facility] Comment: Interpretive Data Percent cell count reference ranges are not reported, since discordance with absolute values may lead to misinterpretation of CBC data. Current Interpretive Data was last revised on 2017. Testing performed by: [address] [address] Monocyte pct 8.6 % [facility] Comment: Interpretive Data Percent cell count reference ranges are not reported, since discordance with absolute values may lead to misinterpretation of CBC data. Current Interpretive Data was last revised on 2017. Testing performed by: [address] [address] Eosinophil pct 0.4 % [facility] Comment: Interpretive Data Percent cell count reference ranges are not reported, since discordance with absolute values may lead to misinterpretation of CBC data. Current Interpretive Data was last revised on 2017. Testing performed by: [address] [address] Basophil pct 0.4 % [facility] Comment: Interpretive Data Percent cell count reference ranges are not reported, since discordance with absolute values may lead to misinterpretation of CBC data. Current Interpretive Data was last revised on 2017. Testing performed by: [address] [address] Blood 04/08/2024 3:10 PM ELECTRICAL MAINTENANCE ENGINEER 04/08/2024 3:24 PM ELECTRICAL MAINTENANCE ENGINEER Mannie Walls DO LAB BLOOD ORDERABLES Final Result [place] [address] [facility] [place] [address] * (ABNORMAL) CBC with auto differential (04/08/2024 3:10 PM ELECTRICAL MAINTENANCE ENGINEER) Pathologist [facility] [place] WBC 11.2(H) 3.8 - 9.9 K/cumm Comment:Testing performed by : [address] [address] Hgb 16.0 13.0 - 17.5 g/dL [place] Comment:Testing performed by : [address] [address] Hct 46.8 38.9 - 50.3 % [place] Comment:Testing performed by : [address] [address] Plt 217 150 - 400 K/cumm [place] Comment:Testing performed by : [address] [address] MPV 9.0(L) 9.1 - 12.3 fL [place] Comment:Testing performed by : [address] [address] RBC 4.76 4.30 - 5.80 M/cumm [place] Comment:Testing performed by : [address] [address] MCV 98.3(H) 81.3 - 96.4 fL [place] Comment:Testing performed by : [address] [address] MCH 33.6(H) 27.1 - 33.3 pg [place] Comment:Testing performed by : [address] [address] MCHC 34.2 32.3 - 35.7 g/dL [place] Comment:Testing performed by : [address] [address] RDW CV 15.7(H) 11.1 - 14.9 % [place] Comment:Testing performed by : [address] [address] RDW SD 56.6(H) 35.7 - 48.1 fL [place] Comment:Testing performed by : [address] [address] NRBC abs 0.00 0.00 - 0.01 K/cumm [place] Comment:Testing performed by : [address] [address] Blood Venous blood specimen / Unknown 04/08/2024 3:10 PM ELECTRICAL MAINTENANCE ENGINEER 04/08/2024 3:24 PM ELECTRICAL MAINTENANCE ENGINEER us [facility] LAB BLOOD [facility]ABLES Final Result Performing Organization Address City/[facility] Co de Phone Number CAMELIA [address] [address] * Lipase (04/08/2024 3:10 PM ELECTRICAL MAINTENANCE ENGINEER) Pathologist [facility] [place] Lipase 13 10 - 99 Units/L Comment:Testing performed by : [address] [address] Blood Venous blood specimen / Unknown 04/08/2024 3:10 PM ELECTRICAL MAINTENANCE ENGINEER 04/08/2024 3:24 PM ELECTRICAL MAINTENANCE ENGINEER [facility] LAB BLOOD ORDERABLES Final Result Performing Organization Address [facility] de Phone Number CAMELIA [address] [address] * (ABNORMAL) Comprehensive metabolic panel (04/08/2024 3:10 PM ELECTRICAL MAINTENANCE ENGINEER) [facility] Sodium 134(L) 135 - 145 mmol/L Comment:Testing performed by : [address] [address] Potassium, pl 4.9 3.3 - 4.9 mmol/L [place] Comment:Testing performed by : [address] [address] Chloride 97 97 - 110 mmol/L [place] Comment:Testing performed by : [address] [address] CO2 23 22 - 32 mmol/L [place] Comment:Testing performed by : [address] [address] Anion gap 14 2 - 15 mmol/L [place] Comment:Testing performed by : [address] [address] BUN 16 6 - 25 mg/dL [place] Comment:Testing performed by : [address] [address] Creatinine 1.80(H) 0.80 - 1.30 mg/dL [place] Comment:Testing performed by : [address] [address] Glucose 114 70 - 199 mg/dL [place]IA Comment: Interpretive [...] was last revised 2022. Testing performed by: [address] [address] Calcium 9.4 8.5 - 10.3 mg/dL [place] Comment:Testing performed by : [address] [address] Bilirubin, total 0.9 0.1 - 1.2 mg/dL [place] Comment:Testing performed by : [address] [address] Protein, pl 7.3 6.5 - 8.5 g/dL [place] Comment:Testing performed by : [address] [address] Albumin 3.8 3.5 - 5.0 g/dL [place] Comment:Testing performed by : [address] [address] Alk phos 91 40 - 130 Units/L [place] Comment:Testing performed by : [address] [address] ALT 11 7 - 55 Units/L [place] Comment:Testing performed by : [address] [address] AST 21 10 - 50 Units/L [place] Comment:Testing performed by : [address] [address] Blood 04/08/2024 3:10 PM ELECTRICAL MAINTENANCE ENGINEER 04/08/2024 3:24 PM ELECTRICAL MAINTENANCE ENGINEER Mannie Philip Walls DO LAB BLOOD ORDERABLES Final Result CAM[place]IA SU [address] [facility] Department [place] [address] * (ABNORMAL) POCT protein, urine, dipstick (03/24/2024 9:51 AM ELECTRICAL MAINTENANCE ENGINEER) Protein, ur, POC 1+(A) Negative Urine 03/24/2024 9:51 AM ELECTRICAL MAINTENANCE ENGINEER Bucky Hodgson DO POINT OF CARE TEST ORDERABLE S Final Result * eGFR (03/24/2024 7:56 AM ELECTRICAL MAINTENANCE ENGINEER) eGFR 72 >=60 mL/min/1. 73 m2 Comment: [...] was last reviewed 2021. Testing performed by: [facility], [address] [place] [address]., [address] Blood 03/24/2024 7:56 AM ELECTRICAL MAINTENANCE ENGINEER 03/24/2024 8:07 AM ELECTRICAL MAINTENANCE ENGINEER Bucky Hodgson DO LAB BLOOD ORDERABLES Final R esult [place] [address] [facility] Department [place] [address] * (ABNORMAL) Differential, auto (03/24/2024 7:56 AM ELECTRICAL MAINTENANCE ENGINEER) Neutrophil abs 9.5(H) 1.5 - 6.5 K/cumm Comment:Testing performed by : [address] [address] Imm gran abs 0.1 0.0 - 0.1 K/cumm [place] Comment:Testing performed by : [address] [address] Lymphocyte abs 0.8 0.8 - 3.3 K/cumm [place] Comment:Testing performed by : [address] [address] Monocyte abs 0.5 0.2 - 0.8 K/cumm [place] Comment:Testing performed by : [address] [address] Eosinophil abs 0.0 0.0 - 0.5 K/cumm [place] Comment:Testing performed by : [address] [address] Basophil abs 0.0 0.0 - 0.1 K/cumm [place] Comment:Testing performed by : [address] [address] Neutrophil pct 87.0 % CAMELIA Comment: Interpretive Data Percent cell count reference ranges are not reported, since discordance with absolute values may lead to misinterpretation of CBC data. Current Interpretive Data was last revised on 2017. Testing performed by: [address] [address] Imm gran pct 0.5 % CAM[place]IA Comment: Interpretive Data Percent cell count reference ranges are not reported, since discordance with absolute values may lead to misinterpretation of CBC data. Current Interpretive Data was last revised on 2017. Testing performed by: [address] [address] Lymphocyte pct 7.2 % CAM[place]IA Comment: Interpretive Data Percent cell count reference ranges are not reported, since discordance with absolute values may lead to misinterpretation of CBC data. Current Interpretive Data was last revised on 2017. Testing performed by: [address] [address] Monocyte pct 4.6 % CAM[place]IA Comment: Interpretive Data Percent cell count reference ranges are not reported, since discordance with absolute values may lead to misinterpretation of CBC data. Current Interpretive Data was last revised on 2017. Testing performed by: [address] [address] Eosinophil pct 0.3 % [place]IA Comment: Interpretive Data Percent cell count reference ranges are not reported, since discordance with absolute values may lead to misinterpretation of CBC data. Current Interpretive Data was last revised on 2017. Testing performed by: [address] [address] Basophil pct 0.4 % [place]IA Comment: Interpretive Data Percent cell count reference ranges are not reported, since discordance with absolute values may lead to misinterpretation of CBC data. Current Interpretive Data was last revised on 2017. Testing performed by: [address] [address] Blood 03/24/2024 7:56 AM ELECTRICAL MAINTENANCE ENGINEER 03/24/2024 8:07 AM ELECTRICAL MAINTENANCE ENGINEER Bucky Hodgson DO LAB BLOOD ORDERABLES Final R esult [place] [address] [facility] Department of Laboratories [place], [place] [id number] * (ABNORMAL) CBC with auto differential (03/24/2024 7:56 AM ELECTRICAL MAINTENANCE ENGINEER) WBC 11.0(H) 3.8 - 9.9 K/cumm Comment:Testing performed by : [address] [address] Hgb 17.7(H) 13.0 - 17.5 g/dL [place]IA [place] Comment:Testing performed by : [address] [address] Hct 50.3 38.9 - 50.3 % [place]IA Comment:Testing performed by : [address], [address] Plt 155 150 - 400 K/cumm [place] Comment:Testing performed by : [address], [address] MPV 8.4(L) 9.1 - 12.3 fL [place] Comment:Testing performed by : [address], [address] RBC 5.16 4.30 - 5.80 M/cumm [place] Comment:Testing performed by : [address], [address] MCV 97.5(H) 81.3 - 96.4 fL [place] Comment:Testing performed by : [address], [address] MCH 34.3(H) 27.1 - 33.3 pg [place] Comment:Testing performed by : [address], [address] MCHC 35.2 32.3 - 35.7 g/dL [place] Comment:Testing performed by : [address], [address] RDW CV 15.6(H) 11.1 - 14.9 % [place]IA Comment:Testing performed by : [address], [address] RDW SD 55.5(H) 35.7 - 48.1 fL [place] Comment:Testing performed by : [address], [address] NRBC abs 0.00 0.00 - 0.01 K/cumm [place] Comment:Testing performed by : [address], [address] Blood 03/24/2024 7:56 AM ELECTRICAL MAINTENANCE ENGINEER 03/24/2024 8:07 AM ELECTRICAL MAINTENANCE ENGINEER Bucky Hodgson DO LAB BLOOD ORDERABLES Final R esult [place] [address] [facility] Department [place] [address] * (ABNORMAL) CEA (03/24/2024 7:56 AM ELECTRICAL MAINTENANCE ENGINEER) Pathologist [facility] [place] CEA 48.1(H) <=5.0 ng/mL Comment: Interpretive Data: Reference Range: Non-Smokers: 0.0 5.0 ng/mL Smokers: 0.0 6.5 ng/mL The Clara CEA assay procedure was used. Results from different manufacturers or methods may not be comparable. Serial testing should be performed using the same method. Current interpretive data was last revised 2022. Testing performed by: [address] [address] Blood 03/24/2024 7:56 AM ELECTRICAL MAINTENANCE ENGINEER 03/24/2024 9:51 AM ELECTRICAL MAINTENANCE ENGINEER Bucky Hodgson DO LAB BLOOD ORDERABLES Final R esult Performing Organization Address City/State/[facility] Co de Phone Number CAMELIA [address] [facility] Department [place] [address] * Comprehensive metabolic panel (03/24/2024 7:56 AM ELECTRICAL MAINTENANCE ENGINEER) [facility] Sodium 139 135 - 145 mmol/L Comment:Testing performed by : [address] [address] Potassium, pl 4.1 3.3 - 4.9 mmol/L [place] Comment:Testing performed by : [address] [address] Chloride 101 97 - 110 mmol/L [place] Comment:Testing performed by : [address] [address] CO2 23 22 - 32 mmol/L [place] Comment:Testing performed by : [address] [address] Anion gap 15 2 - 15 mmol/L [place] Comment:Testing performed by : [address] [address] BUN 15 6 - 25 mg/dL [place] Comment:Testing performed by : [address] [address] Creatinine 1.10 0.80 - 1.30 mg/dL [place] Comment:Testing performed by : [address] [address] Glucose 113 70 - 199 mg/dL CAMELIA [...] was last revised 2022. Testing performed by: [address] [address] Calcium 9.1 8.5 - 10.3 mg/dL [place] Comment:Testing performed by : [address] [address] Bilirubin, total 0.7 0.1 - 1.2 mg/dL [facility] Comment:Testing performed by : [address] [address] Protein, pl 7.3 6.5 - 8.5 g/dL [facility] Comment:Testing performed by : [address] [address] Albumin 4.1 3.5 - 5.0 g/dL [facility] Comment:Testing performed by : [address] [address] Alk phos 89 40 - 130 Units/L [facility] Comment:Testing performed by : [address] [address] ALT 25 7 - 55 Units/L [place] Comment:Testing performed by : [address] [address] AST 27 10 - 50 Units/L [place] Comment:Testing performed by : [address] [address] Blood 03/24/2024 7:56 AM ELECTRICAL MAINTENANCE ENGINEER 03/24/2024 8:07 AM ELECTRICAL MAINTENANCE ENGINEER Bucky Hodgson DO LAB BLOOD ORDERABLES Final R esult [place]IA [address] [facility] Department [place] [address] from Last 3 Months Insurance [facility] Address: [address] [address] [place] [address] [employer] MEDICARE [employer] MED[employer] Advance Directives For more information, please contact: [phone] * Full Code (Latest Code Status on [...] 7:39 PM 11/03/2021 7:40 PM Care Teams Inventory Specialist Relationship Specialty Start Date End Date Juan Carpio MD [address] [place] [id number] PCP - General Family Medicine 06/15/20 Bucky Hodgson DO [address] [place] [id number] Medical Oncologist/Commercial Lease Administrator Hematology and Oncology 11/21/17 Kelby Castro MD [address] [place] [id number] Radiation Oncologist Radiation Oncology 06/18/21
[2024-06-21] MEDS: cefTRIAXone 2 GM/NS 100 ML 2 GM/100 ML BAG IVPB (16:50)
[2024-06-21] MEDS: AZITHROMYCIN 500 MG/NS 250 ML 500 MG/250 ML BAG 250 MG IVPB (17:50)
--- NOTE | 2024-06-21 18:30 | ADMGEN ---
This patient, Joey Mckee, was admitted to 2 [address] 240-. Patient/family oriented to hospital policies and general routines including ID bracelet, bed and alarms, visiting hours, pain management, procedures, bathroom and other care routines, personal items, smoking policy, room service/diet, and visiting hours. Information on how to activate the Rapid Response Team has been discussed. Patient/Family are encouraged to report perceived risks to care and to ask questions if they do not understand what they are told or what they should do.
--- NOTE | 2024-06-21 21:29 | PM.EVENT ---
Event Note Event Note Event Note: Patient complaining of cold, blue painful feet Left foot has strong palpable pedal pulse, right foot unable to Doppler pedal pulse posterior pulse dopplerable Acute 2 hour pulse check CTA with runoff of bilateral lower extremities If patient needs a vascular intervention he will need to be transferred
[2024-06-22] VITALS (10 sets, daily range): BP systolic 107–145; BP diastolic 77–95; PULSE 91–100; RESP 17–20; TEMP 36.1–36.6; O2SAT 97–100; BMI 35.2
--- NOTE | 2024-06-22 02:16 | PC.NURSE ---
0045 CONTACTED PROVIDER TO INFORM THEM CTA RESULTS HAD BEEN READ AND THE FINDING OF THE REPORT.
[2024-06-22] MEDS: HYDROcodone/acetaminophen (*CRX) 5-325 MG TABLET 1 TAB PO ×3 (03:53→23:00)
[2024-06-22 05:38] LABS: Basophils Percent Auto 0.4 % (0.2-1.2); Eosinophils Absolute Auto 0.1 K/mm3 (0-0.3); Eosinophils Percent Auto 1.2 % (0-4.4); Hematocrit 47.9 % (42.0-52.0); Hemoglobin 15.5 g/dL (14.0-18.0); Immature Granulocyte Absolute 0.04 K/mm3 (0.00-0.031); Immature Granulocyte Percent A 0.4 % (0-0.5); Immature Platelet Fraction Pct 7.4 % (0.9-11.2); Lymphocytes Percent Auto 8.6 % (18.3-44.2); Mean Corpuscular HGB Conc 32.4 g/dl (32-36); Mean Corpuscular Hemoglobin 32.9 pg (26-34); Mean Corpuscular Volume 101.7 fl (80-100); Mean Platelet Volume 11.6 fl (7.4-10.4); Monocytes Absolute Auto 0.7 K/mm3 (0.1-0.6); Monocytes Percent Auto 7.7 % (2.6-8.5); Neutrophils Absolute Auto 7.6 K/mm3 (1.3-6.7); Neutrophils Percent Auto 81.7 % (45.5-73.1); Platelet Count Result 110 k/mm3 (150-375); Red Blood Count 4.71 M/mm3 (4.6-6.20); Red Cell Distribution Width 16.2 % (11.5-14.5); White Blood Count 9.3 K/mm3 (4.5-10.0)
--- NOTE | 2024-06-22 06:50 | P.HP_ITS ---
H&P: HPI History of Present Illness Date/Time: 06/22/24 06:50 Chief Complaint: Shortness of breath/dyspnea Narrative: This is a 68-year-old male with a significant past medical history of stage IV colon cancer with Mets to the liver, a solitary metastatic tumor to the right upper abdominal wall, metastatic disease to the lung status post colon resection in 2015 and had chemotherapy and radiation with complication of small bowel perforation after radiation which was further complicated by abscess formation, history of hypertension, inguinal hernia repair, kidney stones, morbid obesity who presented to the hospital with complaints of shortness of breath/dyspnea. Workup in the hospital included a chest CTA which showed pneumonia in the right middle lobe and lower lobe with large right pleural effusion, no PE, cardiomegaly, nodule in the right lower lobe measuring 5 mm, nodule in the left lower lobe measuring 1.2 cm. Initial labs showed a white blood cell count of 10.7, platelet count 15, bicarb 16, anion gap 19, creatinine 1.94, EGFR 34, total bilirubin 3.1, alkaline phosphate 222. EKG showed sinus tachycardia with a rate of 108, QTC 514. Patient was started on Rocephin and Azithromycin while in the ED. Nursing noted that both feet were cold and purple to [employer] and [employer] ordered an Aorta with runoff CTA which was negative for aneurysm, dissection, or extravasation, moderate short-segment popliteal stenosis on the left secondary to non calcified plaque, non filling likely occluded right posterior tibial artery with slow flow in the distal right peroneal and anterior tibial veins, no flow detected bit low the level of the right ankle. The left anterior tibial artery is occluded several cm beyond its takeoff, slow single-vessel flow via the left posterior tibial artery below the level of the ankle, right middle lobe opacities concerning for pneumonia, trace left and moderate right pleural effusions, gallbladder hydrops, 16 mm indeterminate density in the right midpole lesion, irregular 4.2 cm soft tissue mass at the infraumbilical anterior abdominal wall associated with prior anterior midline incision and adjacent to a wide necked bowel containing hernia. When I assessed him I was able to palpate pulses on both feet, capillary refill is delayed >3 sec bilaterally. Both feet are cold and toes purplish/blue in color. Patient unable to tell me how long his feet have been call. Review of Systems Review of Systems: All systems reviewed & are unremarkable except as noted in HPI and below PMFSH Past Medical History Medical History History of kidney stones Scoliosis (and kyphoscoliosis), idiopathic Malignant neoplasm of colon metastatic to liver History of colon cancer, stage IV Peripheral vascular disease with claudication Hypertension Port-A-Cath in place Morbid obesity Surgical History Surgical History S/P colon resection H/O carpal tunnel repair H/O hernia repair inguinal H/O lithotripsy 2024 Family History Family History Mother Cerebrovascular accident Other Carcinoma of colon Family history of cardiovascular disease Family history of congestive heart failure Social History Social History Smoking status: Never smoker Alcohol intake: never Do You Feel Safe in your Home?: Yes Lack of Transportation: No Lack of Food: Never True Current Housing: I Have Housing Concerned About Future Housing: No Difficulty Paying Gas/Electric Bills: No Difficulty Paying for Meds: No Currently Unemployed: No Education: High School Diploma/GED Difficulty w/ Childcare or Family Care: No Spiritual care concerns: No Meds Home Medications and Allergies Home Medications ?Medication ?Instructions ?Recorded ?Confirmed ?Type bevacizumab 25 mg/mL intravenous 25 mg intravitreal .every three 11/19/21 06/21/24 History solution (Avastin) weeks capecitabine 500 mg tablet 1,500 mg PO ONCE 11/19/21 06/21/24 History hydrocodone 5 mg-acetaminophen 325 1 tablet PO Q6H PRN pain 11/19/21 06/21/24 History mg tablet lisinopril 20 mg tablet 20 mg PO BID 11/19/21 06/21/24 History prednisone 20 mg tablet 10 mg PO DAILY 11/19/21 06/21/24 History ciprofloxacin 500 mg/5 mL oral 500 mg PO Q12H 04/29/24 06/21/24 History suspension ketorolac 10 mg tablet 10 mg PO Q8H 04/29/24 06/21/24 History tamsulosin 0.4 mg capsule 0.4 mg PO DAILY 04/29/24 06/21/24 History triamcinolone acetonide 0.1 % 1 applic topical BID 04/29/24 06/22/24 History topical cream Allergies Allergy/AdvReac Type Severity Reaction Status Date / Time No Known Allergies Allergy Verified 06/21/24 12:59 Vital Signs Vital Signs - 24 hr 06/21/24 12:47 06/21/24 13:14 06/21/24 13:15 Temperature 97.8 F Pulse Rate 108 H 106 H Respiratory Rate 26 H Blood Pressure 103/92 H Pulse Oximetry 100 97 Oxygen Delivery Room Air Room Air 06/21/24 14:11 06/21/24 14:13 06/21/24 14:14 Temperature 97.8 F Pulse Rate 105 H 106 H 104 H Respiratory Rate 20 20 22 H Blood Pressure 101/70 101/70 Pulse Oximetry 99 95 99 Oxygen Delivery 06/21/24 14:15 06/21/24 14:48 06/21/24 15:00 Temperature Pulse Rate 103 H 107 H 103 H Respiratory Rate 18 18 20 Blood Pressure Pulse Oximetry 98 100 100 Oxygen Delivery 06/21/24 15:01 06/21/24 15:15 06/21/24 15:30 Temperature Pulse Rate 102 H 99 99 Respiratory Rate 20 21 H 22 H Blood Pressure 103/91 H Pulse Oximetry 100 99 99 Oxygen Delivery 06/21/24 15:45 06/21/24 15:46 06/21/24 17:53 Temperature Pulse Rate 101 H 98 98 Respiratory Rate 20 20 18 Blood Pressure 99/88 L 113/98 H Pulse Oximetry 100 100 100 Oxygen Delivery 06/21/24 18:31 06/21/24 20:00 06/21/24 22:00 Temperature 97.7 F 97.0 F L Pulse Rate 101 H 96 Respiratory Rate 18 18 Blood Pressure 132/85 133/87 Pulse Oximetry 100 97 Oxygen Delivery Room Air 06/22/24 04:00 Temperature 97.8 F Pulse Rate 91 Respiratory Rate 18 Blood Pressure 107/89 Pulse Oximetry 100 Oxygen Delivery Exam Narrative: General: In no acute distress, well nourished Head: atraumatic, no encephalopathy Eyes: PERRLA, sclera clear ENT: moist mucous membranes, nasal passages clear Neck: supple, no JVD, no adenopathy, trachea midline Cardiac: Normal S1 and S2. No murmur, gallops or friction rubs, peripheral pulses intact. Respiratory: Lungs clear to auscultation, no adventitious lung sounds Gastrointestinal: soft, non-distended, non-tender, normoactive bowel sounds, currently on room air : voiding without difficulty. Extremities: Bilateral lower extremity severe peripheral vascular disease with claudication, mild ankle edema bilaterally, bilateral feet cold with delayed capillary refill greater than 3 seconds, pulses palpable however weak Skin:Bilateral feet cold with purple/blue color to toes Neuro: Alert and oriented x4, cranial nerves intact, no neuro deficits. Psych: normal mood, normal affect, interactive H&P: Results Labs Labs: Short CBC 06/21/24 06/22/24 Range/Units 13:15 05:24 WBC 10.7 H 9.3 (4.5-10.0) K/mm3 Hgb 16.6 15.5 (14.0-18.0) g/dL Hct 51.5 47.9 (42.0-52.0) % Plt Count 115 L 110 L (150-375) k/mm3 BMP 06/21/24 13:15 Sodium 138 Potassium 4.9 Chloride 103 Carbon Dioxide 16 L BUN 40 H Creatinine 1.94 H Glucose 93 Calcium 9.1 Liver Function 06/21/24 Range/Units 13:15 Total Bilirubin 3.1 H (0.2-1.3) mg/dL AST 41 (17-59) U/L ALT 39 (6-50) U/L Alkaline Phosphatase 222 H (38-126) U/L Albumin 4.0 (3.5-5.1) g/dL Imaging Chest CTA: Radiologist's impression: CTA chest PE protocol Ordering provider: Eleno Flores III, DO History: 68 years Male with . hemoptysis . Comparison: November 02, 2021 Technique: CT angiogram chest was performed following timed intravenous injection of contrast. Thin slice axial images and reformatted coronal images were obtained. Three dimensional reformatted images of the chest were also obta ined using a [employer] workstation. . Automated exposure control and iterative reconstruction technique were employed. The dose-length product was 790.43 mGy- cm. 100 MLO Omnipaque 350 was given IV. Findings: PULMONARY ARTERIES: No pulmonary embolus. VISUALIZED THORACIC INLET: Normal. MEDIASTINUM: Aorta/coronary arteries: Mild atheromatous disease. Heart/other: Moderate cardiomegaly. Lymph nodes: No mediastinal or hilar adenopathy. Small prevascular lymph nodes. LUNGS: No pulmonary masses. Pneumonia in the middle lobe and the right lower lobe. Large right pleural effusion. No pneumothorax. Nodule in the right lower lobe measuring 5 mm. Nodule in the left lower lobe medially measuring 1.2 cm. 3 months follow-up CT is advised. VISUALIZED UPPER ABDOMEN: Hyperdensity in the gallbladder which may be a stone or sludge. Otherwise, the visualized upper abdomen is normal. MUSCULOSKELETAL: Soft tissues: The superficial soft tissues are normal. Bones: Age appropriate degenerative changes of the spine. Dextroscoliosis. IMPRESSION: 1. Pneumonia in the right middle lobe and lower lobe with large right pleural effusion. 2. No pulmonary embolism. 3. Cardiomegaly 4. Nodule in the right lower lobe measuring 5 mm. 5. Nodule in the left lower lobe measuring 1.[address] follow-up advised. Reviewed, dictated and finalized at location A. Aorta with runoff CTA: Radiologist's impression: EXAMINATION: CTA abd aorta runoff DATE: 06/21/2024 22:27 INDICATION: Blue toes. TECHNIQUE: Computed tomographic angiography (CTA) of the abdominal, pelvis, and both lower extremities was performed with 150 mL Omnipaque-350 intravenous contrast. Automated exposure control and iterative reconstruction technique were employed. The dose-length product was 1767.13 mGy-cm. COMPARISON: CT cap 11/02/2021 FINDINGS: ABDOMINAL AORTA AND ITS BRANCHES: Mild atherosclerotic calcifications. No severe branch vessel stenosis. Moderate bilateral renal artery origin stenoses. No aneurysm or dissection. PELVIC VASCULATURE: Mild atherosclerotic plaque. No aneurysm. RIGHT LOWER EXTREMITY VASCULATURE: Mild atherosclerotic calcification. Normal branching of the anterior tibial artery which terminates above the level of the ankle. Nonfilling of the posterior tibial artery. The peroneal artery is patent to the level of the ankle. LEFT LOWER EXTREMITY VASCULATURE: Mild scattered atherosclerotic plaque. Moderate stenosis at the popliteal artery at the level of the knee secondary to noncalcified plaque. The trifurcation is patent. The anterior tibial artery is not visualized shortly after its takeoff. Peroneal flow is seen to just above the level of the ankle. There is slow posterior tibial artery flow below the level of the ankle. ADDITIONAL FINDINGS: Bilateral gynecomastia. Cardiomegaly. Groundglass and consolidative opacities in the right middle lobe. 1.2 cm left lower lobe nodular opacity. Trace left and moderate right pleural effusions. Distended gallbladder without inflammatory ch anges. Stable calcified hepatic metastases. Multiple bilateral renal calculi. 7 mm calcification in the right renal pelvis. 16 mm indeterminate density right midpole lesion. Bilateral renal atrophy. Wide necked infraumbilical ventral hernia containing loops of nonobstructed small bowel. Scattered diverticuli without diverticulitis. Status post partial colectomy. Presacral edema. Irregular soft tissue density along the anterior abdominal wall at the level of the infraumbilical midline suture. Arthroplasty hardware at the right first MTP joint. IMPRESSION: No arterial aneurysm, dissection, or extravasation. Moderate short segment popliteal stenosis on the left secondary to noncalcified plaque. Nonfilling, likely occluded right posterior tibial artery. Slow flow in the distal right peroneal and anterior tibial veins, no flow detected below the level of the right ankle. The left anterior tibial artery is occluded several centimeters beyond its takeoff. Slow, single vessel flow via the left posterior tibial artery below the level of the ankle. Right middle lobe opacities concerning for pneumonia. Trace left and moderate right pleural effusions. Gallbladder hydrops as can be seen with fasting or obstruction. 16 mm indeterminate density right midpole lesion, consider MRI or CT with and without contrast for further characterization. Irregular, 4.2 cm soft tissue mass at the infraumbilical anterior abdominal wall associated with the prior anterior midline incision and adjacent to a wide necked bowel containing hernia. Reviewed, dictated and finalized at location K. Assessment and Plan Assessment and plan (1) Pneumonia: Code(s): J18.9 - Pneumonia, unspecified organism Status: Acute Assessment and Plan: * Chest CTA showed pneumonia in the right middle lobe and lower lobe with large right pleural effusion, no pulmonary embolism, cardiomegaly, nodule in the right lower lobe measuring 5 mm, nodule in the left lower lobe measuring 1.2 cm * Patient given azithromycin and Rocephin while in the ED * Will changes through my sent to doxycycline considering prolonged QTC interval and continue Rocephin * Keep O2 sats greater than 92% * Will start DuoNebs (2) Pulmonary nodules: Code(s): R91.8 - Other nonspecific abnormal finding of lung field Status: Acute Assessment and Plan: * Pulmonary nodules noted on CTA * See above plan of care (3) Pleural effusion: Code(s): J90 - Pleural effusion, not elsewhere classified Status: Acute Assessment and Plan: * Noted on x-ray and CTA * Will obtain diagnostic thoracentesis * Keep NPO for now (4) Peripheral vascular disease with claudication: Code(s): I73.9 - Peripheral vascular disease, unspecified Status: Acute Assessment and Plan: Severe PVD with claudication, bilateral feet were found to be cold with purple/blue toes, delayed capillary refill, palpable weak pulses bilaterally. Unknown how long he has been dealing with this. * Patient does have palpable weak pulses, delayed capillary refill * Aorta with runoff CTA was negative for aneurysm, dissection, or extravasation, moderate short segment popliteal stenosis on the left secondary to in a calcified plaque non filling likely occluded right posterior to artery with slow flow in the distal right peroneal and anterior tibial veins, no flow detected below the level of the right ankle, the left anterior tibial artery is occluded several cm beyond its takeoff with slow single vessel flow via the left posterior tibial artery below the level of the ankle. * Will either need transferred to hospital with vascular Services or vascular consult on discharge * Continue neuro checks of bilateral feet * Continue pain control (5) History of colon cancer, stage IV: Code(s): Z85.038 - Personal history of other malignant neoplasm of large intestine Status: Acute Assessment and Plan: * Patient has history colon cancer with Mets to the liver and the lung. It ap pears that he was treated with chemotherapy and radiation [facility]. He also had complication of a bowel per after radiation requiring colon resection which was further complicated by postoperative abscess. (6) Hypertension: Code(s): I10 - Essential (primary) hypertension Status: Acute Assessment and Plan: * Blood pressure ranging 107/89 to 132/85 * Normally on lisinopril 20 mg tablet however the primary care doctor held the medication??? * Continue to monitor Quality VTE Prophylaxis VTE prophylaxis: pharmacologic ordered Hospitalist MIPS Advance Care Plan I have confirmed that the patient's Advanced Care Plan is present, code status is documented, or surrogate decision maker is listed in patient medical record.: Yes Medication Reconciliation I have utilized all available resources to obtain, update and review the patients current medications (includes all prescriptions, OTC, herbals, cannabis, and nutritional supplements).: Yes
[2024-06-22] MEDS: DOXYCYCLINE HYCLATE 100 MG TABLET PO ×2 (08:40→20:10)
[2024-06-22] MEDS: TRIAMCINOLONE ACET 0.1% CREAM 15 GM TUBE 1 APPLIC TOPICAL ×2 (08:40→17:19)
[2024-06-22] MEDS: IPRATROPIUM 0.5 MG/ALBUTEROL SULFATE 2.5 MG AMPUL.NEB 3 ML INHALATION ×2 (09:18→14:09)
[2024-06-22 09:20] LABS: Alanine Aminotransferase 37 U/L (6-50); Albumin Level 3.4 g/dL (3.5-5.1); Alkaline Phosphatase 240 U/L (38-126); Anion Gap 15 mmol/L (4-12); Aspartate Amino Transferase 39 U/L (17-59); Blood Urea Nitrogen 42 mg/dL (9-20); Calcium 8.7 mg/dL (8.4-10.2); Carbon Dioxide 16 mmol/L (22-30); Chloride 104 mmol/L (98-107); Estimated CRCL calculation 45 ml/min; Estimated Glomerular Filt Rate 37; Glucose 82 mg/dL (65-110); Potassium 4.5 mmol/L (3.4-5.0); Sodium 135 mmol/L (137-145)
--- NOTE | 2024-06-22 13:14 | PM.IMPN ---
Progress Note: A&P Assessment and Plan (1) Pneumonia: Code(s): J18.9 - Pneumonia, unspecified organism Status: Acute Assessment and Plan: Chest CTA showed pneumonia in the right middle lobe and lower lobe with large right pleural effusion, no pulmonary embolism, cardiomegaly, nodule in the right lower lobe measuring 5 mm, nodule in the left lower lobe measuring 1.2 cm Patient given azithromycin and Rocephin while in the ED Will changes through my sent to doxycycline considering prolonged QTC interval and continue Rocephin Keep O2 sats greater than 92% DuoNebs Continue antibiotics. Concern for alveolar hemorrhage due to ongoing Avastin therapy. Referral to tertiary center. He follows with Dr. Hodgson however [facility] is at capacity. Transferred to [facility] when bed available (2) Pulmonary nodules: Code(s): R91.8 - Other nonspecific abnormal finding of lung field Status: Acute Assessment and Plan: Pulmonary nodules noted on CTA See above plan of care (3) Pleural effusion: Code(s): J90 - Pleural effusion, not elsewhere classified Status: Acute Assessment and Plan: Noted on x-ray and CTA Will hold diagnosis thoracentesis until pulmonary evaluation Discussed with pulmonary Suggested possible alveolar hemorrhage because of Avastin therapy. Suggested tertiary center referral. Discussed with Pulmonary at [facility] and accepts for transfer as well. (4) Peripheral vascular disease with claudication: Code(s): I73.9 - Peripheral vascular disease, unspecified Status: Acute Assessment and Plan: Severe PVD with claudication, bilateral feet were found to be cold with purple/blue toes, delayed capillary refill, palpable weak pulses bilaterally. Unknown how long he has been dealing with this. Patient does have palpable weak pulses, delayed capillary refill Aorta with runoff CTA was negative for aneurysm, dissection, or extravasation, moderate short segment popliteal stenosis on the left secondary to in a calcified plaque non filling likely occluded right posterior to artery with slow flow in the distal right peroneal and anterior tibial veins, no flow detected below the level of the right ankle, the left anterior tibial artery is occluded several cm beyond its takeoff with slow single vessel flow via the left posterior tibial artery below the level of the ankle. Discussed with vascular surgery had [facility]. Accepted for transfer Concern for pulmonary hemorrhage and hence will not do heparin drip. Continue pain control Pedal pulses are palpable at this point however does have cold peripheries in the forefoot. These findings could be chronic however will need vascular surgery evaluation (5) History of colon cancer, stage IV: Code(s): Z85.038 - Personal history of other malignant neoplasm of large intestine Status: Acute Assessment and Plan: Patient has history colon cancer with Mets to the liver and the lung 2014. It appears that he was treated with right hemicolectomy followed by chemotherapy and radiation [facility]. He also had complication of a bowel perforation after radiation requiring colon resection which was further complicated by postoperative abscess. (6) Hypertension: Code(s): I10 - Essential (primary) hypertension Status: Acute Assessment and Plan: Normally on lisinopril 20 mg tablet however the primary care doctor held the medication??? Continue to monitor. Blood pressure optimal Subjective Date/time seen: 06/22/24 13:14 Interval history: Presented with cough with hemoptysis. Shortness of breath which has improved. No abdominal pain nausea vomiting. Labs reviewed. Foot pain reported overnight with cool peripheries discussed with vascular surgery discussed with pulmonary Review of Systems Review of Systems: All systems reviewed & are unremarkable except as noted in HPI and below Exam Narrative: General: In no acute distress, well nourished Head: atraumatic, no encephalopathy Eyes: PERRLA, sclera clear ENT: moist mucous membranes, nasal passages clear Neck: supple, no JVD, no adenopathy, trachea midline Cardiac: Normal S1 and S2. No murmur, gallops or friction rubs, peripheral pulses intact. Respiratory: Coarse breath sounds bilaterally no wheezes Gastrointestinal: soft, non-distended, non-tender, normoactive bowel sounds, Extremities: Bilateral lower extremity with cool peripheries. Dorsalis pedis pulse palpable Skin: No rashes Neuro: Alert and oriented x4, cranial nerves intact, no neuro deficits. Psych: normal mood, normal affect, interactive Objective Data Vital Signs Vital Signs: Vital Signs - 24 hr 06/21/24 13:15 06/21/24 14:11 06/21/24 14:13 Temperature 97.8 F Pulse Rate 106 H 105 H 106 H Respiratory Rate 20 20 Blood Pressure 101/70 Pulse Oximetry 99 95 Oxygen Delivery 06/21/24 14:14 06/21/24 14:15 06/21/24 14:48 Temperature Pulse Rate 104 H 103 H 107 H Respiratory Rate 22 H 18 18 Blood Pressure 101/70 Pulse Oximetry 99 98 100 Oxygen Delivery 06/21/24 15:00 06/21/24 15:01 06/21/24 15:15 Temperature Pulse Rate 103 H 102 H 99 Respiratory Rate 20 20 21 H Blood Pressure 103/91 H Pulse Oximetry 100 100 99 Oxygen Delivery 06/21/24 15:30 06/21/24 15:45 06/21/24 15:46 Temperature Pulse Rate 99 101 H 98 Respiratory Rate 22 H 20 20 Blood Pressure 99/88 L Pulse Oximetry 99 100 100 Oxygen Delivery 06/21/24 17:53 06/21/24 18:31 06/21/24 20:00 Temperature 97.7 F Pulse Rate 98 101 H Respiratory Rate 18 18 Blood Pressure 113/98 H 132/85 Pulse Oximetry 100 100 Oxygen Delivery Room Air 06/21/24 22:00 06/22/24 04:00 06/22/24 08:00 Temperature 97.0 F L 97.8 F 97.7 F Pulse Rate 96 91 94 Respiratory Rate 18 18 18 Blood Pressure 133/87 107/89 107/77 Pulse Oximetry 97 100 100 Oxygen Delivery 06/22/24 08:41 06/22/24 09:21 06/22/24 09:22 Temperature Pulse Rate 92 Respiratory Rate 20 Blood Pressure Pulse Oximetry 98 Oxygen Delivery Room Air Room Air 06/22/24 09:27 Temperature Pulse Rate 91 Respiratory Rate 20 Blood Pressure Pulse Oximetry Oxygen Delivery Intake/Output Intake/Output: Intake & Output 06/19/24 06/21/24 06/21/24 06/22/24 23:59 00:59 23:59 23:59 Intake Total 350 540 Output Total 350 Balance 350 190 Meds/Results Medications: Active Medications Generic Name Dose Route Start Last Admin Trade Name Freq PRN Reason Stop Dose Admin Acetaminophen 650 mg 06/22/24 03:38 Acetaminophen 325 Mg Tablet PO Q4H PRN Mild Pain (1-3) or Fever Hydrocodone Bitart/Acetaminophen 1 tab 06/22/24 03:38 06/22/24 03:53 Hydrocodone/Acetaminophen (*Crx) 5-325 Mg Tablet PO 1 tab Q4H PRN Administration Moderate Pain (4-6) Albuterol/Ipratropium 3 ml 06/22/24 08:00 06/22/24 09:18 Ipratropium 0.5 Mg/Albuterol Sulfate 2.5 Mg Ampul.Neb 3 Ml INHALATION 3 ml Q6HRT LILLIAN Administration Doxycycline Hyclate 100 mg 06/22/24 09:00 06/22/24 08:40 Doxycycline Hyclate 100 Mg Tablet PO 100 mg Q12HR LILLIAN Administration Enoxaparin Sodium 40 mg 06/22/24 09:00 06/22/24 10:28 Enoxaparin 40 Mg/0.4 Ml Syringe SUB-Q Not Given DAILY [facility] Ceftriaxone Sodium 2 gm in 100 mls @ 200 mls/hr 06/22/24 18:00 Rocephin 2 Gm/Ns 100 Ml IVPB Q24H [facility] Morphine Sulfate 2 mg 06/22/24 03:38 Morphine Sulfate (*Crx) 2 Mg/Ml Inj IV PUSH Q4H PRN Pain Rated 7-10 Ondansetron HCl 4 mg 06/22/24 03:38 Ondansetron Inj 4 Mg/2 Ml Vial IV PUSH Q6H PRN Nausea And Vomiting Sodium Chloride 6 ml 06/23/24 05:00 Sodium Chlor 3% 15 Ml Neb (Respiratory Therapy) INHALATION 06/25/24 05:01 DAILY@0500 [facility] Triamcinolone Acetonide 1 applic 06/22/24 09:00 06/22/24 08:40 Triamcinolone Acet 0.1% Cream 15 Gm Tube TOPICAL 1 applic BID LILLIAN Administration Radiology Results: ITS Impressions Chest CTA 06/21/24 14:47 IMPRESSION: 1. Pneumonia in the right middle lobe and lower lobe with large right pleural effusion. 2. No pulmonary embolism. 3. Cardiomegaly 4. Nodule in the right lower lobe measuring 5 mm. 5. Nodule in the left lower lobe measuring 1.[address] follow-up advised. Aorta w/Runoff CTA 06/22/24 00:00 IMPRESSION: No arterial aneurysm, dissection, or extravasation. Moderate short segment popliteal stenosis on the left secondary to noncalcified plaque. Nonfilling, likely occluded right posterior tibial artery. Slow flow in the distal right peroneal and anterior tibial veins, no flow detected below the level of the right ankle. The left anterior tibial artery is occluded several centimeters beyond its takeoff. Slow, single vessel flow via the left posterior tibial artery below the level of the ankle. Right middle lobe opacities concerning for pneumonia. Trace left and moderate right pleural effusions. Gallbladder hydrops as can be seen with fasting or obstruction. 16 mm indeterminate density right midpole lesion, consider MRI or CT with and without contrast for further characterization. Irregular, 4.2 cm soft tissue mass at the infraumbilical anterior abdominal wall associated with the prior anterior midline incision and adjacent to a wide necked bowel containing hernia. Labs Labs: Laboratory Results - last 24 hr 06/21/24 06/22/24 13:15 05:24 WBC 10.7 H 9.3 RBC 5.09 4.71 Hgb 16.6 15.5 Hct 51.5 47.9 MCV 101.2 H 101.7 H MCH 32.6 32.9 MCHC 32.2 32.4 RDW 16.5 H 16.2 H Plt Count 115 L 110 L MPV 11.5 H 11.6 H Immature Gran % (Auto) 0.6 H 0.4 Neut % (Auto) 82.7 H 81.7 H Lymph % (Auto) 8.3 L 8.6 L [place] % (Auto) 7.0 7.7 Eos % (Auto) 0.9 1.2 Baso % (Auto) 0.5 0.4 Lymph # (Auto) 0.89 L 0.80 L [place] # (Auto) 0.8 H 0.7 H Eos # (Auto) 0.1 0.1 Baso # (Auto) 0.1 0.0 Abs Immat Gran (auto) 0.06 H 0.04 H Absolute Neuts (auto) 8.9 H 7.6 H Absolute Nucleated RBC 0.020 H 0.000 Nucleated RBC % 0.2 0.0 % Immature Plt Fraction 8.7 7.4 Sodium 138 135 L Potassium 4.9 4.5 Chloride 103 104 Carbon Dioxide 16 L 16 L Anion Gap 19 H 15 H BUN 40 H 42 H Creatinine 1.94 H 1.84 H Estim Creat Clear Calc 43 45 Estimated GFR 34 L 37 L Glucose 93 82 Calcium 9.1 8.7 Total Bilirubin 3.1 H 2.0 H AST 41 39 ALT 39 37 Alkaline Phosphatase 222 H 240 H Total Protein 7.0 6.0 L Albumin 4.0 3.4 L
--- NOTE | 2024-06-22 15:02 | P.CONPL_ITS ---
Assessment and Plan Assessment and plan (1) Pleural effusion: Code(s): J90 - Pleural effusion, not elsewhere classified Status: Acute (2) Metastatic adenocarcinoma to liver: Code(s): C78.7 - Secondary malignant neoplasm of liver and intrahepatic bile duct Status: Acute (3) History of colon cancer, stage IV: Code(s): Z85.038 - Personal history of other malignant neoplasm of large intestine Status: Acute (4) Malignant neoplasm of colon metastatic to liver: Code(s): C18.9 - Malignant neoplasm of colon, unspecified; C78.7 - Secondary malignant neoplasm of liver and intrahepatic bile duct Status: Acute (5) Scoliosis (and kyphoscoliosis), idiopathic: Code(s): M41.20 - Other idiopathic scoliosis, site unspecified Status: Acute (6) Hemoptysis: Code(s): R04.2 - Hemoptysis Status: Acute Assessment and Plan: This patient, with a history of metastatic colon cancer and chronic treatment with Avastin chemotherapy, presented with a one-day history of hemoptysis. There were no other respiratory symptoms typically associated with a lower respiratory tract infection, such as cough with sputum production, fever, or chills. The hemoptysis was sudden in onset and persisted for approximately one day, with 10 episodes of coughing up blood until earlier today. The patient is currently not in respiratory distress and remains on room air. A CT pulmonary angiogram revealed a moderately large pleural effusion and infiltrates in the right lower and middle lobes. There was essentially no significant leukocytosis, and the patient is currently receiving treatment for possible community-acquired pneumonia. Although the radiographic findings could be compatible with pneumonia in an immunocompromised patient, the absence of other symptoms such as fever, sputum production, and elevated inflammatory markers does not support this diagnosis. Given the patient's long-term use of Avastin, there is concern that this hemoptysis, in the absence of other symptoms suggestive of a lower respiratory infection, could indicate Avastin-induced alveolar hemorrhage. Regarding the pleural effusion, it is likely chronic, as the patient has experienced progressively worsening shortness of breath for approximately six weeks prior to this admission. In the context of metastatic colon cancer, this could represent a malignant pleural effusion. Plan: Given the complexity of the patient's clinical condition and the atypical presentation for a lower respiratory tract infection manifesting solely as hemoptysis, and to rule out the rare possibility of Avastin-induced alveolar hemorrhage, the patient will be transferred to a tertiary center, preferably [facility], where he has received most of his cancer care. The case was discussed with the hospitalist. We need to exclude common viral diseases through PCR testing. There is no need to start the patient on heparin for DVT prophylaxis, and aspirin should be held. The current antibiotic regimen should be continued as ordered. History of Present Illness History of Present Illness Consult date: 06/22/24 Chief complaint: pneumonia Narrative: This 68-year-old man presented with a one-day history of hemoptysis. His significant past medical history includes stage IV colon cancer with metastases to the liver and a solitary metastatic tumor to the right upper abdominal wall, for which he completed radiation therapy last month. He also has metastatic disease to the lung and underwent colon resection in 2014. He has been on chemotherapy with Avastin and capecitabine for several years and receives treatment at [facility]. The patient reported progressively worsening shortness of breath over the last six weeks, which was not associated with other respiratory symptoms such as chest pain, palpitations, fever, chills, or wheezing. On the day of admission, he began coughing up bright red blood, experiencing at least 10 episodes since being admitted to the hospital, with the last occurrence this morning. He denied other respiratory symptoms like cough preceding the hemoptysis, fever, or chills but admitted to having very mild clear sputum, predominantly coughing up pure blood. A workup with a CT pulmonary angiogram revealed a new infiltrate in the right lower lobe and right middle lobe, along with a moderately large pleural effusion on the right side. There was no significant leukocytosis on the admission CBC. The patient has been on ceftriaxone and Zithromax for community-acquired pneumonia. His last dose of Avastin was administered last week. Over the years, following surgery for colon cancer, his clinical course has been complicated by bowel obstruction, postoperative intra-abdominal abscess, acute renal failure, and small bowel obstruction. His malignant neoplasm of the ascending colon was clinically staged as stage IVB (cT4b, cN2a, pM1B). Additionally, the chest CT showed a right lower lobe nodule measuring 0.5 cm and a left lower lobe nodule measuring 1.2 cm. Review of Systems 2 Review of Systems: Patient reports no significant weight changes although his weight has been fluctuating up and down. He sleeps in a recliner as he has some discomfort in supine position. He has no nausea vomiting diarrhea constipation abdominal pain. He has no urinary complaints. He has history of kidney stones. He noted some lower extremity pedal edema over the last week. He is a never smoker. All systems reviewed & are unremarkable except as noted in HPI and below PMFSH Past Medical History Medical History History of kidney stones Scoliosis (and kyphoscoliosis), idiopathic Malignant neoplasm of colon metastatic to liver History of colon cancer, stage IV Peripheral vascular disease with claudication Hypertension Port-A-Cath in place Morbid obesity Surgical History Surgical History S/P colon resection H/O carpal tunnel repair H/O hernia repair inguinal H/O lithotripsy 2024 Family History Family History Mother Cerebrovascular accident Other Carcinoma of colon Family history of cardiovascular disease Family history of congestive heart failure Social History Social History Smoking status: Never smoker Alcohol intake: never Do You Feel Safe in your Home?: Yes Lack of Transportation: No Lack of Food: Never True Current Housing: I Have Housing Concerned About Future Housing: No Difficulty Paying Gas/Electric Bills: No Difficulty Paying for Meds: No Currently Unemployed: No Education: High School Diploma/GED Difficulty w/ Childcare or Family Care: No Spiritual care concerns: No Meds Home Medications and Allergies Home Medications ?Medication ?Instructions ?Recorded ?Confirmed ?Type bevacizumab 25 mg/mL intravenous 25 mg intravitreal .every three 11/19/21 06/21/24 History solution (Avastin) weeks capecitabine 500 mg tablet 1,500 mg PO ONCE 11/19/21 06/21/24 History hydrocodone 5 mg-acetaminophen 325 1 tablet PO Q6H PRN pain 11/19/21 06/21/24 History mg tablet lisinopril 20 mg tablet 20 mg PO BID 11/19/21 06/21/24 History prednisone 20 mg tablet 10 mg PO DAILY 11/19/21 06/21/24 History ciprofloxacin 500 mg/5 mL oral 500 mg PO Q12H 04/29/24 06/21/24 History suspension ketorolac 10 mg tablet 10 mg PO Q8H 04/29/24 06/21/24 History tamsulosin 0.4 mg capsule 0.4 mg PO DAILY 04/29/24 06/21/24 History triamcinolone acetonide 0.1 % 1 applic topical BID 04/29/24 06/22/24 History topical cream Allergies Allergy/AdvReac Type Severity Reaction Status Date / Time No Known Allergies Allergy Verified 06/21/24 12:59 Vital Signs Vital Signs - 24 hr 06/21/24 15:15 06/21/24 15:30 06/21/24 15:45 Temperature Pulse Rate 99 99 101 H Respiratory Rate 21 H 22 H 20 Blood Pressure Pulse Oximetry 99 99 100 Oxygen Delivery 06/21/24 15:46 06/21/24 17:53 06/21/24 18:31 Temperature 36.5 C Pulse Rate 98 98 101 H Respiratory Rate 20 18 18 Blood Pressure 99/88 L 113/98 H 132/85 Pulse Oximetry 100 100 100 Oxygen Delivery 06/21/24 20:00 06/21/24 22:00 06/22/24 04:00 Temperature 36.1 C L 36.6 C Pulse Rate 96 91 Respiratory Rate 18 18 Blood Pressure 133/87 107/89 Pulse Oximetry 97 100 Oxygen Delivery Room Air 06/22/24 08:00 06/22/24 08:41 06/22/24 09:21 Temperature 36.5 C Pulse Rate 94 Respiratory Rate 18 Blood Pressure 107/77 Pulse Oximetry 100 98 Oxygen Delivery Room Air Room Air 06/22/24 09:22 06/22/24 09:27 06/22/24 14:37 Temperature 36.4 C Pulse Rate 92 91 99 Respiratory Rate 20 20 17 Blood Pressure 126/81 Pulse Oximetry 100 Oxygen Delivery Exam 2 Narrative: GENERAL APPEARANCE: Well developed, well nourished, alert and cooperative, and appears to be in no acute distress SKIN: Inspection of the skin reveals no rashes, ulcerations or petechiae. HEENT: Sclerae anicteric and conjunctivae pink and moist. Extraocular movements were intact and pupils were equal, round, and reactive to light. Dry oral mucosa. NECK: Supple. There was no thyroid enlargement, and no tenderness, or masses were felt. No JVD CHEST: Normal AP diameter and normal contour without any kyphoscoliosis. LUNGS: Dullness to percussion decreased breath sounds right base posteriorly no wheezing CARDIAC: There was a regular rate and rhythm without any murmurs, gallops, rubs. ABDOMEN: Soft and nontender with normal bowel sounds. There was no organomegaly. Mid line surgical scar. LYMPH NODES: No lymphadenopathy was appreciated in the neck, EXTREMITIES: No cyanosis, clubbing, 1+ pedal edema with chronic stasis dermatitis changes reviewed NEUROLOGIC: Alert and oriented x 3. Normal affect. Results Laboratory Findings 06/22/24 05:24 06/22/24 05:24 Abnormal lab findings: Abnormal Labs 06/21/24 06/22/24 13:15 05:24 WBC 10.7 H MCV 101.2 H 101.7 H RDW 16.5 H 16.2 H Plt Count 115 L 110 L MPV 11.5 H 11.6 H Immature Gran % (Auto) 0.6 H Neut % (Auto) 82.7 H 81.7 H Lymph % (Auto) 8.3 L 8.6 L Lymph # (Auto) 0.89 L 0.80 L [place] # (Auto) 0.8 H 0.7 H Abs Immat Gran (auto) 0.06 H 0.04 H Absolute Neuts (auto) 8.9 H 7.6 H Absolute Nucleated RBC 0.020 H Sodium 135 L Carbon Dioxide 16 L 16 L Anion Gap 19 H 15 H BUN 40 H 42 H Creatinine 1.94 H 1.84 H Estimated GFR 34 L 37 L Total Bilirubin 3.1 H 2.0 H Alkaline Phosphatase 222 H 240 H Total Protein 6.0 L Albumin 3.4 L
[2024-06-22] MEDS: cefTRIAXone 2 GM/NS 100 ML 2 GM/100 ML BAG IVPB (17:14)
--- NOTE | 2024-06-22 20:00 | PC.NURSE ---
AFTER SPEAKING WITH PT ABOUT CARE PLAN IMPORTANCE OF ESTABLISHING CLEAR CODE STATUS PT DECIDED TO CHANGE CODE STATUS FROM FULL CODE TO DNR. PT PERVIOUSLY HAD BEEN BACK AND FORTH TELLING STAFF DIFFERENT CODE STATUS DURING HIS HOSPITALIZATION. PT IS ALERT AND ORIENTED AND MAKES ALL OF HIS OWN HEALTHCARE DECISIONS. THIS INFORMATION WAS CONFIRMED BY SECOND RN RUKHSANA IRAHETA. [facility].
[2024-06-23] VITALS (11 sets, daily range): BP systolic 90–131; BP diastolic 69–85; PULSE 91–103; RESP 14–20; TEMP 36.6–37.2; O2SAT 93–100
[2024-06-23 05:27] LABS: Basophils Percent Auto 0.3 % (0.2-1.2); Eosinophils Absolute Auto 0.1 K/mm3 (0-0.3); Eosinophils Percent Auto 1.2 % (0-4.4); Hemoglobin 14.9 g/dL (14.0-18.0); Immature Granulocyte Absolute 0.06 K/mm3 (0.00-0.031); Immature Granulocyte Percent A 0.6 % (0-0.5); Immature Platelet Fraction Pct 7.3 % (0.9-11.2); Lymphocytes Absolute Auto 0.78 K/mm3 (0.9-3.2); Lymphocytes Percent Auto 7.8 % (18.3-44.2); Mean Corpuscular Hemoglobin 32.3 pg (26-34); Mean Corpuscular Volume 103.9 fl (80-100); Mean Platelet Volume 11.6 fl (7.4-10.4); Monocytes Absolute Auto 0.8 K/mm3 (0.1-0.6); Monocytes Percent Auto 7.5 % (2.6-8.5); Neutrophils Absolute Auto 8.2 K/mm3 (1.3-6.7); Neutrophils Percent Auto 82.6 % (45.5-73.1); Platelet Count Result 115 k/mm3 (150-375); Red Blood Count 4.62 M/mm3 (4.6-6.20); Red Cell Distribution Width 16.9 % (11.5-14.5)
[2024-06-23 05:37] LABS: INR 1.5; Prothrombin Time 18.6 Seconds (11.1-14.7)
[2024-06-23 05:42] LABS: Alanine Aminotransferase 34 U/L (6-50); Albumin Level 3.6 g/dL (3.5-5.1); Alkaline Phosphatase 218 U/L (38-126); Anion Gap 16 mmol/L (4-12); Aspartate Amino Transferase 33 U/L (17-59); Bilirubin,Total 1.9 mg/dL (0.2-1.3); Blood Urea Nitrogen 42 mg/dL (9-20); Calcium 9.4 mg/dL (8.4-10.2); Carbon Dioxide 19 mmol/L (22-30); Chloride 104 mmol/L (98-107); Estimated CRCL calculation 42 ml/min; Estimated Glomerular Filt Rate 34; Glucose 92 mg/dL (65-110); Magnesium 2.1 mg/dL (1.6-2.3); Potassium 5.5 mmol/L (3.4-5.0); Sodium 139 mmol/L (137-145)
[2024-06-23] MEDS: ONDANSETRON INJ 4 MG/2 ML VIAL IV PUSH ×2 (06:08→20:16)
--- NOTE | 2024-06-23 09:51 | P.PNIM_ITS ---
Progress Note: A&P Assessment and Plan (1) Pneumonia: Code(s): J18.9 - Pneumonia, unspecified organism Status: Acute Assessment and Plan: * Chest CTA showed pneumonia in the right middle lobe and lower lobe with large right pleural effusion, no pulmonary embolism, cardiomegaly, nodule in the right lower lobe measuring 5 mm, nodule in the left lower lobe measuring 1.2 cm * Patient given azithromycin and Rocephin while in the ED * Discontinue azithromycin due to increased QTC interval and started doxycycline. * Keep O2 sats greater than 92% * DuoNebs Continue antibiotics. Concern for alveolar hemorrhage due to ongoing Avastin therapy. Referral to tertiary center. He follows with Dr. Hodgson however [facility] is at capacity. Transferred to [facility] when bed available (2) Pulmonary nodules: Code(s): R91.8 - Other nonspecific abnormal finding of lung field Status: Acute Assessment and Plan: * Pulmonary nodules noted on CTA * See above plan of care (3) Pleural effusion: Code(s): J90 - Pleural effusion, not elsewhere classified Status: Acute Assessment and Plan: * Noted on x-ray and CTA * Will hold diagnosis thoracentesis until pulmonary evaluation * Discussed with pulmonary Suggested possible alveolar hemorrhage because of Avastin therapy. Suggested tertiary center referral. Discussed with Pulmonary at [facility] and accepts for transfer as well. (4) Peripheral vascular disease with claudication: Code(s): I73.9 - Peripheral vascular disease, unspecified Status: Acute Assessment and Plan: Severe PVD with claudication, bilateral feet were found to be cold with purple/blue toes, delayed capillary refill, palpable weak pulses bilaterally. Unknown how long he has been dealing with this. * Patient does have palpable weak pulses, delayed capillary refill * Aorta with runoff CTA was negative for aneurysm, dissection, or extravasation, moderate short segment popliteal stenosis on the left secondary to in a calcified plaque non filling likely occluded right posterior to artery with slow flow in the distal right peroneal and anterior tibial veins, no flow detected below the level of the right ankle, the left anterior tibial artery is occluded several cm beyond its takeoff with slow single vessel flow via the left posterior tibial artery below the level of the ankle. * Discussed with vascular surgery [facility]. Accepted for transfer * Concern for pulmonary hemorrhage and hence will not do heparin drip. * Continue pain control Pedal pulses are palpable at this point however does have cold peripheries in the forefoot. These findings could be chronic however will need vascular surgery evaluation (5) History of colon cancer, stage IV: Code(s): Z85.038 - Personal history of other malignant neoplasm of large intestine Status: Acute Assessment and Plan: * Patient has history colon cancer with Mets to the liver and the lung 2014. It appears that he was treated with right hemicolectomy followed by chemotherapy and radiation [facility]. He also had complication of a bowel perforation after radiation requiring colon resection which was further complicated by postoperative abscess. (6) Hypertension: Code(s): I10 - Essential (primary) hypertension Status: Acute Assessment and Plan: * * Normally on lisinopril 20 mg tablet however the primary care doctor held the medication??? * Continue to monitor. Blood pressure optimal Subjective Date/time seen: 06/23/24 09:51 Interval history: Today patient has evidence of hyperkalemia. Medications were reviewed. Patient denied albuterol treatment but agreed to Kayexalate. Repeat potassium is 5.5. Patient was given insulin 5 units and dextrose 50. Accu-Cheks will be done every 30 minutes until 2 - 3 hours. Review of Systems Review of Systems: All systems reviewed & are unremarkable except as noted in HPI and below Exam Narrative: General: In no acute distress, well nourished Head: atraumatic, no encephalopathy Eyes: PERRLA, sclera clear ENT: moist mucous membranes, nasal passages clear Neck: supple, no JVD, no adenopathy, trachea midline Cardiac: Normal S1 and S2. No murmur, gallops or friction rubs, peripheral pulses intact. Respiratory: Coarse breath sounds bilaterally no wheezes Gastrointestinal: soft, non-distended, non-tender, normoactive bowel sounds, Extremities: Bilateral lower extremity with cool peripheries. Dorsalis pedis pulse palpable Skin: No rashes Neuro: Alert and oriented x4, cranial nerves intact, no neuro deficits. Psych: normal mood, normal affect, interactive Objective Data Vital Signs Vital Signs: Vital Signs - 24 hr 06/22/24 14:37 06/22/24 19:57 06/22/24 20:16 Temperature 97.6 F 97 F L Pulse Rate 99 100 Respiratory Rate 17 20 Blood Pressure 126/81 145/95 H Pulse Oximetry 100 98 98 Oxygen Delivery Nasal Cannula Oxygen Flow Rate 3 03/11/25 20:42 06/22/24 22:59 06/23/24 03:21 Temperature 97 F L 98.9 F Pulse Rate 100 100 Respiratory Rate 18 20 Blood Pressure 139/95 H 131/85 Pulse Oximetry 97 100 100 Oxygen Delivery Nasal Cannula Oxygen Flow Rate 3 06/23/24 08:00 06/23/24 08:30 Temperature 97.8 F Pulse Rate 103 H Respiratory Rate 14 Blood Pressure 110/69 Pulse Oximetry 98 98 Oxygen Delivery Nasal Cannula Oxygen Flow Rate 3 Intake/Output Intake/Output: Intake & Output 06/21/24 06/21/24 06/22/24 06/23/24 00:59 23:59 23:59 23:59 Intake Total 350 640 320 Output Total 350 550 Balance 350 290 -230 Meds/Results Medications: Active Medications Generic Name Dose Route Start Last Admin Trade Name Freq PRN Reason Stop Dose Admin Acetaminophen 650 mg 06/22/24 03:38 Acetaminophen 325 Mg Tablet PO Q4H PRN Mild Pain (1-3) or Fever Hydrocodone Bitart/Acetaminophen 1 tab 06/22/24 03:38 06/22/24 23:00 Hydrocodone/Acetaminophen (*Crx) 5-325 Mg Tablet PO 1 tab Q4H PRN Administration Moderate Pain (4-6) Albuterol/Ipratropium 3 ml 06/23/24 08:32 Ipratropium 0.5 Mg/Albuterol Sulfate 2.5 Mg Ampul.Neb 3 Ml INHALATION Q6HRT PRN Wheezing Doxycycline Hyclate 100 mg 06/22/24 09:00 06/22/24 20:10 Doxycycline Hyclate 100 Mg Tablet PO 100 mg Q12HR LILLIAN Administration Enoxaparin Sodium 40 mg 06/22/24 09:00 06/22/24 10:28 Enoxaparin 40 Mg/0.4 Ml Syringe SUB-Q Not Given DAILY LILLIAN Ceftriaxone Sodium 2 gm in 100 mls @ 200 mls/hr 06/22/24 18:00 06/22/24 17:44 Rocephin 2 Gm/Ns 100 Ml IVPB Infused Q24H LILLIAN Infusion Morphine Sulfate 2 mg 06/22/24 03:38 Morphine Sulfate (*Crx) 2 Mg/Ml Inj IV PUSH Q4H PRN Pain Rated 7-10 Ondansetron HCl 4 mg 06/22/24 03:38 06/23/24 06:08 Ondansetron Inj 4 Mg/2 Ml Vial IV PUSH 4 mg Q6H PRN Administration Nausea And Vomiting Sodium Chloride 6 ml 06/23/24 05:00 Sodium Chlor 3% 15 Ml Neb (Respiratory Therapy) INHALATION 06/25/24 05:01 DAILY@0500 [facility] Triamcinolone Acetonide 1 applic 06/22/24 09:00 06/22/24 17:19 Triamcinolone Acet 0.1% Cream 15 Gm Tube TOPICAL 1 applic BID LILLIAN Administration Radiology Results: ITS Impressions Chest CTA 06/21/24 14:47 IMPRESSION: 1. Pneumonia in the right middle lobe and lower lobe with large right pleural effusion. 2. No pulmonary embolism. 3. Cardiomegaly 4. Nodule in the right lower lobe measuring 5 mm. 5. Nodule in the left lower lobe measuring 1.[address] follow-up advised. Aorta w/Runoff CTA 06/22/24 00:00 IMPRESSION: No arterial aneurysm, dissection, or extravasation. Moderate short segment popliteal stenosis on the left secondary to noncalcified plaque. Nonfilling, likely occluded right posterior tibial artery. Slow flow in the distal right peroneal and anterior tibial veins, no flow detected below the level of the right ankle. The left anterior tibial artery is occluded several centimeters beyond its takeoff. Slow, single vessel flow via the left posterior tibial artery below the level of the ankle. Right middle lobe opacities concerning for pneumonia. Trace left and moderate right pleural effusions. Gallbladder hydrops as can be seen with fasting or obstruction. 16 mm indeterminate density right midpole lesion, consider MRI or CT with and without contrast for further characterization. Irregular, 4.2 cm soft tissue mass at the infraumbilical anterior abdominal wall associated with the prior anterior midline incision and adjacent to a wide necked bowel containing hernia. Labs Labs: Laboratory Results - last 24 hr 06/23/24 04:31 WBC 10.0 RBC 4.62 Hgb 14.9 Hct 48.0 MCV 103.9 H MCH 32.3 MCHC 31.0 L RDW 16.9 H Plt Count 115 L MPV 11.6 H Immature Gran % (Auto) 0.6 H Neut % (Auto) 82.6 H Lymph % (Auto) 7.8 L [place] % (Auto) 7.5 Eos % (Auto) 1.2 Baso % (Auto) 0.3 Lymph # (Auto) 0.78 L [place] # (Auto) 0.8 H Eos # (Auto) 0.1 Baso # (Auto) 0.0 Abs Immat Gran (auto) 0.06 H Absolute Neuts (auto) 8.2 H Absolute Nucleated RBC 0.000 Nucleated RBC % 0.0 % Immature Plt Fraction 7.3 PT 18.6 H INR 1.5 Sodium 139 Potassium 5.5 H Chloride 104 Carbon Dioxide 19 L Anion Gap 16 H BUN 42 H Creatinine 1.97 H Estim Creat Clear Calc 42 Estimated GFR 34 L Glucose 92 Calcium 9.4 Magnesium 2.1 Total Bilirubin 1.9 H AST 33 ALT 34 Alkaline Phosphatase 218 H Total Protein 6.0 L Albumin 3.6 Quality VTE Prophylaxis VTE prophylaxis: pharmacologic ordered Hospitalist [facility] Advance Care Plan I have confirmed that the patient's Advanced Care Plan is present, code status is documented, or surrogate decision maker is listed in patient medical record.: Yes Medication Reconciliation I have utilized all available resources to obtain, update and review the patients current medications (includes all prescriptions, OTC, herbals, cannabis, and nutritional supplements).: Yes
[2024-06-23] MEDS: DOXYCYCLINE HYCLATE 100 MG TABLET PO (10:19)
--- NOTE | 2024-06-23 11:07 | ECG_ITS ---
Test Date: 2024-06-23 11:27:27 Measurements Intervals [place] Rate: 99 P: 62 PA: 199 QRS: -74 QRSD: 172 T: 78 QT: 409 QTc: 525 Interpretive Statements SINUS RHYTHM POSSIBLE LEFT ATRIAL ENLARGEMENT [-0.1mV P-WAVE IN V1/V2] LEFT AXIS DEVIATION [QRS AXIS < -30] LEFT BUNDLE BRANCH BLOCK [120+ ms QRS DURATION, 80+ ms Q/S IN V1/V2, 85+ ms R IN I/aVL/V5/V6] Compared to ECG 06/21/2024 12:59:15 Sinus tachycardia no longer present Electronically Signed On 06-23-2024 13:52:55 CDT by Armando Juarez M.D.
[2024-06-23 11:56] LABS: Potassium 5.5 mmol/L (3.4-5.0)
[2024-06-23] MEDS: TRIAMCINOLONE ACET 0.1% CREAM 15 GM TUBE 1 APPLIC TOPICAL ×2 (12:50→17:53)
[2024-06-23] MEDS: DEXTROSE 50% 25 GM/50 ML SYRINGE IV PUSH (13:42)
[2024-06-23] MEDS: INSULIN HUMAN REGULAR (*BKC) 100 UNITS/ML IV PUSH (13:42)
[2024-06-23] MEDS: ALBUTEROL SULFATE NEB 2.5 MG/3 ML INH 1.25 MG INHALATION (13:53)
[2024-06-23 14:33] LABS: Glucose Point of Care 124 mg/dl (65-105)
[2024-06-23 15:03] LABS: Glucose Point of Care 86 mg/dl (65-105)
[2024-06-23 15:52] LABS: Glucose Point of Care 109 mg/dl (65-105)
[2024-06-23 16:26] LABS: Glucose Point of Care 76 mg/dl (65-105)
[2024-06-23] MEDS: cefTRIAXone 2 GM/NS 100 ML 2 GM/100 ML BAG IVPB (17:35)
[2024-06-23] MEDS: HYDROcodone/acetaminophen (*CRX) 5-325 MG TABLET 1 TAB PO (17:41)
--- NOTE | 2024-06-23 21:22 | PC.NURSE ---
212 PT LEFT [facility]IA [facility] TO [facility].
--- NOTE | 2024-06-24 18:09 | P.TS_ITS ---
Transfer Discharge Sum: Prov Provider Date of admission: 06/21/24 16:38 Primary care physician: Juan Carpio MD Admitting clinician: Jermaine Rendon MD Consults: 06/22/24 13:14 Consult to Physician Routine Comment: Spoke to DR @1320 06/22 [facility] [place] Consulting Provider: Bryon Whiting call or contact centre coach/MD group to consult: pulmonary Reason for consultation: pneumonia Has provider been notified: Yes DS: Admitting Diagnosis Discharge Date 06/23/24 Admitting Diagnosis Shortness of breath/dyspnea DS: Discharge Diagnosis Discharge Diagnosis (1) Pneumonia: Code(s): J18.9 - Pneumonia, unspecified organism Status: Acute (2) Pulmonary nodules: Code(s): R91.8 - Other nonspecific abnormal finding of lung field Status: Acute (3) Pleural effusion: Code(s): J90 - Pleural effusion, not elsewhere classified Status: Acute (4) Peripheral vascular disease with claudication: Code(s): I73.9 - Peripheral vascular disease, unspecified Status: Acute (5) History of colon cancer, stage IV: Code(s): Z85.038 - Personal history of other malignant neoplasm of large intestine Status: Acute (6) Hypertension: Code(s): I10 - Essential (primary) hypertension Status: Acute Plan Transfer Discharge Sum: Med Medications Active and Home Medications: Home Medications bevacizumab 25 mg/mL intravenous solution (Avastin) 25 mg intravitreal .every three weeks 11/19/21 [History Confirmed 06/21/24] capecitabine 500 mg tablet 1,500 mg PO ONCE 11/19/21 [History Confirmed 06/21/24] hydrocodone 5 mg-acetaminophen 325 mg tablet 1 tablet PO Q6H PRN pain 11/19/21 [History Confirmed 06/21/24] lisinopril 20 mg tablet 20 mg PO BID 11/19/21 [History Confirmed 06/21/24] prednisone 20 mg tablet 10 mg PO DAILY 11/19/21 [History Confirmed 06/21/24] ciprofloxacin 500 mg/5 mL oral suspension 500 mg PO Q12H 04/29/24 [History Confirmed 06/21/24] ketorolac 10 mg tablet 10 mg PO Q8H 04/29/24 [History Confirmed 06/21/24] tamsulosin 0.4 mg capsule 0.4 mg PO DAILY 04/29/24 [History Confirmed 06/21/24] triamcinolone acetonide 0.1 % topical cream 1 applic topical BID 04/29/24 [History Confirmed 06/22/24] Transfer Discharge Sum: Hosp Hospital Course Hospital course: Joey Mckee is a 68 year old male with a significant past medical history of stage IV colon cancer with Mets to the liver, a solitary metastatic tumor to the right upper abdominal wall, metastatic disease to the lung status post colon resection in 2014 and had chemotherapy and radiation with complication of small bowel perforation after radiation which was further complicated by abscess formation, history of hypertension, inguinal hernia repair, kidney stones, morbid obesity who presented to the hospital with complaints of shortness of breath/dyspnea. Workup in the hospital included a chest CTA which showed pneumonia in the right middle lobe and lower lobe with large right pleural effusion, no PE, cardiomegaly, nodule in the right lower lobe measuring 5 mm, nodule in the left lower lobe measuring 1.2 cm. Initial labs showed a white blood cell count of 10.7, platelet count 15, bicarb 16, anion gap 19, creatinine 1.94, EGFR 34, total bilirubin 3.1, alkaline phosphate 222. EKG showed sinus tachycardia with a rate of 108, QTC 514. Patient was started on Rocephin and Azithromycin while in the ED. Nursing noted that both feet were cold and purple to Funmi MACDONALD and Funmi ordered an Aorta with runoff CTA which was negative for aneurysm, dissection, or extravasation, moderate short-segment popliteal stenosis on the left secondary to non calcified plaque, non filling likely occluded right posterior tibial artery with slow flow in the distal right peroneal and anterior tibial veins, no flow detected bit low the level of the right ankle. The left anterior tibial artery is occluded several cm beyond its takeoff, slow single-vessel flow via the left posterior tibial artery below the level of the ankle, right middle lobe opacities concerning for pneumonia, trace left and moderate right pleural effusions, gallbladder hydrops, 16 mm indeterminate density in the right midpole lesion, irregular 4.2 cm soft tissue mass at the infraumbilical anterior abdominal wall associated with prior anterior midline incision and adjacent to a wide necked bowel containing hernia.Given the complexity of the patient's clinical condition and the atypical presentation for a lower respiratory tract infection manifesting solely as hemoptysis, and to rule out the rare possibility of Avastin-induced alveolar hemorrhage, the patient will be transferred to a tertiary center, preferably [facility], where he has received most of his cancer care. I assumed care on 06/23 and patient was transferred to [facility] the same day. Time Spent with Patient Time attestation: Total time spent providing and/or coordinating transfer services: 45 minutes Exam Narrative: General: In no acute distress, well nourished Head: atraumatic, no encephalopathy Eyes: PERRLA, sclera clear ENT: moist mucous membranes, nasal passages clear Neck: supple, no JVD, no adenopathy, trachea midline Cardiac: Normal S1 and S2. No murmur, gallops or friction rubs, peripheral pulses intact. Respiratory: Coarse breath sounds bilaterally no wheezes Gastrointestinal: soft, non-distended, non-tender, normoactive bowel sounds, Extremities: Bilateral lower extremity with cool peripheries. Dorsalis pedis pulse palpable Skin: No rashes Neuro: Alert and oriented x4, cranial nerves intact, no neuro deficits. Psych: normal mood, normal affect, interactive DS: Data Imaging Radiologist's impression: ITS Impressions Chest CTA 06/21/24 14:47 IMPRESSION: 1. Pneumonia in the right middle lobe and lower lobe with large right pleural effusion. 2. No pulmonary embolism. 3. Cardiomegaly 4. Nodule in the right lower lobe measuring 5 mm. 5. Nodule in the left lower lobe measuring 1.[address] follow-up advised. Aorta w/Runoff CTA 06/22/24 00:00 IMPRESSION: No arterial aneurysm, dissection, or extravasation. Moderate short segment popliteal stenosis on the left secondary to noncalcified plaque. Nonfilling, likely occluded right posterior tibial artery. Slow flow in the distal right peroneal and anterior tibial veins, no flow detected below the level of the right ankle. The left anterior tibial artery is occluded several centimeters beyond its takeoff. Slow, single vessel flow via the left posterior tibial artery below the level of the ankle. Right middle lobe opacities concerning for pneumonia. Trace left and moderate right pleural effusions. Gallbladder hydrops as can be seen with fasting or obstruction. 16 mm indeterminate density right midpole lesion, consider MRI or CT with and without contrast for further characterization. Irregular, 4.2 cm soft tissue mass at the infraumbilical anterior abdominal wall associated with the prior anterior midline incision and adjacent to a wide necked bowel containing hernia.
== END 2024-06-23 21:26 | disposition short-term general hospital (02) | DRG 194 ==
LOC: ANHED 16:36 → ANH2MED 17:38
PROVIDERS: Nurse Practitioner Acute Care; Admitting Provider Internal Medicine; Emergency Provider Emergency Medicine; PCP Family Medicine; Visit Provider General Practice
DX: J18.9 Pneumonia, unspecified organism (principal); C78.7 Secondary malignant neoplasm of liver and intrahepatic bile duct; J90 Pleural effusion, not elsewhere classified; R04.2 Hemoptysis; I10 Essential (primary) hypertension; R91.8 Other nonspecific abnormal finding of lung field; I73.9 Peripheral vascular disease, unspecified; Z85.038 Personal history of other malignant neoplasm of large intestine; Z87.442 Personal history of urinary calculi
CPT/HCPCS: 36415; 71275; 75635; 80053; 82948; 83735; 84132; 85025; 85055; 85610; 93005; 94640; 99285; A9270; J0456; J0696; J1815; J2405; Q9967